=== PATIENT | female | born 1970 | race Caucasian/White ===

== ENCOUNTER 2016-09-08 10:12 | Inpatient (IN) ==
[~2016-09-08 10:12] MED LIST: AMIDATE IV ONE; NORCURON IV ONE; NORCURON ONE; QUELICIN IV ONE; QUELICIN ONE; STERILE WATER INJ. ONE
[2016-09-08] MEDS ORDERED: DIPRIVAN 1% 1,000 MG/100 ML BOTTLE IV SCH (10:36)
[2016-09-08 10:43] LABS: ALLEN TEST YES; BE -8.5 mmoll (-3.0-3.0); BLOOD TYPE ARTERIAL; DRAW SITE R RADIAL; METHB 1.5 % (0.0-1.5); O2(CT) 14.2 mL/dL (15.0-23.0); PCO2(98.6) 36 mmHg (35-45); PO2(98.6) 95 mmHg (60-100); SAMPLE BLOOD; SAO2 98.3 % (95.0-100.0); THB 10.6 g/dL (11.5-17.4); pH(98.6) 7.29 (7.35-7.45)
[2016-09-08 10:47] LABS: MODALITY PRB
[2016-09-08] MEDS: DIPRIVAN 1% 1,000 MG/100 ML BOTTLE IV SCH ×2 (11:48→20:58)
[2016-09-08] MEDS ORDERED: CLINDAMYCIN 900 MG/NS 900 MG/50 ML IVPB IV ONE (11:57)
--- NOTE | 2016-09-08 12:39 | Diag Imaging Result Document ---
PROCEDURE NAME: CHEST-PORTABLE - 09/08/2016 PORTABLE CHEST: No comparison exam. FINDINGS: There is an endotracheal tube with its tip approximately 1 cm above the isac. There is cardiomegaly. There is a prosthetic heart valve. There are bilateral infiltrates which are most prominent at the perihilar regions. There is no substantial pleural effusion, or pneumothorax identified. IMPRESSION: 1. Tip of endotracheal tube approximately 1 cm above the isac. 2. Cardiomegaly with apparent mild pulmonary edema/congestive heart failure.
--- NOTE | 2016-09-08 13:17 | Diag Imaging Result Document ---
PROCEDURE NAME: HEAD W/O CONTRAST - 09/08/2016 CT HEAD WITHOUT CONTRAST: TECHNIQUE: Dose-reduction protocol was used. COMPARISON: Compared with August 26, 2009. FINDINGS: There are postsurgical changes of left craniotomy similar to previous exam. There is encephalomalacia at the left temporal region which appears stable and is compatible with postsurgical change. There is an old lacunar infarct at the left inferior basal ganglia region. There is no indication of recent infarct, although acute infarcts may not be immediately visible. There is no evidence of intracranial hemorrhage, mass effect, or midline shift. The visualized portions of the paranasal sinuses appear clear. IMPRESSION: 1. Stable exam compared to August 26, 2009. Postsurgical changes of left craniotomy. Old lacunar infarct in left inferior basal ganglia region. 2. No visible acute process. No hemorrhage or mass effect. [facility]
[2016-09-08 14:04] LABS: BASO% 0.2 % (0.0-0.8); HEMATOCRIT 31.3 % (37.0-47.0); HEMOGLOBIN 10.4 g/dL (12.0-16.0); IMM GRAN# 0.14 X1000 (0.0-0.04); IMM GRAN% 0.6 % (0.0-0.5); LYMPH# 2.02 X1000 (1.2-3.4); LYMPH% 8.1 % (20.5-51.1); MANUAL DIFF NEEDED? NO; MCH 33.2 PG (27-31); MCHC 33.2 g/dL (33-37); MONO% 4.8 % (1.7-9.3); MPV 10.8 FL (7.4-10.4); NEUT% 86.3 % (42.2-75.2); PLT 59 X1000 (130-400); RBC 3.13 XMIL (4.2-5.4)
[2016-09-08 14:26] LABS: ALBUMIN 3.5 g/dL (3.5-5.0); CALCIUM 8.3 mg/dL (8.8-10.2); TOTAL BILIRUBIN 0.51 mg/dL (0.20-1.00); TOTAL PROTEIN 7.5 g/dL (6.3-8.3)
[2016-09-08] MEDS ORDERED: KAYEXALATE PR ONE ×2 (14:30→17:47)
[2016-09-08] MEDS ORDERED: NS 1,000 ML IV ONE ×2 (14:33→16:00)
--- NOTE | 2016-09-08 14:37 | PROVIDER DOCUMENTATION ---
This chart was entered by Keren Henderson Scribe, acting as scribe for Wilfrido Lockhart MD. HPI-Respiratory General - General Chief Complaint: Shortness of Breath Stated Complaint: RESPIRATORY DISTRESS Time Seen by Provider: 09/08/16 10:12 Source: family (difficult historians--limited), EMS Unable to obtain history due to:: urgency (intubated) Allergies/Adverse Reactions: Patient Allergies Allergy/AdvReac Type Severity Reaction Status Date / Time No Known Allergies Allergy Verified 09/08/16 14:08 Home Medications: Home Medication List Medication Instructions Recorded Confirmed Last Taken Type ATORVAstatin [Lipitor] 20 mg PO QHS 09/08/16 09/08/16 Unknown History Amitriptyline [Elavil] 50 mg PO HS 09/08/16 09/08/16 Unknown History Baclofen 20 mg PO TID 09/08/16 09/08/16 Unknown History Bisoprolol Fumarate [Zebeta] 10 mg PO HS 09/08/16 09/08/16 Unknown History Diazepam 5 mg PO BID 09/08/16 09/08/16 Unknown History Furosemide [Lasix] 80 mg PO DAILY 09/08/16 09/08/16 Unknown History Gabapentin 800 mg PO BID 09/08/16 09/08/16 Unknown History Hydrocodone/APAP 10 mg/325 mg 1 each PO TID 09/08/16 09/08/16 Unknown History [[place]-10] Levothyroxine [Synthroid] 75 microgm PO DAILY 09/08/16 09/08/16 Unknown History Losartan [Cozaar] 100 mg PO DAILY 09/08/16 09/08/16 Unknown History Niacin 500 mg PO HS 09/08/16 09/08/16 Unknown History Hart[place]-3 Fatty Acids [Hart[place]-3] 2 gm PO BID 09/08/16 09/08/16 Unknown History Pantoprazole [Protonix] 40 mg PO DAILY@0700 09/08/16 09/08/16 Unknown History Umeclidinium/Vilanterol [Anoro 1 puff INH NOW 09/08/16 09/08/16 Unknown History Ellipta 62.5-25 Mcg INH] Vitamin B Complex 1 tab PO DAILY 09/08/16 09/08/16 Unknown History Warfarin [Coumadin] 4 mg PO DAILY 09/08/16 09/08/16 Unknown History - History of Present Illness-Resp Nature of Presenting Problem: 45 yof presents to ed by amb with sob. Family states pt began having difficulty breathing last night and when they checked on her this morning she was foaming at the mouth and worse. Quality of Pain: reports: aching Severity in ED: reports: severe Onset/Duration: reports: last night Timing: reports: getting worse Exposure: reports: unknown cause Cough Quality/Degree: reports: no cough Episode Frequency: no prior episodes Current Respiratory Medication Therapy: Initiated steroid inhaler Modifying Factors: improves with: nothing Associated Symptoms: reports: shortness of breath Review of Systems - Adult - REVIEW OF SYSTEMS - ADULT Constitutional: reports: fever. denies: chills, fatique Eyes: reports: no symptoms reported Ears, Nose, Mouth & Throat: reports: no symptoms reported Cardiovascular: reports: no symptoms reported Respiratory: reports: shortness of breath. denies: cough, wheezing Gastrointestinal: reports: no symptoms reported Genitourinary: reports: no symptoms reported Musculoskeletal: reports: no symptoms reported Integumentary: reports: no symptoms reported Neurological: reports: no symptoms reported Psychiatric: reports: no symptoms reported Endocrine: reports: no symptoms reported Hematologic/Lymphatic: reports: no symptoms reported Allergic/Immunologic: reports: no symptoms reported All Other Systems: Reviewed and Negative Past History - Adult - PAST MEDICAL HISTORY-ADULT Review of Records: reports: Nursing Assessment Review, Medications Reviewed Cardiovascular: reports: 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) Genitourinary: reports: kidney disease (Stage IV) Neurological: reports: CVA (multiple, some hemorrhagic), Seizures/Epilepsy - PRIOR SURGERIES/PROCEDURES Surgical/Procedure History: reports: other (mechanical heart valve replacement, multiple craniotomies, carotid bypass with vein graft) - IMMUNIZATION STATUS Childhood Immunizations: See Nurse Assessment Flu Vaccine: See Nurse Assessment - SOCIAL HISTORY Smoking: cigarettes Living Situation: family Physical Exam-General - PHYSICAL EXAM-ADULT Initial Vital Signs Reviewed: Yes - CONSTITUTIONAL General Appearance: severe distress, obese, lethargic, slow to respond - EYES Eyes: PERRL/EOMI, pink conjunctivae - HEAD, EARS, NOSE, MOUTH & THROAT HENMT: normocephalic/atraumatic, moist mucous membranes, other (increased secretions and drooling) - NECK Neck: non-tender, full range of motion, supple - RESPIRATORY Respiratory: decreased breath sounds, accessory muscle use, rhonchi (left base) - CARDIOVASCULAR Cardiovascular: normal peripheral pulses, regular rate, rhythm, no edema, other (mechanical valve) - GASTROINTESTINAL (ABDOMEN) Abdominal Exam: soft, distended (obese). negative: rebound - LYMPHATIC Lymphatic: no adenopathy. negative: enlargement - MUSCULOSKELETAL Back Exam: normal inspection. negative: ecchymosis Extremity: normal range of motion, no pedal edema - SKIN Integumentary: normal color, normal turgor, warm/dry - NEUROLOGIC Neurologic: other (lethargic but answers some questions, increased drooling-not protecting airway). negative: facial droop, focal weakness - PSYCHIATRIC Psych/Mental Status: disheveled, depressed affect Progress - PLAN OF CARE/RESULTS Progress/Plan/Lab Results: Vital Signs - 8 hr 09/08/16 10:12 09/08/16 10:21 09/08/16 10:30 Temperature 101.3 F H Pulse Rate 105 H 102 H 100 H Respiratory Rate 33 H 31 H 19 Blood Pressure 136/93 124/93 O2 Sat by Pulse Oximetry 95 97 09/08/16 10:45 09/08/16 10:57 09/08/16 11:01 Temperature Pulse Rate 100 H 115 H 117 H Respiratory Rate Blood Pressure 145/99 139/91 O2 Sat by Pulse Oximetry 96 96 96 09/08/16 11:05 09/08/16 11:10 09/08/16 11:14 Temperature Pulse Rate 100 H 101 H 101 H Respiratory Rate 24 Blood Pressure 144/97 159/111 O2 Sat by Pulse Oximetry 92 L 97 96 09/08/16 11:15 09/08/16 11:20 09/08/16 11:26 Temperature Pulse Rate 101 H 101 H Respiratory Rate 23 24 Blood Pressure 147/109 155/118 O2 Sat by Pulse Oximetry 96 96 96 09/08/16 11:37 09/08/16 11:50 09/08/16 11:54 Temperature Pulse Rate 98 H 97 H 98 H Respiratory Rate 28 H 25 H Blood Pressure 161/116 119/99 134/87 O2 Sat by Pulse Oximetry 99 97 89 L 09/08/16 11:56 09/08/16 12:00 09/08/16 12:06 Temperature Pulse Rate 117 H 97 H 96 H Respiratory Rate Blood Pressure 122/89 121/74 136/90 O2 Sat by Pulse Oximetry 97 96 09/08/16 12:10 09/08/16 12:15 09/08/16 12:20 Temperature Pulse Rate 96 H 96 H 96 H Respiratory Rate Blood Pressure 133/90 118/92 131/93 O2 Sat by Pulse Oximetry 97 98 97 09/08/16 12:25 09/08/16 12:30 09/08/16 12:35 Temperature Pulse Rate 96 H 96 H 96 H Respiratory Rate Blood Pressure 132/94 133/92 131/96 O2 Sat by Pulse Oximetry 98 98 98 09/08/16 12:40 09/08/16 12:45 09/08/16 12:51 Temperature Pulse Rate 96 H 96 H 97 H Respiratory Rate Blood Pressure 137/96 140/97 148/97 O2 Sat by Pulse Oximetry 99 99 99 09/08/16 12:55 09/08/16 13:00 09/08/16 13:05 Temperature Pulse Rate 97 H 97 H 97 H Respiratory Rate Blood Pressure 143/98 143/100 145/97 O2 Sat by Pulse Oximetry 97 99 99 09/08/16 13:10 09/08/16 13:15 09/08/16 13:20 Temperature Pulse Rate 97 H 97 H 98 H Respiratory Rate Blood Pressure 143/101 145/98 141/101 O2 Sat by Pulse Oximetry 99 99 100 09/08/16 13:25 09/08/16 13:36 09/08/16 13:46 Temperature Pulse Rate 97 H 98 H 98 H Respiratory Rate Blood Pressure 143/103 147/101 125/95 O2 Sat by Pulse Oximetry 100 100 100 09/08/16 14:03 09/08/16 14:04 09/08/16 14:05 Temperature Pulse Rate 98 H 98 H 98 H Respiratory Rate Blood Pressure 125/95 131/95 130/88 O2 Sat by Pulse Oximetry 100 100 100 09/08/16 14:10 09/08/16 14:15 09/08/16 14:43 Temperature Pulse Rate 99 H 99 H 100 H Respiratory Rate Blood Pressure 129/96 124/103 134/93 O2 Sat by Pulse Oximetry 100 100 100 Laboratory Results - last 24 hr 09/08/16 09/08/16 09/08/16 10:36 10:42 11:00 WBC Cancelled RBC Cancelled Hgb Cancelled Hct Cancelled MCV Cancelled MCH Cancelled MCHC Cancelled RDW Std Deviation Cancelled Plt Count Cancelled MPV Cancelled Immature Gran % (Auto) Cancelled Neut % (Auto) Cancelled Lymph % (Auto) Cancelled [place] % (Auto) Cancelled Eos % (Auto) Cancelled Baso % (Auto) Cancelled Immature Gran # (Auto) Cancelled Neut # (Auto) Cancelled Lymph # (Auto) Cancelled [place] # (Auto) Cancelled Eos # (Auto) Cancelled Baso # (Auto) Cancelled Corrected WBC (Man) Cancelled Specimen Type ARTERIAL Sample Site R RADIAL pH 7.29 L pCO2 36 pO2 95 HCO3 18.3 L Base Excess -8.5 L Oxyhemoglobin 94.5 L ABG O2 Sat (Calculated) 14.2 L ABG O2 Saturation 98.3 ABG Carboxyhemoglobin 2.50 ABG Methemoglobin 1.5 Matt Test YES A-a O2 Difference 288.0 Total Hemoglobin 10.6 L Lactate 2.00 Liter Flow 10.0 Blood Gas Modality PRB FiO2 % 60.0 Sodium Potassium Chloride Carbon Dioxide Anion Gap BUN Creatinine Estimated GFR/1.73 m2 BUN/Creatinine Ratio Glucose Calculated Osmolality Calcium Total Bilirubin AST ALT Alkaline Phosphatase Total Protein Albumin Globulin Albumin/Globulin Ratio Plasma Lactate Cancelled 09/08/16 09/08/16 09/08/16 11:00 13:45 13:45 WBC 24.81 H RBC 3.13 L Hgb 10.4 L Hct 31.3 L MCV 100.0 H MCH 33.2 H MCHC 33.2 RDW Std Deviation 17.0 H Plt Count 59 L MPV 10.8 H Immature Gran % (Auto) 0.6 H Neut % (Auto) 86.3 H Lymph % (Auto) 8.1 L [place] % (Auto) 4.8 Eos % (Auto) 0.0 Baso % (Auto) 0.2 Immature Gran # (Auto) 0.14 H Neut # (Auto) 21.41 H Lymph # (Auto) 2.02 [place] # (Auto) 1.20 H Eos # (Auto) 0.00 Baso # (Auto) 0.04 Corrected WBC (Man) Specimen Type Sample Site pH pCO2 pO2 HCO3 Base Excess Oxyhemoglobin ABG O2 Sat (Calculated) ABG O2 Saturation ABG Carboxyhemoglobin ABG Methemoglobin Matt Test A-a O2 Difference Total Hemoglobin Lactate Liter Flow Blood Gas Modality FiO2 % Sodium Cancelled 135 L Potassium Cancelled 7.1 H* Chloride Cancelled 101 Carbon Dioxide Cancelled 18 L Anion Gap Cancelled 16 BUN Cancelled 57 H Creatinine Cancelled 4.8 H Estimated GFR/1.73 m2 Cancelled 10 BUN/Creatinine Ratio Cancelled 12 Glucose Cancelled 182 H Calculated Osmolality Cancelled 291 Calcium Cancelled 8.3 L Total Bilirubin Cancelled 0.51 AST Cancelled 31 H ALT Cancelled 31 Alkaline Phosphatase Cancelled 102 Total Protein Cancelled 7.5 Albumin Cancelled 3.5 Globulin Cancelled 4.0 Albumin/Globulin Ratio Cancelled 0.9 Plasma Lactate 09/08/16 13:45 WBC RBC Hgb Hct MCV MCH MCHC RDW Std Deviation Plt Count MPV Immature Gran % (Auto) Neut % (Auto) Lymph % (Auto) [place] % (Auto) Eos % (Auto) Baso % (Auto) Immature Gran # (Auto) Neut # (Auto) Lymph # (Auto) [place] # (Auto) Eos # (Auto) Baso # (Auto) Corrected WBC (Man) Specimen Type Sample Site pH pCO2 pO2 HCO3 Base Excess Oxyhemoglobin ABG O2 Sat (Calculated) ABG O2 Saturation ABG Carboxyhemoglobin ABG Methemoglobin Matt Test A-a O2 Difference Total Hemoglobin Lactate Liter Flow Blood Gas Modality FiO2 % Sodium Potassium Chloride Carbon Dioxide Anion Gap BUN Creatinine Estimated GFR/1.73 m2 BUN/Creatinine Ratio Glucose Calculated Osmolality Calcium Total Bilirubin AST ALT Alkaline Phosphatase Total Protein Albumin Globulin Albumin/Globulin Ratio Plasma Lactate 2.6 H Orders Category Date Time Status Dexter Cath Insertion ORDERED Care 09/08/16 14:35 Active NG/OG/Feeding Tube Insertion ORDERED Care 09/08/16 11:55 Active Nursing- MD Consult Request ROUTINE Care 09/08/16 14:33 Active Nursing- MD Consult Request ROUTINE Care 09/08/16 14:37 Active Nursing- MD Consult Request ROUTINE Care 09/08/16 14:38 Active MD [Physician/Provider Consults] Routine Cons 09/08/16 14:36 Ordered MD [Physician/Provider Consults] Routine Cons 09/08/16 14:37 Ordered Physician/Provider Consults Routine Cons 09/08/16 14:32 Ordered CHEST-PORTABLE [RAD] Stat Exams 09/08/16 10:27 Completed HEAD W/O CONTRAST [CT] Stat Exams 09/08/16 10:27 Completed ABG [RESP] Routine Lab 09/08/16 10:36 Completed BLOOD CULTURE [BLDCUL] Stat Lab 09/08/16 11:00 Results CBC WITH ELECTRONIC DIFF [HEME] Stat Lab 09/08/16 13:45 Completed COMPREHENSIVE METABOLIC PANEL [CHEM] Stat Lab 09/08/16 13:45 Completed LACTATE, PLASMA [CHEM] Stat Lab 09/08/16 13:45 Completed PRO B-NATRIURETIC PEPTIDE Stat Lab 09/08/16 13:45 Received PROTIME WITH INR [COAG] Stat Lab 09/08/16 14:41 Uncollected PTT [COAG] Stat Lab 09/08/16 14:41 Uncollected UR CREAT RANDOM [URCHEM] Stat Lab 09/08/16 14:37 Ordered UR SODIUM [URCHEM] Stat Lab 09/08/16 14:37 Ordered UR UREA NITROGEN RANDOM [URCHEM] Stat Lab 09/08/16 14:45 Uncollected urinalysis [URINALYSIS PL W/POSS RFLX CULT] [URINALYSIS Lab 09/08/16 14:37 Ordered ] Stat 0.9% Sodium Chloride Inj [Ns] 1,000 ml Med 09/08/16 14:33 Ordered IV 75 mls/hr 0.9% Sodium Chloride Inj [Ns] 1,000 ml Med 09/08/16 14:33 Ordered IV 999 mls/hr Ceftaroline Fosamil [Teflaro] 600 mg Med 09/08/16 14:45 Ordered 0.9% Sodium Chloride Inj [Ns] 250 ml IV Q12H Clindamycin 900 mg/Ns Med 09/08/16 11:57 Discontinued 900 mg in 50 ml IV NOW Etomidate [Amidate] Med 09/08/16 10:10 Discontinued 20 mg IV NOW ONE Piperacil/Tazobact 3.375 gm/Ns [Zosyn 3.375 gm/Ns] 50 Med 09/08/16 14:45 Ordered ml IV Q6H Propofol [Diprivan 1%] Med 09/08/16 12:00 Active 1,000 mg in 100 ml IV As Directed Sodium Polystyrene [Kayexalate] Med 09/08/16 14:30 Once 30 gm VT NOW ONE Succinylcholine [Quelicin] Med 09/08/16 10:06 Discontinued 200 mg .ROUTE .STK-MED ONE Succinylcholine [Quelicin] Med 09/08/16 10:10 Discontinued 200 mg IV NOW ONE Vecuronium [Norcuron] Med 09/08/16 10:06 Discontinued 10 mg .ROUTE .STK-MED ONE Vecuronium [Norcuron] Med 09/08/16 10:10 Discontinued 10 mg IV NOW ONE Water, Sterile Inj [Sterile Water Inj] Med 09/08/16 10:06 Discontinued 10 ml .ROUTE .STK-MED ONE Although pt was answering questions and following all commands she was very lethargic and did not appear to be maintaining her airway well. The decision to intubate was made shortly after arrival. Prolonged stay in the ER due to difficulty with blood draws. Result Diagrams: 09/08/16 13:45 09/08/16 13:45 - EKG 1 Rate: 100 Rhythm: NSR [place]: normal QRS: normal (prolonged QT) VT Interval: normal ST Wave: non-specific ST changes (flipped lateral T's) - XRAY 1 XRAY Study: Chest Impression: Abnormal XRAY Interpretation: CMG with bilateral infiltrates - CONSULTS/PCP/HOSPITALIST Notification #1 *Consult/PCP/Hospitalist*: Hospitalist Time Discussed: 14:15 Consult Disposition: Will see in ED, Admit Procedures - INTUBATION Time of Intubation: 10:15 Airway Evaluation: Obese, Copious Secretions Intubation Method: orotracheal Equipment: ETT Tube Size (cm): 7.5 Pretreated with 100% Oxygen?: Yes ETT Primary Tube Confirmation: Capnometry CO2 Change, Direct Visualization Intubation Complications: oral-unsuccessful attempt (x2--cords visualized but tube would slide down), vomited (suctioned between intubation attempts) Departure - Departure Time of Disposition Decision: 12:15 DIAGNOSIS: Acute respiratory failure, unspecified whether with hypoxia or hypercapnia Qualifiers: Respiratory failure complication: unspecified whether with hypoxia or hypercapnia Qualified Code(s): J96.00 - Acute respiratory failure, unspecified whether with hypoxia or hypercapnia Aspiration pneumonia of both lungs Qualifiers: Aspiration pneumonia type: unspecified Lung location: unspecified part of lung Qualified Code(s): J69.0 - Pneumonitis due to inhalation of food and vomit Acute renal failure Qualifiers: Acute renal failure type: unspecified Qualified Code(s): N17.9 - Acute kidney failure, unspecified Disposition: ADMITTED INPATIENT 09 Certified Medical Emergency: Emergent Condition: Critical Referrals and Follow-Ups: None,PCP [Primary Care Provider] - - Critical Care Note Total Time (mins): 60 Critical Care Statement: This patient required my direct personal management to treat or rule out processes, the absence of which, could potentiallly result in sudden, clinically significant life or limb threatening deterioration. This chart was documented by the indicated scribe, (Keren Henedrson Scribe) and accurately reflects the services I performed and decisions made by me, Wilfrido Lockhart MD, as attested by the provider's signature.
[2016-09-08 14:39] LABS: POTASSIUM 7.1 mmol/L (3.5-5.1)
[2016-09-08] MEDS ORDERED: HUMULIN R IV ONE ×3 (14:48→20:32)
[2016-09-08] MEDS ORDERED: D50W SYRINGE IV ONE ×3 (14:49→20:31)
[2016-09-08] MEDS ORDERED: SODIUM BICARBONATE 8.4% IV PUSH ONE ×2 (14:50→17:47)
[2016-09-08] MEDS ORDERED: CALCIUM GLUCONATE 1 GM in NS 50 ML IV ONE ×2 (15:00→17:47)
[2016-09-08] MEDS ORDERED: AMIDATE ONE (15:10)
[2016-09-08 15:21] LABS: INR 1.75; PROTIME 19.1 Seconds (9.2-11.7)
[2016-09-08 15:29] LABS: UR CREAT RANDOM 123.2 mg/dL (11-20)
[2016-09-08 15:32] LABS: PTT 55.7 Seconds (22.0-36.0)
[2016-09-08] MEDS ORDERED: HEPARIN ONE (15:55)
[2016-09-08] MEDS ORDERED: ZOFRAN IV PRN (16:44)
[2016-09-08] MEDS ORDERED: NS NEB INH SCH (16:44)
[2016-09-08] MEDS ORDERED: ZOSYN 3.375 GM/NS 3.375 GM/50 ML IVPB IV SCH (17:00)
[2016-09-08] MEDS: NS 1,000 ML IV SCH (17:38)
[2016-09-08] MEDS: PROTONIX IV SCH (17:38)
[2016-09-08 17:47] LABS: ALLEN TEST YES; BE -6.7 mmoll (-3.0-3.0); BLOOD TYPE ARTERIAL; DRAW SITE R RADIAL; METHB 1.3 % (0.0-1.5); MODALITY VENTILATOR; O2(CT) 12.9 mL/dL (15.0-23.0); PCO2(98.6) 34 mmHg (35-45); PO2(98.6) 106 mmHg (60-100); SAMPLE BLOOD; SRATE 16 BPM; THB 9.4 g/dL (11.5-17.4); TVOL 500 mL; pH(98.6) 7.34 (7.35-7.45)
--- NOTE | 2016-09-08 18:13 | Diag Imaging Result Document ---
PROCEDURE NAME: THORAX/ABDOMEN/PELVIS W/O CONT - 09/08/2016 CT OF THE CHEST WITHOUT CONTRAST: FINDINGS: There is an NG tube and an endotracheal tube. Endotracheal tube extends into the orifice of the right mainstem bronchus. The NG tube passes into the stomach. There are pleural fluid collections, mostly on the right. There are extensive dense and the patchy coarse alveolar opacities in the upper lobes bilaterally. To a lesser extent, there are patchy opacities in the lower lobes and a few small nodular and irregular patchy opacities are also present in the right middle lobe. This is much worse than on the previous study of 07/16/2010. Considerable beam hardening artifact is present due to the patient's arms being in the field of view. The regional skeleton appears to be stable. IMPRESSION: 1. Endotracheal tube in the right mainstem bronchus orifice. 2. Extensive patchy pneumonias, particularly in the upper lobes. 3. Pleural effusions, more so on the right than the left. CT UROGRAM WITHOUT CONTRAST: FINDINGS: There is a 15 mm gallstone in the neck of the gallbladder. The gallbladder does not appear to be inflamed. This was not appreciable on 07/16/2010. There are multiple surgical clips present in the right upper quadrant. There are no definite stones or hydronephrotic changes in the kidneys. There is an apparent cyst in the lower pole of the left kidney. The appendix is unremarkable. There is no evidence of bowel obstruction. There is a Dexter catheter in the urinary bladder which is completely decompressed. There is a 2.6 cm left ovarian cyst. There is no evidence of free air or free fluid. IMPRESSION: 1. Cholelithiasis. 2. Left ovarian cysts.
--- NOTE | 2016-09-08 18:17 | HISTORY AND PHYSICAL ---
PRIMARY CARE PROVIDER: No one currently. She did have a superior court justice and lumber kiln operator in [place], with a recent move to [place] 3 weeks ago. CHIEF COMPLAINT: Respiratory distress. HISTORY OF PRESENT ILLNESS: Ms. 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 Recent MVR mechanical valve at [place] 5 years ago, and has also had a brain surgery at the age of 18 that required omentum flap, but family was unsure what this was called. Apparently her who was not at the bedside states that she has been having a couple days of shortness of breath, was worsened last night. Apparently she woke him up this morning, making sounds and foaming at the mouth. She presented via EMS with shortness of breath and when given her acute decline was intubated in the ER. She was found to be febrile, a white count of 24,000, platelet count of 59,000. Her head CT only showed an old left inferior basal ganglia infarct. Her chest x-ray showed CHF with pulmonary edema. She had an elevated lactate. Will admit her to the ICU for further workup. MEDICAL HISTORY: 1. CVA x2, and TIAs. 2. 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 3. Congestive heart failure on Lasix. 4. Seizure disorder. 5. Hypothyroidism. 6. Depression. 7. Hyperlipidemia. 8. Hypertension. 9. COPD, apparently takes oxygen, is supposed to be on 4 L of nasal cannula 24 hours a day but has only been using it at night. 10. GERD. 11. Neuropathy, but no history of diabetes. SURGICAL HISTORY: 1. MVR mechanical valve at [place] 5 years ago. 2. Omentum flap brain surgery, some sort of arterial bypass at the age of 18, but the family is unable to describe what type of surgery it was. SOCIAL HISTORY: Smokes 1 pack per day. Denies alcohol or illicit drug use. Per the family, she just recently moved here from [place] 3 weeks ago and does not have any established physicians. FAMILY HISTORY: Positive for diabetes, hypertension, and coronary artery disease, and she had a grandfather who had colon cancer. REVIEW OF SYSTEMS: Unable to obtain. ALLERGIES: Time this is listed as no known drug allergies, but the mother said that she actually has a latex allergy but is unsure of the symptom or the reaction. HOME MEDICATIONS: Elavil 50 mg p.o. nightly. Lipitor 20 mg p.o. nightly. Baclofen 20 mg p.o. 3 times a day. Zebeta bisoprolol 10 mg p.o. nightly. Diazepam 5 mg p.o. twice daily. Lasix 80 mg p.o. daily. Neurontin 800 mg p.o. twice daily. [place] 10 1 tab p.o. 3 times a day. Synthroid 75 mcg p.o. daily. Cozaar 100 mg p.o. daily. Niacin 500 mg p.o. nightly. [place]-3 2 mg p.o. twice daily. Protonix 40 mg p.o. daily. Anoro Ellipta puffed/inhaled. Vitamin B complex 1 tab p.o. daily. Coumadin 4 mg p.o. nightly. LABORATORY DATA: White blood cells 24,000, hemoglobin 10, hematocrit 31, platelet count 59,000, INR 1.75, PTT 55.7. PH 7.29, pCO2 36, bicarb 18, base excess -8, saturation 94, lactate was 2, this was on partial rebreather prior to intubation, repeat ABGs have been ordered. Sodium 135, potassium 7.1, BUN 57, creatinine 4.8, glucose 182, calcium 8.3, total bilirubin 0.51, AST 31, ALT 31, proBNP greater than 35,000. Serum lactate 2.6. Urinalysis; apparently looks like it was canceled so I have reordered it. She did have urine random creatinine of 123.2, the sodium was 46, the urea nitrogen 517. IMAGING: Head CT: History of left craniotomy, old lacunar infarct in the left inferior basal ganglia region but no acute findings. Chest x-ray: ET tube is a centimeter above the isac, cardiomegaly, mild pulmonary edema suggestive of congestive heart failure. PHYSICAL EXAMINATION: VITAL SIGNS: Temperature 101.3 on admit, heart rate 99, blood pressure 124/103, O2 saturation 100% on mechanical ventilation. GENERAL: Ms. Reyes is 45-year-old, female, currently sedated on mechanical ventilation. HEENT: Atraumatic, normocephalic. Pupils equal, round, reactive to light at 2 mm. Mucous membranes are moist. NECK: No JVD or carotid bruits noted. CARDIOVASCULAR: S1, S2. Tachycardic rate and rhythm. No rubs, gallops, murmurs. PULMONARY: Clear to auscultation. Bilateral breath sounds. Course rhonchi seen in bilateral bases. GI: Soft, positive bowel sounds. EXTREMITIES: Trace edema in the lower extremities. +2 dorsalis radial pulses. SKIN: Warm, dry, intact. ASSESSMENT AND PLAN: 1. Acute hypoxemic respiratory failure with metabolic acidosis. Currently mechanically ventilated. Dr. Nguyen with Pulmonary has been consulted. Continue with Xopenex nebs. Will repeat ABGs now that patient is intubated. Chest x-ray repeat in the morning. Will have CT of the chest, abdomen and pelvis. 2. Acute kidney injury likely secondary to chronic kidney disease but we have no baseline. Apparently she saw a superior court justice when she is in [place]. We will do urine studies, place a Dexter, and strict ins and outs. She will have IV fluids at 75 an hour. 3. History of congestive heart failure but we have no documentation of ejection fraction. She is on Lasix at home but given her lactic acidosis, her elevated white count, her kidney failure, we will go ahead and do IV fluid hydration for now. 4. Anti phospholipid antibody syndrome. She has been on Coumadin since the age of 18. She seems to be subtherapeutic. We will do daily INRs. Currently the Coumadin is on hold. Given her kidney dysfunction and her subtherapeutic INR, curious as to if she is noncompliant with taking her medications. 5. History of cerebrovascular accident and transient ischemic attacks with left craniotomy. Per the mother and father, she has no residuals, she used to have a speech problem but went to therapy for that, no residuals now. The head CT today just showed an old left inferior basal ganglia infarct but nothing new or acute. 6. Hypothyroidism. Continue Synthroid but we will do TSH, T4 in the morning. 7. Chronic obstructive pulmonary disease versus asthma. Apparently she wears oxygen at home. She is supposed to wear it 24 hours a day but only wears 4 L at night. She was followed by a lumber kiln operator in [place]. Pulmonary has been consulted now. 8. No history of diabetes per the family but apparently she has neuropathy. We will check a hemoglobin A1c. 9. Gastroesophageal reflux disease. Continue proton pump inhibitor IV. 10. Depression. 11. Hyperlipidemia. 12. Hypertension. Stable. 13. Seizure disorder. No obvious seizures at this point, but family unsure. 14. Anemia. We will do anemia workup. 15. Acute kidney injury with hyperkalemia. She has had ordered Kayexalate but her potassium level was 7.1 and she is pre-acidotic, so ordered an ampule of bicarbonate, a gram of calcium gluconate, 8 units of IV insulin with a half ampule of D50, and we will be rechecking her potassium level shortly. 16. Tobacco abuse per the family. Will discuss cessation prior to discharge. Dictated by JAVIER Owens for Emilio Heller MD cc: JAVIER Owens MD
--- NOTE | 2016-09-08 18:39 | OPERATIVE NOTE ---
PROCEDURE DATE : 09/08/2016 PREOPERATIVE DIAGNOSES: 1. Phlebosclerosis. 2. Septic-like picture. POSTOPERATIVE DIAGNOSES: 1. Phlebosclerosis. 2. Septic-like picture. PROCEDURE PERFORMED: Ultrasound guided right common femoral triple lumen catheter placement. SURGEON: Dr. Will Ferraro PRODUCE ASSISTANT: None. ANESTHESIA: Local administered by the surgeon. FINDINGS: On ultrasound, the right common femoral vein was of substantial size to accommodate a triple lumen. BRIEF HISTORY: The patient is a 45-year-old female with multiple medical problems, who presented to the ER with a septic-like picture. She had altered mental status and respiratory failure. She was intubated in the ER. They had a difficult time getting IV access. They asked me to place a triple lumen catheter. Her INR was slightly elevated. It was felt that the patient would benefit from a triple lumen catheter. I elected to place it in her groin. We discussed with the family the risks, benefits and alternatives. DESCRIPTION OF PROCEDURE: After informed consent was obtained, the patient stayed in her ER bed, remained intubated. We prepped and draped the right groin in a sterile fashion. We were able to palpate a right femoral artery, but we used ultrasound to identify the vein. Under ultrasound guidance, I was able to cannulate the right common femoral vein, passed a wire easily into the vein, serially dilated it up in the typical Seldinger technique. I transferred the catheter over the wire and secured it in place. All ports were able to aspirate and flush blood easily. We placed a sterile dressing. The patient tolerated the procedure well and remained in the ED after the procedure. cc: Will Ferraro MD
[2016-09-08] MEDS ORDERED: XOPENEX NEB INH SCH (19:30)
[2016-09-08] MEDS ORDERED: TEFLARO 600 MG in NS 250 ML IV SCH (20:00)
[2016-09-08] MEDS ORDERED: ALBUTEROL 0.5% INH CONC FOR HYPERKALEMIA INH ONE (20:32)
[2016-09-08] MEDS: TEFLARO 300 MG in NS 250 ML IV SCH (20:53)
--- NOTE | 2016-09-08 21:24 | CONSULTATION ---
DATE OF CONSULTATION: 09/08/2016 REQUESTING PHYSICIAN: Emilio Heller MD REASON FOR CONSULTATION: Respiratory failure. HISTORY OF PRESENT ILLNESS: Ms. Reyes is a 45-year-old white female, history of antiphospholipid syndrome with hypercoagulopathy, history of ongoing tobacco use, history of COPD, history of chronic renal insufficiency, history of prior strokes and mitral valve replacement, prior history of intubation who has had the majority of her recent medical care in [place]. She is currently residing in [place]. The patient's reports over the last 2-3 days she has become hypersomnolent and spending time in bed, which is not her routine. The patient's went back to check on her and she appeared to be flushed. He went to get dressed and when he returned she was "foaming at the mouth"and was audible gurgling. The patient's called 911. She was brought to the emergency room. The patient's oxygen saturation was in the 80s by his report when the EMS arrived. The patient was intubated and initiated on mechanical ventilation in the emergency room. She had evidence of renal failure and hyperkalemia. Patient previously has had difficulty with her potassium and she was told to stop taking potassium tablets and to avoid bananas. She continues to eat bananas by her 's report. The patient was scheduled to get a sleep study greater than 2 months ago, but she did not go have that study performed. PAST MEDICAL HISTORY/PROBLEM LIST: 1. Antiphospholipid syndrome with histories of strokes at a young age. 2. Status post left carotid endarterectomy with an apparent vein graft taken from the right leg. 3. History of seizure disorder. 4. COPD with ongoing tobacco use. She is not wearing her oxygen continuously as prescribed. 5. Morbid obesity. 6. Possible sleep apnea with noncompliance on recent recommendation to get a sleep study. 7. Chronic renal insufficiency. Her reports she has less than 50% kidney function. 8. Hypertension. 9. Hypothyroidism. 10. Dyslipidemia. 11. History of neuropathy. 12. Status post brain surgery. 13. Status post mechanical valve replacement. SOCIAL HISTORY: No alcohol or drug use. Ongoing daily tobacco use. FAMILY HISTORY: Positive for heart disease. Colon cancer. Diabetes. Hypertension. REVIEW OF SYSTEMS: Cannot be obtained. PHYSICAL EXAMINATION: General: Reveals a morbidly obese, white female, who appears comfortable on mechanical ventilation. Vital signs: Blood pressure 113/75, heart rate 100, respiration rate 22, oxygen saturation 99%. HEENT: Pupils are equal and reactive. Oropharynx evaluation is limited. Neck: Reveals along the scar on the left side of her trachea from her previous vascular surgery. Chest: Reveals diffuse bilateral crackles. Cardiac: Regular rate. Normal S1, normal S2. Mitral valve click is soft. Abdomen: Obese. Extremities: Reveal trace to 1+ edema. LABORATORIES: White blood count 24.8 thousand, hemoglobin 10.4, platelet count is reduced at 59,000. INR is 1.75. Chemistry: Sodium 135, potassium 7.1 with a repeat 5.9, chloride 101, bicarbonate 18, BUN 59, creatinine 4.8, proBNP is greater than 35,000. Arterial blood gas on non- rebreather shows pH 7.29, pCO2 of 36, PO2 of 95, arterial blood gas on mechanical ventilation, pH 7.34, pCO2 of 34, PO2 of 106. IMAGING: CT scan of the abdomen and pelvis, and chest reveals endotracheal tube in the right mainstem bronchus opening, patchy bilateral pneumonia, pleural effusions, right greater than left. The abdomen reveals gallstones in the neck of the bladder without pericholecystic fluid. There is a cyst in the left kidney. There is a 2.6 cm left ovarian cyst. IMPRESSION: A 45-year-old with acute hypoxemic respiratory failure on the background of chronic hypoxemic respiratory failure. Acute hypercapnic respiratory failure most likely on the background of chronic hypercapnic respiratory failure. Bilateral pneumonia. Probable acute on chronic renal failure, hyperkalemia, altered mental status, ongoing tobacco use, noncompliance with recommendations for oxygen therapy, noncompliance with recommendation for sleep study, altered mental status. RECOMMENDATIONS: 1. Continue full ventilatory support. 2. Check sputum, urine and blood for cultures. 3. Nephrology to evaluate. 4. Echocardiogram to evaluate the mitral valve. 5. Routine bronchodilators. 6. Routine gastric acid suppression. 7. Initiation of an anticoagulant when her international normalized ratio is less than 1.5. 8. Additional recommendations pending hospital course. cc: Mack Nguyen MD
[2016-09-08] MEDS: DUONEB (A & A) INH SCH (22:33)
[2016-09-08 23:01] LABS: CALCIUM 7.6 mg/dL (8.8-10.2)
[2016-09-09] MEDS: DIPRIVAN 1% 1,000 MG/100 ML BOTTLE IV SCH ×8 (01:56→20:33)
[2016-09-09 02:16] LABS: URINE SOURCE CATH
[2016-09-09 02:19] LABS: BILIRUBIN URINE NEGATIVE (NEGATIVE); BLOOD URINE MODERATE (NEGATIVE); COLOR YELLOW; GLUCOSE URINE 300 mg/dL (NEGATIVE); LEUKOCYTES URINE TRACE (NEGATIVE); NITRITE URINE NEGATIVE (NEGATIVE); PROTEIN URINE 300 mg/dL (NEGATIVE); SP GRAVITY URINE 1.017; TURBIDITY URINE HAZY (CLEAR); URINE MICRO REVIEW NEEDED? YES; UROBILINOGEN URINE NORMAL (NORMAL)
[2016-09-09 02:23] LABS: UR EPITHELIAL CELLS <10 /HPF (<10); URINE BACTERIA 1+ /HPF; URINE CULTURE NEEDED? YES; URINE RBC <10 /HPF (<10)
[2016-09-09 02:34] LABS: HEMOGLOBIN A1C 6.4 % (4.8-6.0)
[2016-09-09] MEDS: ZOSYN 2.25 GM/NS 2.25 GM/50 ML IVPB IV SCH ×3 (02:37→15:22)
[2016-09-09 04:28] LABS: ALLEN TEST YES; BE -6.6 mmoll (-3.0-3.0); BLOOD TYPE ARTERIAL; DRAW SITE R RADIAL; METHB 1.6 % (0.0-1.5); O2(CT) 12.6 mL/dL (15.0-23.0); PCO2(98.6) 38 mmHg (35-45); PO2(98.6) 100 mmHg (60-100); SAMPLE BLOOD; SAO2 98.5 % (95.0-100.0); SRATE 16 BPM; THB 9.3 g/dL (11.5-17.4); TVOL 500 mL; pH(98.6) 7.31 (7.35-7.45)
[2016-09-09 04:29] LABS: MODALITY VENTILATOR
[2016-09-09] MEDS: PROTONIX IV SCH ×2 (04:29→16:22)
[2016-09-09] MEDS: NS 1,000 ML IV SCH ×2 (04:30→19:00)
[2016-09-09] MEDS: SODIUM CHLORIDE 0.9% INJ SCH ×2 (04:30→16:22)
[2016-09-09 04:44] LABS: MANUAL DIFF NEEDED? NO
[2016-09-09 04:51] LABS: BASO% 0.1 % (0.0-0.8); EOS# 0.03 X1000 (0.0-0.7); EOS% 0.2 % (0.0-10.0); HEMATOCRIT 23.3 % (37.0-47.0); HEMOGLOBIN 7.6 g/dL (12.0-16.0); IMM GRAN# 0.06 X1000 (0.0-0.04); IMM GRAN% 0.4 % (0.0-0.5); LYMPH# 1.75 X1000 (1.2-3.4); LYMPH% 11.3 % (20.5-51.1); MCH 33.3 PG (27-31); MCHC 32.6 g/dL (33-37); MCV 102.2 FL (81-99); MONO% 5.8 % (1.7-9.3); NEUT% 82.2 % (42.2-75.2); PLT 56 X1000 (130-400); RBC 2.28 XMIL (4.2-5.4)
[2016-09-09 05:01] LABS: INR 1.91; PROTIME 20.9 Seconds (9.2-11.7); PTT 41.2 Seconds (22.0-36.0)
[2016-09-09 05:32] LABS: FREE T4 0.75 ng/dL (0.93-1.70)
[2016-09-09 05:41] LABS: ALBUMIN 2.7 g/dL (3.5-5.0); MAGNESIUM 1.3 mg/dL (1.5-2.7); POTASSIUM 4.6 mmol/L (3.5-5.1); TOTAL BILIRUBIN 0.53 mg/dL (0.20-1.00); TOTAL PROTEIN 5.8 g/dL (6.3-8.3)
[2016-09-09] MEDS: SYNTHROID IV SCH (06:45)
[2016-09-09] MEDS: SODIUM CHLORIDE 0.9% INJ PRN (06:45)
[2016-09-09] MEDS: DUONEB (A & A) INH SCH ×6 (07:37→22:39)
--- NOTE | 2016-09-09 07:41 | EKG Report ---
Test Performed on : 09/09/2016 06:43:15 AM Test Reason : chest pain Blood Pressure : / mmHG Vent. Rate : 102 BPM Atrial Rate : 102 BPM P-R Int : 120 ms QRS Dur : 086 ms QT Int : 428 ms P-R-T Axes : 027 -08 236 degrees QTc Int : [address] \T\ Marked T wave abnormality, consider anterolateral ischemia Prolonged QT Abnormal ECG When compared with ECG of 08-SEP-2016 10:37, (Unconfirmed) Inverted T waves have replaced nonspecific T wave abnormality in Inferior leads T wave inversion more evident in Lateral leads QT has lengthened Confirmed by Aidan COUCH, Tre Weathers ([id number]) on 09/09/2016 9:37:57 AM
--- NOTE | 2016-09-09 08:10 | Diag Imaging Result Document ---
PROCEDURE NAME: CHEST-PORTABLE - 09/09/2016 ERECT AP PORTABLE CHEST, 09/09/2016 AT 0525 HOURS: FINDINGS: There is an endotracheal tube with its tip just above the isac. There is an NG tube which passes below the diaphragm. There has been some improvement in the alveolar opacities in the upper lung zones since 09/08/2016. There has been worsening with respect to the right lower lobe however. IMPRESSION: Improved pulmonary edema in the upper lung zones. The possibility of pneumonia in the right lower lobe cannot be excluded.
[2016-09-09] MEDS: TEFLARO 300 MG in NS 250 ML IV SCH ×2 (08:14→20:33)
[2016-09-09 09:41] LABS: CK INDEX 2.6 (0.0-2.5); CK-MB 5.24 ng/mL (0.0-5.0)
[2016-09-09 10:01] LABS: URINE SOURCE CATH
[2016-09-09 10:13] LABS: BILIRUBIN URINE NEGATIVE (NEGATIVE); BLOOD URINE MODERATE (NEGATIVE); COLOR YELLOW; GLUCOSE URINE 150 mg/dL (NEGATIVE); LEUKOCYTES URINE NEGATIVE (NEGATIVE); NITRITE URINE NEGATIVE (NEGATIVE); PROTEIN URINE 300 mg/dL (NEGATIVE); SP GRAVITY URINE 1.015; TURBIDITY URINE HAZY (CLEAR); UROBILINOGEN URINE NORMAL (NORMAL)
[2016-09-09 10:14] LABS: URINE MICRO REVIEW NEEDED? YES
[2016-09-09 10:16] LABS: UR EPITHELIAL CELLS <10 /HPF (<10); URINE BACTERIA NEGATIVE /HPF; URINE RBC <10 /HPF (<10)
[2016-09-09 10:49] LABS: HEMATOCRIT 21.7 % (37.0-47.0)
--- NOTE | 2016-09-09 10:51 | EKG Report ---
Test Performed on : 09/08/2016 10:37:24 AM Test Reason : ED. Not ordered in [place] Blood Pressure : / mmHG Vent. Rate : 100 BPM Atrial Rate : 100 BPM P-R Int : 134 ms QRS Dur : 094 ms QT Int : 390 ms P-R-T Axes : 049 013 -80 degrees QTc Int : 503 ms Normal sinus rhythm. ST \T\ T wave abnormality, consider anterolateral ischemia Prolonged QT Abnormal ECG When compared with ECG of 08-SEP-2016 10:33, (Unconfirmed) Sinus rhythm. has replaced Junctional rhythm. Questionable change in QRS duration Unconfirmed Result
[2016-09-09 10:52] LABS: URINE CASTS GRANULAR PRESENT
[2016-09-09 12:07] LABS: UR CREAT RANDOM 87.3 mg/dL (11-20); UR PROT RANDOM 380.6 mg/dL
--- NOTE | 2016-09-09 12:35 | CONSULTATION ---
DATE OF CONSULTATION: 09/09/2016 REASON FOR CONSULTATION: Renal failure. HISTORY OF PRESENT ILLNESS: Ms. Reyes is a 45-year-old white female with a complicated history. She has recently moved to the area and so we have no old data. She has a history of antiphospholipid syndrome and a history of strokes. She also has a history of COPD, obstructive sleep apnea, obesity, chronic kidney disease, hypothyroidism. She presented to the emergency room with 2-3 days of being hypersomnolent and difficult to arouse. Notes state that she became flushed and then "foaming at the mouth." She was therefore transferred to the emergency room where she was hypoxemic on arrival and treated with intubation. She was evaluated by Dr. Nguyen as well as Dr. Heller and was diagnosed with respiratory failure, hypercapnic with bilateral pneumonia. She had evidence of kidney disease on admission but again, we are not aware of her baseline. She has been treated aggressively with antibiotics and pulmonary toilet and ventilator support. In this context, she has not experienced hypotension and has continued to make urine. She has not had IV contrast administered because of her kidney disease. PAST MEDICAL HISTORY: As above. HOME MEDICATIONS: Include furosemide, niacin, hydrocodone, vitamin B complex, levothyroxine, bisoprolol, omega-3, gabapentin, baclofen, warfarin, diazepam, pantoprazole, Anoro Ellipta, losartan, amitriptyline, atorvastatin. ALLERGIES: None. SOCIAL HISTORY: She is . Ongoing tobacco use. No alcohol. FAMILY HISTORY: Positive for heart disease, colon cancer, diabetes, hypertension. PHYSICAL EXAMINATION: Vital Signs: Blood pressure 125/77, heart rate 102, respirations 22, afebrile, T-max 99.6 degrees. General: She is an obese, white female, sedated on the ventilator, no acute distress. Skin: Warm and dry. HEENT: Conjunctivae are pink and moist. Pupils are approximately 4 mm and symmetrical and reactive. Oropharynx is moist. Neck: Neck veins are not visible. There is a surgical scar on the left neck. Trachea is midline. Heart: Regular without murmurs or gallops or rubs. Lungs: Have equal breath sounds. No crackles or wheezes. Abdomen: Obese and soft. Bowel sounds are present. Extremities: Have no edema. There is a scar on the right lower leg. No clubbing or cyanosis. LABORATORY DATA: Sodium 146, potassium 4.6, chloride 108, bicarbonate 18, BUN 63, creatinine 5.3. Hemoglobin 7.6, platelet count 56,000, white blood cell count 14.5. Urinalysis with 300 protein, 300 glucose, moderate blood, less than 10 red blood cells. IMPRESSION: Renal failure. Chronicity is not clear. Her labs have not worsened significantly since admission. Urine output has remained good. We will try to obtain old lab data to build a history. Will complete her evaluation with complements, CHARLI, CK, LDH, urine protein, etc. Will repeat renal ultrasound for kidney measurements. cc: Adam Fritz MD
--- NOTE | 2016-09-09 13:57 | Diag Imaging Result Document ---
PROCEDURE NAME: US RENAL 2 (RETROPER) COMPLETE - 09/09/2016 COMPARISON: None available. FINDINGS: There are couple small simple appearing renal cysts on the left measuring up to 2.4 cm in the greatest dimension. The kidneys are grossly normal in echotexture, otherwise, with no discrete solid renal mass or hydronephrosis identified. The right kidney measures 10.5 cm and the left kidney measures 11.5 cm in the greatest longitudinal axes. The right renal cortex measures up to 1 cm and the left renal cortex measures up to 1.2 cm in thickness. There is a Dexter catheter in the urinary bladder. The bladder is nondistended. Incidentally, shadowing stones are noted in the gallbladder lumen with no definite wall thickening or pericholecystic fluid. IMPRESSION: 1. A couple small left renal cyst but essentially unremarkable renal ultrasound , otherwise. 2. Incidental cholelithiasis. [facility]
[2016-09-09] MEDS ORDERED: VENOFER IV ONE (14:07)
--- NOTE | 2016-09-09 14:21 | PROGRESS NOTE ---
DATE: 09/09/2016 SUBJECTIVE: Patient is sedated and intubated. OBJECTIVE: Vitals: Temperature 98.6 degrees, heart rate 99, respiratory rate 20, blood pressure 122/78. O2 saturation 100% on mechanical ventilator. General Examination: This is a chronically ill-looking and frail 45-year-old female lying in bed, in no acute distress. HEENT: Head is normocephalic, atraumatic. Anicteric sclerae. Pale conjunctivae. Mucous membranes moist. Neck: Supple. No jugular venous distention noted. No carotid bruits. No lymphadenopathy. No thyromegaly. Cardiovascular Examination: S1, S2 heard. No murmurs, gallops, or rubs. Regular rate and rhythm. Respiratory Examination: Coarse breath sounds present in both bases. The patient is intubated. The patient is not using any accessory muscles or having work of breathing. Abdomen: Soft, nontender to palpation. Bowel sounds present. No organomegaly. Extremities: No clubbing or cyanosis. Mild trace edema in both lower extremities. Peripheral pulses present but distant. Neurological examination: It is not possible to evaluate because of the clinical situation of the patient. LABORATORY DATA: White cell count 15.46, hemoglobin 7.6, hematocrit 23.3, platelets 56,000. ESR 127. ABG shows pH 7.31, pCO2 38, pO2 100. Sodium 143, potassium 4.6, chloride 108, bicarbonate 18, BUN 63, creatinine 5.3. GFR 9, calcium 8.6. Magnesium 1.3, phosphorus 5.4. ASSESSMENT AND PLAN: 1. Acute hypoxemic respiratory failure on ventilator. The patient FiO2 today is 50% and although the ABG looks the same today, pulmonary, who is following this patient, is not planning to do any weaning trial today. We will continue with the same management. 2. Bilateral pneumonia. Patient is on broad-spectrum antibiotics with sertraline and vancomycin. We are going to continue with the same management. The patient is also receiving nebulization with DuoNeb. 3. Acute on chronic kidney disease. We do not have any creatinine baseline because this patient came from [place] recently. We have consulted nephrology. Will go from there. 4. History of congestive heart failure. At this point, we do not have any documentation of ejection fraction. Considering that this patient is in the intensive care unit, we prefer to evaluated and order an echo at this time. We will follow recommendations. Will follow that result later. 5. Antiphospholipid antibody syndrome. Patient has been Coumadin by now. We have hold that medication considering that the hemoglobin is dropping. 6. Anemia, multifactorial. Hemoglobin continues to drop. At this point, we are going to order 2 units of blood and consult GI just in case gastrointestinal bleeding may explain this finding. At admission the hemoglobin was 10.4 and today is 7.0. 7. History of cerebrovascular accident. Aware of that. 8. Hypothyroidism. Will continue with Synthroid. 9. Chronic obstructive pulmonary disease. We will continue with nebulizations. 10. Depression, aware. 11. Hyperlipidemia. We will continue with home medications. 12. Hypertension. Blood pressure is under control. 13. Seizure disorder. Family is not sure about these finding. 14. Acute kidney injury. 15. Hyperkalemia. At this point, the potassium has been controlled and we mentioned consult Dr. Fritz for management of this condition. cc: Emilio Heller MD
[2016-09-09 16:37] LABS: HEMATOCRIT 22.1 % (37.0-47.0); INR 1.75; PTT 48.2 Seconds (22.0-36.0)
[2016-09-09] MEDS ORDERED: HEPARIN 25,000 UNITS/D5W 25,000 UNIT/250 ML IV.SOLN IV SCH (17:00)
[2016-09-09] MEDS ORDERED: MAGNESIUM SULFATE 2 GM/S.W.I. 2 GM/50 ML IVPB IV ONE (17:35)
[2016-09-10] MEDS: ZOSYN 2.25 GM/NS 2.25 GM/50 ML IVPB IV SCH ×4 (00:08→23:15)
[2016-09-10] MEDS: DIPRIVAN 1% 1,000 MG/100 ML BOTTLE IV SCH ×7 (01:08→20:54)
[2016-09-10] MEDS: DUONEB (A & A) INH SCH ×6 (02:56→23:00)
[2016-09-10] MEDS: PROTONIX IV SCH ×2 (04:09→16:00)
[2016-09-10 04:24] LABS: ALLEN TEST YES; BE -8.4 mmoll (-3.0-3.0); BLOOD TYPE ARTERIAL; DRAW SITE R RADIAL; METHB 1.5 % (0.0-1.5); O2(CT) 15.3 mL/dL (15.0-23.0); PCO2(98.6) 42 mmHg (35-45); PO2(98.6) 118 mmHg (60-100); SAMPLE BLOOD; SAO2 99.5 % (95.0-100.0); SRATE 16 BPM; THB 11.3 g/dL (11.5-17.4); TVOL 500 mL; pH(98.6) 7.25 (7.35-7.45)
[2016-09-10 04:25] LABS: MODALITY VENTILATOR
[2016-09-10 05:05] LABS: INR 1.73; PROTIME 18.8 Seconds (9.2-11.7)
[2016-09-10] MEDS: SYNTHROID IV SCH (06:30)
--- NOTE | 2016-09-10 07:34 | Diag Imaging Result Document ---
PROCEDURE NAME: CHEST-PORTABLE - 09/10/2016 SINGLE FRONTAL RADIOGRAPH OF THE CHEST: COMPARISON: 09/09/2016. FINDINGS: ET tube is in stable position. NG tube projects below the diaphragm and out of the field of view. Inspiration is suboptimal. Bilateral infiltrates most compatible with pulmonary edema are essentially stable. Pulmonary venous congestion is approximately stable. No new consolidations identified. Cardiac silhouette is stable. IMPRESSION: Stable chest.
[2016-09-10] MEDS: HEPARIN 25,000 UNITS/D5W 25,000 UNIT/250 ML IV.SOLN IV SCH ×2 (08:15→23:13)
[2016-09-10 08:20] LABS: MANUAL DIFF NEEDED? NO
[2016-09-10 08:35] LABS: BASO% 0.2 % (0.0-0.8); EOS% 3.5 % (0.0-10.0); HEMATOCRIT 23.6 % (37.0-47.0); HEMOGLOBIN 7.7 g/dL (12.0-16.0); IMM GRAN# 0.07 X1000 (0.0-0.04); IMM GRAN% 0.6 % (0.0-0.5); LYMPH% 12.1 % (20.5-51.1); MCH 32.8 PG (27-31); MCHC 32.6 g/dL (33-37); MCV 100.4 FL (81-99); MONO# 0.63 X1000 (0.11-0.59); MONO% 5.5 % (1.7-9.3); MPV 11.3 FL (7.4-10.4); NEUT% 78.1 % (42.2-75.2); PLT 57 X1000 (130-400); RBC 2.35 XMIL (4.2-5.4)
[2016-09-10 08:39] LABS: ALBUMIN 2.2 g/dL (3.5-5.0); CALCIUM 7.5 mg/dL (8.8-10.2); POTASSIUM 4.9 mmol/L (3.5-5.1)
[2016-09-10] MEDS ORDERED: VANCOMYCIN 1 GM/NS 1 GM/250 ML IVPB IV ONE (09:25)
[2016-09-10] MEDS: TEFLARO 300 MG in NS 250 ML IV SCH ×2 (10:06→20:54)
--- NOTE | 2016-09-10 10:39 | CONSULTATION ---
DATE OF CONSULTATION: 09/09/2016 ADMITTING PHYSICIAN: Dr. Emilio Heller. REQUESTING PHYSICIAN: Dr. Emilio Heller. We appreciate this consult. CHIEF COMPLAINT: Antiphospholipid antibody syndrome. HISTORY OF PRESENT ILLNESS: Ms. Reyes is an, unfortunate, 45-year-old, female with a history of antiphospholipid syndrome. She has been taking Coumadin since the age of 18. She does have a history of TIAs and significant stroke with no residual deficit. The patient had a recent MVR at [place] as well as brain surgery at the age of 18 that required an omentum flap. The patient's reported that the patient had been having a few days of shortness of breath that worsened the night before admission. He reported that she woke up making sounds and foaming at the mouth. She presented to [facility] Emergency Department via EMS with shortness of breath and in respiratory failure. She was emergently intubated in the Emergency Room. Additionally, she was found to be febrile with a white blood cell count of 24,000 and a platelet count of 59,000. CT of the head was obtained which revealed an old left inferior basal ganglia infarct. Chest x-ray showed congestive heart failure with pulmonary edema. Additionally, the patient had an elevated lactate. She was admitted to ICU, intubated on the ventilator for further workup. We are consulted for the patient's history of antiphospholipid antibody syndrome and the need for anticoagulation in the presence of a platelet count of 59,000. PAST MEDICAL HISTORY: 1. Known strokes x2. 2. Multiple transient ischemic attacks. 3. Antiphospholipid antibody syndrome, on Coumadin since the age of 18. 4. Congestive heart failure. 5. Seizure disorder. 6. Hypothyroidism. 7. Depression. 8. Hyperlipidemia. 9. Hypertension. 10. Chronic obstructive pulmonary disease, on home 02. 11. Gastroesophageal reflux disease. 12. Neuropathy. PAST SURGICAL HISTORY: 1. MVR 5 years ago. 2. Omentum flap brain surgery at the age of 18. SOCIAL HISTORY: The patient smokes 1 pack of cigarettes daily. She does not use alcohol or illicit drugs. The patient just moved to [place] 3 weeks ago from [place] and has not established primary care physician or hr leader at this time. FAMILY HISTORY: Significant for diabetes, hypertension, and coronary artery disease. She has a grandfather with a history of colon cancer. No other hematologic or oncologic problem. MEDICATIONS ON ADMISSION: 1. Elavil. 2. Lipitor. 3. Baclofen. 4. Zebeta bisoprolol. 5. Diazepam. 6. Lasix. 7. Neurontin. 8. [place]. 9. Synthroid. 10. Cozaar. 11. Niacin. 12. Villanueva. 13. Protonix. 14. Anoro Ellipta inhalation. 15. Vitamin B complex. 16. Coumadin 4 mg daily. ALLERGIES: Latex. REVIEW OF SYSTEMS: A 14-point review of systems was attempted and is unable to be obtained as the patient is intubated and presently minimally responsive. PHYSICAL EXAMINATION: General: Ms. Reyes is a 45-year-old, female, lying supine in bed, intubated on the ventilator, and minimally responsive. Vital Signs: Temperature 99.2 degrees, blood pressure 106/65, heart rate 111, respirations 24, O2 saturation is 95% on the ventilator. HEENT: Normocephalic, atraumatic. Mucous membranes are pale and moist. Sclerae is anicteric. Extraocular movements intact. Neck: Supple. Lungs: With coarse breath sounds throughout. Chest expansion is equal bilaterally. CV: S1, S2 is heard without murmur, rub, or gallop. Abdomen: Soft, nondistended, nontender. Bowel sounds are decreased throughout. Extremities: Without clubbing or cyanosis. She does have 1+ bilateral lower extremity edema. Dermatologic: No rashes, bruises, or lesions. Neurologic: The patient does withdraw to pain. She is currently intubated on the ventilator and nonverbal. LABORATORY DATA: Hemoglobin 7.6, hematocrit 23.3, white blood cell count 15.46, platelets 56,000. ANC 12.70. PT of 20.9, INR of 1.91. PTT is 41.2, sodium 146, potassium 4.6, chloride 108. CO2 is 18. BUN 63, creatinine 5.3, glucose is 250, calcium 8.0, phosphorus 5.4, magnesium 1.3, iron saturation 7, TIBC is 192, LFTs are within normal limits. B12 of 753. Folate 13.6, TSH is 0.65. UA is positive for UTI. ASSESSMENT AND PLAN: 1. Antiphospholipid antibody syndrome on chronic Coumadin therapy since the age of 18. The patient does currently have a platelet count of 56,000. After discussion with Dr. Anguiano, the patient will be placed on a heparin drip with no bolus. Additionally, we will order a cardiolipin antibody and antiphospholipid antibody. 2. Acute kidney insufficiency on chronic kidney disease. We agree with gentle hydration at this time. 3. History of stroke and transient ischemic attacks. The patient did undergo CT of the head, which was negative for any acute abnormality. We will obtain MRI of the brain when the patient is off the ventilator to rule out further stroke. 4. Congestive heart failure, currently stable. 5. Chronic obstructive pulmonary disease. The patient is currently intubated on the ventilator secondary to acute respiratory failure. 6. Diabetes mellitus, type 2. Currently, on insulin and stable. 7. Seizure disorder. The patient is on no antiepileptic drug at this time. She has had no recent seizures. We will follow along. 8. Iron-deficiency anemia. The patient will be given Venofer 200 mg today and 200 mg tomorrow as the patient is intubated on the ventilator and unable to take p.o. medication. 9. We will follow along with you and make further recommendations pending outcomes. The above reflects the history, physical, assessment and plan of Dr. Boris Anguiano. Dictated by JAVIER Howard for Boris Anguiano MD cc: JAVIER Howard MD
--- NOTE | 2016-09-10 10:52 | PROGRESS NOTE ---
DATE: 09/10/2016 SUBJECTIVE: This patient is still on mechanical ventilation and sedated. No acute events overnight. Even though she has been getting fluids, the BUN and creatinine are about the same. Actually, the creatinine increased from 5.3 to 5.6. Nephrology department is on board. We do not have any baseline or records of this patient at this moment. OBJECTIVE: Vital Signs: Temperature 96.8 degrees, pulse 96, respiratory rate 16, blood pressure 113/74, oxygen saturation 99 on mechanical vent. HEENT: Head normocephalic. No trauma. PERRLA. Neck: Supple. No JVD. No masses. Central trachea. Chest: Coarse breath sounds, mostly at the bases. No wheezing. Decreased air entry at the bases as well. The patient is intubated. Abdomen: Soft, nondistended. Positive bowel sounds. No organomegaly. Cardiovascular: RRR. No murmurs. Extremities: No clubbing. No cyanosis. No edema. Neurological: This patient is still on sedation and intubated. LABORATORY: WBC 11.5, hemoglobin 7.7, hematocrit 23.6, platelet 57,000. Sodium 144, potassium 4.9, chloride 108, bicarbonate 16, BUN 61, creatinine 5.6, glucose 128, calcium 7.5. ASSESSMENT AND PLAN: 1. Acute hypoxemic respiratory failure, on mechanical ventilation. Pulmonary department is following this patient. We will continue following their recommendations. 2. Bilateral pneumonia. This patient is on broad-spectrum antibiotics. Will continue with the same management. 3. Chronic kidney disease. We do not have a baseline on this patient. This patient apparently is coming from [place]. Nephrology is on board. The urine output is not adequate. 4. History of congestive heart failure. Also with this we do not have any documentation of the ejection fraction. We ordered already an echocardiogram, pending the results. 5. Antiphospholipid syndrome. This patient has been on Coumadin. We held the Coumadin and now hematology/oncology is following this patient. She is on a heparin drip. At this moment. 6. Anemia, status post 1 packed red blood cell. The hemoglobin increased from 7 to 7.7. Will continue to monitor. 7. History of cerebrovascular accident. Will continue with the same management. 8. Hypothyroidism. Continue with Synthroid. 9. Chronic obstructive pulmonary disease. Will continue with nebulization. 10. Depression. Aware. 11. Hyperlipidemia. Continue with home medication. 12. Hypertension. Blood pressure is under control. 13. Seizure disorder. Family is not sure about this finding as per our records and no family members are at the bedside. CRITICAL CARE TIME: 40 minutes. cc: Wild Palmer MD
[2016-09-10] MEDS: SODIUM BICARBONATE 8.4% 100 MEQ in D5W 1,000 ML IV SCH (11:03)
[2016-09-10] MEDS ORDERED: VENOFER IV ONE (14:08)
--- NOTE | 2016-09-10 14:40 | ECHO REPORT ---
ORDER DATE: 09/09/2016 INDICATION: CHF. Pulmonary edema. History of mechanical mitral valve. FINDINGS: This is a difficult study. The patient is 5 foot 3, weighs 241 pounds. These are difficult images with some off axis images 1. The right atrium is mildly enlarged at 4.2 cm. 2. Mild tricuspid regurgitation. Suggestion of pulmonary hypertension with an RV systolic pressure of 63. 3. Right ventricle was somewhat difficult to visualize. There is no clear evidence of abnormalities. There does appear to be normal RV systolic function. 4. Trace pulmonic insufficiency. 5. Mild left atrial enlargement at 4.5 cm. However visualization of the left atrium is difficult due to interference from mechanical valve. 6. There is a well-seated mechanical prosthetic in the mitral position. There does appear to be a significant amount of annular calcification associated with this. I do not see any clear evidence of perivalvular leak. The gradients across the valve are a peak of 31 with a mean of 17. I have no previous studies to compare this to. 7. Left ventricle appears to be normal in size. There is mild bordering on moderate left ventricular hypertrophy with a posterior and interventricular septal wall thickness 1.3 and 1.5 cm respectively. I believe there is likely normal LV systolic function with an estimated EF around 55%. I do not see any obvious focal segmental wall motion abnormalities but again this is a difficult study with off axis images. 8. Aortic valve appears to open well. No clear evidence of any significant stenosis or insufficiency. 9. Aorta appears normal visualized segments. 10. No pericardial effusion identified. cc: MD Stephanie Pacheco CRNP
--- NOTE | 2016-09-10 14:57 | PROGRESS NOTE ---
DATE: 09/10/2016 TIME SEEN: 0740 SUBJECTIVE: Ms. Reyes is resting quietly. She is sedated. She is ventilator dependent. OBJECTIVE: Her most recent vital signs: Temperature last taken 96.8 degrees, blood pressure 119/70, heart rate 103, respirations 16. She is on 40% FiO2. Last recorded saturation was 100%. Intake was 3773. Output was 2393 and 320 of that was per NG tube. LABORATORY DATA: This a.m., sodium 144, potassium 4.9, chloride 108, CO2 of 16 , BUN 61, creatinine 5.6, glucose 128. Anion gap is 20. Calcium 7.5, phosphorus 5.7, albumin 2.2. SPEP shows no monoclonal bands identified. CHARLI was negative. ANCA is still pending. White count 11.53, hemoglobin 7.7, hematocrit 23.6, with a platelet count of 57,000. PHYSICAL EXAMINATION: General: This is a 45-year-old white female. She appears chronically ill. She is in no acute distress. She is resting quietly, ventilator dependent. Skin: Warm and dry. HEENT: Normocephalic, atraumatic. Conjunctivae pale. She has DIONNE. Mucous membranes are dry. Neck: Supple. Trachea midline. Unable to determine JVD. Cardiovascular: Regular rate and rhythm. She is without murmur or gallop. She is slightly tachycardic on the monitor. No ectopy noted. Lungs: Diminished breath sounds. Clear to auscultation anteriorly, without crackles or wheezes. Ventilator dependence with equal excursion. Abdomen: Obese, soft, nontender. Positive bowel sounds. Extremities: No edema. Score noted to the right lower extremity. No clubbing or cyanosis. Several stages of ecchymosis that are healing to the upper and lower extremities. ASSESSMENT AND PLAN: 1. Renal failure on questionable chronic kidney disease. We still have pending records and labs to be obtained from previous facilities where patient has been treated. Her creatinine has continued to climb since her admission. BUN remains stable. She has had adequate urine out per Dexter catheter. No indications for intervention at this time. I had a discussion with her late in the day. They have been told that she has stage IV CKD and in fact have been threatened with dialysis in the past. I discussed dialysis and its role in the management of her acute illness. We also discussed placement of a vascath by surgery to facilitate dialysis treatment. He has some familiarity with dialysis because of a family member that required it in the past. He is willing for her to have a vascath and dialysis when indicated medically. We will observe and make this decision daily. rg 2. Electrolytes: These remain stable. 3. Acid-base balance. This remains low. Patient has had a sodium bicarbonate drip started this a.m. and continues at 75 mL an hour. We will evaluate in the a.m. 4. Prophylactic antibiotics. These are currently renally dosed. I would to thank you for allowing us to follow with this patient. Seen, data reviewed, discussed with Ezio Greenberg on 09/10/16. I agree with the above assessment and plan of care. rg Dictated by JAVIER Guido for Adam Fritz MD cc: JAVIER Guido MD [facility]
[2016-09-10] MEDS: SODIUM CHLORIDE 0.9% INJ SCH (16:00)
[2016-09-10] MEDS ORDERED: NS 250 ML ONE (16:15)
[2016-09-11] MEDS: DIPRIVAN 1% 1,000 MG/100 ML BOTTLE IV SCH ×8 (00:16→22:47)
[2016-09-11] MEDS: SODIUM BICARBONATE 8.4% 100 MEQ in D5W 1,000 ML IV SCH ×2 (03:10→12:00)
[2016-09-11] MEDS: DUONEB (A & A) INH SCH ×6 (03:35→22:44)
[2016-09-11] MEDS: PROTONIX IV SCH ×2 (04:49→16:26)
[2016-09-11 04:56] LABS: ALLEN TEST YES; BLOOD TYPE ARTERIAL; DRAW SITE R RADIAL; METHB 1.5 % (0.0-1.5); O2(CT) 10.2 mL/dL (15.0-23.0); PCO2(98.6) 36 mmHg (35-45); PO2(98.6) 78 mmHg (60-100); SAMPLE BLOOD; SAO2 97.7 % (95.0-100.0); SRATE 16 BPM; THB 7.6 g/dL (11.5-17.4); TVOL 500 mL
[2016-09-11 04:57] LABS: MODALITY VENTILATOR
[2016-09-11] MEDS: SYNTHROID IV SCH ×2 (05:46→06:05)
[2016-09-11 05:51] LABS: MANUAL DIFF NEEDED? NO
[2016-09-11 06:28] LABS: INR 1.49; PROTIME 16.1 Seconds (9.2-11.7)
[2016-09-11 06:32] LABS: ALBUMIN 2.1 g/dL (3.5-5.0); CALCIUM 7.8 mg/dL (8.8-10.2); POTASSIUM 4.4 mmol/L (3.5-5.1)
[2016-09-11 07:00] LABS: BASO% 0.1 % (0.0-0.8); EOS% 6.7 % (0.0-10.0); HEMATOCRIT 23.2 % (37.0-47.0); HEMOGLOBIN 7.6 g/dL (12.0-16.0); IMM GRAN# 0.04 X1000 (0.0-0.04); IMM GRAN% 0.5 % (0.0-0.5); LYMPH# 0.98 X1000 (1.2-3.4); LYMPH% 13.1 % (20.5-51.1); MCH 32.3 PG (27-31); MCHC 32.8 g/dL (33-37); MCV 98.7 FL (81-99); MONO# 0.35 X1000 (0.11-0.59); MONO% 4.7 % (1.7-9.3); MPV 10.1 FL (7.4-10.4); NEUT% 74.9 % (42.2-75.2); PLT 64 X1000 (130-400); RBC 2.35 XMIL (4.2-5.4)
--- NOTE | 2016-09-11 07:38 | Diag Imaging Result Document ---
PROCEDURE NAME: CHEST-PORTABLE - 09/11/2016 SINGLE FRONTAL RADIOGRAPH OF THE CHEST: COMPARISON: 09/10/2016. FINDINGS: ET tube is in stable position. NG tube projects below the diaphragm and out of the field of view. Diffuse infiltrates bilaterally are again noted. They may be marginally improved. No new consolidations are identified. Cardiac silhouette is stable. IMPRESSION: Suggestion of marginal improvement of bilateral infiltrates that probably represent pulmonary edema.
[2016-09-11] MEDS: TEFLARO 300 MG in NS 250 ML IV SCH ×2 (08:10→19:16)
[2016-09-11] MEDS ORDERED: MORPHINE ONE (08:16)
--- NOTE | 2016-09-11 08:31 | PROGRESS NOTE ---
DATE: 09/11/2016 SUBJECTIVE: She remains sedated on the ventilator. OBJECTIVE: Vital Signs: Blood pressure 107/61, heart rate 79, respirations 16, afebrile. General: She is sedated, but in no distress. Skin: Warm and dry. HEENT: Conjunctivae are mildly edematous. Pupils are equal and reactive. Oropharynx is dry. Neck: Neck veins are not visible. Heart: Regular. Lungs: Have equal breath sounds. No crackles. Abdomen: Obese and soft. Bowel sounds are present. Nontender. Extremities: Have trace edema. No clubbing or cyanosis. LABORATORY DATA: Sodium 144, potassium 4.4, chloride 108, bicarbonate 17. BUN 59, creatinine 5.5. Hemoglobin 7.6. IMPRESSION AND PLAN: Acute kidney injury overlying chronic kidney disease. Her creatinine has been stable over the last 48 hours and her urine output is acceptable. She has no absolute indications for dialysis. If Dr. Nguyen needs help with her volume management in order to manage her ventilator, then we will be glad to use dialysis. I discussed this with the family yesterday. Otherwise, no change in her treatment today. She is on IV bicarbonate drip and her serum bicarbonate is appropriate and her pH is appropriate. cc: Adam Fritz MD
[2016-09-11] MEDS: ZOSYN 2.25 GM/NS 2.25 GM/50 ML IVPB IV SCH ×2 (09:41→16:26)
[2016-09-11] MEDS: HEPARIN 25,000 UNITS/D5W 25,000 UNIT/250 ML IV.SOLN IV SCH (12:28)
--- NOTE | 2016-09-11 14:21 | PROGRESS NOTE ---
DATE: 09/11/2016 SUBJECTIVE: This patient is still on mechanical ventilation and sedated. No acute events overnight. The BUN and creatinine is about the same compared with yesterday but the urine output looks like it is getting better. So far 1.7 L. Nephrology department and rest him pulmonary department are following this patient. OBJECTIVE: Vital Signs: Temperature 96.8 degrees, pulse 88, respiratory rate 16, blood pressure 115/69, oxygen saturation 98 on mechanical ventilation. HEENT: Head normocephalic. No trauma. PERRLA. Neck: Supple. No JVD. No masses. Central trachea. Chest: Coarse breath sounds mostly at the bases. No wheezing. Decreased air entry bilaterally but mostly at the bases as well. Patient is intubated. Abdomen: Soft, nondistended. Positive bowel sounds. No hepatosplenomegaly. Cardiovascular: RRR. No murmurs. Extremities: No clubbing. No cyanosis. No edema. Neurological: The patient is still on sedation and intubated. LABORATORY: WBC 7.4, hemoglobin 7.6, hematocrit 23.2, platelets 64,000. Sodium 144, potassium 4.4, chloride 108, bicarbonate 17, BUN 59, creatinine 5.5, glucose 135, calcium 7.8. ASSESSMENT AND PLAN: 1. Acute hypoxemic respiratory failure, on mechanical ventilation. Pulmonary department is following this patient. Will continue following their recommendations. 2. Bilateral pneumonia. This patient is on broad-spectrum antibiotics. We will continue with the same management for now. 3. Chronic kidney disease. We do not have a baseline on this patient. This patient apparently is coming from [place]. Nephrology is on board. The urine output is getting better. Today it is 1.7 so far. 4. History of congestive heart failure. We do not have any documentation of the ejection fraction. We did an echocardiogram, pending the results. 5. Metabolic acidosis, likely related to chronic kidney disease, infection. This patient is receiving IV fluids with bicarbonate. 6. Antiphospholipid syndrome. This patient has been on Coumadin but now she is on heparin drip. We will continue to monitor. Hematology/oncology department is following this patient. 7. Anemia status post 1 unit packed red blood cell. The hemoglobin is around the same compared with yesterday. We will continue to monitor. 8. History of cerebrovascular accident. Continue with the same management. 9. Hypothyroidism. Continue with Synthroid. 10. Chronic obstructive pulmonary disease. Continue with nebulization. 11. Depression. Aware. 12. Hyperlipidemia. Continue with home medication. 13. Hypertension. The blood pressure is under control. 14. Seizure disorder. I have not seen any family members. I am not quite sure if this patient has a seizure disorder. We will continue to monitor in the ICU. CRITICAL CARE TIME: 40 minutes. cc: Wild Palmer MD
[2016-09-11] MEDS: LASIX IV SCH ×3 (14:45→16:25)
[2016-09-11] MEDS ORDERED: VANCOMYCIN 500 MG/NS 500 MG/100 ML IVPB IV ONE (18:00)
[2016-09-12] MEDS: SODIUM BICARBONATE 8.4% 100 MEQ in D5W 1,000 ML IV SCH ×4 (00:52→17:09)
[2016-09-12] MEDS: ZOSYN 2.25 GM/NS 2.25 GM/50 ML IVPB IV SCH ×3 (00:54→15:48)
[2016-09-12] MEDS: HEPARIN 25,000 UNITS/D5W 25,000 UNIT/250 ML IV.SOLN IV SCH ×3 (01:06→17:08)
[2016-09-12] MEDS: DIPRIVAN 1% 1,000 MG/100 ML BOTTLE IV SCH ×8 (02:36→21:11)
[2016-09-12] MEDS: DUONEB (A & A) INH SCH ×6 (03:03→22:20)
[2016-09-12] MEDS: LASIX IV SCH ×3 (03:08→21:43)
[2016-09-12 04:11] LABS: ALLEN TEST YES; BE -3.8 mmoll (-3.0-3.0); BLOOD TYPE ARTERIAL; DRAW SITE R RADIAL; METHB 1.6 % (0.0-1.5); O2(CT) 13.2 mL/dL (15.0-23.0); PCO2(98.6) 46 mmHg (35-45); PO2(98.6) 108 mmHg (60-100); SAMPLE BLOOD; SAO2 98.6 % (95.0-100.0); SRATE 16 BPM; THB 9.7 g/dL (11.5-17.4); TVOL 500 mL
[2016-09-12 04:12] LABS: MODALITY VENTILATOR
[2016-09-12] MEDS: PROTONIX IV SCH ×2 (05:00→17:15)
[2016-09-12] MEDS: SODIUM CHLORIDE 0.9% INJ SCH ×2 (05:00→17:16)
[2016-09-12 05:09] LABS: MANUAL DIFF NEEDED? NO
[2016-09-12 05:15] LABS: BASO% 0.3 % (0.0-0.8); EOS# 0.49 X1000 (0.0-0.7); EOS% 7.4 % (0.0-10.0); HEMATOCRIT 23.7 % (37.0-47.0); HEMOGLOBIN 7.8 g/dL (12.0-16.0); IMM GRAN# 0.02 X1000 (0.0-0.04); IMM GRAN% 0.3 % (0.0-0.5); LYMPH# 0.72 X1000 (1.2-3.4); LYMPH% 10.8 % (20.5-51.1); MCH 32.4 PG (27-31); MCHC 32.9 g/dL (33-37); MCV 98.3 FL (81-99); MONO# 0.42 X1000 (0.11-0.59); MONO% 6.3 % (1.7-9.3); MPV 10.7 FL (7.4-10.4); NEUT% 74.9 % (42.2-75.2); PLT 56 X1000 (130-400); RBC 2.41 XMIL (4.2-5.4)
[2016-09-12 05:23] LABS: INR 1.35; PROTIME 14.4 Seconds (9.2-11.7)
[2016-09-12 05:24] LABS: PTT 67.5 Seconds (22.0-36.0)
[2016-09-12 05:43] LABS: ALBUMIN 2.3 g/dL (3.5-5.0); CALCIUM 7.6 mg/dL (8.8-10.2); MAGNESIUM 1.6 mg/dL (1.5-2.7); POTASSIUM 4.6 mmol/L (3.5-5.1); RANDOM VANCOMYCIN 17.7 ug/mL (5.0-80); TOTAL BILIRUBIN 1.27 mg/dL (0.20-1.00); TOTAL PROTEIN 6.3 g/dL (6.3-8.3)
[2016-09-12] MEDS: SODIUM CHLORIDE 0.9% INJ PRN (06:07)
[2016-09-12] MEDS: SYNTHROID IV SCH (06:08)
--- NOTE | 2016-09-12 07:25 | Diag Imaging Result Document ---
PROCEDURE NAME: CHEST-PORTABLE - 09/12/2016 PORTABLE CHEST X-RAY: COMPARISON: 09/11/2016. FINDINGS: Stable significant cardiomegaly. Stable endotracheal tube and nasogastric tube in good position. Stable mixed bilateral diffuse infiltrates compatible with edema. Stable bibasilar atelectasis or effusions. IMPRESSION: No change from prior.
[2016-09-12] MEDS: TEFLARO 300 MG in NS 250 ML IV SCH ×2 (08:27→19:54)
--- NOTE | 2016-09-12 10:00 | PROGRESS NOTE ---
DATE: 09/12/2016 TIME SEEN: 0815. SUBJECTIVE: Ms. Reyes is resting quietly in bed. She is ventilator dependent. She is currently on a sedation vacation. She does blink her eyes to verbal command. Otherwise she is in no distress. OBJECTIVE: Vital Signs: Temperature 98.1 degrees, blood pressure 131/75, heart rate 82, respirations 16. She is on 40% FiO2. Her last recorded saturation is 98%. She has had 3325 in, 3785 out per NG and per Dexter. Labs: Sodium 145, potassium 4.6, chloride 103 , CO2 21, BUN 61, creatinine 5.5, glucose 117. Her anion gap 21, calcium 7.6, phosphorus 9.2, albumin 2.3. White count 6.66, hemoglobin 7.8, hematocrit 23.7, with a platelet count of 56,000. PHYSICAL EXAMINATION: General: This is a 45-year-old white female. She is in no acute distress. Skin: Warm and dry. HEENT: Normocephalic, atraumatic. Conjunctiva is pale. She has DIONNE. Mucous membranes are dry. Neck: Supple. Trachea midline. No JVD. Cardiovascular: Regular rate and rhythm. Without murmur or gallop appreciated. Lungs: Equal breath sounds. No crackles auscultated. Some expiratory wheeze to the left upper lobe. Abdomen: Obese, soft, nontender. Positive bowel sounds. Genitourinary: Dexter catheter remains in place. Extremities: Have trace pretibial edema. No clubbing or cyanosis. Neurological: As above. ASSESSMENT AND PLAN: 1. Acute kidney injury overlying chronic kidney disease. Baseline creatinine appears to be about 2.5. Her creatinine has been stable and she has no acute indications for HD so I will continue to monitor without treatment. rg 2. Electrolytes. These are stable. 3. Acid-base balance. This remains stable with her sodium bicarbonate drip. 4. Anemia. This remains low but stable with no need for intervention. 5. Respiratory failure. This is currently being followed by Dr. Nguyen with no indications for fluid volume overload and need for dialysis for management. We will remain available if needed. I would like to thank you for allowing us to follow with this patient. Seen, data reviewed, discussed with Ezio Greenberg on 09/12/16. I agree with the above assessment and plan of care. rg Dictated by JAVIER Guido for Adam Fritz MD cc: JAVIER Guido MD [facility]
--- NOTE | 2016-09-12 13:46 | PROGRESS NOTE ---
DATE: 09/12/2016 SUBJECTIVE: This patient is still on mechanical ventilation. When I evaluated this patient, she was not receiving propofol. She was sleepy, but arousable. She was extremely weak, but she was following commands. OBJECTIVE: Vital Signs: Temperature 98.6 degrees, pulse 91, respiratory rate 17, blood pressure 125/71, oxygen saturation 94% on mechanical ventilation, 40% oxygen flow. HEENT: Head normocephalic. No trauma. PERRLA. Neck: Supple. No JVD. No masses. Central trachea. Chest: Coarse breath sounds, mostly at the bases. Cardiovascular: RRR. No murmurs. The patient is intubated. Abdomen: Soft, nondistended. Positive bowel sounds. Cardiovascular: RRR. No murmurs. Extremities: No clubbing. No cyanosis. No edema. Neurological: This patient is on mechanical ventilation. When I evaluated this patient, she was not on propofol and she was following commands, but she is extremely weak. LABORATORIES: WBC 6.6, hemoglobin 7.8, hematocrit 23.7, platelet count 56,000. Sodium 145, potassium 4.6, chloride 103, bicarbonate 21, BUN 61, creatinine 5.5, glucose 117, calcium 7.6, magnesium 1.6. ASSESSMENT AND PLAN: 1. Acute hypoxemic respiratory failure, on mechanical ventilation. Pulmonary Department is following this patient. We will continue following their recommendations. 2. Bilateral pneumonia. This patient is on broad-spectrum antibiotics. We will continue with the same management for now. 3. Chronic kidney disease. We do not have a baseline of this on this patient. This patient apparently is coming from [place]. Nephrology is on board. The urine output has been adequate, but the BUN and creatinine have been about the same compared with yesterday. 4. History of congestive heart failure. We did an echocardiogram and probably this patient has an ejection fraction around 55% with no obvious focal segmental wall motion abnormalities, so probably this patient does not have any history of congestive heart failure. 5. Metabolic acidosis. Continue with the same management. 6. Antiphospholipid syndrome. This patient has been on Coumadin, but now she is on heparin drip. Will monitor. 7. Anemia status post 1 PRBCs. The hemoglobin and hematocrit are about the same compared with yesterday. Continue with the same management. 8. History of cerebrovascular accident. Continue with the same management. 9. Hypothyroidism. Continue with Synthroid. 10. Chronic obstructive pulmonary disease. Continue with nebulization. 11. Depression. Aware. 12. Hyperlipidemia. Continue with home medication. 13. Hypertension. The blood pressure is under control. 14. Seizure disorder. I have not talked to any family members. I am not quite sure if this patient has a history of seizure disorder. We will continue monitoring in the Intensive Care Unit. CRITICAL CARE TIME: 40 minutes. cc: Wild Palmer MD
[2016-09-13] MEDS: DIPRIVAN 1% 1,000 MG/100 ML BOTTLE IV SCH ×4 (00:16→08:44)
[2016-09-13] MEDS: ZOSYN 2.25 GM/NS 2.25 GM/50 ML IVPB IV SCH ×3 (00:18→16:00)
[2016-09-13] MEDS: DUONEB (A & A) INH SCH ×6 (02:39→23:26)
[2016-09-13 03:57] LABS: ALLEN TEST YES; BE -2.8 mmoll (-3.0-3.0); BLOOD TYPE ARTERIAL; DRAW SITE R RADIAL; METHB 1.5 % (0.0-1.5); O2(CT) 21.5 mL/dL (15.0-23.0); PO2(98.6) 93 mmHg (60-100); SAMPLE BLOOD; SRATE 12 BPM; THB 16.2 g/dL (11.5-17.4); TVOL 500 mL; pH(98.6) 7.28 (7.35-7.45)
[2016-09-13 04:01] LABS: MODALITY VENTILATOR; PCO2(98.6) 53 mmHg (35-45)
[2016-09-13 05:04] LABS: MANUAL DIFF NEEDED? NO
[2016-09-13 05:11] LABS: BASO% 0.1 % (0.0-0.8); EOS# 0.42 X1000 (0.0-0.7); EOS% 5.5 % (0.0-10.0); HEMOGLOBIN 8.1 g/dL (12.0-16.0); IMM GRAN# 0.05 X1000 (0.0-0.04); IMM GRAN% 0.7 % (0.0-0.5); LYMPH# 0.82 X1000 (1.2-3.4); LYMPH% 10.7 % (20.5-51.1); MCHC 32.4 g/dL (33-37); MCV 98.8 FL (81-99); MONO# 0.57 X1000 (0.11-0.59); MONO% 7.5 % (1.7-9.3); MPV 10.4 FL (7.4-10.4); NEUT% 75.5 % (42.2-75.2); PLT 57 X1000 (130-400); RBC 2.53 XMIL (4.2-5.4)
[2016-09-13] MEDS: PROTONIX IV SCH ×2 (05:11→16:37)
[2016-09-13] MEDS: LASIX IV SCH ×3 (05:11→21:22)
[2016-09-13] MEDS: SODIUM CHLORIDE 0.9% INJ SCH (05:11)
[2016-09-13 05:12] LABS: INR 1.24; PROTIME 13.2 Seconds (9.2-11.7)
[2016-09-13] MEDS ORDERED: HEPARIN IV ONE (05:27)
[2016-09-13 05:30] LABS: ALBUMIN 2.3 g/dL (3.5-5.0); POTASSIUM 4.6 mmol/L (3.5-5.1); RANDOM VANCOMYCIN 13.8 ug/mL (5.0-80)
[2016-09-13] MEDS: HEPARIN 25,000 UNITS/D5W 25,000 UNIT/250 ML IV.SOLN IV SCH ×3 (05:46→21:22)
[2016-09-13] MEDS: SODIUM CHLORIDE 0.9% INJ PRN (06:12)
[2016-09-13] MEDS: SYNTHROID IV SCH (06:13)
[2016-09-13] MEDS: TEFLARO 300 MG in NS 250 ML IV SCH ×2 (08:05→20:00)
--- NOTE | 2016-09-13 08:36 | Diag Imaging Result Document ---
PROCEDURE NAME: CHEST-PORTABLE - 09/13/2016 SINGLE FRONTAL RADIOGRAPH OF THE CHEST: COMPARISON: 09/12/2016. FINDINGS: ET tube is in stable position. NG tube projects below the diaphragm and out of the field of view. Mixed interstitial and airspace infiltrates appear to have improved somewhat. This suggest some improvement of pulmonary edema. Pulmonary venous congestion appears to have improved as well. No new consolidations are identified. Cardiac silhouette is stable. IMPRESSION: Suggestion of mild improvement of pulmonary edema.
--- NOTE | 2016-09-13 11:33 | PROGRESS NOTE ---
DATE: 09/13/2016 SUBJECTIVE: This patient is still on mechanical ventilation. She is sedated. No acute events overnight. OBJECTIVE: Vital Signs: Temperature 98.5 degrees, pulse 90, respiratory rate 13, blood pressure 127/82, O2 saturation 95% on mechanical ventilation. HEENT: Head normocephalic. No trauma. PERRLA. Neck: Supple. No JVD. Neck: Supple. I cannot see JVD because of the neck size. No masses. Central trachea. Chest: Coarse breath sounds mostly at the bases. Abdomen: Soft, nondistended. Positive bowel sounds. Cardiovascular: RRR. No murmurs. Extremities: No clubbing, cyanosis, or edema. Neurological: The patient is on mechanical ventilation and sedated. LABORATORY: WBC 7.6, hemoglobin 8.1, hematocrit 25, platelet 57,000. Sodium 142, potassium 4.6, chloride 98, bicarbonate 20, BUN 65, creatinine 5.6, glucose 144, calcium 7. Urine output 4475. ASSESSMENT AND PLAN: 1. Acute hypoxemic respiratory failure on mechanical ventilation. Pulmonary Department is following this patient. We will continue following their recommendations. 2. Bilateral pneumonia. This patient is on broad-spectrum antibiotics. We will continue with the same management for now. 3. Chronic kidney disease. We do not have a baseline on this patient. Apparently, she is coming from [place]. [employer] is on board. The urine output has been adequate but the BUN and creatinine has been about the same. 4. History of congestive heart failure. Actually with the echocardiogram that showed an ejection fraction of 55, with no obvious focal segmental wall motion abnormalities. Probably this patient does not have any history of congestive heart failure. 5. Metabolic acidosis. Continue with the same management. 6. Admit phospholipid syndrome. This patient has been on Coumadin but now she is on heparin drip. Will monitor. 7. Anemia. Status post 1 packed red blood cells. The hemoglobin and hematocrit has been stable. We will continue to monitor. 8. History of cerebrovascular accident. Continue with the same management. 9. Hypothyroidism. Continue with Synthroid. 10. Chronic obstructive pulmonary disease. Continue with nebulizations. 11. Depression. Aware. 12. Hyperlipidemia. Continue with home medication. 13. Hypertension. The blood pressure is under control. 14. Seizure disorder. I have not talked to any family members. I am not quite sure if this patient has a history of seizure disorder. We will continue to monitor this patient in the intensive care unit. 15. Mild hypocalcemia, corrected with albumin. I will ask for an ionized calcium. cc: Wild Palmer MD
[2016-09-13] MEDS ORDERED: EPOGEN SUBQ ONE (14:30)
[2016-09-13 14:40] LABS: ALLEN TEST YES; BE 0.9 mmoll (-3.0-3.0); BLOOD TYPE ARTERIAL; DRAW SITE R RADIAL; METHB 1.5 % (0.0-1.5); O2(CT) 11.4 mL/dL (15.0-23.0); PCO2(98.6) 47 mmHg (35-45); PO2(98.6) 78 mmHg (60-100); SAMPLE BLOOD; SAO2 97.3 % (95.0-100.0); THB 8.5 g/dL (11.5-17.4); pH(98.6) 7.36 (7.35-7.45)
[2016-09-13 14:41] LABS: MODALITY VENTILATOR
--- NOTE | 2016-09-13 15:06 | PROGRESS NOTE ---
DATE: 09/13/2016 SUBJECTIVE: She remains on the ventilator. OBJECTIVE: Vital Signs: Blood pressure 112/65, heart rate 88, respirations 14, afebrile. Intake 3.6 L; output 4.5 L. General: On physical exam, no acute distress. Skin: Warm and dry. HEENT: Conjunctivae are pink. Pupils are equal. Oropharynx is dry. Neck: Neck veins are not distended. Heart: Regular without gallops. Lungs: Have equal breath sounds. No crackles or wheezes. Abdomen: Obese and soft. Bowel sounds are present. Extremities: Have no edema, clubbing, or cyanosis. LABORATORY DATA: Sodium 142, potassium 4.6, chloride 98, bicarbonate 20, BUN 65, creatinine 5.6, hemoglobin 8.1. IMPRESSION: 1. Acute kidney injury overlying chronic kidney disease. There is no improvement, but she has good urine output and no absolute indications for dialysis. Continue current level of support. 2. Electrolytes are acceptable. 3. Acid-base in target. cc: Adam Fritz MD
[2016-09-13] MEDS: SODIUM BICARBONATE 8.4% 100 MEQ in D5W 1,000 ML IV SCH (21:18)
[2016-09-14] MEDS: ZOSYN 2.25 GM/NS 2.25 GM/50 ML IVPB IV SCH ×3 (00:45→16:01)
[2016-09-14] MEDS: DUONEB (A & A) INH SCH ×6 (03:25→23:03)
[2016-09-14 04:34] LABS: ALLEN TEST YES; BE 1.1 mmoll (-3.0-3.0); BLOOD TYPE ARTERIAL; DRAW SITE R RADIAL; PCO2(98.6) 37 mmHg (35-45); PO2(98.6) 92 mmHg (60-100); SAMPLE BLOOD; pH(98.6) 7.44 (7.35-7.45)
[2016-09-14 04:35] LABS: MODALITY COOL AEROSOL
[2016-09-14] MEDS: LASIX IV SCH ×3 (05:41→20:34)
[2016-09-14] MEDS: PROTONIX IV SCH ×2 (05:41→16:02)
[2016-09-14 06:09] LABS: MANUAL DIFF NEEDED? NO
[2016-09-14 06:16] LABS: BASO% 0.3 % (0.0-0.8); EOS# 0.36 X1000 (0.0-0.7); EOS% 3.1 % (0.0-10.0); HEMATOCRIT 26.6 % (37.0-47.0); HEMOGLOBIN 8.7 g/dL (12.0-16.0); IMM GRAN% 0.9 % (0.0-0.5); LYMPH# 0.84 X1000 (1.2-3.4); LYMPH% 7.2 % (20.5-51.1); MCH 32.1 PG (27-31); MCHC 32.7 g/dL (33-37); MCV 98.2 FL (81-99); MONO# 0.58 X1000 (0.11-0.59); MPV 10.2 FL (7.4-10.4); NEUT% 83.5 % (42.2-75.2); PLT 51 X1000 (130-400); RBC 2.71 XMIL (4.2-5.4)
[2016-09-14 06:36] LABS: ALBUMIN 2.9 g/dL (3.5-5.0); CALCIUM 7.5 mg/dL (8.8-10.2); RANDOM VANCOMYCIN 11.2 ug/mL (5.0-80)
[2016-09-14] MEDS: SYNTHROID IV SCH ×2 (07:18→07:44)
[2016-09-14] MEDS: TEFLARO 300 MG in NS 250 ML IV SCH ×2 (07:45→20:33)
[2016-09-14] MEDS: SODIUM CHLORIDE 0.9% INJ PRN (07:45)
--- NOTE | 2016-09-14 09:15 | Diag Imaging Result Document ---
PROCEDURE NAME: CHEST-PORTABLE - 09/14/2016 PORTABLE CHEST X-RAY: COMPARISON: 09/13/2016. FINDINGS: The patient has been extubated. Lung volumes are slightly lower. Stable significant cardiomegaly. There is severe worsening in the diffuse bilateral infiltrates and pulmonary vascular congestion. IMPRESSION: Patient extubated. Worsening infiltrates/pulmonary edema.
[2016-09-14] MEDS: CALMOSEPTINE OINTMENT TOP PRN (10:31)
--- NOTE | 2016-09-14 12:07 | PROGRESS NOTE ---
DATE: 09/14/2016 SUBJECTIVE: She is off the ventilator this morning. She will open her eyes to verbal stimuli but she did not interact verbally. OBJECTIVE: Vital Signs: Blood pressure 142/91, heart rate 103, respirations 22, afebrile. Intake 2.8 L. Output 4.2 L. General: No acute distress. Skin: Warm and dry. HEENT: Conjunctivae are pink. Neck: Neck veins are not distended. Trachea is midline. Heart: Regular. Systolic murmur and metallic heart tones. Lungs: Equal breath sounds. No crackles or wheezes. Abdomen: Obese and soft. Bowel sounds are present. Nontender. Nondistended. Extremities: Have no significant edema. No clubbing or cyanosis. LABORATORY DATA: Sodium 144, potassium 4.0, chloride 96, bicarbonate 24, BUN 70, creatinine 5.8, hemoglobin 8.7. IMPRESSION: Kidney disease. Her creatinine is essentially unchanged over the last 5 hospital days. She has good urine output. She has no absolute indications for dialysis. However, her labs certainly suggest that she has established chronic kidney disease and may well require chronic hemodialysis. I had a long discussion with her mother and father today. They do understand that she had baseline CKD stage 4 and understand that this disease is chronic and progressive and she may well have reached end-stage. Her social situation is complicated. She is and lives with her but she also has problems with substance abuse, especially with prescription drugs. She has been dealing with chronic illness for several years. If she does not improve over the next 48 hours then we will quantify her kidney function with a 24 hour urine, anticipating initiation of chronic dialysis. cc: Adam Fritz MD
[2016-09-14] MEDS: SODIUM BICARBONATE 8.4% 100 MEQ in D5W 1,000 ML IV SCH (12:11)
[2016-09-14] MEDS: HEPARIN 25,000 UNITS/D5W 25,000 UNIT/250 ML IV.SOLN IV SCH ×2 (12:14→14:58)
[2016-09-14] MEDS ORDERED: HEPARIN 25,000 UNITS/D5W 25,000 UNIT/250 ML IV.SOLN IV SCH (12:37)
--- NOTE | 2016-09-14 12:55 | PROGRESS NOTE ---
DATE: 09/14/2016 SUBJECTIVE: This patient was extubated. She is not having any respiratory distress at this moment. She has severe weakness. No acute events overnight. OBJECTIVE: Vital signs: Temperature 98, pulse 101, respiratory rate 18, blood pressure 142/91, oxygen saturation 98% on 5 L nasal cannula. HEENT: Head is normocephalic. No trauma. PERRLA. Neck: Supple. No JVD. No masses. Central trachea. Chest: Coarse breath sounds, mostly at the bases. Abdomen: Soft, nontender and nondistended. Positive bowel sounds. Obese. Cardiovascular: Regular rate and rhythm. No murmurs. Extremities: No cyanosis, clubbing or edema. Neurologic: The patient is alert. This patient is sleepy but arousable. She is following commands. She is able to say her name, and she is not oriented to time, but she knows that she is in a hospital, she does not know which one. DIAGNOSTIC DATA: WBC is 11.6, hemoglobin 8.7, hematocrit 26.6, platelets 51. Sodium is 144, potassium 4, chloride 96, bicarbonate 24, BUN is 70, creatinine 5.8, glucose 148, calcium 7.5, phosphorus 8.7, albumin 2.9. ASSESSMENT AND PLAN: 1. Acute hypoxemic respiratory failure. This patient has been extubated. She is not having any respiratory distress at this moment. We will continue following the recommendations of Pulmonary Department. 2. Bilateral pneumonia. This patient is on broad spectrum antibiotics. Continue with the same treatment. 3. Chronic kidney disease, likely stage 4. This patient is making enough urine, and Nephrology Department is onboard. We will continue with the same treatment and management. 4. Metabolic acidosis. Today the bicarbonate is 24, so this condition is much better. 5. Antiphospholipid syndrome. This patient has been on Warfarin, but right now she is on heparin drip. We will monitor. 6. Anemia, status post 1 PRBC. Hemoglobin and hematocrit have been stable. 7. History of cerebrovascular accident. Continue with the same management. 8. Hypothyroidism. Continue with Synthroid. 9. Chronic obstructive pulmonary disease. Continue with nebulization. 10.Depression. Aware. 11.Hyperlipidemia. Continue with the same medication. 12.Seizure disorder. I have not talked to any family members about this condition. I am not sure if she has any kind of seizure disorder. We will continue to monitor this patient in the Intensive Care Unit. 13.Physical deconditioning. We will ask Physical Therapy to evaluate this patient and do at least range of motion. Critical care time is 35 minutes. cc: Wild Palmer MD
[2016-09-14] MEDS: BLISTEX MEDICATED BERRY LIP BALM TOP PRN (16:02)
[2016-09-14] MEDS: SODIUM CHLORIDE 0.9% INJ SCH (16:02)
[2016-09-14] MEDS: EPOGEN SUBQ SCH (18:37)
[2016-09-15] MEDS: ZOSYN 2.25 GM/NS 2.25 GM/50 ML IVPB IV SCH ×3 (00:29→15:59)
[2016-09-15] MEDS: HEPARIN 25,000 UNITS/D5W 25,000 UNIT/250 ML IV.SOLN IV SCH ×4 (02:06→17:59)
[2016-09-15] MEDS: DUONEB (A & A) INH SCH ×6 (03:19→23:09)
[2016-09-15] MEDS: LASIX IV SCH ×3 (05:05→21:18)
[2016-09-15] MEDS: PROTONIX IV SCH ×2 (05:05→16:01)
[2016-09-15 05:13] LABS: ALLEN TEST YES; BE 4.8 mmoll (-3.0-3.0); BLOOD TYPE ARTERIAL; DRAW SITE R RADIAL; METHB 1.6 % (0.0-1.5); O2(CT) 10.4 mL/dL (15.0-23.0); PCO2(98.6) 46 mmHg (35-45); PO2(98.6) 64 mmHg (60-100); SAMPLE BLOOD; SAO2 95.2 % (95.0-100.0); pH(98.6) 7.42 (7.35-7.45)
[2016-09-15 05:14] LABS: MODALITY CANNULA
[2016-09-15] MEDS: SYNTHROID IV SCH (06:18)
[2016-09-15 06:57] LABS: MANUAL DIFF NEEDED? NO
[2016-09-15 07:28] LABS: ALBUMIN 2.9 g/dL (3.5-5.0); CALCIUM 7.6 mg/dL (8.8-10.2); POTASSIUM 3.5 mmol/L (3.5-5.1); TOTAL BILIRUBIN 0.61 mg/dL (0.20-1.00); TOTAL PROTEIN 6.9 g/dL (6.3-8.3)
[2016-09-15 07:33] LABS: BASO% 0.4 % (0.0-0.8); EOS% 4.2 % (0.0-10.0); HEMATOCRIT 27.3 % (37.0-47.0); HEMOGLOBIN 8.6 g/dL (12.0-16.0); IMM GRAN# 0.27 X1000 (0.0-0.04); IMM GRAN% 2.9 % (0.0-0.5); LYMPH# 1.03 X1000 (1.2-3.4); LYMPH% 10.9 % (20.5-51.1); MCH 31.5 PG (27-31); MCHC 31.5 g/dL (33-37); MONO# 0.63 X1000 (0.11-0.59); MONO% 6.7 % (1.7-9.3); MPV 11.6 FL (7.4-10.4); NEUT% 74.9 % (42.2-75.2); PLT 61 X1000 (130-400); RBC 2.73 XMIL (4.2-5.4)
[2016-09-15 07:40] LABS: RANDOM VANCOMYCIN 8.5 ug/mL (5.0-80)
[2016-09-15] MEDS: TEFLARO 300 MG in NS 250 ML IV SCH ×2 (07:55→19:56)
[2016-09-15] MEDS: D5W 1,000 ML IV SCH (09:45)
[2016-09-15] MEDS: CLINIMIX E 4.25%-5% SOLUTION 1,000 ML IV SCH (09:45)
[2016-09-15] MEDS ORDERED: VANCOMYCIN 1 GM/NS 1 GM/250 ML IVPB IV ONE (10:42)
--- NOTE | 2016-09-15 11:04 | Diag Imaging Result Document ---
PROCEDURE NAME: CHEST-PORTABLE - 09/15/2016 PORTABLE CHEST: COMPARISON: 09/14/2016. FINDINGS: There is significant improvement in the diffuse bilateral infiltrates/edema. Stable cardiomegaly. No new infiltrates. IMPRESSION: Significant improvement from prior.
--- NOTE | 2016-09-15 15:42 | PROGRESS NOTE ---
DATE: 09/15/2016 SUBJECTIVE: No events overnight. She is not having any respiratory distress at this moment. She has severe weakness. This patient is alert but she has some dysarthria/slurred speech. I am not quite sure about her baseline. No family members at the bedside. This patient is weak and she is not completely alert, so for now I will start this patient on Clinimix. The sodium is high. I will stop her current IV fluids and I will start this patient on D5W. OBJECTIVE: Vital Signs: Temperature 100.2 degrees, pulse 106, respiratory rate 24, blood pressure 127/81, oxygen saturation 96 on 4 L of nasal cannula. HEENT: Head normocephalic. No trauma. PERRLA. Neck: Supple. I do not see JVD because she has a big neck size. No masses. Central trachea. Chest: Coarse breath sounds mostly at the bases. Abdomen: Soft, nontender, nondistended. Positive bowel sounds. Obese. Cardiovascular: RRR. No murmurs. Tachycardic. Extremities: No cyanosis. No edema. No clubbing. Neurological: The patient is somnolent. She is following commands. She is able to say her name. She is not oriented to time or place. She knows she is in the hospital. She does not know which one. She has severe lower and upper extremity weakness. LABORATORY: WBC 9.4, hemoglobin 8.6, hematocrit 27.3, platelets 61,000. Sodium 147, potassium 3.5, chloride 97, bicarbonate 27, BUN 72, creatinine 6.1, glucose 134, calcium 7.6, phosphorus 8.5, albumin 2.9. ASSESSMENT AND PLAN: 1. Acute hypoxemic respiratory failure. This patient has been extubated. She is not having any respiratory distress at this moment. We will continue following the recommendations of the pulmonary department. 2. Bilateral pneumonia. This patient is on broad-spectrum antibiotics. Continue with the same management. 3. Hypernatremia. I will put this patient on D5W. I will monitor the blood sodium. 4. Chronic kidney disease, likely stage 4. This patient is making urine. Nephrology department is on board. We will continue following the recommendations of the nephrology department. 5. Metabolic acidosis, resolved. I will stop the bicarbonate drip. 6. Antiphospholipid syndrome. This patient has been on warfarin before but right now she is on heparin drip. We will monitor. Probably once this patient is tolerating p.o. and more alert we can and start this patient on anticoagulation per mouth. Hematology department is following this patient. 7. Anemia status post 1 packed red blood cells. Hemoglobin and hematocrit have been stable. We will continue to monitor. 8. History of cerebrovascular accident. Continue with the same management. I am not quite sure if this patient has some kind of residual weakness. No family members at the bedside. 9. Hypothyroidism. Continue with Synthroid. 10. Chronic obstructive pulmonary disease. Continue with nebulizations. 11. Depression, aware. 12. Hyperlipidemia. Continue with the same medication. 13. Seizure disorder. Continue with the same management. I am not quite sure about the history of seizure disorder. No family members at the bedside. 14. Physical deconditioning. Physical therapy is on board. Continue with the same management. CRITICAL CARE TIME: 35 minutes. cc: Wild Palmer MD
[2016-09-15] MEDS: SODIUM CHLORIDE 0.9% INJ SCH (16:01)
[2016-09-16] MEDS: ZOSYN 2.25 GM/NS 2.25 GM/50 ML IVPB IV SCH ×3 (00:47→16:46)
[2016-09-16] MEDS: HEPARIN 25,000 UNITS/D5W 25,000 UNIT/250 ML IV.SOLN IV SCH ×2 (01:40→21:50)
[2016-09-16] MEDS: DUONEB (A & A) INH SCH ×6 (03:27→23:22)
[2016-09-16] MEDS: PROTONIX IV SCH ×2 (04:26→16:46)
[2016-09-16] MEDS: LASIX IV SCH ×4 (04:26→20:11)
[2016-09-16] MEDS: D5W 1,000 ML IV SCH ×3 (04:27→10:05)
[2016-09-16] MEDS: CLINIMIX E 4.25%-5% SOLUTION 1,000 ML IV SCH ×3 (04:27→21:49)
[2016-09-16 04:44] LABS: ALLEN TEST YES; BE 4.9 mmoll (-3.0-3.0); BLOOD TYPE ARTERIAL; DRAW SITE R RADIAL; METHB 1.7 % (0.0-1.5); O2(CT) 11.6 mL/dL (15.0-23.0); PCO2(98.6) 41 mmHg (35-45); PO2(98.6) 67 mmHg (60-100); SAMPLE BLOOD; SAO2 96.5 % (95.0-100.0); THB 8.9 g/dL (11.5-17.4); pH(98.6) 7.46 (7.35-7.45)
[2016-09-16 04:45] LABS: MODALITY CANNULA
[2016-09-16] MEDS: SYNTHROID IV SCH (06:34)
[2016-09-16 06:42] LABS: MANUAL DIFF NEEDED? NO
[2016-09-16 07:10] LABS: BASO% 0.7 % (0.0-0.8); EOS# 0.32 X1000 (0.0-0.7); HEMATOCRIT 28.4 % (37.0-47.0); IMM GRAN# 0.27 X1000 (0.0-0.04); IMM GRAN% 2.6 % (0.0-0.5); LYMPH# 1.13 X1000 (1.2-3.4); LYMPH% 10.7 % (20.5-51.1); MCH 31.6 PG (27-31); MCHC 31.7 g/dL (33-37); MCV 99.6 FL (81-99); MONO# 0.84 X1000 (0.11-0.59); MPV 11.1 FL (7.4-10.4); PLT 54 X1000 (130-400); RBC 2.85 XMIL (4.2-5.4)
[2016-09-16] MEDS: CALMOSEPTINE OINTMENT TOP PRN (07:15)
[2016-09-16 07:36] LABS: ALBUMIN 3.1 g/dL (3.5-5.0); CALCIUM 7.8 mg/dL (8.8-10.2); POTASSIUM 3.7 mmol/L (3.5-5.1)
--- NOTE | 2016-09-16 07:38 | Diag Imaging Result Document ---
PROCEDURE NAME: CHEST-PORTABLE - 09/16/2016 AP PORTABLE CHEST AT 0500 HOURS: FINDINGS: There is cardiomegaly. There is increased pulmonary vascularity and there is interstitial and alveolar pulmonary edema. This is worse than on the previous study of 09/15/2016. IMPRESSION: Worsening pulmonary edema.
[2016-09-16] MEDS: TYLENOL PR PRN ×2 (09:06→13:14)
[2016-09-16] MEDS: TEFLARO 300 MG in NS 250 ML IV SCH ×2 (09:21→20:10)
--- NOTE | 2016-09-16 10:33 | PROGRESS NOTE ---
DATE: 09/16/2016 SUBJECTIVE: Patient awake, remains confused. Makes eye contact but unable to determine her verbalization. OBJECTIVE: Vital Signs: Temperature 99 degrees, pulse 112 irregular, respiratory 25, blood pressure 157/89. Intake 3.5 L, output 2.7 L. General: Middle-aged female, resting in bed. Awake, confused. HEENT: Normocephalic, atraumatic. Oral mucosa is moist. Face has erythema noted to the cheek. Neck: Thick, supple. No JVD. Cardiovascular: Irregular with a systolic murmur. Metallic heart sounds noted. Pulmonary: She has equal excursion. She has perhaps slight expiratory wheeze. Abdomen: Obese, soft, positive bowel sounds. : Not inspected. She has a Dexter. She has adequate urine output, clear yellow. Extremities: Perhaps trace pretibial edema. No clubbing or cyanosis. Integumentary: Skin is warm and dry otherwise. LAB DATA: WBC of 10.3, hemoglobin 9.0, sodium 143, potassium 3.7, CO2 25, BUN 78, creatinine 6.7, calcium 7.8, phosphorus 7.3, and albumin 3.1. ASSESSMENT AND PLAN: 1. Acute on chronic kidney disease. Her renal function has not improved. We will begin a 24 hour urine this morning to establish her overall creatinine clearance and then make decisions based on that. We have discussed with the family that she may well require chronic hemodialysis. 2. Fluid volume. She is still about 2 L positive over the course of the hospitalization. She has had Clinimix started at 50 an hour. She also has D5 going at 50 an hour. She has Lasix at 80 q.8 hours. She still almost a L positive overnight. We will decrease her D5 down to KVO because she also has some pulmonary edema noted on chest x-ray. 3. Electrolytes, acid-base balance. These are acceptable. 4. Anemia is stable. Continue to monitor. Seen, data reviewed, discussed with Brisa Jc on 09/16/16. I agree with the above assessment and plan of care. rg Dictated by JAVIER Thomas for Adam Fritz MD cc: Adam Fritz MD [facility]
--- NOTE | 2016-09-16 13:17 | PROGRESS NOTE ---
DATE: 09/16/2016 SUBJECTIVE: No events overnight. This patient was extubated a couple days ago. She is still having severe weakness. She is confused today. This patient was started on Clinimix and D5W. The dose of D5W has been decreased by Nephrology Department, will continue to monitor. OBJECTIVE: Vital Signs: Temperature 101.1, pulse 114, respiratory rate 20, blood pressure 133/108, oxygen saturation 96 on 4 L of nasal cannula. HEENT: Head normocephalic. No trauma. PERRLA. Neck: Supple. No JVD. No masses. Central trachea. Chest: Coarse breath sounds, mostly at the bases. Abdomen: Soft, nontender, nondistended. Positive bowel sounds. Obese. Cardiovascular: RRR. No murmurs. Tachycardic. Extremities: No cyanosis. No edema. No clubbing. Neurological: The patient is somnolent. She is following commands on and off. She is disoriented. LABORATORY: WBC 10.5, hemoglobin 9, hematocrit 28.4, platelets 54. Sodium 143, potassium 3.7, chloride 96, bicarbonate 26, BUN 78, creatinine 6.2, glucose 208, calcium 7.8, albumin 3.1. ASSESSMENT AND PLAN: 1. Acute hypoxemic respiratory failure possible on a background of chronic hypoxemic respiratory failure. She is not complaining of respiratory distress at this moment. We will continue following the recommendations of the Pulmonary Department. Today, the x-ray showed pulmonary edema. The rate of IV fluids has been reduced. We will continue with furosemide. 2. Bilateral pneumonia. This patient is on broad-spectrum antibiotics. Continue with the same management. 3. Hypernatremia continue with D5W, low dose. 4. Chronic kidney disease. Likely stage 4. This patient is getting lab work. This has been ordered by the Nephrology Department. Probably this patient will need dialysis in the near future. 5. Antiphospholipid syndrome. This patient has been on warfarin previously. At this moment, she is on heparin drip. I do believe if this patient is tolerating p.o. and more alert, we can restart treatment per mouth. 6. Anemia. Status post 1 packed red blood cells. We have been following the hemoglobin and hematocrit. We will continue to monitor. We will transfuse as needed. 7. History of cerebrovascular accident. Continue with the same management. I am not quite sure if this patient has some kind of residual weakness. No family members at the bedside. 8. Hypothyroidism, continue with Synthroid. 9. Chronic obstructive pulmonary disease, continue with nebulizations. 10. Depression, aware. 11. Hyperlipidemia, continue with the same management. 12. Seizure disorder. Continue with the same management. I am not sure about the history of seizure disorder. No family members at the bedside. 13. Physical deconditioning. Physical therapy is on board. Continue with the same management. CRITICAL CARE TIME: 30 minutes. cc: Wild Palmer MD
[2016-09-16] MEDS: SODIUM CHLORIDE 0.9% INJ SCH (16:46)
[2016-09-17] MEDS: ZOSYN 2.25 GM/NS 2.25 GM/50 ML IVPB IV SCH ×3 (00:17→16:10)
[2016-09-17] MEDS: DUONEB (A & A) INH SCH ×6 (03:30→22:55)
[2016-09-17 04:47] LABS: ALLEN TEST YES; BLOOD TYPE ARTERIAL; DRAW SITE R RADIAL; METHB 1.6 % (0.0-1.5); O2(CT) 11.9 mL/dL (15.0-23.0); PCO2(98.6) 40 mmHg (35-45); PO2(98.6) 67 mmHg (60-100); SAMPLE BLOOD; SAO2 95.2 % (95.0-100.0); THB 9.2 g/dL (11.5-17.4); pH(98.6) 7.43 (7.35-7.45)
[2016-09-17 04:48] LABS: MODALITY CANNULA
[2016-09-17] MEDS: PROTONIX IV SCH ×2 (05:07→16:08)
[2016-09-17] MEDS: LASIX IV SCH ×3 (05:07→20:12)
[2016-09-17 06:40] LABS: MANUAL DIFF NEEDED? NO
[2016-09-17] MEDS: SYNTHROID IV SCH (06:44)
[2016-09-17] MEDS: D5W 1,000 ML IV SCH (07:00)
[2016-09-17 07:07] LABS: BASO% 0.4 % (0.0-0.8); EOS# 0.18 X1000 (0.0-0.7); EOS% 1.6 % (0.0-10.0); HEMATOCRIT 27.5 % (37.0-47.0); HEMOGLOBIN 8.9 g/dL (12.0-16.0); IMM GRAN% 1.8 % (0.0-0.5); LYMPH# 1.37 X1000 (1.2-3.4); LYMPH% 12.1 % (20.5-51.1); MCH 31.9 PG (27-31); MCHC 32.4 g/dL (33-37); MCV 98.6 FL (81-99); MONO# 0.92 X1000 (0.11-0.59); MONO% 8.1 % (1.7-9.3); MPV 12.2 FL (7.4-10.4); PLT 50 X1000 (130-400); RBC 2.79 XMIL (4.2-5.4)
[2016-09-17 07:34] LABS: ALBUMIN 3.2 g/dL (3.5-5.0); CALCIUM 8.2 mg/dL (8.8-10.2); POTASSIUM 3.5 mmol/L (3.5-5.1)
--- NOTE | 2016-09-17 07:42 | Diag Imaging Result Document ---
PROCEDURE NAME: CHEST-PORTABLE - 09/17/2016 PORTABLE CHEST X-RAY: COMPARISON: 09/16/2016. FINDINGS: Stable cardiomegaly and pulmonary vascular congestion. There is improvement in atelectasis or infiltrate at the right lung base, with better visualization of the right hemidiaphragm. No new infiltrates. No large effusions. IMPRESSION: Improvement from prior.
[2016-09-17] MEDS: TYLENOL PR PRN ×3 (07:58→16:09)
[2016-09-17] MEDS: CALMOSEPTINE OINTMENT TOP PRN ×2 (07:59→16:16)
--- NOTE | 2016-09-17 09:28 | PROGRESS NOTE ---
DATE: 09/17/2016 SUBJECTIVE: She is talking continuously but unintelligibly. OBJECTIVE: Vital Signs: Blood pressure 138/80, heart rate 118, respirations 22, temperature 99.4 degrees. Intake 2.8 L. Output 2.7 L. Physical Examination: General: No acute distress. Skin: Warm and dry. HEENT: She has an erythematous rash on the face. Conjunctivae are pink. Neck: Neck veins are not appreciated. Heart: Regular with metallic heart tones. Lungs: Have equal breath sounds. No crackles. Abdomen: Obese and soft. Bowel sounds are present. Extremities: Have no edema, clubbing, or cyanosis. Laboratory Data: Sodium 141, potassium. 3.5, chloride 96, bicarbonate 23, BUN 85, creatinine 6.2. IMPRESSION: Chronic kidney disease. Her kidney function is worse compared to her historical baseline. A 24 hour urine is in process. I am sure that her clearance will be low enough to categorize her as stage V chronic kidney disease. Her candidacy for chronic dialysis is marginal, however. We will discuss this with the family once the data is available. cc: Adam Fritz MD
[2016-09-17] MEDS: TEFLARO 300 MG in NS 250 ML IV SCH (09:45)
--- NOTE | 2016-09-17 09:58 | Diag Imaging Result Document ---
PROCEDURE NAME: CHEST-PORTABLE - 09/17/2016 PORTABLE CHEST X-RAY AT 0939 HOURS: COMPARISON: 0500 hours. FINDINGS: Portable technique was used and detail is very poor. There is probably a nasogastric tube in good position in the stomach. IMPRESSION: Nasogastric tube in the stomach.
[2016-09-17] MEDS: HEPARIN 25,000 UNITS/D5W 25,000 UNIT/250 ML IV.SOLN IV SCH (11:55)
[2016-09-17] MEDS: 1/2 NS 1,000 ML IV SCH (12:45)
--- NOTE | 2016-09-17 12:45 | PROGRESS NOTE ---
DATE: 09/17/2016 SUBJECTIVE: This patient was extubated 3 days ago. She is still having severe weakness. She is completely confused. She is not following commands. This patient was started on Clinimix and D5W. Nephrology department has been following this patient because she will probably need dialysis. OBJECTIVE: Vital Signs: Temperature 101 degrees, pulse 122, respiratory rate 23, blood pressure 140/84, oxygen saturation 98% on 2 L of nasal cannula. HEENT: Head normocephalic. No trauma. PERRLA. Neck: Supple. No JVD. No masses. Central trachea. Chest: Coarse breath sounds mostly at the bases. Abdomen: Soft, nontender, nondistended. Positive bowel sounds. Obese. Cardiovascular: RRR, tachycardic. Extremities: No cyanosis. No edema. No clubbing. Neurological: The patient is alert but she is disoriented and talking nonsense. LABORATORY: WBC 11.3, hemoglobin 8.9, hematocrit 27.5, platelet 50,000. Sodium 141, potassium 3.5, chloride 96, bicarbonate 23, BUN 85, creatinine 6.2, glucose 232, calcium 8.2, phosphorus 6.9, albumin 3.2. ASSESSMENT AND PLAN: 1. Acute hypoxemic respiratory failure possibly on a background of chronic hypoxemic respiratory failure. This patient is confused at this moment. We will continue following the recommendation of pulmonary department. She is not following commands. The IV fluids have been reduced yesterday. We will continue with furosemide. 2. Bilateral pneumonia. This patient is on broad-spectrum antibiotics. For now we will continue with the same management. We will consult infectious disease department. We have a positive result for MRSA in the sputum. 3. Hypernatremia, resolved. We will stop the D5W and I will put this patient on a low dose of half NS. 4. Chronic kidney disease. This is likely stage 4 but probably she will be stage 5. BUN and creatinine are getting worse. She will probably need dialysis. Nephrology department is following this patient. 5. Antiphospholipid syndrome. This patient has been on warfarin previously. At this moment she is on a heparin drip. I do believe if this patient starts tolerating p.o. we can probably restart this patient on treatment per mouth. 6. Anemia, stable. Continue to monitor. 7. History of cerebrovascular accident, stable. Continue to monitor. 8. Hypothyroidism. Continue with Synthroid. 9. Chronic obstructive pulmonary disease. Continue with nebulizations. 10. Depression. Aware. 11. Hyperlipidemia. Continue with the same management. 12. Seizure disorder. Continue with the same management. I am not sure about the history of seizure disorder. No family members are at the bedside. 13. Physical deconditioning. Physical therapy is on board but this patient is confused. They will probably not do any kind of physical activity outside of the bed. 14. Nutritional status. This patient is on Clinimix and I ordered to place an NG tube and evaluation by the sheet sorter. CRITICAL CARE TIME: 35 minutes. cc: Widl Palmer MD
[2016-09-17 13:32] LABS: UR CREATININE 40.1 mg/dL (11-20)
[2016-09-17 13:46] LABS: UR PROTEIN 345.7 mg/dL
[2016-09-17 14:01] LABS: UR CREATININE TOTAL 1323.3 mg/24 (600-1600)
--- NOTE | 2016-09-17 14:21 | Diag Imaging Result Document ---
PROCEDURE NAME: HEAD W/O CONTRAST - 09/17/2016 CT OF THE HEAD WITHOUT CONTRAST: FINDINGS: The visualized paranasal sinuses are clear. There is an NG tube passing through the right nasal passage. There is encephalomalacia in the anterior left temporal lobe. There has been previous craniotomy on the left. There is also encephalomalacia in the opercular portion of the anterior parietal lobe. Compared to 09/08/2016, there has been no significant change. There are lacunae present in the basal ganglia bilaterally most notably in the area of the caudate nucleus on the left. There is no evidence of bleed or abnormal extra-axial fluid collection. IMPRESSION: Extensive chronic microvascular change and encephalomalacia with postsurgical changes on the left. No significant change since 09/08/2016. [facility]
[2016-09-17] MEDS: SODIUM CHLORIDE 0.9% INJ SCH (16:08)
[2016-09-17] MEDS ORDERED: VANCOMYCIN IV PER PHARMACY MISC SCH (17:15)
[2016-09-17] MEDS: DIFLUCAN 200 MG/NS 200 MG/100 ML IVPB IV SCH (18:03)
[2016-09-17] MEDS: CLINIMIX E 4.25%-5% SOLUTION 1,000 ML IV SCH (18:04)
--- NOTE | 2016-09-17 18:08 | CONSULTATION ---
DATE OF CONSULTATION: 09/17/2016 CONCLUSION: The patient has a methicillin-resistant Staph aureus pneumonia. She also has oral candidiasis which may extend down the esophagus. The patient has a catheter in her groin and I think it is possible that the patient could have an infection from the groin area. RECOMMENDATIONS: I have discontinued ceftaroline and Zosyn and have put the patient on vancomycin intravenously, which the pharmacy is to dose also. I have ordered to paint the mouth 4 times a day with nystatin, and finally I ordered fluconazole in case the patient has esophageal involvement with Rebeka similar to that going on in the mouth. I am going to order some repeat blood cultures. Also because the patient is so ill and relatively young, I am ordering immunoglobulin levels to see if she has an immunoglobulin deficiency. DISCUSSION: The patient is somewhat delirious and I am unable to obtain a history from her. The patient is unable provide a history. Her was in there and provided some history on the patient. She came in with respiratory distress. Her sputum is growing methicillin-resistant Staph aureus. She has a right lung infiltrate. Her white count remains elevated, and she has a high fever spikes. It was noticed today that she does have a white coating to her tongue. She has had a CT scan of the head which showed extensive chronic microvascular changes, encephalomalacia and postoperative changes. Chest x-ray shows a right lung infiltrate. The patient's CBC shows a white count of 11,310, hemoglobin 8.9, and platelet count 50,000. Arterial blood gases showed a pH of 7.43, a PO2 of 67, pCO2 of 42, creatinine of 6.2. The GFR is 7. 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 REVIEW OF SYSTEMS: The review of systems was answered by the .Eyes and ears: She did not appear to have any loss of hearing or vision. Respiratory: She has a chronic cough. GI: She had not been having nausea, vomiting or diarrhea. : She had not complained of dysuria or flank pain. Neurologic: She had not had any seizure. She has had hemorrhagic strokes and craniotomies. Endocrine: She was not diabetic, but does have thyroid disease. Bones, joints, muscles: She did not complain of joint pain or myalgias. PREVIOUS HOSPITALIZATIONS AND OPERATIONS: She has had pneumonia. Mitral valve replacement. Craniotomies for hemorrhagic strokes. Carotid artery surgery. MEDICAL DISEASES: Positive for hypertension, mitral valve disease requiring mitral valve replacement. Strokes. COPD. Hypothyroidism. INFECTIOUS DISEASE HISTORY: Positive for pneumonia and UTI. FAMILY HISTORY: Positive for diabetes mellitus, hypertension, and stroke. [place]IAL HISTORY[place] She smokes cigarettes, drinks alcoholic beverages. She has dogs as pets. She is disabled and on disability. ALLERGIES: The patient is allergic to latex. Patient has no known drug allergies. HOME MEDICATIONS INCLUDE THE FOLLOWING: Lasix, niacin, Cozaar, hydrocodone, Synthroid, Zebeta, Elavil, gabapentin, baclofen, Coumadin, diazepam, Protonix, Lipitor. PHYSICAL EXAMINATION: Vital Signs: Temperature is 101.4 degrees, pulse 122, respirations 24, blood pressure 128/89. General: This is an ill-appearing middle-aged female. She is in no acute distress. She is lying in bed. She moves her hands. She talks, but I cannot understand what she is saying. She did not follow requests to move her extremities. Head eyes, ears, nose, and throat: No drainage noted from the nose or ears. There is no drainage coming from the head. Neck: No meningismus. Thorax: There was an increased AP diameter of the chest. Lungs: Scattered rhonchi bilaterally. Cardiovascular: Regular heart rate. Diminished peripheral pulses. Abdomen: Soft and nontender. Neurologic as mentioned above, the patient talks, but I cannot understand what she is saying. She does not follow request to move her extremities. There was no tremor. Integument: No rash noted. Thank you for the consult. cc: Rashid Arnold MD
[2016-09-17] MEDS: MYCOSTATIN SUSP PO SCH (20:12)
[2016-09-17] MEDS ORDERED: VANCOMYCIN 1 GM/NS 1 GM/250 ML IVPB IV SCH (21:00)
[2016-09-18] MEDS: DUONEB (A & A) INH SCH ×6 (03:30→22:40)
[2016-09-18] MEDS: HEPARIN 25,000 UNITS/D5W 25,000 UNIT/250 ML IV.SOLN IV SCH ×2 (04:24→19:58)
[2016-09-18] MEDS: LASIX IV SCH ×3 (04:31→20:00)
[2016-09-18] MEDS: PROTONIX IV SCH ×2 (04:31→17:23)
--- NOTE | 2016-09-18 06:21 | Diag Imaging Result Document ---
PROCEDURE NAME: CHEST-PORTABLE - 09/18/2016 PORTABLE CHEST: COMPARISON: Compared to 09/17/2016. FINDINGS: The nasogastric tube overlies the esophagus. Due to the technique, I am unsure where the distal portion is located. The heart is not enlarged. Mild vascular distention similar to the prior exam. No pleural effusions identified. No consolidation. IMPRESSION: Pulmonary edema.
[2016-09-18] MEDS: SYNTHROID IV SCH (07:08)
[2016-09-18] MEDS: SODIUM CHLORIDE 0.9% INJ SCH (07:09)
[2016-09-18 07:53] LABS: BASO% 0.4 % (0.0-0.8); EOS# 0.15 X1000 (0.0-0.7); EOS% 1.1 % (0.0-10.0); HEMATOCRIT 27.8 % (37.0-47.0); HEMOGLOBIN 9.2 g/dL (12.0-16.0); IMM GRAN# 0.22 X1000 (0.0-0.04); IMM GRAN% 1.6 % (0.0-0.5); LYMPH# 1.11 X1000 (1.2-3.4); MANUAL DIFF NEEDED? YES; MCH 32.7 PG (27-31); MCHC 33.1 g/dL (33-37); MCV 98.9 FL (81-99); MONO# 0.87 X1000 (0.11-0.59); MONO% 6.3 % (1.7-9.3); NEUT% 82.6 % (42.2-75.2); PLT 41 X1000 (130-400); RBC 2.81 XMIL (4.2-5.4)
[2016-09-18] MEDS: MYCOSTATIN SUSP PO SCH ×4 (08:00→22:49)
[2016-09-18 08:11] LABS: BANDS 2 % (0-1); EOS 2 % (1-10); LYMPHS 8 % (21-51)
[2016-09-18 08:29] LABS: ALBUMIN 3.2 g/dL (3.5-5.0); CALCIUM 8.8 mg/dL (8.8-10.2); POTASSIUM 3.4 mmol/L (3.5-5.1)
--- NOTE | 2016-09-18 10:55 | PROGRESS NOTE ---
DATE: 09/18/2016 SUBJECTIVE: Patient continues to speak unintelligibly. She does not follow commands. PHYSICAL EXAMINATION: Vital Signs: Temperature 98.9 degrees, pulse 95, respiratory rate 22, blood pressure 152/100. Intake 3.5 L. Output 3.3 L. General: This is a middle-aged female, resting in the bed. Her eyes are open. Unable to understand anything that she says. She does not follow commands. HEENT: Normocephalic, atraumatic. She continues with an erythematous rash to the face. Conjunctivae pink. DIONNE. Neck: Supple. No JVD. Cardiovascular : She has a regular rate and rhythm. Pulmonary: She has equal excursion. She is clear bilaterally. She has no increased work of breathing. She is on room air. Abdomen: Obese, soft. Positive bowel sounds. Genitourinary: She has a Dexter catheter. Extremities: No clubbing, cyanosis, or edema. Integumentary: Skin is warm and dry otherwise. LABORATORY DATA: WBC of 13.8, hemoglobin 9.2. Sodium 137, potassium 3.4, CO2 of 22, BUN 96, creatinine 5.8, phosphorus 7.0, calcium 8.8, albumin 3.2, total protein on 24-hour urine 11 g, creatinine clearance on 24-hour urine 15. ASSESSMENT AND PLAN: Chronic kidney disease, stage 5. No absolute indications for HD. She has nephrotic range proteinuria. She is an extremely poor candidate for dialysis, as she is unable to verbalize understanding of this and currently does not follow commands. We will discuss with the family her current chronic kidney disease and options. Seen, data reviewed, discussed with Brisa Jc on 09/18/16. I agree with the above assessment and plan of care. rg Dictated by JAVIER Thomas for Adam Fritz MD cc: Adam Fritz MD [facility]
[2016-09-18] MEDS: CLINIMIX E 4.25%-5% SOLUTION 1,000 ML IV SCH (12:33)
[2016-09-18] MEDS: 1/2 NS 1,000 ML IV SCH (13:18)
--- NOTE | 2016-09-18 14:26 | PROGRESS NOTE ---
DATE: 09/18/2016 SUBJECTIVE: This patient was extubated 4 days ago. She is still having severe weakness. She is still confused but today she was able to say her name, she is not following commands. This patient was started on Clinimix and D5 W. Her D5 W was stopped and then we started this patient on half NS low dose, and NG tube was ordered and now she is getting tube feedings. OBJECTIVE: Vital Signs: Temperature 98.3 degrees, pulse 116, respiratory rate 26 and blood pressure 132/83, O2 saturation 96 on room air. HEENT: Head normocephalic. No trauma. PERRLA. Neck: Supple. No JVD. No masses. Central trachea. Obese. Chest: Bilateral coarse breath sounds. Mild rales at the bases. Abdomen: Soft, nontender, nondistended. Positive bowel sounds. Extremities: Trace edema. No clubbing. No cyanosis. Cardiovascular: RRR. Tachycardic. Neurological: The patient is alert, but she is disoriented, she is oriented on and off to person. LABORATORY: WBC 13.8, hemoglobin 9.2, hematocrit 27.8, platelets 41,000, sodium 137, potassium 3.4, chloride 93, bicarbonate 22, BUN 96, creatinine 5.8, glucose 399. Calcium 8.8, phosphorus 7.0, albumin 3.2. ASSESSMENT AND PLAN: 1. Acute hypoxemic respiratory failure probably on a background of chronic hypoxemic respiratory failure. This patient is confused at this moment. We will continue following the recommendation of pulmonary department. She is not following commands. The IV fluids have been reduced a couple days ago. We will continue with furosemide. 2. Bilateral pneumonia. This patient is on broad spectrum antibiotics, we have a positive result that showed MRSA in the sputum, Infectious Disease department has stopped her antibiotics and they started this patient on vancomycin IV, but she has some lesions in the mouth that probably are related with candidiasis, so he ordered also daily nystatin and also fluconazole in case of esophageal involvement. 3. Oral candidiasis as above. 4. Hypernatremia, resolved. 5. CKD, stage 4 to 5, probably this is a stage 5. BUN and creatinine are elevated. She has a nephrotic range proteinuria. The nephrology department is on board. 6. Antiphospholipid syndrome. For now, we are going to continue with heparin drip. She used to be on warfarin. 7. Anemia, stable. Continue to monitor. 8. History of CVA, stable. Continue to monitor. 9. Hypothyroidism, continue with Synthroid. 10. COPD. Continue with nebulization. 11. Depression, aware. 12. Hyperlipidemia, continue with the same management. 13. Seizure disorder. Continue with the same management. 14. Physical deconditioning. Physical therapy is on board. This patient is confused. Probably they will do just range of motion on the bed. 15. Nutritional status. This patient is on Clinimix and also she is on tube feedings. CRITICAL CARE TIME: 40 minutes. cc: Wild Palmer MD
[2016-09-18] MEDS: HUMULIN R SUBQ SCH ×3 (16:38→22:00)
[2016-09-18] MEDS: DIFLUCAN 200 MG/NS 200 MG/100 ML IVPB IV SCH (17:23)
--- NOTE | 2016-09-18 19:39 | PROGRESS NOTE ---
DATE: 09/18/2016 PRESENT ILLNESS: The patient has a methicillin-resistant Staph aureus pneumonia. She also has oral candidiasis which may extend down her esophagus. The patient has a groin catheter which may be a source of infection as well. MEDICATIONS: The patient currently is receiving vancomycin and fluconazole. PHYSICAL EXAMINATION: Vital Signs: Temperature is 98.9 degrees, pulse 111, respirations 28, blood pressure 129/80. General: This is an ill-appearing, middle-aged female. She is in no acute distress. She seems to be in a delirium. Head, eyes, ears, nose, and throat: No drainage noted from the nose or ears. She seemed to have some erythematous splotchy areas on her cheeks. Neck: No meningismus. Lungs: Clear to auscultation. Cardiovascular: Regular heart rate. Abdomen: Soft and not tender. Neurologic: The patient seems to be stuporous and confused. LAB AND X-RAY: CBC-WBC 13.85, hgb 9.2, platelets 41K. Creatinine-5.8. GFR-8. Chest [id number] with pulmonary edema. ASSESSMENT AND PLAN: 1. For right now, the patient has a pneumonia and candidiasis and my plan would be to continue vancomycin and Zosyn. 2. Comorbidities: Chronic obstructive pulmonary disease, prior strokes. cc: Rashid Arnold MD [facility]
[2016-09-18] MEDS ORDERED: HUMULIN R SUBQ SCH (21:15)
[2016-09-18] MEDS ORDERED: HEPARIN 25,000 UNIT in NS 250 ML IV SCH (22:00)
[2016-09-19] MEDS: PROTONIX IV SCH ×2 (04:05→17:42)
[2016-09-19] MEDS: LASIX IV SCH ×3 (04:05→20:01)
[2016-09-19] MEDS: SODIUM CHLORIDE 0.9% INJ SCH ×2 (04:05→17:42)
[2016-09-19] MEDS: DUONEB (A & A) INH SCH ×6 (04:35→22:49)
[2016-09-19] MEDS: SODIUM CHLORIDE 0.9% INJ PRN (06:09)
[2016-09-19] MEDS: HUMULIN R SUBQ SCH ×5 (06:09→20:01)
[2016-09-19] MEDS: SYNTHROID IV SCH (06:09)
[2016-09-19 06:21] LABS: MANUAL DIFF NEEDED? NO
[2016-09-19 06:39] LABS: BASO% 0.4 % (0.0-0.8); EOS# 0.31 X1000 (0.0-0.7); EOS% 2.2 % (0.0-10.0); HEMATOCRIT 26.5 % (37.0-47.0); HEMOGLOBIN 8.8 g/dL (12.0-16.0); IMM GRAN# 0.21 X1000 (0.0-0.04); IMM GRAN% 1.5 % (0.0-0.5); LYMPH# 1.29 X1000 (1.2-3.4); MCH 32.6 PG (27-31); MCHC 33.2 g/dL (33-37); MCV 98.1 FL (81-99); MONO# 0.78 X1000 (0.11-0.59); MONO% 5.4 % (1.7-9.3); MPV 11.3 FL (7.4-10.4); NEUT% 81.5 % (42.2-75.2); PLT 41 X1000 (130-400)
[2016-09-19 06:49] LABS: CALCIUM 8.5 mg/dL (8.8-10.2); POTASSIUM 3.3 mmol/L (3.5-5.1)
[2016-09-19] MEDS ORDERED: HEPARIN IV PRN (06:50)
[2016-09-19] MEDS ORDERED: HEPARIN IV ONE (06:55)
--- NOTE | 2016-09-19 07:21 | Diag Imaging Result Document ---
PROCEDURE NAME: CHEST-PORTABLE - 09/19/2016 PORTABLE CHEST X-RAY: COMPARISON: 09/18/2016. FINDINGS: Stable cardiomegaly and valve replacement. Stable nasogastric tube in good position with the tip in the stomach. Stable mild pulmonary vascular congestion. No infiltrates in the lungs. No convincing pulmonary edema. IMPRESSION: Cardiomegaly and pulmonary vascular congestion.
[2016-09-19] MEDS ORDERED: POTASSIUM CHLORIDE 40 MEQ/SWI 40 MEQ/100 ML IVPB IV ONE (08:21)
[2016-09-19] MEDS: CLINIMIX E 4.25%-5% SOLUTION 1,000 ML IV SCH (09:07)
[2016-09-19] MEDS ORDERED: INSULIN PEN NEEDLES ONE (09:46)
[2016-09-19] MEDS: MYCOSTATIN SUSP PO SCH ×4 (09:46→20:01)
[2016-09-19] MEDS: LANTUS SUBQ SCH (09:49)
[2016-09-19] MEDS: HEPARIN 25,000 UNIT in NS 250 ML IV SCH (09:54)
--- NOTE | 2016-09-19 09:59 | PROGRESS NOTE ---
DATE: 09/19/2016 SUBJECTIVE: This patient was extubated 4 days ago. She is still having severe weakness. She is still confused but she is able to say her name. She is not following commands and this patient is talking nonsense on and off. We started this patient on Clinimix and also tube feedings, and she is tolerating that. Since we started the tube feedings, this patient has been having high blood sugar. I will start this patient with long-acting insulin and I will continue with the sliding scale insulin and pattern of blood sugar as well. OBJECTIVE: Vital Signs: Temperature 98.9 degrees, pulse 112, respiratory rate 23, blood pressure 145/80, O2 saturation 98 on room air. HEENT: Head normocephalic. No trauma. PERRLA. Neck: Supple. No JVD. No masses. Central trachea. Obese. Chest: Bilateral coarse breath sounds. Mild rales at the bases. Abdomen: Soft, nontender, nondistended. Positive bowel sounds. Extremities: Trace edema. No clubbing. No cyanosis. Cardiovascular: RRR, tachycardic. Neurological Examination: The patient is alert but she is disoriented. She is only oriented on and off to person. Laboratory: WBC 14.3, hemoglobin 8.8, hematocrit 26.5, platelets 41,000. Sodium 138, potassium 3.3, chloride 94, bicarbonate 23, BUN 109, creatinine 5.8, glucose 378, calcium 8.5, phosphorus 7.2, albumin 3. ASSESSMENT AND PLAN: 1. Acute hypoxemic respiratory failure probably on a background of chronic hypoxemic respiratory failure. This patient has been extubated 5 days ago. This patient is still confused. She is oriented on and off to person and she has been talking nonsense on and off as well. We will follow the recommendation of pulmonary department. She is not following commands. 2. Bilateral pneumonia. Infectious disease department is following this patient. We have a positive sputum result that showed methicillin-resistant Staphylococcus aureus. Also, this patient has lesions in her mouth, probably related with candidiasis. She is getting daily nystatin and also fluconazole in case of esophageal involvement. 3. Oral candidiasis, as above. 4. Hyperkalemia, resolved. 5. Chronic kidney disease stage IV to V. Probably, this is a stage V. BUN and creatinine are elevated. She has nephrotic range proteinuria. Nephrology department is following this patient. Probably, this patient will need to be dialyzed. 6. Anemia, stable. Continue to monitor. 7. History of cerebrovascular accident, stable. Continue to monitor. 8. Hypothyroidism. Continue with Synthroid. 9. Chronic obstructive pulmonary disease. Continue with nebulization. 10. Depression. Aware. 11. Hyperlipidemia. Continue with the same management. 12. Seizure disorder. Continue with the same management. 13. Physical deconditioning. Physical therapy is on board. This patient is confused. Probably, they will do just range of motion in the bed. 14. Nutritional status. This patient is on Clinimix and also tube feedings. 15. Type 2 diabetes. I have placed this patient on Lantus 20 units daily. We will monitor. CRITICAL CARE TIME: 40 minutes. cc: Wild Palmer MD
[2016-09-19 13:39] LABS: MAGNESIUM 2.1 mg/dL (1.5-2.7); PREALBUMIN 26.5 mg/dL (20-40)
--- NOTE | 2016-09-19 15:12 | PROGRESS NOTE ---
DATE: 09/19/2016 SUBJECTIVE: Patient currently resting in bed. She will answer questions for me today. When I ask her where she is at, she replies, "Do you mean right now?" OBJECTIVE: Vital Signs: Temperature 98.9 degrees, pulse 112, respiratory rate 23, blood pressure 145/80. Intake 2.8 L. Output 2.9 L. General: Middle-aged female resting in bed. I am able to understand minimally what she is talking about. She does go off with garbled, incoherent speech. She does follow commands today. HEENT: Normocephalic, atraumatic. Erythematous rash to the face. DIONNE. Oral mucosa is moist. Neck: Supple. No JVD. Cardiovascular: She has a regular rate and rhythm. Pulmonary: She has equal excursion. She is clear bilaterally. She is on 2L nasal cannula, without increased work of breathing. Abdomen: Obese, soft, with positive bowel sounds. Genitourinary: There is a Dexter catheter. There is clear yellow urine noted. Extremities: She has trace pretibial edema. No clubbing or cyanosis. Some dependent edema to the backs of the hips. Integumentary: Skin is warm and dry otherwise. LABORATORY DATA: WBC of 14.3, hemoglobin 8.8, sodium 138, potassium 3.3, CO2 of 94, BUN 109, creatinine 5.8, calcium 8.5, phosphorus 7.2, and albumin 3.0. ASSESSMENT AND PLAN: 1. Chronic kidney disease, stage 5. Her creatinine has stabilized, but her BUN continues to rise slowly. She is fairly euvolemic, fluid mott. We will discuss with the family the patient's baseline mentation and make further decisions regarding moving forward with dialysis needs in the future. Again, unless she is able to understand and follow commands with dialysis, she would be a poor candidate for this. We will discuss with the family the options with further orders to follow. 2. Electrolytes, acid-base balance. These are in target. 3. Anemia. This has been stable. 4. Blood pressure acceptable. Seen, data reviewed, discussed with Brisa Jc on 09/19/16. I agree with the above assessment and plan of care. rg Dictated by JAVIER Thomas for Adam Fritz MD cc: Adam Fritz MD [facility]
[2016-09-19] MEDS: DIFLUCAN 200 MG/NS 200 MG/100 ML IVPB IV SCH (17:42)
[2016-09-19] MEDS: 1/2 NS 1,000 ML IV SCH (17:55)
--- NOTE | 2016-09-19 20:17 | PROGRESS NOTE ---
DATE: 09/19/2016 PRESENT ILLNESS: The patient has a methicillin-resistant Staph aureus pneumonia and oral candidiasis which may extend down to her esophagus. MEDICATIONS: The patient is receiving IV vancomycin and fluconazole. PHYSICAL EXAMINATION: Vital Signs: Temperature is 99.1 degrees, pulse 116, respirations 24, blood pressure 122/76. General: This is an ill-appearing middle-aged female. She is in no acute distress. Lungs: Clear to auscultation. Cardiovascular: Regular heart rate. Abdomen: Soft and nontender. Neurologic: Patient is awake. She did follow request to move her extremities. She was not oriented as to place or time. Her face still has that erythematous-like discoloration to it. LABORATORY AND X-RAY: The CBC for today shows a white count of 14,280, hemoglobin 8.8, and platelet count 41,000. Creatinine is 5.8. GFR is 8. Chest x-ray shows cardiomegaly with pulmonary vascular congestion. ASSESSMENT AND PLAN: 1. The patient has pneumonia and candidiasis. My plan is to continue both vancomycin and fluconazole. 2. Comorbidity: Chronic obstructive pulmonary disease and prior strokes. cc: Rashid Arnold MD
[2016-09-20] MEDS: DUONEB (A & A) INH SCH ×6 (02:46→22:49)
[2016-09-20] MEDS: HEPARIN 25,000 UNIT in NS 250 ML IV SCH ×2 (03:26→13:41)
[2016-09-20] MEDS: LASIX IV SCH ×3 (04:07→20:03)
[2016-09-20] MEDS: PROTONIX IV SCH ×2 (04:07→17:30)
[2016-09-20] MEDS: SODIUM CHLORIDE 0.9% INJ SCH ×2 (04:07→17:30)
[2016-09-20] MEDS: SYNTHROID IV SCH (06:17)
[2016-09-20] MEDS: HUMULIN R SUBQ SCH ×4 (06:18→20:03)
[2016-09-20] MEDS: SODIUM CHLORIDE 0.9% INJ PRN (06:18)
[2016-09-20 07:23] LABS: MANUAL DIFF NEEDED? NO
[2016-09-20 07:35] LABS: BASO% 0.4 % (0.0-0.8); EOS# 0.37 X1000 (0.0-0.7); EOS% 2.9 % (0.0-10.0); HEMATOCRIT 28.2 % (37.0-47.0); HEMOGLOBIN 9.3 g/dL (12.0-16.0); IMM GRAN# 0.25 X1000 (0.0-0.04); IMM GRAN% 1.9 % (0.0-0.5); LYMPH# 1.36 X1000 (1.2-3.4); LYMPH% 10.6 % (20.5-51.1); MONO# 0.68 X1000 (0.11-0.59); MONO% 5.3 % (1.7-9.3); MPV 11.3 FL (7.4-10.4); NEUT% 78.9 % (42.2-75.2); PLT 43 X1000 (130-400); RBC 2.82 XMIL (4.2-5.4)
--- NOTE | 2016-09-20 07:53 | Diag Imaging Result Document ---
PROCEDURE NAME: CHEST-PORTABLE - 09/20/2016 ERECT AP PORTABLE CHEST AT 0530 HOURS: FINDINGS: There is an NG tube which passes below the diaphragm. There is cardiomegaly. Compared to 09/19/2016, there has been no significant change in the appearance of the chest. IMPRESSION: Cardiomegaly.
[2016-09-20 08:06] LABS: ALBUMIN 3.2 g/dL (3.5-5.0); CALCIUM 8.5 mg/dL (8.8-10.2); POTASSIUM 3.7 mmol/L (3.5-5.1)
[2016-09-20] MEDS: EPOGEN SUBQ SCH (09:57)
[2016-09-20] MEDS: LANTUS SUBQ SCH (09:57)
[2016-09-20] MEDS: MYCOSTATIN SUSP PO SCH ×3 (09:58→16:06)
[2016-09-20] MEDS ORDERED: VANCOMYCIN 1 GM/NS 1 GM/250 ML IVPB IV SCH (11:00)
--- NOTE | 2016-09-20 14:01 | PROGRESS NOTE ---
DATE: 09/20/2016 SUBJECTIVE: She is about the same today. She is verbal but again difficult to understand all of her speech.Vital Signs: Blood pressure 149/88, heart rate 106. Respirations 24, afebrile. Intake 2.5 L 2.8 L. PHYSICAL EXAMINATION: No acute distress. Skin is warm and dry. Rash is unchanged. Conjunctivae are pink. Heart: Metallic heart tones. Lungs have equal breath sounds. No crackles or wheezes. Abdomen is soft and nontender. Bowel sounds are present. Extremities have no edema, clubbing, or cyanosis. LABORATORY DATA: Sodium 142, potassium 3.7, chloride 99, bicarbonate 23, BUN 122, creatinine 5.7. IMPRESSION: 1. Chronic kidney disease with overlying acute kidney injury. Her creatinine has been roughly stable though her BUN has risen. She is in negative fluid balance over the last 2 days but very modestly. She has adequate intake so we will continue to observe without restarting IV fluids. 2. Electrolytes/acid base in target. 3. Anemia, stable. cc: Adam Fritz MD
--- NOTE | 2016-09-20 15:33 | PROGRESS NOTE ---
DATE: 09/20/2016 SUBJECTIVE: The patient is awake. She is somewhat confused, but does follow commands without any difficulty. PHYSICAL EXAMINATION: Vital Signs: Temperature 98, pulse 106, respiratory rate 24, blood pressure 149/88, saturation 100% on room air. General: The patient is awake, but easily confused. HEENT: Normocephalic, atraumatic. PERRLA. She has an NG tube in place. Neck: Supple. Cardiovascular: Regular rate. Chest: Relatively clear. Abdomen: Soft. Extremities: Moves all extremities. Neurologic: No changes. ASSESSMENT: 1. Hypoxic respiratory failure, improving. 2. Bilateral pneumonia with methicillin-resistant Staphylococcus aureus. 3. Hyperkalemia. 4. Chronic renal disease status stage 5. Nephrology is following. 5. Anemia. 6. Hypothyroidism. 7. Chronic obstructive pulmonary disease. 8. Metabolic encephalopathy secondary to her pneumonia. PLAN: We will continue the patient's current course. We will continue antibiotics. She is slowly but steadily improving. We will continue to follow. Further orders as needed. cc: Nikolay Muhammad MD
--- NOTE | 2016-09-20 16:33 | PROGRESS NOTE ---
DATE: 09/20/2016 PRESENT ILLNESS: The patient was being treated for methicillin-resistant Staphylococcus aureus and oral candidiasis. MEDICATIONS: The patient currently is receiving IV vancomycin and fluconazole and nystatin, which is being painted in the mouth including the tongue. PHYSICAL EXAMINATION: Vital Signs: Temperature is 98.8 degrees, pulse 106, respirations 24, blood pressure 149/88. General: This is an ill-appearing, middle-aged female who is in no acute distress. Ears, Nose, and Throat: The white patches are gone from the patient's tongue. She is not complaining of any substernal pain. Lungs: Clear to auscultation. Cardiovascular: Regular heart rate. Abdomen: Soft and nontender. LABORATORY AND X-RAY: The x-ray today shows some pulmonary vascular congestion, but no infiltrates. CBC shows a white count of 12,860, hemoglobin 9.3, and platelet count 43,000. Creatinine is 5.7 the GFR is 8. Vancomycin level was 14.5. ASSESSMENT AND PLAN: The patient's methicillin-resistant Staphylococcus aureus has subsided. The patient's oral candidiasis is cleared, and it does not appear that she has Rebeka esophagitis. My plan is to stop the vancomycin and fluconazole and Mycostatin painting of the tongue. COMORBIDITIES: The patients comorbidities include chronic obstructive pulmonary disease and prior strokes. I am available to see the patient on a p.r.n. basis. I am signing off for now. cc: Rashid Arnold MD
[2016-09-20] MEDS: 1/2 NS 1,000 ML IV SCH (17:30)
[2016-09-21] MEDS: DUONEB (A & A) INH SCH ×6 (02:30→23:15)
[2016-09-21] MEDS: LASIX IV SCH (04:27)
[2016-09-21] MEDS: SODIUM CHLORIDE 0.9% INJ SCH ×2 (04:27→16:50)
[2016-09-21] MEDS: PROTONIX IV SCH ×2 (04:27→16:50)
[2016-09-21] MEDS: HEPARIN 25,000 UNIT in NS 250 ML IV SCH ×3 (05:40→19:06)
[2016-09-21] MEDS: SYNTHROID IV SCH (06:34)
[2016-09-21] MEDS: BLISTEX MEDICATED BERRY LIP BALM TOP PRN (06:39)
[2016-09-21] MEDS: HUMULIN R SUBQ SCH ×4 (06:39→22:41)
[2016-09-21 06:44] LABS: ALBUMIN 3.3 g/dL (3.5-5.0); CALCIUM 8.9 mg/dL (8.8-10.2); POTASSIUM 4.4 mmol/L (3.5-5.1)
--- NOTE | 2016-09-21 07:54 | Diag Imaging Result Document ---
PROCEDURE NAME: CHEST-PORTABLE - 09/21/2016 PORTABLE CHEST: COMPARISON: 09/20/2016. FINDINGS: A heart valve has been replaced. The heart is mildly enlarged. Nasogastric tube overlies the esophagus and stomach. The lungs are clear. No pleural effusions. IMPRESSION: Mild cardiomegaly.
[2016-09-21] MEDS: LANTUS SUBQ SCH (09:06)
--- NOTE | 2016-09-21 11:07 | PROGRESS NOTE ---
DATE: 09/21/2016 SUBJECTIVE: She has daily improved as far as her mental state. She was able to have a conversation with me today regarding her family. I made the observation that they have not been present in several days, and she stated that there were personal issues going on and problems at the home that required their attention. She is asking for something to drink. No shortness of breath, chest discomfort, etc. OBJECTIVE: Vital Signs: Blood pressure 124/81, heart rate 106, respirations 15, afebrile. Intake 2.7 L; output 2.8 L. General: On physical exam, no acute distress. Skin: Warm and dry. Rash is about the same. HEENT: Oropharynx is dry. Neck: Neck veins are not visible. Heart: Regular with metallic heart tones. Soft murmur. Lungs: Have equal breath sounds. No crackles or wheezes. Abdomen: Soft and nontender. Bowel sounds are present. Extremities: Have no edema, clubbing, or cyanosis. LABORATORY DATA: Sodium 143, potassium 4.4, chloride 101, bicarbonate 20. BUN 131 and creatinine 6.1. Hemoglobin 9.3. IMPRESSION: 1. Acute kidney injury overlying chronic kidney disease. She has had no appreciable improvement in her kidney function since admission. Baseline creatinine approximately 2.5. BUN continues to rise. She has been in negative fluid balance for several days. I will begin normal saline at 100 mL an hour and observe her response. Creatinine clearance 15 mL/minute by 24-hour urine. 2. Electrolytes/acid base, stable. 3. Anemia, stable. 4. Altered mental status, progressively improving. cc: Adam Fritz MD
[2016-09-21] MEDS: NS 1,000 ML IV SCH ×2 (11:21→22:32)
--- NOTE | 2016-09-21 11:25 | PROGRESS NOTE ---
DATE: 09/21/2016 SUBJECTIVE: The patient is without any complaints this morning. Notes that she needs to get to the grocery store this afternoon. She is somewhat confused. OBJECTIVE: Vital Signs: Temp 97, pulse 106, respiratory rate 20, BP 124/81, satting 93% on room air. General: Patient is awake, alert. She is currently in no respiratory distress. She has an NG tube in place. She is easily confused, somewhat still disoriented. HEENT: Normocephalic, atraumatic. Neck: Supple. CV: Regular rate. Chest: Relatively clear. Positive rhonchi. Abdomen: Soft. Extremities: Moves all extremities. Neurologic: No focal changes. LABS: No current labs today. CMP essentially normal. Phosphorus high at 7.3, albumin low at 3.3. ASSESSMENT: 1. Mild protein calorie malnutrition. Continue nasogastric tube feedings. She has a swallowing evaluation scheduled. When this is performed, if she is able to swallow, we will advance her diet orally. 2. Bilateral pneumonia. Dr. Arnold discontinued the vancomycin yesterday. She is not currently on antibiotics. Her chest x-ray this morning showed mild cardiomegaly. 3. Acute hypoxic respiratory failure. She has been extubated for 7 days, is doing well. She is currently on nasal cannula. 4. Chronic renal disease. Dr. Fritz is currently following. 5. Anemia of chronic disease. 6. Hypothyroidism. 7. Leukocytosis. 8. Chronic obstructive pulmonary disease, stable. Continue breathing treatments. 9. Diabetes. She is currently on Lantus and a sliding scale. PLAN: Patient received vancomycin yesterday afternoon. This was discontinued by infectious disease. She currently is not on other antibiotics. She has been receiving vancomycin every 72 hours. We will continue to follow this as she is improving. She has also continued to be on Lasix 80 mg IV 3 times a day. Currently lungs sound better than they did yesterday. She is much more clear. We will attempt to decrease this to 40 IV three times a day and follow as it does appear as though she has become a little volume depleted. We will await the swallowing study to advance her diet. Further orders as needed. cc: Nikolay Muhammad MD
[2016-09-21] MEDS ORDERED: LASIX IV SCH (12:00)
[2016-09-22] MEDS: DUONEB (A & A) INH SCH ×6 (03:05→22:44)
[2016-09-22] MEDS: HEPARIN 25,000 UNIT in NS 250 ML IV SCH ×2 (04:13→15:55)
[2016-09-22] MEDS: SODIUM CHLORIDE 0.9% INJ PRN (06:47)
[2016-09-22] MEDS: PROTONIX IV SCH ×2 (06:47→16:01)
[2016-09-22] MEDS: SODIUM CHLORIDE 0.9% INJ SCH ×2 (06:47→16:01)
[2016-09-22] MEDS: SYNTHROID IV SCH (06:48)
[2016-09-22] MEDS: HUMULIN R SUBQ SCH ×4 (06:55→20:44)
[2016-09-22 07:23] LABS: HEMATOCRIT 24.2 % (37.0-47.0); HEMOGLOBIN 7.8 g/dL (12.0-16.0); MCH 33.1 PG (27-31); MCHC 32.2 g/dL (33-37); MCV 102.5 FL (81-99); MPV 11.8 FL (7.4-10.4); RBC 2.36 XMIL (4.2-5.4)
[2016-09-22] MEDS: NS 1,000 ML IV SCH ×2 (07:24→15:56)
[2016-09-22 07:50] LABS: ALBUMIN 3.1 g/dL (3.5-5.0); CALCIUM 8.3 mg/dL (8.8-10.2); MAGNESIUM 2.3 mg/dL (1.5-2.7); POTASSIUM 4.6 mmol/L (3.5-5.1); TOTAL BILIRUBIN 0.42 mg/dL (0.20-1.00); TOTAL PROTEIN 7.6 g/dL (6.3-8.3)
[2016-09-22] MEDS ORDERED: HEPARIN 25,000 UNIT in NS 250 ML IV SCH ×4 (08:20)
[2016-09-22] MEDS: LANTUS SUBQ SCH (08:44)
[2016-09-22] MEDS ORDERED: LANTUS SUBQ SCH (09:00)
--- NOTE | 2016-09-22 09:20 | Diag Imaging Result Document ---
PROCEDURE NAME: CHEST-PORTABLE - 09/22/2016 PORTABLE CHEST: Compared with 09/21/2016. FINDINGS: The nasogastric tube has been removed. There is stable mild cardiomegaly. There is prosthetic heart valve again seen. The lungs appear clear. There is no pleural effusion or pneumothorax identified. IMPRESSION: Stable mild cardiomegaly. No other evidence of acute disease.
--- NOTE | 2016-09-22 13:52 | PROGRESS NOTE ---
DATE: 09/22/2016 SUBJECTIVE: Patient is lying in bed. She is a little more oriented today. She denies any current complaints. OBJECTIVE: Vital signs: Temperature 97, pulse 102, respiratory 20, BP 137/77, sat 97% on room air. General: Patient is much more awake, alert, and oriented today than yesterday. She knows she is in the hospital. Is confused on day of the week. She is asking to have a regular diet at this point. HEENT: Normocephalic, atraumatic. DIONNE. Neck: Supple. CV: Regular rate. Positive mechanical heart valve. Chest: Clear. Positive rhonchi. No wheezing. Nonlabored. Good air movement bilaterally. Abdomen: Soft. Extremities: Moves all extremities. LABS: WBCs 9, hemoglobin and hematocrit 7 and 24, platelets 38,000. BUN 130, creatinine 6.2, glucose 168, albumin 3.1. ASSESSMENT: 1. Mild protein calorie malnutrition. 2. Acute hepatitis, stable. 3. Chronic renal failure stage 4. Creatinine remains elevated. 4. Anemia likely secondary to chronic renal failure. Although her hemoglobin and hematocrit have dropped over the past couple of days. She has had no signs or symptoms or source of bleeding. 5. Leukocytosis, resolved. 6. Hyperkalemia, resolved. 7. Hyperglycemia, stable. 8. Chronic obstructive pulmonary disease, stable. 9. Thrombocytopenia. PLAN: We will advance patient's diet. We will not transfuse currently, although will check her hemoglobin and hematocrit again in the a.m. and certainly if it falls further she will need to have a transfusion at that point. We will recheck labs in the a.m. to include an A1c as it does not appear that she is on diabetic medications currently. We will increase her Lantus to 22 units. Patient's platelets have remained 38-44 over the last several days. She currently is on heparin secondary to her mechanical heart valve. Will continue this and continue to follow. cc: Nikolay Muhammad MD
[2016-09-23] MEDS: HEPARIN 25,000 UNIT in NS 250 ML IV SCH ×2 (00:34→08:17)
[2016-09-23] MEDS: DUONEB (A & A) INH SCH ×6 (03:35→23:04)
[2016-09-23] MEDS: SODIUM CHLORIDE 0.9% INJ SCH ×2 (04:25→17:23)
[2016-09-23] MEDS: PROTONIX IV SCH ×2 (04:25→17:23)
[2016-09-23] MEDS: NS 1,000 ML IV SCH ×4 (04:36→23:47)
[2016-09-23] MEDS: HUMULIN R SUBQ SCH ×4 (06:00→23:40)
[2016-09-23] MEDS: SYNTHROID IV SCH (06:05)
--- NOTE | 2016-09-23 06:28 | Diag Imaging Result Document ---
PROCEDURE NAME: CHEST-PORTABLE - 09/23/2016 PORTABLE CHEST: COMPARISON: Compared to 09/22/2016. FINDINGS: The heart valve has been replaced. There are bilateral infiltrates likely representing pulmonary edema. No pleural effusion is identified. No consolidation. IMPRESSION: Cardiomegaly with pulmonary edema. The findings are more pronounced than on the prior exam.
[2016-09-23 06:38] LABS: HEMATOCRIT 22.7 % (37.0-47.0); HEMOGLOBIN 7.2 g/dL (12.0-16.0); MCHC 31.7 g/dL (33-37); MCV 100.9 FL (81-99); MPV 10.7 FL (7.4-10.4); RBC 2.25 XMIL (4.2-5.4)
[2016-09-23 06:48] LABS: POTASSIUM 4.7 mmol/L (3.5-5.1); TOTAL BILIRUBIN 0.43 mg/dL (0.20-1.00); TOTAL PROTEIN 6.6 g/dL (6.3-8.3)
[2016-09-23] MEDS: LANTUS SUBQ SCH (08:16)
--- NOTE | 2016-09-23 12:27 | PROGRESS NOTE ---
DATE: 09/23/2016 TIME SEEN: 0750 SUBJECTIVE: Ms. Reyes is resting quietly in bed. She is speaking about being uncomfortable and wanting to be out of the hospital. Wants to get out of bed. Wants assistance to get up and walk. States that she would like things to eat, though she is more awake this week than she was last. OBJECTIVE: Her most recent vital signs: Her temperature 97.3 degrees, blood pressure 158/84, heart rate 131, respirations are 21. She is currently on room air. Last recorded saturation 94%. She has had 3132 In. She has had 2620 Out per Dexter catheter. LABORATORY DATA: This a.m., sodium 140, potassium 4.7, chloride 103, CO2 is 17. BUN 107, creatinine is 5.5. Her glucose is 126. Her anion gap is 20. Calcium 8. Phosphorus 7.7. Her albumin is 3. Her TSH is 2.87. White count 11.18, hemoglobin 7.2, hematocrit 22.7 with a platelet count of 27,000. PHYSICAL EXAMINATION: This is a 45-year-old white female. She is lying in bed. She is slightly agitated. Her skin is warm and dry. HEENT: Normocephalic, atraumatic. Her conjunctivae are pale. She has DIONNE. Mucous membranes are moist. Neck is supple. Trachea midline. No JVD. Cardiovascular: Regular rate and rhythm. She has a mechanical click. She has a soft murmur, no gallop. Lungs are clear to auscultation anterior. She is on room air. Equal excursion. Abdomen is large, obese, soft, nontender. Positive bowel sounds. Extremities: No edema. No clubbing or cyanosis. Genitourinary: The patient has a Dexter catheter with adequate urine out. Integumentary: No rashes or lesions evident. Neurologic: The patient is agitated. She is not staying on one subject matter with multiple complaints. Able to assist with exam. ASSESSMENT AND PLAN: 1. Acute kidney injury overlying chronic kidney disease. She continues to just have slow improvement over the last 2-3 days with a baseline noted at 2.5. Her BUN continues elevated. She continues with normal saline at 100 mL an hour. Her creatinine clearance was noted at 15 mL in the last 24 hour. Adequate urine out at this time. 2. Electrolytes with acid-base balance. These do remain stable. 3. Anemia. This remains low but stable. 4. Altered mental status. Again, the patient is slightly agitated this a.m. She would like to leave the hospital. We have discussed that she is not well. We will continue to monitor her creatinine and BUN over the next several days with the primary care team to make the decision on discharge. I would to thank you for allowing us to follow with this patient. Seen, data reviewed, discussed with Ezio Greenberg on 09/23/16. I agree with the above assessment and plan of care. rg Dictated by JAVIER Guido for Adam Fritz MD cc: JAVIER Guido MD [facility]
--- NOTE | 2016-09-23 15:39 | PROGRESS NOTE ---
DATE: 09/23/2016 SUBJECTIVE: Patient lying in bed. She is not complaining of anything. Denies any fever or chills. Patient keeps asking when she is going to be discharged from the hospital. OBJECTIVE: Vital Signs: Temperature 98.7 degrees, heart rate 108, respiratory rate 22, blood pressure 146/75, O2 saturation 100% on room air. General Examination: This is a 45-year-old obese female lying in bed in no acute distress. HEENT: Head is normocephalic, atraumatic. Anicteric sclerae and pale conjunctivae. Mucous membranes moist. Neck: Supple. No JVD noted. No carotid bruits. No lymphadenopathy. No thyromegaly. Cardiovascular: S1, S2 heard. No murmurs, gallops, or rubs. Regular rate and rhythm. Respiratory Exam: Bilateral coarse breath sounds in both bases but patient is not using any accessory muscles or having work of breathing. Abdomen: Soft, nontender to palpation. Nondistended. Bowel sounds present. No organomegaly. Extremities: Mild edema but there is no clubbing or cyanosis. Neurological: Patient is alert and oriented x3. Moves 4 extremities. LABORATORY DATA: White cell count 11.18, hemoglobin 7.2 hematocrit 22.7, platelets 27,000. reveals creatinine 5.5, BUN 107 and rest of the exam unremarkable with bicarbonate 17. ASSESSMENT/PLAN: 1. Acute hypoxemic respiratory failure. That condition is completely resolved. Patient has been intubated when she was admitted but now she is fine. 2. Methicillin-resistant Staphylococcus aureus pneumonia. That condition has been completely treated while this patient was here because Dr. Miles was following this patient but now he has stopped all antibiotics because he considered that this infection is completely treated. 3. Chronic kidney disease stage 4 or 5. The patient's BUN has improved a little bit better. Nephrology is following this patient. There is a good urine output. We will follow recommendations from them. 4. Anemia most likely secondary to anemia of chronic disease. Hemoglobin has dropped to 7.2 today so I think it is a good idea to transfuse 2 units of blood and see how this patient does. 5. Thrombocytopenia. The platelet count has dropped to 27,000 so we are going to transfuse 1 unit of platelets and will see what hematology has to say. 6. Hypothyroidism. Will continue with Synthroid. 7. Chronic obstructive pulmonary disease. Will continue with the breathing treatments. 8. Depression. We are aware. Will continue home medications. 9. Seizure disorder. Will continue with the same management. 10. Physical deconditioning. I think this patient was able to get physical therapy, considering his length of stay most likely she will need to go to rehab but will wait for the results of the evaluation for a rehab facility. 11. Diabetes type 2. Patient is on Lantus and glucose, has been controlled very good so will continue with the same management. cc: Emilio Heller MD
[2016-09-23] MEDS: ARIXTRA SUBQ SCH (17:23)
[2016-09-24] MEDS: DUONEB (A & A) INH SCH ×6 (03:18→23:08)
[2016-09-24] MEDS: PROTONIX IV SCH ×2 (04:21→18:19)
[2016-09-24] MEDS: HUMULIN R SUBQ SCH ×2 (06:07→17:35)
[2016-09-24 08:29] LABS: POTASSIUM 4.6 mmol/L (3.5-5.1)
[2016-09-24 08:30] LABS: ALBUMIN 2.8 g/dL (3.5-5.0); CALCIUM 7.5 mg/dL (8.8-10.2)
[2016-09-24 08:36] LABS: HEMOGLOBIN A1C 5.6 % (4.8-6.0)
[2016-09-24] MEDS: NS 1,000 ML IV SCH ×2 (08:39→18:39)
[2016-09-24] MEDS: LANTUS SUBQ SCH (08:40)
[2016-09-24] MEDS: SYNTHROID IV SCH (08:40)
[2016-09-24] MEDS: SODIUM BICARBONATE PO SCH ×2 (12:30→20:51)
[2016-09-24 15:07] LABS: MANUAL DIFF NEEDED? NO
[2016-09-24 15:37] LABS: BASO% 0.7 % (0.0-0.8); EOS# 0.38 X1000 (0.0-0.7); EOS% 5.1 % (0.0-10.0); HEMATOCRIT 20.4 % (37.0-47.0); HEMOGLOBIN 6.6 g/dL (12.0-16.0); IMM GRAN# 0.19 X1000 (0.0-0.04); IMM GRAN% 2.5 % (0.0-0.5); LYMPH# 1.24 X1000 (1.2-3.4); LYMPH% 16.6 % (20.5-51.1); MCH 31.7 PG (27-31); MCHC 32.4 g/dL (33-37); MCV 98.1 FL (81-99); MONO# 0.53 X1000 (0.11-0.59); MONO% 7.1 % (1.7-9.3); MPV 10.5 FL (7.4-10.4); PLT 39 X1000 (130-400); RBC 2.08 XMIL (4.2-5.4)
--- NOTE | 2016-09-24 16:18 | PROGRESS NOTE ---
DATE: 09/24/2016 SUBJECTIVE: Ms. Reyes is currently resting quietly in bed. She states that she is ready to go home. She is tired of being here. Otherwise she does deny chest pain or increased work of breathing. OBJECTIVE: Her most recent vital signs are temperature 98.3 degrees, blood pressure 146/76, heart rate 104, respirations 14. She is on room air. Last recorded saturation 95%. She has had 4159 in. She has had 1700 out per Dexter catheter. LABS: Sodium 135, potassium 4.6, chloride 102, CO2 16, BUN 96, creatinine is 5.2, glucose 124. Anion gap is 17, calcium 7.5, phosphorus 7.1, albumin 2.8. Last hemoglobin 7.2 on the . PHYSICAL EXAMINATION: General: This is a 45-year-old white female. She is currently resting in bed. She appears chronically ill with no acute distress. Skin: Warm and dry. HEENT: Normocephalic, atraumatic. Conjunctiva is pale. She has DIONNE. Mucous membranes are moist. Neck: Supple. Trachea midline. No JVD. Cardiovascular: Regular rate and rhythm. She has mechanical valve click, soft murmur noted. No gallop. Lungs: Clear to auscultation anteriorly. Equal excursion on room air. Abdomen: Large obese soft, nontender. Positive bowel sounds. Extremities: Have no edema. No clubbing or cyanosis. Genitourinary: Patient has Dexter catheter in place. Adequate urine out. She does not want the catheter removed. Integumentary: No rashes or lesions evident. Neurological: She is alert and oriented x3. She is more calm today. Able to assist with exam. ASSESSMENT AND PLAN: 1. Acute kidney injury on chronic kidney disease. Patient continues to have slow improvement over the last several days on her BUN and creatinine. Creatinine is now down to 5.2. We have indicated if this continues to improve over the next several days that we can follow her on an outpatient basis as long as she is able to get labs. She states that this is positive. 2. Electrolytes and acid-base balance. Patient has continued to have a deterioration in her acid- base. Her CO2 is now down to 16. We will start her on sodium bicarbonate p.o. b.i.d. We will continue to monitor her labs and evaluate. 3. Anemia. This is very low. We will check her hemoglobin in the a.m. She may possibly need intervention. Her hemoglobin yesterday was 7.2 from 7.8. 4. Fluid volume overload. Again, we will have to watch closely starting the sodium bicarbonate for any fluid volume increase or swelling. I would to thank you for allowing us to follow with this patient. Seen, data reviewed, discussed with Ezio Greenberg on 09/24/16. I agree with the above assessment and plan of care. rg Dictated by JAVIER Guido for Adam Fritz MD cc: JAVIER Guido MD [facility]
[2016-09-24 16:28] LABS: POTASSIUM 4.5 mmol/L (3.5-5.1)
[2016-09-24 16:30] LABS: CALCIUM 7.5 mg/dL (8.8-10.2)
[2016-09-24] MEDS: ARIXTRA SUBQ SCH (18:19)
[2016-09-24] MEDS: SODIUM CHLORIDE 0.9% INJ SCH (18:19)
--- NOTE | 2016-09-24 18:56 | PROGRESS NOTE ---
DATE: 09/24/2016 SUBJECTIVE: This patient is lying on the bed comfortably. She is not complaining of any specific problem at this moment. She denies fever, nausea, vomiting. No diarrhea. She denies constipation. OBJECTIVE: Vital Signs: Temperature 98.3 degrees, pulse 85, respiratory rate 20, blood pressure 138/65, O2 saturation 95 on room air. HEENT: Head normocephalic. No trauma. PERRLA. Neck: Supple. No JVD. No masses. Central trachea. Chest: Bilateral coarse breath sounds mostly at the bases. This patient is not using accessory muscles or having work of breathing. Cardiovascular: RRR. No murmurs. Abdomen: Soft, nontender to palpation. Nondistended. Bowel sounds present. Obese. Extremities: Trace edema. No clubbing. No cyanosis. Neurological: The patient is alert and oriented x3. She moves all 4 extremities. LABORATORY: WBC 7.4, hemoglobin 6.6, hematocrit 20.4 platelets 39,000. Sodium 139, potassium 4.5, chloride 104, bicarbonate 12, BUN 93, creatinine 4.9, glucose 103, calcium 7.5, albumin 2.8. ASSESSMENT AND PLAN: 1. Acute hypoxemic respiratory failure resolved. 2. Methicillin-resistant Staphylococcus aureus pneumonia. This condition has been treated here, Dr. Miles was following this patient but now he has stopped all antibiotics probably because the infection is completely treated. 3. Chronic kidney disease stage 4 to 5. BUN is improving as well as creatinine slowly. Nephrology is following this patient. No dialysis for now. Will continue following the recommendation from them. 4. Anemia likely secondary to anemia of chronic disease. Hemoglobin dropped to 6.6 and I asked for 2 units of PRBCs today. 5. Thrombocytopenia. The platelet count is 39,000, she received a transfusion of platelets already, will continue to monitor. 6. Hypothyroidism. Continue with Synthroid. 7. Antiphospholipid syndrome. This patient is on Arixtra. 8. Chronic obstructive pulmonary disease. Continue with breathing treatment. 9. Depression. Aware. Continue with home medication. 10. Seizure disorder. Continue with the same management. 11. Physical deconditioning. Continue physical therapy. Probably this patient needs to go to a rehab facility. 12. Type 2 diabetes. This patient is on Lantus and sliding scale. Continue to monitor. cc: Wild Palmer MD
[2016-09-25] MEDS: PROTONIX IV SCH (03:53)
[2016-09-25] MEDS: DUONEB (A & A) INH SCH ×4 (04:04→15:23)
[2016-09-25] MEDS: NS 1,000 ML IV SCH ×2 (04:09→14:21)
[2016-09-25] MEDS: HUMULIN R SUBQ SCH ×4 (04:09→12:15)
[2016-09-25 07:45] VITALS: BP 162/101
--- NOTE | 2016-09-25 07:50 | Diag Imaging Result Document ---
PROCEDURE NAME: CHEST-PORTABLE - 09/25/2016 SINGLE FRONTAL RADIOGRAPH OF THE CHEST: COMPARISON: 09/23/2016. FINDINGS: There appears to have been modest improvement in the bilateral infiltrate suggesting improved pulmonary edema and pulmonary venous congestion. No new consolidations are identified. There is stable cardiomegaly. IMPRESSION: Interval improvement of edema.
[2016-09-25] MEDS: SYNTHROID IV SCH (08:44)
[2016-09-25] MEDS: LANTUS SUBQ SCH (08:44)
[2016-09-25] MEDS: SODIUM CHLORIDE 0.9% INJ PRN (08:44)
[2016-09-25] MEDS: SODIUM BICARBONATE PO SCH (08:44)
[2016-09-25 09:41] LABS: BASO% 0.5 % (0.0-0.8); EOS# 0.38 X1000 (0.0-0.7); EOS% 4.6 % (0.0-10.0); HEMATOCRIT 27.4 % (37.0-47.0); HEMOGLOBIN 9.3 g/dL (12.0-16.0); IMM GRAN% 2.4 % (0.0-0.5); LYMPH# 0.88 X1000 (1.2-3.4); LYMPH% 10.7 % (20.5-51.1); MCH 31.6 PG (27-31); MCHC 33.9 g/dL (33-37); MCV 93.2 FL (81-99); MONO# 0.54 X1000 (0.11-0.59); MONO% 6.6 % (1.7-9.3); MPV 10.3 FL (7.4-10.4); NEUT% 75.2 % (42.2-75.2); PLT 38 X1000 (130-400); RBC 2.94 XMIL (4.2-5.4)
[2016-09-25 09:51] LABS: MANUAL DIFF NEEDED? YES
[2016-09-25 09:53] LABS: BANDS 4 % (0-1); LYMPHS 10 % (21-51)
[2016-09-25 09:59] LABS: ALBUMIN 3.2 g/dL (3.5-5.0); CALCIUM 8.1 mg/dL (8.8-10.2); POTASSIUM 4.2 mmol/L (3.5-5.1)
[2016-09-25] MEDS ORDERED: COUMADIN PO ONE (14:20)
--- NOTE | 2016-09-25 14:27 | PROGRESS NOTE ---
DATE: 09/25/2016 SUBJECTIVE: Ms. Reyes is resting quietly in bed. She has complaints that she would like to get up and leave and go home. She is tired of lying in the bed. She denies any chest pain or increased work of breathing. OBJECTIVE: Her most recent vital signs are temperature 99.2 degrees, blood pressure 159/90, heart rate 96, respirations 22. She is on room air. Last recorded saturation 96%. She has had 3080 in, she has had 2800 out per Dexter catheter. LABS: This a.m., sodium 134, potassium 4.2, chloride 100, CO2 14, BUN 85, creatinine 4.9, glucose 108. Anion gap is 20, calcium 8.1, phosphorus 6.5, albumin 3.2. White count 8.19, hemoglobin 9.3, hematocrit 27.4 with a platelet count of 38,000. PHYSICAL EXAMINATION: General: This is a 45-year-old white female. She is sitting on the side of the bed. She is in no acute distress. Skin: Warm and dry. HEENT: Normocephalic, atraumatic. Conjunctivae pale. She has DIONNE. Mucous membranes are moist. Neck: Supple. Trachea midline. No JVD. Cardiovascular: Regular rate and rhythm. She does have a mechanical click. Soft murmur noted. No gallop. Lungs: Clear to auscultation anteriorly. Equal excursion on room air. Abdomen: Large obese soft, nontender. Positive bowel sounds. Genitourinary: Dexter catheter is in place. Adequate urine out. Integumentary: No rashes or lesions evident. Neurological: Alert and oriented x3. ASSESSMENT AND PLAN: 1. Acute kidney injury on chronic kidney disease. Patient's creatinine has continued to slowly improve over the last 3-4 days. Adequate urine out. No indications for intervention. OK for discharge from my perspective. We will follow her as an outpatient. rg 2. Electrolytes and acid-base balance. These are stable. The patient does continue on her sodium bicarbonate that was started yesterday. We will continue to monitor and follow. 3. Anemia. This remains stable after transfusion. 4. Fluid volume overload. This continues stable. I would to thank you for allowing us to follow with this patient. Seen, data reviewed, discussed with Ezio Greenberg on 09/25/16. I agree with the above assessment and plan of care. rg Dictated by JAVIER Guido for Adam Fritz MD cc: JAVIER Guido MD [facility]
[2016-09-25] MEDS: ARIXTRA SUBQ SCH (15:03)
--- NOTE | 2016-09-26 14:41 | DISCHARGE SUMMARY ---
ADMISSION DATE: 09/08/2016 DISCHARGE DATE: 09/25/2016 CONSULTATIONS: 1. Dr. Adam Fritz with Nephrology. 2. Dr. Mack Nguyen with Pulmonology. 3. Dr. Will Ferraro with General Surgery. PERTINENT PROCEDURES: 1. Right femoral triple lumen placed by Dr. Will Ferraro. 2. Head CT showed a stable examination compared to 08/26/2009. Postsurgical changes of left craniotomy, lacunar infarct of the left inferior basal ganglia region. No visible acute process. No hemorrhage or mass effect. 3. Chest, abdomen, and pelvis CT showed cholelithiasis, left ovarian cyst, extensive patchy pneumonia, particularly in the left upper lobe. Pleural effusions, more on the right than the left. 4. Echocardiogram showed an EF of 55%. 5. Renal ultrasound showed a couple of small left renal cysts, but essentially unremarkable. 6. Followup head CT showed extensive chronic microvascular change, encephalomalacia, and postsurgical changes on the left. No change since admission. DISCHARGE DIAGNOSES: 1. Acute hypoxemic respiratory failure, resolved. 2. Methicillin-resistant Staphylococcus aureus pneumonia: Patient finished full course of antibiotics. 3. Chronic kidney disease, stage 4 to 5, followed by Nephrology. Improved. 4. Anemia secondary to chronic disease, stable. 5. Thrombocytopenia, stable. 6. Hypothyroidism. Continue Synthroid. 7. Antiphospholipid syndrome, patient on Arixtra. 8. Chronic obstructive pulmonary disease. The patient will continue with home medications. 9. Depression (aware). Continue home medications. 10. Seizure disorder. Continue with home medications. 11. Physical deconditioning. Patient will continue to work with physical therapy. She is now being discharged home with home health and physical therapy as well as referral to a primary care physician on 10/03/2016. 12. Diabetes mellitus, type 2. Continue with Lantus. HOSPITAL COURSE: Briefly, Ms. Reyes is a 45-year-old female with a past medical history of antiphospholipid syndrome. She has been taking Coumadin since age 18. History of TIA and CVA with no residual. Recent mechanical valve at [facility] 5 years ago. She also had brain surgery at the age of 18 that required an omental flap. The patient had been having a few days of shortness of breath that worsened prior to her coming to the emergency department. In the middle of the night, she woke up her in the morning, making sounds and foaming at the mouth. She presented via EMS with shortness of breath. On arrival, she had an acute decline in her status and was intubated in the emergency room. She was found to be febrile with a white count of 24. Platelet count was 59,000. Head CT only showed an old left inferior basal ganglial infarct. Chest x-ray showed congestive heart failure with pulmonary edema. She had an elevated lactate. She was admitted to the Intensive Care Unit for an acute hypoxemic respiratory failure with metabolic acidosis. She was being mechanically ventilated. Dr. Nguyen with Pulmonology was consulted. She was continued on bronchodilators, serial ABGs and chest x-rays. Nephrology was consulted secondary to acute kidney injury on chronic kidney disease. She was carefully hydrated with fluid. Her Coumadin was placed on hold for the time being. Monitored daily INRs. Of note, the patient had recently moved to the area from [place]. Dr. Anguiano was also consulted, given the patient's antiphospholipid antibody syndrome, and the patient unable to take Coumadin therapy as she was being mechanically ventilated, they decided to place the patient on a heparin drip without any bolus. Patient spent several days in the Intensive Care Unit, mechanically ventilated and sedated. She was able to be extubated on 09/14/2016. Patient did become anemic and had 4 PRBCs total throughout her stay as well as 1 pack of apheresis platelets. The patient still remained in the Intensive Care Unit several days after being activated due to having severe weakness. She was having some confusion. She could same her name, but was not following commands. She has been on Clinimix and she was changed to NG tube feedings. The patient was able to move out of the Intensive Care Unit into a regular room. Her pneumonia was completely treated throughout the course of her hospital stay. The patient's chronic kidney disease was slow to improve, though she never did require any hemodialysis. Patient has worked with physical therapy. We have suggested rehabilitation. We did get [employer] on board; however, the patient does not want to go to rehabilitation. She wants to go home with home health and physical therapy. She does have a referral for a PCP on 10/03/2016, with Dr. Ramírez on 09/30/2016 at 9 a.m., and then they can give her a referral to a pain clinic doctor from there. Dr. Mittal will be her attending while she is on home health with physical therapy. VITAL SIGNS AT TIME OF HER DISCHARGE: Temperature is 97.5 degrees, heart rate 59, respirations 18, blood pressure 160/101, O2 96%. DISCHARGE DIET: Regular. DISCHARGE MEDICATIONS: As per Dr. Mittal. Please see EMR. 1. Tylenol. 2. Elavil. 3. Lipitor. 4. Zebeta. 5. Diazepam. 6. Epogen. 7. Arixtra. 8. Lasix. 9. Gabapentin. 10. [place] 10. 11. Lantus. 12. Synthroid. 13. Niacin. 14. [place]-3. 15. Sodium bicarbonate. 16. Anoro. 17. Vitamin B complex. 18. Warfarin. FOLLOWUP: Patient is being discharged home with home health and physical therapy. She has been referred to Dr. Ramírez on 09/30/2016 at 9 a.m. From there, she will get a referral to a pain doctor, since the patient is from [place]. Patient can return to the emergency department for any worsening of symptoms. DISCHARGE TIME: Greater than 45 minutes. Dictated by JAVIER Romero for Wild Palmer MD cc: Wild Palmer MD
[2016-11-22 11:30] LABS: URINE MICRO REVIEW NEEDED? NO; URINE SOURCE CATH
[2016-11-22 11:31] LABS: COLOR YELLOW; GLUCOSE URINE 500 mg/dL (NEGATIVE); TURBIDITY URINE HAZY (CLEAR); UR EPITHELIAL CELLS >10 /HPF (<10); URINE BACTERIA 4+ /HPF; URINE RBC <10 /HPF (<10)
[2016-11-22 11:32] LABS: BILIRUBIN URINE NEGATIVE (NEGATIVE); BLOOD URINE MODERATE (NEGATIVE); LEUKOCYTES URINE NEGATIVE (NEGATIVE); NITRITE URINE NEGATIVE (NEGATIVE); PH URINE 6.5; PROTEIN URINE >600 mg/dL (NEGATIVE); SP GRAVITY URINE 1.029; UROBILINOGEN URINE NORMAL (NORMAL)
[2016-11-22 11:33] LABS: URINE CULTURE NEEDED? NO
== END 2016-09-25 15:53 | disposition home health service (06) ==
LOC: ED 10:12 → SUATTDRO 16:36 → ICU 16:36 → 3N 09-21 01:54
PROVIDERS: ATTEND Internal Medicine

== ENCOUNTER 2016-09-30 11:23 | Inpatient (IN) ==
[2016-09-30 12:28] LABS: ALLEN TEST YES; BLOOD TYPE ARTERIAL; DRAW SITE R RADIAL; METHB 1.5 % (0.0-1.5); O2(CT) 11.3 mL/dL (15.0-23.0); PCO2(98.6) 26 mmHg (35-45); PO2(98.6) 83 mmHg (60-100); SAMPLE BLOOD; SAO2 98.9 % (95.0-100.0); THB 8.3 g/dL (11.5-17.4); pH(98.6) 7.21 (7.35-7.45)
[2016-09-30 12:29] LABS: MODALITY ROOM AIR
--- NOTE | 2016-09-30 13:51 | Diag Imaging Result Document ---
PROCEDURE NAME: CHEST-1 VIEW - 09/30/2016 AP UPRIGHT CHEST PORTABLE: TIME: 12:45 hours. FINDINGS: There is cardiomegaly. There is an apparent mitral valve prosthesis. Compared to 09/25/2016 there has been no significant change. IMPRESSION: Cardiomegaly.
[2016-09-30 14:43] LABS: MANUAL DIFF NEEDED? NO
[2016-09-30 14:47] LABS: BASO% 0.4 % (0.0-0.8); EOS% 3.2 % (0.0-10.0); HEMATOCRIT 22.3 % (37.0-47.0); HEMOGLOBIN 7.4 g/dL (12.0-16.0); LYMPH# 1.55 X1000 (1.2-3.4); LYMPH% 16.5 % (20.5-51.1); MCH 30.8 PG (27-31); MCHC 33.2 g/dL (33-37); MCV 92.9 FL (81-99); MONO# 0.63 X1000 (0.11-0.59); MONO% 6.7 % (1.7-9.3); MPV 9.5 FL (7.4-10.4); NEUT% 73.2 % (42.2-75.2); PLT 75 X1000 (130-400)
[2016-09-30 15:01] LABS: INR 1.89; PROTIME 20.7 Seconds (9.2-11.7)
[2016-09-30 15:32] LABS: ALBUMIN 2.8 g/dL (3.5-5.0); CALCIUM 7.6 mg/dL (8.8-10.2); TOTAL BILIRUBIN 0.36 mg/dL (0.20-1.00)
[2016-09-30] MEDS ORDERED: CALCIUM CHLORIDE 1 GM in NS 100 ML IV ONE (15:39)
[2016-09-30] MEDS ORDERED: SODIUM BICARBONATE 8.4% IV ONE (15:39)
[2016-09-30] MEDS ORDERED: ALBUTEROL NEB INH ONE (15:39)
[2016-09-30] MEDS ORDERED: D50W SYRINGE IV ONE ×2 (15:40→20:00)
[2016-09-30] MEDS ORDERED: HUMULIN R IV ONE ×2 (15:41→20:00)
[2016-09-30] MEDS ORDERED: CALCIUM GLUCONATE IV PUSH ONE (15:46)
[2016-09-30] MEDS ORDERED: NS 1,000 ML IV ONE (15:48)
[2016-09-30] MEDS ORDERED: NS 1,000 ML IV SCH (15:50)
[2016-09-30] MEDS ORDERED: ALBUTEROL NEB INH SCH (16:00)
[2016-09-30] MEDS ORDERED: ALBUTEROL 0.5% INH CONC FOR HYPERKALEMIA INH SCH (16:00)
[2016-09-30] MEDS ORDERED: ZOFRAN IV PRN (18:06)
--- NOTE | 2016-09-30 18:36 | Diag Imaging Result Document ---
PROCEDURE NAME: FLUROSCOPY ONLY IN DEPT. - 09/30/2016 COMPARISON: None. FINDINGS: The patient's emergency room physician was placing a right subclavian central venous line, but the wire is kinked and the catheter is stuck on the wire. With some difficulty, the catheter was removed. The dilator was advanced over the wire, and the wire was removed with the dilator in place. A new wire was placed which was in good position at the cavoatrial junction. The new line was placed over the wire. This was sutured into place and a bandage applied. Total fluoroscopy time was 1 minute. One image was obtained. IMPRESSION: Successful and uncomplicated fluoroscopic-guided central line placement. MTDD
[2016-09-30 18:41] LABS: ALLEN TEST YES; BE -13.4 mmoll (-3.0-3.0); BLOOD TYPE ARTERIAL; DRAW SITE L BRACHIAL; METHB 1.6 % (0.0-1.5); O2(CT) 9.1 mL/dL (15.0-23.0); PCO2(98.6) 31 mmHg (35-45); PO2(98.6) 113 mmHg (60-100); SAMPLE BLOOD; SAO2 98.9 % (95.0-100.0); THB 6.6 g/dL (11.5-17.4); pH(98.6) 7.23 (7.35-7.45)
[2016-09-30 18:42] LABS: MODALITY CANNULA
[2016-09-30] MEDS: NS 1,000 ML IV SCH (18:51)
[2016-09-30] MEDS: DUONEB (A & A) INH SCH ×2 (19:16→22:54)
[2016-09-30] MEDS: HUMULIN R SUBQ SCH (20:57)
[2016-09-30 21:37] LABS: URINE SOURCE CLEAN CATCH
[2016-09-30 21:40] LABS: BILIRUBIN URINE NEGATIVE (NEGATIVE); BLOOD URINE MODERATE (NEGATIVE); COLOR ORANGE; GLUCOSE URINE NEGATIVE (NEGATIVE); LEUKOCYTES URINE LARGE (NEGATIVE); NITRITE URINE NEGATIVE (NEGATIVE); PH URINE 5.5; PROTEIN URINE 200 mg/dL (NEGATIVE); SP GRAVITY URINE 1.009; TURBIDITY URINE TURBID (CLEAR); UROBILINOGEN URINE NORMAL (NORMAL)
[2016-09-30 21:55] LABS: UR EPITHELIAL CELLS >10 /HPF (<10); URINE BACTERIA 4+ /HPF; URINE CULTURE NEEDED? YES; URINE MICRO REVIEW NEEDED? YES; URINE RBC 20-40 /HPF (<10); URINE WBC TNTC /HPF (<10)
[2016-09-30 21:56] LABS: URINE CASTS GRANULAR PRESENT
--- NOTE | 2016-10-01 01:10 | HISTORY AND PHYSICAL ---
PRIMARY CARE PROVIDER: No one currently. 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 CHIEF COMPLAINT: Shortness of breath. HISTORY OF PRESENT ILLNESS: Ms Bridgette Reyes is a 45-year-old, female, with a medical history of antiphospholipid antibody syndrome, on Coumadin since age 18, CVAs x2, congestive heart failure, seizure disorder, hypothyroidism, COPD on home O2 therapy, and CKD, stage 4 to 5. Ms Reyes was admitted back in 09/08/2016 with respiratory failure, and found to have MRSA pneumonia at that time. She was discharged, on 09/25/2016. Currently, there is no family at the bedside, so information was obtained via the ER records. Her chief complaint for them was shortness of breath with respiratory distress and disorientation. Her at the time of the ER presentation, stated that she woke up this way this morning, and that is all the information that was obtained. According to the laboratory data, she does have a low hemoglobin and hematocrit of 7 and 22. She had mixed acidosis with a pH of 7.21, a pCO2 of 26, bicarb of 12 with a base excess -16 on room air. She had GRACE on CKD stage 4 to 5, which will require urgent hemodialysis, and Dr. Fritz is aware. Her creatinine is 7.8. BUN was 89 with a baseline creatinine during her last visit of as low as 4.8, to as high as 6.2. Chest x-ray only revealed cardiomegaly, and no signs of pneumonia at this time on chest x-ray. We will consult Dr. Fritz and Dr. Nguyen. We will admit to the ICU for close monitoring. PAST MEDICAL HISTORY: 1. CVA x2, with TIAs, antiphospholipid antibody syndrome, was on Coumadin since the age of 18, was discharged on Arixtra, congestive heart failure with the last echocardiogram on 09/09/2016, which actually showed a normal EF of 55%. 2. She did have a suggested pulmonary hypertension with a systolic pressure of 63, seizure disorder, hypothyroidism, depression, hyperlipidemia with triglyceridemia, hypertension, COPD, supposed to be on 4 L nasal cannula 24 hours a day, but only uses at night and CKD stage 4 to 5, GERD, neuropathy, diabetes mellitus type 2. SURGICAL HISTORY: 1. MVR mechanical valve at [facility] 5 years ago. 2. Omentum flap brain surgery with some sort of arterial bypass at the age of 18, but the family is unable to describe what type of surgery it was. SOCIAL HISTORY: Most recent H and P revealed that she smoked 1 pack per day. Patient was unable to state her social history. Apparently, there was no alcohol or illicit drug use. She had a recent move from [place] several weeks ago, and no established physicians here. FAMILY HISTORY: Positive for diabetes, hypertension, coronary artery disease and a grandfather with colon cancer. REVIEW OF SYSTEMS: Unable to obtain. ALLERGIES: Latex and codeine. HOME MEDICATIONS: Tylenol 650 per rectum every 4 to 6 hours, Elavil 50 mg p.o. nightly, Lipitor 20 mg p.o. nightly, Zebeta 10 mg p.o. nightly, diazepam 5 mg p.o. twice a day, 40,000 units subcutaneous every 7 days, Arixtra 10 mg subcutaneous daily, Lasix 40 mg p.o. daily, Neurontin 800 mg p.o. twice daily, [place] 10 mg 1 tab p.o. 3 times a day as needed, Lantus 22 units subcutaneous daily, Synthroid 75 mcg p.o. daily, niacin 500 mg p.o. nightly, [place] 3, 2 g p.o. twice a day, Protonix 40 mg p.o. daily, sodium bicarbonate 650 mg p.o. twice daily, Anoro Ellipta 1 puff inhaled, vitamin B complex 1 tab p.o. daily and Coumadin 5 mg p.o. daily. LABORATORY DATA: White blood cells 9,000, hemoglobin 7.4, hematocrit 22.3, platelet count 75,000. INR 1.89. ABG, pH 7.21, pCO2 of 26, PO2 of 83, bicarb 12, base excess -16, lactate 0.5, this is on room air. Sodium 123, potassium 7.0, BUN 89, creatinine 7.8, glucose 95, calcium 7.6, bilirubin 0.36. AST 19, ALT 37. Albumin 2.8. Serum lactate 0.9, with salicylates less than 3. Alcohol 0. IMAGING: Chest x-ray, cardiomegaly. PHYSICAL EXAMINATION: VITAL SIGNS: Temperature 99.0, heart rate 52, respiratory rate 13, blood pressure 104/61, saturation 92% on nasal cannula. Height 5 feet 4 inches tall, 220 pounds, BMI 37.8. GENERAL: Ms Reyes is a 45-year-old, female. She is very drowsy, and is having difficulty answering questions. HEENT: Atraumatic, normocephalic. Pupils equal, round, reactive to light. Mucous membranes are very dry. NECK: No JVD or carotid bruits noted. CARDIOVASCULAR: S1, S2. Bradycardic rate and rhythm. No rubs, gallops, murmurs. PULMONARY: Clear to auscultation. Bilateral breath sounds. No accessory muscle use or work of breathing noted. GI: Soft, nontender, nondistended. Positive bowel sounds x4. EXTREMITIES: Trace edema lower extremities. Has +2 dorsalis and radial pulses. NEUROLOGIC: Oriented to name only, and follows some commands. SKIN: Warm, dry, intact. ASSESSMENT AND PLAN: 1. GRACE with CKD, stage 4 to 5, with mixed acidosis. Has received bicarb in the ER. She has received medications to decrease the potassium level. Dr. Fritz is aware. Will receive central line for pending dialysis. 2. Shortness of breath with mixed acidosis. Will consult pulmonary, as she has had a recent history of intubation, and recent history of MRSA pneumonia. Her white blood cell count is normal at this time. 3. Iron deficiency anemia, chronic anemia secondary to kidney disease. We will start iron supplementation when able. 4. Thrombocytopenia. We will reorder for in the morning. Could be secondary to receiving Arixtra. 5. Antiphospholipid antibody syndrome, but has been on Coumadin since age of 18. Currently NPO. We will need to start Coumadin as soon as possible and ill order daily INR's. 6. Seizure disorder. 7. Hypothyroidism. We will continue Synthroid. 8. Depression. 9. Hyperlipidemia, triglyceridemia. We will continue medications when able. 10. Hypertension. Currently systolic is running in 90s to 100s. We will hold antihypertensives. 11. COPD. Continue with oxygen supplementation. No exacerbation noted. 12. GERD. 13. Diabetes mellitus type 2. Pattern blood glucoses and sliding scale insulin. 14. Hyperkalemia. She has received insulin D50 and calcium. She has also received bicarb in the ER. Should also improve once she can receive dialysis. Dictated by JAVIER Owens for Emilio Heller MD cc: JAVIER Owens MD
[2016-10-01] MEDS: DUONEB (A & A) INH SCH ×6 (03:02→23:35)
[2016-10-01] MEDS: NS 1,000 ML IV SCH ×2 (04:16→15:33)
[2016-10-01 05:14] LABS: BLOOD TYPE ARTERIAL; SAMPLE BLOOD
[2016-10-01 05:15] LABS: PCO2(98.6) 34 mmHg (35-45); pH(98.6) 7.23 (7.35-7.45)
[2016-10-01 05:16] LABS: ALLEN TEST YES; DRAW SITE R RADIAL; MODALITY CANNULA; PO2(98.6) 116 mmHg (60-100)
--- NOTE | 2016-10-01 05:23 | EKG Report ---
Test Performed on : 09/30/2016 12:07:15 PM Test Reason : No Order in [employer] Blood Pressure : / mmHG Vent. Rate : 048 BPM Atrial Rate : 048 BPM P-R Int : 144 ms QRS Dur : 096 ms QT Int : 492 ms P-R-T Axes : 034 -03 177 degrees QTc Int : 439 ms Sinus bradycardia. T wave abnormality, consider inferior ischemia T wave abnormality, consider anterolateral ischemia Abnormal ECG When compared with ECG of 09-SEP-2016 06:43, Vent. rate has decreased BY 54 BPM QT has shortened Unconfirmed Result
[2016-10-01 05:57] LABS: INR 1.95; PROTIME 21.4 Seconds (9.2-11.7)
[2016-10-01 05:59] LABS: HEMATOCRIT 18.5 % (37.0-47.0); HEMOGLOBIN 6.1 g/dL (12.0-16.0); MCH 31.1 PG (27-31); MCV 94.4 FL (81-99); MPV 10.3 FL (7.4-10.4); RBC 1.96 XMIL (4.2-5.4)
[2016-10-01 06:14] LABS: ALBUMIN 2.3 g/dL (3.5-5.0); CALCIUM 7.3 mg/dL (8.8-10.2); MAGNESIUM 1.4 mg/dL (1.5-2.7); PTT 62.9 Seconds (22.0-36.0); TOTAL BILIRUBIN 0.31 mg/dL (0.20-1.00); TOTAL PROTEIN 6.1 g/dL (6.3-8.3)
[2016-10-01 06:19] LABS: FREE T4 0.99 ng/dL (0.93-1.70)
[2016-10-01 06:21] LABS: POTASSIUM 6.1 mmol/L (3.5-5.1)
[2016-10-01] MEDS: HUMULIN R SUBQ SCH ×4 (06:21→22:03)
--- NOTE | 2016-10-01 06:36 | EKG Report ---
Test Performed on : 10/01/2016 06:04:14 AM Test Reason : chest pain Blood Pressure : / mmHG Vent. Rate : 073 BPM Atrial Rate : 073 BPM P-R Int : 132 ms QRS Dur : 096 ms QT Int : 418 ms P-R-T Axes : 062 007 163 degrees QTc Int : 460 ms Normal sinus rhythm. T wave abnormality, consider anterolateral ischemia Prolonged QT Abnormal ECG When compared with ECG of 30-SEP-2016 12:07, (Unconfirmed) Vent. rate has increased BY 25 BPM Confirmed by Aidan COUCH, Tre Weathers ([id number]) on 10/01/2016 7:26:32 PM
[2016-10-01] MEDS ORDERED: CALCIUM CHLORIDE 1 GM in NS 100 ML IV ONE (06:39)
[2016-10-01] MEDS ORDERED: SODIUM BICARBONATE 8.4% IV PUSH ONE (06:41)
[2016-10-01] MEDS ORDERED: HUMULIN R IV ONE (06:42)
[2016-10-01] MEDS ORDERED: D50W SYRINGE IV ONE (06:42)
[2016-10-01 06:51] LABS: URINE MICRO REVIEW NEEDED? NO; URINE SOURCE CATH
[2016-10-01 06:54] LABS: BILIRUBIN URINE NEGATIVE (NEGATIVE); BLOOD URINE MODERATE (NEGATIVE); COLOR YELLOW; GLUCOSE URINE NEGATIVE (NEGATIVE); LEUKOCYTES URINE MODERATE (NEGATIVE); NITRITE URINE NEGATIVE (NEGATIVE); PH URINE 5.5; PROTEIN URINE 70 mg/dL (NEGATIVE); SP GRAVITY URINE 1.008; TURBIDITY URINE HAZY (CLEAR); UROBILINOGEN URINE NORMAL (NORMAL)
[2016-10-01 06:55] LABS: UR EPITHELIAL CELLS <10 /HPF (<10); URINE BACTERIA NEGATIVE /HPF; URINE CULTURE NEEDED? YES; URINE RBC <10 /HPF (<10); URINE WBC TNTC /HPF (<10)
--- NOTE | 2016-10-01 07:49 | Diag Imaging Result Document ---
PROCEDURE NAME: CHEST-PORTABLE - 10/01/2016 SINGLE FRONTAL RADIOGRAPH OF THE CHEST: COMPARISON: 09/30/2016. FINDINGS: Right central line is stable. The patient is rotated toward the left. There has been development of a focal infiltrate worrisome for pneumonia at the right lung base. There is also likely some degree of mild interstitial edema and pulmonary venous congestion. There is stable cardiomegaly. IMPRESSION: Development of an infiltrate at the right lung base as described.
[2016-10-01] MEDS ORDERED: VELTASSA PO ONE (08:50)
[2016-10-01] MEDS ORDERED: ROCEPHIN 1 GM/NS 1 GM/50 ML IVPB IV SCH (09:00)
[2016-10-01] MEDS: MAXIPIME 1 GM/NS 1 GM/50 ML IVPB IV SCH (09:27)
[2016-10-01] MEDS: ZYVOX 600 MG/D5W 600 MG/300 ML IVPB IV SCH ×2 (09:31→20:02)
[2016-10-01] MEDS ORDERED: NS 500 ML ONE (12:40)
[2016-10-01] MEDS ORDERED: HEPARIN ONE (13:14)
[2016-10-01] MEDS ORDERED: NS 2,000 ML ONE (13:14)
--- NOTE | 2016-10-01 14:17 | CONSULTATION ---
DATE OF CONSULTATION: 10/01/2016 REASON FOR CONSULTATION: Hyperkalemia and renal failure. HISTORY OF PRESENT ILLNESS: Ms. Reyes is a 45-year-old white female. She is known to us from her recent admission to this hospital. I saw her for the first time on the 09 of September at which time she had severe renal failure and altered mental status. Her creatinine peaked at 6.2 and then slowly was improving and her creatinine was 4.9 on the date of discharge (09/25/2016). We had measured her creatinine clearance and it was 15 mL/minute. Given her slow functional and neurologic improvement we opted to withhold dialysis and observe closely as an outpatient. She returned to the hospital yesterday at around 5:30 p.m. Chief complaint in the emergency room was shortness of breath. The family was not present at the time of the H and P and are not present currently. She will awaken and attempt to answer me but then her speech becomes garbled and slow and she dozes off. She denies shortness of breath, nausea, vomiting, diarrhea, chest pain, chills, fevers, cough, sputum etc. Her initial evaluation found hyperkalemia and worsened kidney failure with creatinine of 7.8. Moderate metabolic acidosis as well. She was treated with IV fluids and medical treatment for her hyperkalemia. Her potassium is 6.1 this morning. This was performed in conjunction with me through the emergency room yesterday. PAST MEDICAL HISTORY: 1. Antiphospholipid syndrome. She has had at least 2 strokes in the past and takes chronic Coumadin. 2. Mechanical mitral valve replacement. 3. History of left carotid surgery. 4. Hypertension. 5. Pulmonary hypertension. 6. Obesity. 7. Seizure disorder. 8. COPD on home O2. 9. Hypothyroidism. 10. Congestive heart failure. HOME MEDICATIONS: Include niacin, multivitamin, insulin, fondaparinux, sodium bicarbonate, atorvastatin, diazepam, gabapentin, levothyroxine, amitriptyline, bisoprolol, furosemide, hydrocodone, warfarin, pantoprazole. ALLERGIES: Codeine. SOCIAL HISTORY: She is and her family lives locally. She has a daughter that lives with her. FAMILY HISTORY: Noncontributory. REVIEW OF SYSTEMS: As above. Otherwise negative but again her sensorium was impaired. PHYSICAL EXAMINATION: Vital Signs: Blood pressure 94/54, heart rate 74, respirations 16, temperature 99.4 degrees. Generally: She is a middle-aged, chronically ill, obese woman, in no acute distress. Mental status as above. Skin: Warm and dry. Her cheeks are mildly erythematous but improved from her last encounter. HEENT: Pupils are equal. Conjunctivae are pink. Oropharynx is clear. Tongue is moist. Neck: Supple. Trachea is midline. Neck veins are not visible. Left neck surgical scar. Heart: PMI is difficult to palpate. Regular rate and rhythm with metallic heart tones. No murmurs appreciated today. Lungs: Have equal breath sounds. Shallow. No crackles or wheezes. Abdomen: Obese and soft. Bowel sounds are present. No organomegaly or masses. Extremities: Have 1 to 2+ edema primarily around the hips. No clubbing or cyanosis. Neurologic Exam: Nonfocal except as above. LABORATORY DATA: Sodium 130, potassium 6.1, chloride 99, bicarbonate 12. BUN 89, creatinine 7.6. Albumin 2.3. Hemoglobin 6.1. IMPRESSION: 1. Kidney failure. She has stage 5 chronic kidney disease and has interval worsening since she was discharged. Etiology of worsened kidney function is not obvious but likely related to hemodynamic factors with marginally low blood pressure. Certainly, she meets criteria for dialysis. I have attempted to contact the family today without any success. If I am able to reach them, then I will see consent for dialysis access and initiation of treatment. 2. Hyperkalemia. She also has significant anemia with a falling hemoglobin suggestive of GI bleeding. We will screen for this possibility. Her potassium was treated medically overnight and we will manage this more definitively with dialysis. 3. Anemia. Transfuse. 4. Metabolic acidosis. Managed with dialysis. cc: MD NA Guerin
--- NOTE | 2016-10-01 15:58 | OPERATIVE NOTE ---
PROCEDURE DATE: 10/01/2016 PREOPERATIVE DIAGNOSIS: Acute renal failure on chronic kidney disease, needing access for hemodialysis. POSTOPERATIVE DIAGNOSIS: Acute renal failure on chronic kidney disease, needing access for hemodialysis. PROCEDURE: Ultrasound-guided right common femoral vein Vas-Cath placement. SURGEON: Will Ferraro MD PERSONNEL DIRECTOR: None. ANESTHESIA: Local administered by the surgeon. INTRAOPERATIVE FINDINGS: On ultrasound, she had a previous central line in the right groin, but the common femoral vein was widely patent. BRIEF HISTORY: The patient is a 45-year-old female, who was admitted with shortness of breath. She has had chronic kidney disease and had acute kidney injury on top of chronic kidney disease. Therefore, it was felt the patient would need dialysis. I was asked by Dr. Fritz to place the catheter. Her INR was just slightly below 2. Discussed with the the risks, benefits, and alternatives for the procedure. All questions answered. DESCRIPTION OF PROCEDURE: After informed consent was obtained, patient remained in her ICU bed. Ultrasound was used to identify the right common femoral vein. We prepped and draped the right side in the standard fashion. After the formal time-out, we used local anesthetic to anesthetize the skin. With ultrasound guidance we able to cannulate the right common femoral vein, pass the wire easily. Using the Seldinger technique, we dilated up the tract and we were able to place a Vas-Cath into the right common femoral vein. All ports aspirated and flushed easily. We secured it in place, placed a sterile dressing. The patient tolerated the procedure well, remained in her ICU bed in stable condition. cc: Will Ferraro MD
--- NOTE | 2016-10-01 16:20 | PROGRESS NOTE ---
DATE: 10/01/2016 SUBJECTIVE: The patient is lethargic and does not complain of anything. As per nursing staff overnight, no acute issues. OBJECTIVE: Vital signs: Temperature 98.7, heart rate 78, respiratory rate 15, blood pressure 122/72, O2 saturation 100% on 3 L nasal cannula. General: This is a chronically ill-looking, frail 45-year-old female lying in bed in no acute distress. HEENT: Head is normocephalic and atraumatic. Anicteric sclerae. Pale conjunctivae. Mucous membranes very dry. Pupils equal, round and reactive to light and accommodation. Neck: Supple. No JVD noted. No carotid bruits. No lymphadenopathy. No thyromegaly. Cardiovascular: S1, S2 heard. No murmurs, gallops, or rubs. Regular rate and rhythm. Respiratory: Clear bilaterally to auscultation with a few coarse breath sounds in both bases, but the patient is not using accessory muscles requiring work with breathing. Abdomen: Soft, nontender to palpation. Nondistended. Bowel sounds present. No organomegaly. Extremities: Mild edema in both lower extremities. Peripheral pulses present in both legs. Neurological: Patient is oriented to name only and still lethargic. Able to follow basic commands. LABORATORY DATA: White cell count 7.07, hemoglobin 6.1, hematocrit 18.5, platelets 64. ABG shows pH of 7.33, PCO2 34, PO2 116. Sodium 130, potassium 6.1, chloride 99, bicarbonate 12, BUN 89, creatinine 7.6. TSH is normal. Urinalysis shows too numerous to count leukocytes. ASSESSMENT AND PLAN: 1. Acute kidney injury acute on chronic kidney disease, stage 5. The patient has developed severe metabolic acidosis definitely coming from kidneys. Dr. Fritz has been consulted and he is planning to do hemodialysis while the patient is here in the hospital. 2. Healthcare associated pneumonia. Patient's x-ray on admission showed an infiltrated in the right lung base. Considering that this patient has been recently discharged from the hospital, at this time we are going to use broad-spectrum antibiotics, in this case Zyvox considering that this patient cannot use vancomycin because of renal function. Also, we will use cefepime. We will check the x-ray tomorrow. 3. Thrombocytopenia. Aware. 4. Antiphospholipid syndrome. The patient was supposed to start Coumadin but she is not on that medication. 5. Seizure disorder. Aware. 6. Hypothyroidism. Will continue with Synthroid but are going to check TSH. 7. Depression. Aware. 8. Hyperlipidemia. Will continue home medications. 9. Chronic obstructive pulmonary disease. Will continue with oxygen supplementation. 10.Diabetes mellitus. Will check hemoglobin A1c and sliding scale insulin. 11.Hyperkalemia. Potassium is still high, although not completely resolved. Will provide diltiazem and see how she does. cc: Emilio Heller MD
[2016-10-01] MEDS ORDERED: NORCO-7.5 PO ONE (19:49)
--- NOTE | 2016-10-01 20:08 | CONSULTATION ---
DATE OF CONSULTATION: 10/01/2016 REQUESTING PHYSICIAN: Dr. Adorno. REASON FOR CONSULTATION: Mixed acidosis. HISTORY OF PRESENT ILLNESS: Ms. Reyes is a 45-year-old white female with history of antiphospholipid syndrome with multiple strokes, history of mechanical valve replacement, history of sleep apnea with noncompliance, history of chronic kidney disease, who was seen by this practitioner earlier this month when she required intubation and mechanical ventilation. The patient was successfully liberated from mechanical ventilation and was discharged home. The patient developed shortness of breath and presented to the emergency room with disorientation. Arterial blood gas revealed a pH of 7.21, pCO2 of 2, and a PO2 of 83. Pulmonary and renal consultations were requested. PAST MEDICAL HISTORY/PROBLEM LIST: 1. Morbid obesity with a BMI greater than 40. 2. Antiphospholipid syndrome with history of strokes. 3. Status post left carotid endarterectomy with a vein graft from the right leg. 4. COPD with ongoing tobacco use. 5. History of seizure disorder. 6. History of sleep apnea with noncompliance. 7. Chronic renal insufficiency. 8. Hypertension. 9. Hypothyroidism. 10. Dyslipidemia. 11. History of neuropathy. 12. Status post mechanical valve replacement. SOCIAL HISTORY: Ongoing tobacco use. No alcohol use. FAMILY HISTORY: Positive for colon cancer, diabetes, hypertension, and heart disease. REVIEW OF SYSTEMS: Limited given the patient's current medical status. PHYSICAL EXAMINATION: General: Reveals an obese white female, resting comfortably, in no distress. Vital Signs: BP 143/91, heart rate 105, respiration rate 98. HEENT: Pupils are equal and reactive. Oropharynx is clear. Neck: Reveals prior carotid endarterectomy. Chest: Reveals infiltrate at the right base. Shallow breath sounds bilaterally. Cardiac Exam: Regular rate. Normal S1. Normal S2. Abdomen: Obese and soft. Extremities: Reveal 1+ edema. LABORATORIES: Chest x-ray reveals infiltrate at the right base. Arterial blood gas reveals pH 7.21, pCO2 of 26, PO2 of 83. Chemistries: Sodium 123, potassium 7.0, chloride 93, bicarbonate 12, BUN 89, creatinine 7.8. IMPRESSION: This is a 45-year-old with multiple medical problems as outlined above, who presents with: 1. Metabolic acidosis. 2. Partial respiratory compensation. 3. Acute on chronic renal failure. 4. Pneumonia at the right lung base. 5. Tobacco abuse. 6. Noncompliance with CPAP. RECOMMENDATIONS: 1. Agree with current antibiotic regimen, covering gram-negative and gram-positive organisms. Previous sputum cultures revealed MRSA. 2. Agree with supplemental bicarbonate. 3. Anticipate hemodialysis. 4. Recommend smoking cessation. 5. Recommend outpatient sleep study. 6. Long-term, patient would benefit from weight loss. cc: Mack Nguyen MD
[2016-10-01] MEDS: VALIUM PO PRN (22:05)
[2016-10-02] MEDS: NS 1,000 ML IV SCH (01:00)
[2016-10-02] MEDS: DUONEB (A & A) INH SCH ×6 (03:45→23:12)
[2016-10-02 06:49] LABS: INR 2.13; PROTIME 23.5 Seconds (9.2-11.7)
[2016-10-02 06:50] LABS: HEMATOCRIT 22.8 % (37.0-47.0); HEMOGLOBIN 7.5 g/dL (12.0-16.0); MCH 30.7 PG (27-31); MCHC 32.9 g/dL (33-37); MCV 93.4 FL (81-99); MPV 9.9 FL (7.4-10.4); RBC 2.44 XMIL (4.2-5.4)
[2016-10-02] MEDS: HUMULIN R SUBQ SCH ×4 (07:12→20:17)
[2016-10-02] MEDS ORDERED: NS 2,000 ML MISC PRN (07:57)
[2016-10-02] MEDS ORDERED: TIGHT: 0.2 ML/HR MISC PRN (07:57)
[2016-10-02] MEDS ORDERED: HEPARIN IV PRN (07:57)
[2016-10-02 08:02] LABS: ALBUMIN 2.5 g/dL (3.5-5.0); CALCIUM 7.1 mg/dL (8.8-10.2); POTASSIUM 5.4 mmol/L (3.5-5.1)
[2016-10-02] MEDS: NORCO-10 PO PRN ×2 (08:34→20:16)
[2016-10-02] MEDS: MAXIPIME 1 GM/NS 1 GM/50 ML IVPB IV SCH (08:34)
[2016-10-02] MEDS: ZYVOX 600 MG/D5W 600 MG/300 ML IVPB IV SCH ×2 (08:34→20:46)
[2016-10-02 09:59] LABS: HEMOGLOBIN A1C 5.8 % (4.8-6.0)
--- NOTE | 2016-10-02 10:00 | PROGRESS NOTE ---
DATE: 10/02/2016 SUBJECTIVE: Patient is definitely more alert today. Complaining she is feeling thirsty. No fever, chills, chest pain, or shortness of breath. OBJECTIVE: Vital Signs: Temperature 97.6 degrees, heart rate 79, respiratory rate 18, blood pressure 108/62, O2 saturation 100% on 3 L nasal cannula. General Examination: This is a chronically ill-looking and frail, 45-year-old, female, looking older than her age, lying in bed, in no acute distress. HEENT: Head is normocephalic and atraumatic. Anicteric sclerae and pale conjunctivae. Mucous membranes very dry. Pupils equal, round, and reactive to light and accommodation. Neck: Supple. No JVD noted. No carotid bruits. No lymphadenopathy. No thyromegaly. Cardiovascular Examination: S1 and S2 heard. No murmurs, gallops, or rubs. Regular rate and rhythm. Respiratory Examination: Coarse breath sounds still present in both bases. Patient is not using any accessory muscles or having work of breathing. Abdomen: Soft, nontender to palpation. Nondistended. Bowel sounds present. No organomegaly. Extremities: Mild edema in both lower extremities. Peripheral pulses present in both legs. Neurological Examination: The patient definitely is more awake and alert today. Able to talk and follow commands as well. Move 4 extremities. Laboratory Data: White cell count 4.2, hemoglobin 7.5, hematocrit 22.8, platelets 64,000. BMP shows potassium 5.4, BUN 61, creatinine 5.6. ASSESSMENT AND PLAN: 1. Acute on chronic kidney disease. The patient has been admitted to the hospital for uremic encephalopathy. Patient had a Vas-Cath placed yesterday by Dr. Ferraro and she got her 1st session of dialysis. Definitely, that helped her a lot. Patient is definitely less lethargic. More awake, alert. At this point, we will continue following recommendations from Dr. Fritz. 2. Healthcare-associated pneumonia. Patient is on Zyvox and cefepime because she was discharged recently from this hospital. We will continue with the same management. 3. Thrombocytopenia. Aware. 4. Antiphospholipid syndrome. The patient was on Coumadin which was a medication that she was using for a long time but she is not on the medication now. At this point, once she receives dialysis, we will continue just with heparin that she received while she is in dialysis. 5. Seizure disorder. Aware. 6. Hypothyroidism. We will continue with Synthroid. 7. Depression. Aware. 8. Hyperlipidemia. We will continue with home medications. 9. Chronic obstructive pulmonary disease. At this point, we are going to continue with oxygen supplementation and breathing treatments. 10. Diabetes mellitus. We will continue with sliding scale insulin. The hemoglobin A1c is still pending. 11. Hyperkalemia. That condition is definitely much better. At admission, was 7 and today is 5.4. We are not going to treat that because that is going to be corrected in the office. cc: Emilio Heller MD
--- NOTE | 2016-10-02 10:14 | PROGRESS NOTE ---
DATE: 10/02/2016 SUBJECTIVE: She is much more alert today. She is feeding herself. Alert, oriented. OBJECTIVE: Vital Signs: Blood pressure 108/62, heart rate 70, respirations 18, afebrile. Intake 5.1 L. Output 2.7 L. General: A middle-aged obese woman in no acute distress. Skin: Warm and dry. HEENT: Conjunctivae are pink and moist. Pupils are equal. Facial rash is fading. Neck: Veins are not distended. Heart: Regular with metallic heart tones. Lungs: Have equal breath sounds. No crackles or wheezes. Abdomen: Soft, nontender. Bowel sounds are present. Extremities: Have 2+ edema. No clubbing or cyanosis. LABORATORY DATA: Sodium 140, potassium 5.4, chloride 105, bicarbonate 19, BUN 61, creatinine 5.6, phosphorus 7.3. Hemoglobin 7.5. IMPRESSIONS: 1. Renal failure. Likely end-stage kidney disease. She will have her 2nd hemodialysis treatment today. We will repeat again tomorrow. Goal of 3-4 L ultrafiltration today. A 2 potassium bath. 2. Anemia. Hemoglobin is improved following transfusion, but remains somewhat low. We will observe today and transfuse again if required. 3. Will need a tunneled dialysis catheter later this week. cc: Adam Fritz MD
[2016-10-02] MEDS ORDERED: NS 2,000 ML ONE ×2 (12:52→14:21)
[2016-10-02] MEDS ORDERED: HEPARIN ONE ×2 (12:52→14:21)
[2016-10-03] MEDS: DUONEB (A & A) INH SCH ×4 (03:55→16:02)
[2016-10-03 04:36] LABS: ALLEN TEST YES; BE 0.7 mmoll (-3.0-3.0); BLOOD TYPE ARTERIAL; DRAW SITE R RADIAL; METHB 1.8 % (0.0-1.5); O2(CT) 9.5 mL/dL (15.0-23.0); PCO2(98.6) 40 mmHg (35-45); PO2(98.6) 86 mmHg (60-100); SAMPLE BLOOD; SAO2 98.5 % (95.0-100.0); pH(98.6) 7.41 (7.35-7.45)
[2016-10-03 04:37] LABS: MODALITY CANNULA
[2016-10-03 06:03] LABS: HEMATOCRIT 21.5 % (37.0-47.0); HEMOGLOBIN 7.1 g/dL (12.0-16.0); MCH 30.5 PG (27-31); MCV 92.3 FL (81-99); MPV 10.3 FL (7.4-10.4); RBC 2.33 XMIL (4.2-5.4)
[2016-10-03] MEDS: HUMULIN R SUBQ SCH ×3 (06:05→17:15)
[2016-10-03 06:10] LABS: INR 2.51; PROTIME 27.9 Seconds (9.2-11.7)
[2016-10-03 06:25] LABS: ALBUMIN 2.1 g/dL (3.5-5.0); CALCIUM 7.4 mg/dL (8.8-10.2); POTASSIUM 5.1 mmol/L (3.5-5.1)
--- NOTE | 2016-10-03 07:41 | Diag Imaging Result Document ---
PROCEDURE NAME: CHEST-PORTABLE - 10/03/2016 AP PORTABLE CHEST AT 0500 HOURS: FINDINGS: The left costophrenic angle has been clipped off the film. Compared to 10/01/2016 there has been some improvement in alveolar opacity in the right lower lobe. IMPRESSION: Improved pneumonia right lower lobe.
[2016-10-03] MEDS: MAXIPIME 1 GM/NS 1 GM/50 ML IVPB IV SCH (08:13)
[2016-10-03] MEDS: NORCO-10 PO PRN (08:14)
[2016-10-03] MEDS: ZYVOX 600 MG/D5W 600 MG/300 ML IVPB IV SCH ×2 (08:14→22:11)
[2016-10-03] MEDS ORDERED: NS 2,000 ML ONE (09:14)
[2016-10-03] MEDS ORDERED: HEPARIN ONE (09:14)
[2016-10-03] MEDS ORDERED: HEPARIN IV PRN (10:06)
[2016-10-03] MEDS ORDERED: NS 2,000 ML MISC PRN (10:06)
[2016-10-03] MEDS ORDERED: TIGHT: 0.2 ML/HR MISC PRN (10:06)
[2016-10-03 10:21] LABS: HEPATITIS PROFILE ACUTE SEE COMMENTS
--- NOTE | 2016-10-03 16:42 | PROGRESS NOTE ---
DATE: 10/03/2016 SUBJECTIVE: The patient continues to improve. More alert today. Patient feeling thirsty. No chest pain. No fever. No shortness of breath. OBJECTIVE: Vital Signs: Temperature 97.5, heart rate 74, respiratory rate 18, blood pressure 120/67, O2 saturation 100% on room air. General Examination: This is a chronically ill-looking and frail, 45-year-old female, looking older than her age, lying in bed, in no acute distress. HEENT: Head is normocephalic, atraumatic. Anicteric sclerae, pale conjunctivae. Mucous membranes moist. Neck: Supple. No JVD noted. No carotid bruits. No lymphadenopathy. No thyromegaly. Cardiovascular: S1 and S2 heard. No murmurs, gallops, or rubs. Regular rate and rhythm. Respiratory: Coarse breath sounds still present in both bases. Patient is not using any accessory muscles or having work of breathing. Abdomen: Soft, nontender to palpation. Bowel sounds present. No organomegaly. Extremities: Mild edema in both lower extremities. Peripheral pulses present in both legs. Neurological: Patient is alert and oriented x3. Moves 4 extremities. LABORATORY DATA: BMP remarkable for creatinine 4.1, and BUN 41. CBC shows hemoglobin 7.1. ASSESSMENT AND PLAN: 1. Acute on chronic kidney disease. Patient is receiving hemodialysis today, the third day in a row. Definitely mental status is getting better and patient is feeling better. 2. Healthcare associated pneumonia. Patient is on Zyvox and cefepime. We will continue with the same management along with breathing treatments. 3. Thrombocytopenia, aware. 4. Antiphospholipid syndrome. Patient was on Coumadin, but because she is on dialysis, patient using heparin. 5. Seizure disorder, aware. 6. Depression, aware. 7. Hyperlipidemia. We will continue with home medications. 8. Chronic obstructive pulmonary disease. We will continue with oxygen supplementation on breathing treatment. 9. Diabetes mellitus type 2. We will continue with sliding scale insulin. 10. Hyperkalemia, resolved. cc: Emilio Heller MD
--- NOTE | 2016-10-03 17:01 | PROGRESS NOTE ---
DATE: 10/03/2016 SUBJECTIVE: Patient much more awake and alert. She is on dialysis today. She underwent her treatment without difficulty. OBJECTIVE: Vital Signs: Temperature 97.5 degrees, pulse 76, respiratory rate 18, blood pressure 126/67. Intake 600 mL. Output not measured. PHYSICAL EXAMINATION: General: Middle-aged female resting in bed. Awake and alert. HEENT: Normocephalic, atraumatic. She has an erythematous rash noted to the face. DIONNE, oral mucosa moist. Neck: Supple. There is no JVD. Cardiovascular: Regular rate and rhythm. Pulmonary: Equal excursion. She is clear bilaterally. No increased work of breathing. Abdomen: Round, soft, nontender. Positive bowel sounds. : Not inspected. She has minimal void. Extremities: One to 2+ pretibial edema. No clubbing or cyanosis. Integumentary: Skin is warm and dry otherwise. LAB DATA: WBC of 4.7, hemoglobin 7.1, sodium 135, potassium 5.1, CO2 21, BUN 41 , creatinine 4.1, albumin 2.1, calcium 7.4, and phosphorus 5.4. ASSESSMENT AND PLAN: 1. Renal failure, likely end-stage renal disease. Today has been her 3rd dialysis treatment. We will plan to rest tomorrow. We were able to get 4 L off of her during treatment. 2. Anemia. Patient had 2 units packed red blood cells transfused today. 3. Tunneled dialysis catheter will be needed for continued dialysis treatment. 4. Electrolytes, acid-base balance. These are acceptable. 5. Fluid volume. Euvolemic. Seen, data reviewed, discussed with Brisa Jc on 10/04/15. I agree with the above assessment and plan of care. rg Dictated by JAVIER Thomas for Adam Fritz MD cc: Adam Fritz MD [facility]
[2016-10-03] MEDS: FISH OIL CONCENTRATE PO SCH (22:10)
[2016-10-03] MEDS: LIPITOR PO SCH (22:10)
[2016-10-03] MEDS: ZEBETA PO SCH (22:11)
[2016-10-03] MEDS: ELAVIL PO SCH (22:11)
[2016-10-03] MEDS: NIACIN PO SCH (22:14)
[2016-10-04] MEDS: NORCO-10 PO PRN ×3 (00:18→22:56)
[2016-10-04] MEDS: HUMULIN R SUBQ SCH ×5 (01:17→23:03)
[2016-10-04] MEDS: SYNTHROID PO SCH (06:16)
[2016-10-04 06:38] LABS: HEMATOCRIT 28.4 % (37.0-47.0); HEMOGLOBIN 9.3 g/dL (12.0-16.0); INR 2.55; MCHC 32.7 g/dL (33-37); MCV 91.6 FL (81-99); MPV 10.1 FL (7.4-10.4); PROTIME 28.4 Seconds (9.2-11.7); RBC 3.1 XMIL (4.2-5.4)
[2016-10-04] MEDS ORDERED: NS 250 ML ONE (06:45)
[2016-10-04] MEDS ORDERED: MARCAINE 0.25% PF/EPI 1:200,000 ONE (06:45)
[2016-10-04] MEDS ORDERED: XYLOCAINE 1% ONE (06:45)
[2016-10-04] MEDS ORDERED: HEPARIN ONE (06:45)
[2016-10-04 06:50] LABS: ALBUMIN 2.6 g/dL (3.5-5.0); CALCIUM 8.4 mg/dL (8.8-10.2); POTASSIUM 4.2 mmol/L (3.5-5.1)
--- NOTE | 2016-10-04 08:48 | Diag Imaging Result Document ---
PROCEDURE NAME: CHEST-PORTABLE - 10/04/2016 PORTABLE CHEST AT 0810 HOURS: FINDINGS: There is some hazy opacity over the lung bases. This is probably largely technical and compared to 10/03/2016 and 10/01/2016 there has been no appreciable change. There is a double lumen catheter on the left with its tip in the superior vena cava just above the right atrium, and the right subclavian central venous catheter also with its tip in the superior vena cava or just within the right atrium. IMPRESSION: Cardiomegaly. No evidence of acute pulmonary disease.
[2016-10-04] MEDS ORDERED: EPOGEN SUBQ SCH (09:00)
[2016-10-04] MEDS ORDERED: DIPRIVAN 1% ONE (09:27)
[2016-10-04] MEDS: FISH OIL CONCENTRATE PO SCH ×2 (09:29→22:39)
[2016-10-04] MEDS: LASIX PO SCH (09:29)
[2016-10-04] MEDS: MAXIPIME 1 GM/NS 1 GM/50 ML IVPB IV SCH (09:29)
[2016-10-04] MEDS: ZYVOX 600 MG/D5W 600 MG/300 ML IVPB IV SCH ×2 (09:29→22:38)
[2016-10-04] MEDS ORDERED: NS 1,000 ML ONE (09:35)
[2016-10-04] MEDS ORDERED: ZOFRAN ONE (09:35)
[2016-10-04] MEDS: PERIDEX MT SCH ×2 (10:53→23:03)
[2016-10-04] MEDS: VALIUM PO PRN (10:57)
[2016-10-04] MEDS: DUONEB (A & A) INH SCH ×5 (11:40→23:03)
[2016-10-04] MEDS: ANORO ELLIPTA 62.5-25 MCG INH INH SCH (11:40)
--- NOTE | 2016-10-04 13:09 | PROGRESS NOTE ---
DATE: 10/04/2016 SUBJECTIVE: She just had a tunneled dialysis catheter placement and has returned to her room. No new complaints. OBJECTIVE: Vital Signs: Blood pressure 152/95, heart rate 75, respirations 15, afebrile. General: She is in no acute distress. Skin: Warm and dry. HEENT: Conjunctivae are pink. Heart: Regular with metallic heart tones and a soft murmur. Lungs: Equal breath sounds. No crackles. Abdomen: Soft, obese, and nontender. Bowel sounds are present. Extremities: Minimal edema. No clubbing or cyanosis. LABORATORY DATA: Sodium 137, potassium 4.2, chloride 99, bicarbonate 25, BUN 29, creatinine 3.4. Hemoglobin 9.3. IMPRESSION: 1. Chronic kidney disease. Likely end-stage. She will have her next dialysis treatment tomorrow. We can remove her femoral Vas-Cath. 2. Electrolytes/acid-base in target. 3. Anemia. Hemoglobin is improved, but she has had 4 units of packed red blood cells. She is receiving erythropoietin. cc: Adam Fritz MD
--- NOTE | 2016-10-04 13:42 | OPERATIVE NOTE ---
PROCEDURE DATE: 10/04/2016 PREOPERATIVE DIAGNOSIS: Acute on chronic renal failure, needing long-term hemodialysis access. POSTOPERATIVE DIAGNOSIS: Acute on chronic renal failure, needing long-term hemodialysis access. PROCEDURE: Ultrasound and fluoroscopic-guided placement of left internal jugular vein PermCath. SURGEON: Will Ferraro MD DIRECTOR LEARNING: None. ANESTHESIA: General endotracheal. INTRAOPERATIVE FINDINGS: On ultrasound of the left IJ was sufficient size to accommodate a PermCath. Fluoroscopy showed the catheter in good position, no kinks, bending. The fluoroscopy also showed the previously placed right subclavian central line was in place. There was no obvious pneumothorax. BRIEF HISTORY: The patient is a 45-year-old female, with multiple medical problems who is had acute on chronic renal failure. She needed more permanent access. She had a Vas-Cath placed in her groin, felt that she would need long-term dialysis. The risks, benefits, alternatives for PermCath were discussed. All questions answered. DESCRIPTION OF PROCEDURE: After informed consent was obtained, patient was brought to the operating theatre, transferred to operating table, placed in supine position. General endotracheal anesthesia was then performed without complication. A formal time-out was then performed confirming patient, date, procedure. All were in agreement. At that time, attention turned to the left side. We elected to the left side by ultrasound, given her coagulopathy and the fact that she had a central line placed in her right subclavian vein. We used ultrasound to identify the left internal jugular vein. It was of sufficient size to accommodate a PermCath. We used local anesthetic to anesthetize the skin and we were able to cannulate the left internal jugular vein, passed the wire, seen going into the superior vena cava by fluoroscopy. We created and tunneled our PermCath from the left chest wall to the left neck, exchanged it over wire in the typical Seldinger technique and secured it in place after confirming that it was in good position. All ports aspirated and flushed blood easily. We placed a sterile dressing. The patient also had a central line on the right chest wall that we resecured in place because the stitches had been loosened. We did this with 2-0 nylon. The patient tolerated procedure well, has a chest x-ray pending. cc: Will Ferraro MD
--- NOTE | 2016-10-04 13:51 | CONSULTATION ---
DATE OF CONSULTATION: 10/04/2016 REQUESTING PHYSICIAN: Dr. Fritz. REASON FOR CONSULTATION: Placement of a tunneled hemodialysis catheter. HISTORY OF PRESENT ILLNESS: This is a 45-year-old female, known to me from a recent admission to the hospital, who has antiphospholipid syndrome, previous stroke, mechanical valve, and multiple other medical comorbidities, who presented with hyperkalemia and renal failure. She had shortness of breath again on this admission too. I had placed a temporary Vas-Cath in her groin which she has received dialysis from. It is felt that she would need more durable long-term access. I was asked to evaluate for placement of a tunneled dialysis catheter. It should be noted that the patient's INR is above 2 but she does have a mechanical heart valve. I did discuss with the patient that this does increase her risk of bleeding. She voiced understanding and wished to proceed with procedure. PAST MEDICAL HISTORY: 1. Antiphospholipid syndrome. 2. Previous strokes. 3. Chronic Coumadin use. 4. Mechanical mitral valve. 5. Hypertension. 6. Pulmonary hypertension. 7. Obesity. 8. History of seizure disorder. 9. COPD. 10. Hypothyroidism. 11. History of congestive heart failure. PAST SURGICAL HISTORY: Includes previous mitral valve replacement, previous carotid surgery, previous vascular access placements. HOME MEDICATIONS: Reviewed. Of note, patient is on Coumadin. ALLERGIES: Codeine. SOCIAL HISTORY: Lives at home and is . FAMILY HISTORY: Reviewed with the patient but noncontributory. REVIEW OF SYSTEMS: A full 10 point review of systems obtained. Negative except as specified in the HPI. PHYSICAL EXAMINATION: Vital Signs: Patient is currently afebrile. Her vital signs have been stable. General: No acute distress. Alert, interactive, female, looks stated age. HEENT: Normocephalic, atraumatic. Pupils equal, round, reactive to light. Mucous membranes moist. Oropharynx benign. Neck: Supple. Trachea midline. Cardiovascular: Regular rate and rhythm. Lungs: Grossly clear. Abdomen: Soft, nontender, nondistended. Extremities: Moves all extremities. Neurologic: Grossly intact. Skin: No signs of jaundice. Vascular: All extremities perfused. It should be noted the patient does have a right subclavian triple-lumen catheter and a right groin Vas-Cath. LABORATORY: Reviewed from yesterday. Her labs from this morning are pending but her INR yesterday was 2.51. ASSESSMENT AND PLAN: This is a 45-year-old female with chronic kidney disease, now with acute on chronic kidney disease with multiple medical comorbidities. 1. Multiple medical comorbidities. At this time, patient is being managed by the hospitalist service. She is on Coumadin for mechanical valve. We cannot really correct this given the risk of damaging her mechanical valve. We will place her tunnel catheter with her INR being elevated and with known risk of increased risk of bleeding. 2. Acute on chronic kidney failure. At this time, we will plan on placement of dialysis catheter. She has a right subclavian central line. Will likely need a left internal jugular vein tunneled dialysis catheter because she needs her central line. I discussed with the patient the risks, benefits, and alternatives for the procedure. She voiced understanding and wished to proceed with the procedure. I appreciate the consult. cc: Will Ferraro MD
--- NOTE | 2016-10-04 13:58 | PROGRESS NOTE ---
DATE: 10/04/2016 SUBJECTIVE: Patient reports feeling fine. No fever or chills. OBJECTIVE: Vital Signs: Temperature 97.7 degrees, heart rate 89, respiratory rate 18, blood pressure 136/84, O2 saturation 98% on room air. General Examination: This is a chronically ill- looking and frail, 45-year-old female, looking older than her age, lying in bed, in no acute distress. HEENT: Head is normocephalic. Atraumatic. Anicteric sclerae. Mucosa pink and moist. Neck: Supple. No JVD. No carotid bruits. No lymphadenopathy. No thyromegaly. Cardiovascular: S1, S2 heard. No murmurs, gallops, or rubs. Regular rate and rhythm. Respiratory Exam: Some coarse breath sounds still present but definitely better in comparing with yesterday. Patient is not using any accessory muscles or having work of breathing. Abdomen: Soft, nontender to palpation. Bowel sounds present. No organomegaly. Extremities: Mild edema in both lower extremities. No clubbing or cyanosis. Peripheral pulses present in both legs. Neurological: Patient alert and oriented x3. Able to move 4 extremities. Cranial nerves 2-12 grossly normal. LABORATORY DATA: White cell count 4.02, hemoglobin 9.3, hematocrit 28.4, platelets 55,000. BMP shows creatinine 3.4, and BUN 129. ASSESSMENT/PLAN: 1. Acute on chronic kidney disease. Currently on hemodialysis. According to Dr. Fritz patient will need permanent hemodialysis. Today is day #4 of dialysis in a row so apparently the patient will need tunneled catheter for permanent dialysis access. We will follow recommendations from him. 2. Healthcare associated pneumonia. Patient is on Zyvox and cefepime. The today is day 3. We will continue with the same management. 3. Thrombocytopenia. Aware. 4. Antiphospholipid syndrome. Patient not on any blood thinners now. 5. Seizure disorder. Aware. 6. Depression. Aware. 7. Hyperlipidemia. We will continue with home medications. 8. COPD. We will continue with oxygen supplementation. 9. Diabetes mellitus diabetes mellitus type 2. We will continue with insulin sliding scale. cc: Emilio Heller MD
[2016-10-04] MEDS: NIACIN PO SCH (22:38)
[2016-10-04] MEDS: LIPITOR PO SCH (22:38)
[2016-10-04] MEDS: ELAVIL PO SCH (22:39)
[2016-10-04] MEDS: ZEBETA PO SCH (22:39)
[2016-10-05] MEDS: DUONEB (A & A) INH SCH ×6 (03:30→22:56)
[2016-10-05] MEDS: SYNTHROID PO SCH (06:12)
[2016-10-05 06:27] LABS: HEMATOCRIT 27.2 % (37.0-47.0); MCH 29.7 PG (27-31); MCHC 33.1 g/dL (33-37); MCV 89.8 FL (81-99); MPV 8.4 FL (7.4-10.4); RBC 3.03 XMIL (4.2-5.4)
[2016-10-05 06:33] LABS: INR 2.08
[2016-10-05 06:34] LABS: PROTIME 22.9 Seconds (9.2-11.7)
[2016-10-05 06:51] LABS: ALBUMIN 2.4 g/dL (3.5-5.0); CALCIUM 7.9 mg/dL (8.8-10.2)
[2016-10-05] MEDS ORDERED: DUONEB (A & A) ONE (07:07)
[2016-10-05] MEDS: ANORO ELLIPTA 62.5-25 MCG INH INH SCH (07:15)
[2016-10-05] MEDS ORDERED: NS 2,000 ML MISC PRN (08:17)
[2016-10-05] MEDS ORDERED: HEPARIN IV PRN (08:17)
[2016-10-05] MEDS ORDERED: TIGHT: 0.2 ML/HR MISC PRN (08:17)
[2016-10-05] MEDS: HUMULIN R SUBQ SCH ×4 (09:57→22:50)
[2016-10-05] MEDS: ZYVOX 600 MG/D5W 600 MG/300 ML IVPB IV SCH ×2 (09:57→22:47)
[2016-10-05] MEDS: LASIX PO SCH (09:58)
[2016-10-05] MEDS: FISH OIL CONCENTRATE PO SCH ×2 (09:58→22:48)
[2016-10-05] MEDS: MAXIPIME 1 GM/NS 1 GM/50 ML IVPB IV SCH (09:58)
[2016-10-05] MEDS: PERIDEX MT SCH ×3 (09:58→22:50)
[2016-10-05] MEDS: NORCO-10 PO PRN ×2 (10:19→22:49)
[2016-10-05] MEDS ORDERED: NS 2,000 ML ONE (11:53)
--- NOTE | 2016-10-05 14:43 | PROGRESS NOTE ---
DATE: 10/05/2016 SUBJECTIVE: Patient reports feeling fine. No fever or chills. No nausea, vomiting, or difficulty in breathing. OBJECTIVE: Vital Signs: Temperature 98.5 degrees, heart rate 73, respiratory rate 20, blood pressure 127/70, O2 saturation 98% on room air. General Examination: This is a chronically ill- looking and frail, 45-year-old female, lying in bed in no acute distress. HEENT: Head is normocephalic, atraumatic. Anicteric sclerae and pale conjunctivae. Mucous membranes moist. Neck: Supple. No JVD noted. No carotid bruits. No lymphadenopathy. No thyromegaly. Cardiovascular exam: S1, S2 heard. No murmurs, gallops, or rubs. Regular rate and rhythm. Respiratory exam: Some coarse breath sounds still present in both bases, but definitely improving in comparing with yesterday. Patient is not using any accessory muscles or having work of breathing. Abdomen: Soft, nontender to palpation. Bowel sounds present. No organomegaly. Extremities: Mild edema in both lower extremities. No clubbing or cyanosis. Peripheral pulses present in both legs. Neurological exam: Patient alert and oriented x3. Able to move 4 extremities. Cranial nerves 2-12 grossly normal. LABORATORY DATA: White cell count 4.70, hemoglobin 9.0, hematocrit 29.7, platelets 65. BMP shows creatinine 2.9 and BUN 31. ASSESSMENT/PLAN: 1. Acute on chronic kidney disease on hemodialysis. Tunneled catheter placed, adjusted by Dr. Ferraro. The patient got hemodialysis today, which is day #5. I think this patient will be ready to go next Friday. We will follow recommendations from nephrology. 2. Healthcare-associated pneumonia. Patient is on cefepime and Zyvox. Today is day #4 of treatment, and we will continue with the same management. 3. Thrombocytopenia, aware. 4. Antiphospholipid syndrome. Patient is not on any blood thinners at this time. 5. Seizure disorder, aware. 6. Depression, aware. 7. Hyperlipidemia. We will continue with home medications. 8. Chronic obstructive pulmonary disease. Patient is not requiring any oxygen supplementation and receiving his home medications; in this case, it is Anoro Ellipta. Will continue with same management. 9. Diabetes mellitus type 2. We will continue with sliding scale insulin. cc: Emilio Heller MD
--- NOTE | 2016-10-05 16:07 | PROGRESS NOTE ---
DATE: 10/05/2016 SUBJECTIVE: She is receiving dialysis. States she feels well and has been able to ambulate. OBJECTIVE: Vital Signs: Blood pressure 127/70, heart rate 73, respirations 20, afebrile. General: She is an obese white female, no acute distress. Skin: Warm and dry. Her rash on the face is stable. Neck: Neck veins are not distended. Trachea is midline. Heart: Regular with metallic heart tones and a murmur. Lungs: Have equal breath sounds. No crackles. Abdomen: Soft, nontender. Bowel sounds present. Extremities: Have no edema, clubbing, or cyanosis. LABORATORY DATA: Sodium 137, potassium 4.0, chloride 101, bicarbonate 22, BUN 31, creatinine 3.9, hemoglobin 9.0. IMPRESSION: 1. Renal failure. Likely end-stage kidney disease. Continue dialysis using her new tunneled catheter. Removed femoral catheter today. 2. Electrolytes/acid base in target. 3. Anemia, stable. 4. Okay for discharge at any time from my perspective. cc: Adam Fritz MD
[2016-10-05] MEDS: NIACIN PO SCH (22:48)
[2016-10-05] MEDS: ZEBETA PO SCH (22:48)
[2016-10-05] MEDS: ELAVIL PO SCH (22:48)
[2016-10-05] MEDS: LIPITOR PO SCH (22:48)
[2016-10-06] MEDS: DUONEB (A & A) INH SCH ×6 (04:11→23:33)
[2016-10-06] MEDS: NORCO-10 PO PRN ×2 (05:47→22:48)
[2016-10-06] MEDS: SYNTHROID PO SCH ×2 (05:47→06:23)
[2016-10-06] MEDS: HUMULIN R SUBQ SCH ×3 (06:00→16:53)
[2016-10-06 06:24] LABS: INR 1.77; PROTIME 19.3 Seconds (9.2-11.7)
[2016-10-06] MEDS: ANORO ELLIPTA 62.5-25 MCG INH INH SCH (07:56)
[2016-10-06] MEDS: MAXIPIME 1 GM/NS 1 GM/50 ML IVPB IV SCH (09:19)
[2016-10-06] MEDS: FISH OIL CONCENTRATE PO SCH ×2 (09:19→22:49)
[2016-10-06] MEDS: LASIX PO SCH (09:19)
[2016-10-06] MEDS: PERIDEX MT SCH (09:22)
[2016-10-06] MEDS: ZYVOX 600 MG/D5W 600 MG/300 ML IVPB IV SCH ×2 (10:23→22:50)
--- NOTE | 2016-10-06 15:10 | PROGRESS NOTE ---
DATE: 10/06/2016 SUBJECTIVE: Patient reports doing fine. No fever, chills, nausea, or vomiting. OBJECTIVE: Vital Signs: Temperature 97.6 degrees, heart rate 83, respiratory rate 14, blood pressure 138/72. O2 saturation 96% on room air. General examination: This is a chronically ill-looking, morbidly obese, 45-year-old female lying in bed, in no acute distress. HEENT: Head is normocephalic, atraumatic. Neck: Supple. No JVD. No carotid bruits. Cardiovascular: S1, S2 heard. No murmurs, gallops, or rubs. Regular rate and rhythm. Respiratory: Clear bilaterally to auscultation. No work of breathing or using accessory muscles. Abdomen: Soft, nontender to palpation. Bowel sounds present. No organomegaly. Extremities: Mild edema in both lower extremities. No clubbing or cyanosis noted. Peripheral pulses present in both legs. Neurological: Patient is alert and oriented x3. Able to move 4 extremities. Cranial nerves 2-12 grossly normal. LABORATORY DATA: Reviewed. ASSESSMENT AND PLAN: 1. Acute on chronic kidney disease on hemodialysis. Patient had a tunneled catheter placed already. Patient got hemodialysis yesterday that was 5 days in a row. We will see tomorrow on Friday what is the plan from Dr. Fritz. We will follow his recommendations. 2. Healthcare associated pneumonia. Patient on Zyvox and Cefepime. Tomorrow will be day #5 of treatment. Considering that the white cell count is back to normal and she is not needing any oxygen supplementation, probably will need to provide p.o. medications for 5 more days. In this case, it will be Zyvox. 3. Thrombocytopenia. Aware. 4. Antiphospholipid syndrome. Patient is not on any blood thinners at this time. We will probably resume at discharge. 5. Seizure disorder. Aware. 6. Depression. Aware. 7. Hyperlipidemia. We will continue home medications. 8. Chronic obstructive pulmonary disease. Patient is on room air and requiring home medications, in this case, Anoro Ellipta. We will continue with the same management. 9. Diabetes mellitus type 2. We will continue with sliding scale. 10. Physical deconditioning. Patient definitely needs to go to a rehab facility because she is just able to go to the bathroom requiring a lot of support according to her and she reports that she is not back to her baseline. Patient acknowledged understanding. We may probably try to send her home tomorrow. cc: Emilio Heller MD
[2016-10-06] MEDS: NIACIN PO SCH (22:49)
[2016-10-06] MEDS: LIPITOR PO SCH (22:49)
[2016-10-06] MEDS: ZEBETA PO SCH (22:49)
[2016-10-06] MEDS: ELAVIL PO SCH (22:50)
[2016-10-07] MEDS: DUONEB (A & A) INH SCH ×4 (02:39→15:50)
[2016-10-07] MEDS: PERIDEX MT SCH ×2 (04:53→09:49)
[2016-10-07] MEDS: HUMULIN R SUBQ SCH ×3 (04:53→11:47)
[2016-10-07] MEDS: SYNTHROID PO SCH (06:25)
[2016-10-07] MEDS: NORCO-10 PO PRN (06:25)
[2016-10-07] MEDS ORDERED: HEPARIN IV PRN (07:03)
[2016-10-07] MEDS ORDERED: NS 2,000 ML MISC PRN (07:03)
[2016-10-07] MEDS ORDERED: TIGHT: 0.2 ML/HR MISC PRN (07:03)
[2016-10-07 07:11] LABS: ALBUMIN 2.6 g/dL (3.5-5.0); CALCIUM 8.9 mg/dL (8.8-10.2); POTASSIUM 3.8 mmol/L (3.5-5.1)
[2016-10-07 07:14] LABS: INR 1.49; PROTIME 16.1 Seconds (9.2-11.7)
--- NOTE | 2016-10-07 09:45 | PROGRESS NOTE ---
DATE: 10/07/2016 SUBJECTIVE: Ms. Reyes is resting quietly in bed. She is alert. She denies chest pain or increased work of breathing. States that she would like to talk with the social services aide about discharge. OBJECTIVE: Vital Signs: Her most recent vital signs, her last temperature was 98.6 degrees, blood pressure 128/67, heart rate 64, respirations 16. She is on room air. Last recorded saturation 98%. She has had 1590 in. She has had 500 out plus per void. Laboratory Data: Her most recent labs indicate a sodium of 138, potassium 3.8, chloride is 101, CO2 26, BUN 19, creatinine 3.6, glucose 80, anion gap 11, calcium 8.9, phosphorus 4, albumin 2.6. White count 4.7, hemoglobin 9, hematocrit 27.2, with a platelet count of 65,000. Physical Examination: General: This is a 45-year-old, white female. She is currently resting in bed. She is in no acute distress. Skin: Warm and dry. HEENT: Normocephalic , atraumatic. She continues to have a slight erythematous rash to her face. Conjunctivae are pink. She has DIONNE. Mucous membranes moist. Neck: Supple. Trachea midline. No JVD. Cardiovascular: Regular rate and rhythm. No murmur or gallop. Lungs: Clear to auscultation anteriorly. Equal excursion. Abdomen: Round, soft, nontender. Positive bowel sounds. Genitourinary: Not inspected. Minimal void. Extremities: She continues with 1+ pretibial edema. No clubbing or cyanosis. Integumentary: Skin is warm and dry. Otherwise, outside of facial erythema, no rashes or lesions evident. The patient has tunneled catheter dialysis to the right chest wall. It is dry and intact. Neurological: Alert and oriented x3. ASSESSMENT AND PLAN: 1. Renal failure. Patient is due for dialysis today. We will place her on a 2 K bath. She is to dialyze for 3-1/2 hours. We will attempt to pull to her last inpatient dry weight. 2. Electrolytes. These remain stable. 3. Acid-base balance. This is stable. 4. Anemia. This remains low but stable. 5. Fluid volume overload. Patient remains euvolemic with dialysis assist. I would like to thank you for allowing us to follow with this patient. Seen, data reviewed, discussed with Ezio Greenberg on 10/07/16. I agree with the above assessment and plan of care. rg Dictated by JAVIER Guido for Adam Fritz MD cc: JAVIER Guido MD [facility]
[2016-10-07] MEDS: LASIX PO SCH (09:49)
[2016-10-07] MEDS: FISH OIL CONCENTRATE PO SCH (09:49)
[2016-10-07] MEDS: MAXIPIME 1 GM/NS 1 GM/50 ML IVPB IV SCH (09:50)
[2016-10-07] MEDS: ZYVOX 600 MG/D5W 600 MG/300 ML IVPB IV SCH (10:21)
[2016-10-07 11:36] VITALS: BP 135/74
[2016-10-07] MEDS ORDERED: HEPARIN ONE (12:06)
[2016-10-07] MEDS ORDERED: NS 2,000 ML ONE (12:06)
--- NOTE | 2016-10-07 23:47 | DISCHARGE SUMMARY ---
ADMISSION DATE: 09/30/2016 DISCHARGE DATE: 10/07/2016 CONSULTATIONS: 1. Dr. Adam Fritz with Nephrology. 2. Dr. Mack Nguyen with Pulmonology. 3. Dr. Will Ferraro with General Surgery. PERTINENT PROCEDURES: IJ PermCath inserted by Dr. Will Ferraro. DISCHARGE DIAGNOSES: 1. Cvhvx-ty-odhthlf kidney disease, on hemodialysis. The patient had a tunnelled catheter placed by Dr. Ferraro. She will be discharged home with home health today after hemodialysis for electrolytes and acid base imbalance. 2. Healthcare-associated pneumonia. The patient will continue p.o. Zyvox. She will also be going home with home health. 3. Thrombocytopenia, stable. 4. Antiphospholipid syndrome. Continue home medications. 5. Seizure disorder. Aware. 6. Depression. Aware. 7. Chronic obstructive pulmonary disease, without exacerbation. 8. Diabetes mellitus type 2. Continue with home medicines. 9. Physical deconditioning. The patient was worked with physical therapy. Care Rep was involved for rehab. The patient was planning to go to rehab. However, she states that she is now back at her baseline, refusing to go to rehab, and will go home with home health and physical therapy. HOSPITAL COURSE: Briefly, Ms. Reyes is a 45-year-old female, who carries a past medical history of antiphospholipid antibody syndrome, on Coumadin since the age of 18, CVA x2, congestive heart failure, seizure disorder, hypothyroidism, COPD on home O2, chronic kidney disease stage 4-5, now requiring hemodialysis. She was last admitted on 2016 with respiratory failure, and found to have an MRSA pneumonia at that time. She was discharged on 09/25/2016. Laboratory data in the ED showed a hemoglobin and hematocrit of 7 and 22, mixed acidosis on her ABG, as well as an acute kidney injury on chronic kidney disease. She required urgent hemodialysis. Her creatinine was 7.8, BUN was 89. Her baseline creatinine during her last admission was 4.8, and high of 6.2. Chest x-ray revealed cardiomegaly and no signs of pneumonia at the time of the x-ray. The patient was admitted with a consult with Dr. Fritz, as well as Dr. Nguyen. She was admitted to the ICU, emergently underwent dialysis. She was started on IV antibiotics. Dr. Ferraro was consulted. The patient underwent a right common femoral Vas-Cath placement temporarily to start emergent hemodialysis. Dr. Nguyen with pulmonology saw the patient. He agreed with antibiotic regimen, covering the Gram negatives and Gram positives, as well as daily smoking cessation, and recommended an outpatient sleep study, as well as long-term benefit from weight loss. The patient received dialysis several days in a row. She did undergo a tunneled IJ PermCath by Dr. Ferraro. The patient did have physical deconditioning. Physical therapy was consulted, as well as social services director, for rehab placement. The patient was agreeable to rehab. However, now she feels that she is back at her baseline and will go home with home health. Her electrolytes and acid base have been stable. Her anemia has been low, but stable, and she remains euvolemic with dialysis assistance. She will undergo her hemodialysis treatment today, and then she will continue to follow up with Dr. Fritz outpatient for her hemodialysis. She is being discharged with home health and physical therapy. VITAL SIGNS: At the time of her discharge, temperature is 98.4 degrees, heart rate 71, respiration 17, blood pressure 135/74, O2 is 98% on room air. DISCHARGE DIET: Renal. DISCHARGE MEDICATIONS: Will be as per Dr. Mittal. FOLLOWUP: Patient is being discharged home with home health and physical therapy. She will need to continue her outpatient dialysis as prescribed. She will also need to obtain a primary care physician. 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 We will set her up for a sleep study as an outpatient. We have discussed weight loss and diet. The patient will need to take her full course of p.o. antibiotics. The patient can return to the ED for any worsening of symptoms. DISCHARGE TIME: 36 minutes. Dictated by JAVIER Romero for Emilio Heller MD cc: MD NA Xavier
--- NOTE | 2016-10-30 07:05 | PROVIDER DOCUMENTATION ---
This chart was entered by Alexandra Rojas Scribe, acting as scribe for Kali Christine MD. HPI-Respiratory General - General Chief Complaint: Shortness of Breath Stated Complaint: resp distress Time Seen by Provider: 09/30/16 11:48 Source: patient Unable to obtain history due to:: urgency (disorientation) Allergies/Adverse Reactions: Patient Allergies Allergy/AdvReac Type Severity Reaction Status Date / Time latex Allergy ITCHING Verified 10/26/16 14:59 codeine AdvReac Unknown Verified 10/26/16 14:59 Home Medications: Home Medication List Medication Instructions Recorded Confirmed Last Taken Type Niacin 500 mg PO HS 09/08/16 10/26/16 2 Days Ago History [place]-3 Fatty Acids [[place]-3] 2 gm PO BID 09/08/16 10/26/16 2 Days Ago History Vitamin B Complex 1 tab PO DAILY 09/08/16 10/26/16 2 Days Ago History ATORVAstatin [Lipitor] 20 mg PO QHS #30 tablet 09/25/16 10/26/16 2 Days Ago Rx Amitriptyline [Elavil] 50 mg PO HS #30 tablet 09/25/16 10/26/16 2 Days Ago Rx Bisoprolol Fumarate [Zebeta] 10 mg PO HS #30 tablet 09/25/16 10/26/16 2 Days Ago Rx Diazepam 5 mg PO BID #60 tablet 09/25/16 10/26/16 09/29/16 20:00 Rx Epoetin Arturo [Epogen] 40,000 unit SUBQ Q7D vial 09/25/16 10/26/16 Unknown Rx Furosemide [Lasix] 40 mg PO DAILY #30 tablet 09/25/16 10/26/16 2 Days Ago Rx Gabapentin 800 mg PO BID #60 tablet 09/25/16 10/26/16 2 Days Ago Rx Hydrocodone/APAP 10 mg/325 mg 1 each PO TID #20 tablet 09/25/16 10/26/16 20:00 Rx [[place]-10] Insulin Glargine [Lantus] 22 unit SUBQ QAM #2 insuln.pen 09/25/16 10/26/16 1 Day Ago Rx Levothyroxine [Synthroid] 75 microgm PO DAILY #30 tablet 09/25/16 10/26/16 2 Days Ago Rx Sodium Bicarbonate 650 mg PO BID #60 tablet 09/25/16 10/26/16 2 Days Ago Rx Umeclidinium/Vilanterol [Anoro 1 puff INH NOW #1 inhaler 09/25/16 10/26/16 2 Days Ago Rx Ellipta 62.5-25 Mcg INH] Warfarin [Coumadin] 5 mg PO DAILY #30 tablet 09/25/16 10/26/16 2 Days Ago Rx Pantoprazole [Protonix] 40 mg PO DAILY@0700 09/30/16 10/26/16 2 Days Ago History Losartan [Cozaar] 100 mg PO DAILY 10/26/16 10/26/16 2 Days Ago History - History of Present Illness-Resp Nature of Presenting Problem: 45 year old F presents to the ED with a cc of shortness of breath and disorientation. states that pt woke up this morning like this. PT was admitted to the hospital 3 weeks ago and diagnosed with MIGUEL pneumonia and pulmonary edema. states that she had a few episodes similar to this 4-5 years ago. Severity in ED: reports: mild Onset/Duration: reports: this morning Timing: reports: still present Associated Symptoms: reports: shortness of breath Similar Symptoms Previously?: Yes (4-5 years ago) Recently seen or treated by another doctor?: Yes Review of Systems - Adult - REVIEW OF SYSTEMS - ADULT ROS:: unobtainable per condition (disorientation) Constitutional: reports: no symptoms reported Eyes: reports: no symptoms reported Ears, Nose, Mouth & Throat: reports: no symptoms reported Cardiovascular: reports: no symptoms reported Respiratory: reports: no symptoms reported Gastrointestinal: reports: no symptoms reported Genitourinary: reports: no symptoms reported Musculoskeletal: reports: no symptoms reported Integumentary: reports: no symptoms reported Neurological: reports: no symptoms reported Psychiatric: reports: no symptoms reported Endocrine: reports: no symptoms reported Hematologic/Lymphatic: reports: no symptoms reported Allergic/Immunologic: reports: no symptoms reported All Other Systems: Reviewed and Negative Past History - Adult - PAST MEDICAL HISTORY-ADULT Review of Records: reports: Nursing Assessment Review, Medications Reviewed Cardiovascular: reports: 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) Genitourinary: reports: kidney disease (Stage IV) Neurological: reports: CVA (multiple, some hemorrhagic), Seizures/Epilepsy - PRIOR SURGERIES/PROCEDURES Surgical/Procedure History: reports: other (mechanical heart valve replacement, multiple craniotomies, carotid bypass with vein graft) - IMMUNIZATION STATUS Childhood Immunizations: See Nurse Assessment Flu Vaccine: See Nurse Assessment - SOCIAL HISTORY Smoking: quit less than 1 year Substance Use: none/never Alcohol Use Frequency: occasionally Physical Exam-General - PHYSICAL EXAM-ADULT Initial Vital Signs Reviewed: Yes - CONSTITUTIONAL General Appearance: other (disoriented) - HEAD, EARS, NOSE, MOUTH & THROAT HENMT: other (dry oral membranes, cranial defect on left secondary to surgery) - RESPIRATORY Respiratory: chest non-tender, lungs clear, normal breath sounds - CARDIOVASCULAR Cardiovascular: normal peripheral pulses, regular rate, rhythm, no edema - GASTROINTESTINAL (ABDOMEN) Abdominal Exam: non tender, soft - SKIN Integumentary: normal color, normal turgor, warm/dry - PSYCHIATRIC Psych/Mental Status: other (disorentated) Progress - PLAN OF CARE/RESULTS Progress/Plan/Lab Results: Orders Category Date Time Status Admit - [facility] Routine AdmDCTranf 09/30/16 18:06 Ordered Activity - Up with Assistance ORDERED Care 09/30/16 18:06 Active Apply Mechanical Device [QM] ORDERED Care 09/30/16 18:06 Active FSBS/Accucheck Result AC + HS Care 09/30/16 18:06 Active Intake and Output-Strict ORDERED Care 09/30/16 18:06 Active Nursing- Assist w/ IS as order ORDERED Care 09/30/16 18:06 Active Nursing- MD Consult Request ROUTINE Care 09/30/16 18:06 Completed Nursing- MD Consult Request ROUTINE Care 09/30/16 18:06 Completed Vital Signs Order Q 4-HR ASSESS Care 09/30/16 18:06 Completed MD [Physician/Provider Consults] Routine Cons 09/30/16 18:06 Ordered MD [Physician/Provider Consults] Routine Cons 09/30/16 18:06 Ordered Social Service Consult Routine Cons 09/30/16 18:06 Active NPO Diet 09/30/16 16:20 Completed CHEST-1 VIEW [RAD] Stat Exams 09/30/16 12:04 Completed CHEST-PORTABLE [RAD] Routine Exams 10/01/16 06:00 Completed FLUROSCOPY ONLY IN DEPT [RAD] Routine Exams 09/30/16 Completed ABG [RESP] Routine Lab 09/30/16 12:15 Completed ABG [RESP] Routine Lab 10/01/16 05:04 Completed ALCOHOL BLOOD Stat Lab 09/30/16 14:35 Completed BLOOD CULTURE [BLDCUL] Stat Lab 09/30/16 12:48 Completed CBC WITH DIFF [HEME] Stat Lab 09/30/16 14:35 Completed CBC WITH NO DIFF [HEME] DAILY Lab 10/01/16 05:15 Completed CBC WITH NO DIFF [HEME] DAILY Lab 10/02/16 05:20 Completed CBC WITH NO DIFF [HEME] DAILY Lab 10/03/16 04:40 Completed CBC WITH NO DIFF [HEME] DAILY Lab 10/04/16 06:00 Completed CBC WITH NO DIFF [HEME] DAILY Lab 10/05/16 05:52 Completed COMPREHENSIVE METABOLIC PANEL [CHEM] Routine Lab 10/01/16 05:15 Completed COMPREHENSIVE METABOLIC PANEL [CHEM] Stat Lab 09/30/16 14:35 Completed FREE T4 Routine Lab 10/01/16 05:15 Completed LACTATE, PLASMA [CHEM] Stat Lab 09/30/16 14:35 Completed MAGNESIUM [CHEM] Routine Lab 10/01/16 05:15 Completed PROTIME WITH INR [COAG] Q24H Lab 10/01/16 05:15 Completed PROTIME WITH INR [COAG] Q24H Lab 10/02/16 05:20 Completed PROTIME WITH INR [COAG] Q24H Lab 10/03/16 04:40 Completed PROTIME WITH INR [COAG] Q24H Lab 10/04/16 06:00 Completed PROTIME WITH INR [COAG] Q24H Lab 10/05/16 05:52 Completed PROTIME WITH INR [COAG] Q24H Lab 10/06/16 05:46 Completed PROTIME WITH INR [COAG] Stat Lab 09/30/16 14:35 Completed PTT [COAG] Routine Lab 10/01/16 05:15 Completed RENAL PROFILE [CHEM] DAILY Lab 10/02/16 05:20 Completed RENAL PROFILE [CHEM] DAILY Lab 10/03/16 04:40 Completed RENAL PROFILE [CHEM] DAILY Lab 10/04/16 06:00 Completed RENAL PROFILE [CHEM] DAILY Lab 10/05/16 05:52 Completed SALICYLATES [TDM] Stat Lab 09/30/16 14:35 Completed TSH Routine Lab 10/01/16 05:15 Completed URINALYSIS W/POSS RFLX CULT [URINALYSIS] Stat Lab 09/30/16 21:30 Completed 0.9% Sodium Chloride Inj [Ns] 1,000 ml Med 09/30/16 15:50 Discontinued IV 100 mls/hr 0.9% Sodium Chloride Inj [Ns] 1,000 ml Med 09/30/16 15:48 Discontinued IV 999 mls/hr Albuterol 0.5% INH Conc [Albuterol 0.5% INH Conc For Med 09/30/16 16:00 Discontinued Hyperkalemia] 25 mg INH Q4H Albuterol 2.5MG/Ipratrop 0.5MG [Duoneb (A & A)] Med 09/30/16 19:30 Discontinued 3 ml INH RTQ4H Albuterol [Albuterol Neb] Med 09/30/16 15:39 Discontinued 2.5 mg INH NOW ONE Albuterol [Albuterol Neb] Med 09/30/16 16:00 Discontinued 25 mg INH Q4H Calcium Chloride 1 gm Med 09/30/16 15:39 Discontinued 0.9% Sodium Chloride Inj [Ns] 100 ml IV NOW Calcium Gluconate Med 09/30/16 15:46 Discontinued 1 gm IV PUSH NOW ONE Dextrose 50% Syringe [D50w Syringe] Med 09/30/16 15:40 Discontinued 50 ml IV NOW ONE Dextrose 50% Syringe [D50w Syringe] Med 09/30/16 20:00 Discontinued 50 ml IV NOW ONE Insulin Human Regular [Humulin R] Med 09/30/16 20:00 Discontinued 10 unit IV NOW ONE Insulin Human Regular [Humulin R] Med 09/30/16 15:41 Discontinued 5 unit IV NOW ONE Ondansetron [Zofran] Med 09/30/16 18:06 Discontinued 4 mg IV Q4H PRN PRN Sodium Bicarbonate 8.4% Med 09/30/16 15:39 Discontinued 100 meq IV NOW ONE Aerosol Treatments Routine Oth 09/30/16 18:06 Completed Incentive Spirometer Routine Ot 09/30/16 18:06 Completed Oxygen Device Routine Ot 09/30/16 18:06 Completed Pulse Oximetry Routine Oth 09/30/16 18:06 Completed Telemetry [OM.EQ] Routine Oth 09/30/16 18:06 Active EKG [EKG] Routine Ther 10/01/16 08:00 Completed Transfer/Admit Order [TRANSFER] Routine Transfer 09/30/16 16:16 Completed Result Diagrams: 10/05/16 05:52 10/07/16 06:20 - CONSULTS/PCP/HOSPITALIST Notification #1 *Consult/PCP/Hospitalist*: Dr. Pulliam(nephrology) Time Discussed: 15:45 Consult Disposition: other (admit to hospitalist and will consult) Procedures - CENTRAL LINE Time-Out Verification Completed?: Yes Central Line Lumen: triple Central Line Procedure Prep: Hand Hygeine Performed, Kit Utilized, Chloraprep, Sterile Body Drape Placed Central Line Position: subclavian (R) Ultrasound Guided?: No Hat, mask, sterile gown, & sterile gloves worn by physician?: Yes Site scrubbed vigorously for 30 seconds? (Groin: 2 min): Yes Anesthetic: 1%, Lidocaine/Xylocaine Volume of Anesthetic (ml's): 8 Complications: See comments (venous access obtained w/o difficulty on 1st attempt, and guidewire advanced w/o difficulty; however on serial efforts, unable to advance catheter over guidewire: left wire in situ and applied sterile dressing to cover. spoke w/ Interventional Radiologist who took patient to fluoro suite and was able to manipulate catheter into place under direct visualization.) Departure - Departure Time of Disposition Decision: 16:47 DIAGNOSIS: Acute renal failure Disposition: ADMITTED INPATIENT 09 Certified Medical Emergency: Emergent Condition: Stable - Critical Care Note This patient required my direct & personal management of CC.: Yes This chart was documented by the indicated scribe, (Alexandra Rojas Scribe) and accurately reflects the services I performed and decisions made by me, Kali Christine MD, as attested by the provider's signature.
== END 2016-10-07 16:30 | disposition home health service (06) ==
LOC: ED 11:23 → ICU 16:56 → 3S 10-02 16:11 → ICU 10-02 16:23 → 4N 10-03 18:23
PROVIDERS: ATTEND Internal Medicine

== ENCOUNTER 2016-10-26 14:33 | Inpatient (IN) ==
[2016-10-26 14:57] LABS: ALLEN TEST YES; BE 2.9 mmoll (-3.0-3.0); BLOOD TYPE ARTERIAL; DRAW SITE R RADIAL; O2(CT) 11.7 mL/dL (15.0-23.0); PCO2(98.6) 39 mmHg (35-45); PO2(98.6) 78 mmHg (60-100); SAMPLE BLOOD; SAO2 97.8 % (95.0-100.0); THB 8.7 g/dL (11.5-17.4); pH(98.6) 7.45 (7.35-7.45)
[2016-10-26 14:58] LABS: MODALITY ROOM AIR
[2016-10-26 15:09] LABS: MANUAL DIFF NEEDED? NO
--- NOTE | 2016-10-26 15:11 | Diag Imaging Result Doc PS360 ---
EXAM: CHEST-PORTABLE HISTORY: AMS TECHNIQUE: Portable at 1455 upright COMMENT: There is cardiomegaly. There appears to be some improvement in pulmonary edema since 10/04/2016. Otherwise has been no significant change. There is a double-lumen catheter in the left internal jugular with its tip in the superior vena cava. There is a mitral valve prosthesis. IMPRESSION: Cardiomegaly. Improved pulmonary edema. Electronically signed by Juan Pablo Hunter 10/26/2016 3:09 PM
--- NOTE | 2016-10-26 15:23 | Diag Imaging Result Doc PS360 ---
EXAM: HEAD W/O CONTRAST HISTORY: AMS TECHNIQUE: CT of the head with without contrast with dose reduction (clarity) COMMENT: there is hyperostosis of most of the calvarium except for the left lateral portion including portions of the frontal bone parietal bone and temporal bone. This is suggestive of previous craniotomy. This was also the case on 09/17/2016. There is considerable encephalomalacia present around the sylvian fissure. No evidence of bleed or abnormal extra-axial fluid collection is present. There is ex vacuo enlargement of the left lateral ventricle and a large lacunae in the area of the head of the caudate nucleus on the left. There is also lacunae in the basal ganglia on the right. IMPRESSION: Chronic ischemic and postsurgical change. Stable since 09/17/2016. Electronically signed by Juan Pablo Hunter 10/26/2016 3:20 PM
[2016-10-26 15:24] LABS: BASO% 0.3 % (0.0-0.8); EOS# 0.17 X1000 (0.0-0.7); EOS% 2.3 % (0.0-10.0); HEMATOCRIT 27.2 % (37.0-47.0); HEMOGLOBIN 9.1 g/dL (12.0-16.0); IMM GRAN# 0.08 X1000 (0.0-0.04); IMM GRAN% 1.1 % (0.0-0.5); LYMPH# 1.44 X1000 (1.2-3.4); LYMPH% 19.3 % (20.5-51.1); MCH 31.5 PG (27-31); MCHC 33.5 g/dL (33-37); MCV 94.1 FL (81-99); MONO# 0.58 X1000 (0.11-0.59); MONO% 7.8 % (1.7-9.3); MPV 9.4 FL (7.4-10.4); NEUT% 69.2 % (42.2-75.2); PLT 102 X1000 (130-400); RBC 2.89 XMIL (4.2-5.4)
[2016-10-26 15:29] LABS: INR 2.01
[2016-10-26 15:45] LABS: ACETAMINOPHEN < 1.2 ug/mL (10-30); AGAP 15; ALBUMIN 3.4 g/dL (3.5-5.0); ALKALINE PHOSPHATASE 137 U/L (32-104); BUN 23 mg/dL (8-22); CHLORIDE 103 mmol/L (98-107); COSMO 287; GOT 26 U/L (10-30); GPT 24 U/L (10-36); MAGNESIUM 1.5 mg/dL (1.5-2.7); POTASSIUM 3.6 mmol/L (3.5-5.1); SODIUM 141 mmol/L (136-145); TCO2 23 mmol/L (25-35); TOTAL BILIRUBIN 0.64 mg/dL (0.20-1.00); TOTAL PROTEIN 7.4 g/dL (6.3-8.3)
[2016-10-26 15:47] LABS: CK PROFILE 271 U/L (24-173)
[2016-10-26 15:55] LABS: PROTIME 22.1 Seconds (9.2-11.7); PTT 63.9 Seconds (22.0-36.0)
[2016-10-26 16:01] LABS: CK INDEX 1.9 (0.0-2.5); CK-MB 5.24 ng/mL (0.0-5.0)
[2016-10-26 16:18] LABS: URINE CULTURE NEEDED? NO; URINE MICRO REVIEW NEEDED? NO; URINE SOURCE CATH
[2016-10-26 16:21] LABS: BILIRUBIN URINE NEGATIVE (NEGATIVE); BLOOD URINE SMALL (NEGATIVE); COLOR YELLOW; GLUCOSE URINE NEGATIVE (NEGATIVE); LEUKOCYTES URINE NEGATIVE (NEGATIVE); NITRITE URINE NEGATIVE (NEGATIVE); PROTEIN URINE 200 mg/dL (NEGATIVE); SP GRAVITY URINE 1.006; TURBIDITY URINE HAZY (CLEAR); UROBILINOGEN URINE NORMAL (NORMAL)
[2016-10-26 16:22] LABS: UR EPITHELIAL CELLS <10 /HPF (<10); URINE BACTERIA NEGATIVE /HPF; URINE RBC <10 /HPF (<10); URINE WBC <10 /HPF (<10)
--- NOTE | 2016-10-26 16:33 | PROVIDER DOCUMENTATION ---
This chart was entered by Zoya Conley, acting as scribe for Tierra Gregory MD. HPI-Neurological Disorder - General Stated Complaint: ams Time Seen by Provider: 10/26/16 14:34 Source: EMS Allergies/Adverse Reactions: Patient Allergies Allergy/AdvReac Type Severity Reaction Status Date / Time latex Allergy ITCHING Verified 10/26/16 14:59 codeine AdvReac Unknown Verified 10/26/16 14:59 Home Medications: Home Medication List Medication Instructions Recorded Confirmed Last Taken Type Niacin 500 mg PO HS 09/08/16 10/26/16 2 Days Ago History Springer-3 Fatty Acids [Springer-3] 2 gm PO BID 09/08/16 10/26/16 2 Days Ago History Vitamin B Complex 1 tab PO DAILY 09/08/16 10/26/16 2 Days Ago History ATORVAstatin [Lipitor] 20 mg PO QHS #30 tablet 09/25/16 10/26/16 2 Days Ago Rx Amitriptyline [Elavil] 50 mg PO HS #30 tablet 09/25/16 10/26/16 2 Days Ago Rx Bisoprolol Fumarate [Zebeta] 10 mg PO HS #30 tablet 09/25/16 10/26/16 2 Days Ago Rx Diazepam 5 mg PO BID #60 tablet 09/25/16 10/26/16 09/29/16 20:00 Rx Epoetin Arturo [Epogen] 40,000 unit SUBQ Q7D vial 09/25/16 10/26/16 Unknown Rx Furosemide [Lasix] 40 mg PO DAILY #30 tablet 09/25/16 10/26/16 2 Days Ago Rx Gabapentin 800 mg PO BID #60 tablet 09/25/16 10/26/16 2 Days Ago Rx Hydrocodone/APAP 10 mg/325 mg 1 each PO TID #20 tablet 09/25/16 10/26/16 20:00 Rx [Hartselle-10] Insulin Glargine [Lantus] 22 unit SUBQ QAM #2 insuln.pen 09/25/16 10/26/16 1 Day Ago Rx Levothyroxine [Synthroid] 75 microgm PO DAILY #30 tablet 09/25/16 10/26/16 2 Days Ago Rx Sodium Bicarbonate 650 mg PO BID #60 tablet 09/25/16 10/26/16 2 Days Ago Rx Umeclidinium/Vilanterol [Anoro 1 puff INH NOW #1 inhaler 09/25/16 10/26/16 2 Days Ago Rx Ellipta 62.5-25 Mcg INH] Warfarin [Coumadin] 5 mg PO DAILY #30 tablet 09/25/16 10/26/16 2 Days Ago Rx Pantoprazole [Protonix] 40 mg PO DAILY@0700 09/30/16 10/26/16 2 Days Ago History Losartan [Cozaar] 100 mg PO DAILY 10/26/16 10/26/16 2 Days Ago History - History of Present Illness-Neuro Nature of Presenting Problem: pt is a 46 year old female present to the ER with cc of AMS. Pt was transported to the ER via EMS. Ems personnel states that a man at her home called 911 and when they arrived he told them that she was to weak to go to dialysis this morning and she is having altered mental status. Pt has a hx of dialysis. Pt stated her first name and responded when nurse pinched her toes but no other response from pt to MD questions. EMS states that she was just released from the hospital 1 week ago for AMS. Onset/Duration: reports: this morning Timing: reports: still present Character of Altered Mental Status: reports: decreased responsiveness Similar Symptoms Previously?: Yes Recently seen or treated by another doctor?: Yes Review of Systems - Adult - REVIEW OF SYSTEMS - ADULT Constitutional: reports: no symptoms reported Eyes: reports: no symptoms reported Ears, Nose, Mouth & Throat: denies: ear discharge, ear pain, hearing loss, tinnitus Cardiovascular: reports: no symptoms reported Respiratory: reports: no symptoms reported Gastrointestinal: reports: no symptoms reported Genitourinary: denies: dysuria, discharge, frequency Musculoskeletal: reports: no symptoms reported Integumentary: reports: no symptoms reported Neurological: reports: other (decreased responsiveness (AMS)). denies: seizure Psychiatric: denies: anti-depressant use, depression, insomnia Endocrine: reports: no symptoms reported Hematologic/Lymphatic: reports: no symptoms reported Allergic/Immunologic: reports: no symptoms reported All Other Systems: Reviewed and Negative Past History - Adult - PAST MEDICAL HISTORY-ADULT Review of Records: reports: Nursing Assessment Review Cardiovascular: reports: 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) Genitourinary: reports: kidney disease (Stage IV) Neurological: reports: CVA (multiple, some hemorrhagic), Seizures/Epilepsy - PRIOR SURGERIES/PROCEDURES Surgical/Procedure History: reports: other (mechanical heart valve replacement, multiple craniotomies, carotid bypass with vein graft) - IMMUNIZATION STATUS Childhood Immunizations: See Nurse Assessment Flu Vaccine: See Nurse Assessment - SOCIAL HISTORY Smoking: cigarettes Provider spent 3-5 mins advising pt. on dangers of tobacco.: Discussed manners to quit use, and f/u contacts for add'l counseling. Substance Use: alcohol Alcohol Use Frequency: occasionally Physical Exam- Neurological - Physical Exam-Neuro Initial Vital Signs Reviewed: Yes General Appearance: slow to respond, other (Decreased responsiveness) HENMT: moist mucous membranes Head Injury: no evidence of injury Neck: full range of motion Respiratory: chest non-tender, lungs clear, normal breath sounds, no pleuratic chest pain, no respiratory distress, no accessory muscle use Abdominal Exam: normal bowel sounds, non tender, soft Lymphatic: no adenopathy Extremity: normal range of motion, non-tender, normal gait, normal inspection, no pedal edema, no calf tenderness, normal capillary refill Neurologic: other (decreased unresponsiveness) Integumentary: normal color, normal turgor, warm/dry Psych/Mental Status: other (unable to assess pt slow to respond) - Glascow Coma Scale Best Eye Response: (4) open spontaneously Best Verbal Response: (5) oriented Best Motor Response: (5) localizes to pain Progress - PLAN OF CARE/RESULTS Progress/Plan/Lab Results: Vital Signs - 8 hr 10/26/16 14:51 10/26/16 16:02 Temperature 98.4 F Pulse Rate 70 66 Respiratory Rate 15 14 Blood Pressure 100/81 131/85 O2 Sat by Pulse Oximetry 94 L 98 Laboratory Results - last 24 hr 10/26/16 10/26/16 10/26/16 14:50 14:50 14:50 WBC 7.45 RBC 2.89 L Hgb 9.1 L Hct 27.2 L MCV 94.1 MCH 31.5 H MCHC 33.5 RDW Std Deviation 21.0 H Plt Count 102 L MPV 9.4 Immature Gran % (Auto) 1.1 H Neut % (Auto) 69.2 Lymph % (Auto) 19.3 L Bergen % (Auto) 7.8 Eos % (Auto) 2.3 Baso % (Auto) 0.3 Immature Gran # (Auto) 0.08 H Neut # (Auto) 5.16 Lymph # (Auto) 1.44 Bergen # (Auto) 0.58 Eos # (Auto) 0.17 Baso # (Auto) 0.02 PT INR PTT (Actin FS) Specimen Type Sample Site pH pCO2 pO2 HCO3 Base Excess Oxyhemoglobin ABG O2 Sat (Calculated) ABG O2 Saturation ABG Carboxyhemoglobin ABG Methemoglobin Matt Test A-a O2 Difference Total Hemoglobin Lactate Blood Gas Modality FiO2 % Sodium 141 Potassium 3.6 Chloride 103 Carbon Dioxide 23 L Anion Gap 15 BUN 23 H Creatinine 4.6 H Estimated GFR/1.73 m2 10 BUN/Creatinine Ratio 5 Glucose 142 H Calculated Osmolality 287 Calcium 8.0 L Magnesium 1.5 Total Bilirubin 0.64 AST 26 ALT 24 Alkaline Phosphatase 137 H Creatine Kinase 271 H Creatine Kinase Index 1.9 CK-MB (CK-2) 5.24 H Troponin T Total Protein 7.4 Albumin 3.4 L Globulin 4.0 Albumin/Globulin Ratio 0.9 Plasma Lactate Salicylates < 3.00 L Acetaminophen < 1.2 L Plasma/Serum Ethyl Alc 10/26/16 10/26/16 10/26/16 14:50 14:50 14:50 WBC RBC Hgb Hct MCV MCH MCHC RDW Std Deviation Plt Count MPV Immature Gran % (Auto) Neut % (Auto) Lymph % (Auto) Bergen % (Auto) Eos % (Auto) Baso % (Auto) Immature Gran # (Auto) Neut # (Auto) Lymph # (Auto) Bergen # (Auto) Eos # (Auto) Baso # (Auto) PT 22.1 H INR 2.01 PTT (Actin FS) 63.9 H Specimen Type Sample Site pH pCO2 pO2 HCO3 Base Excess Oxyhemoglobin ABG O2 Sat (Calculated) ABG O2 Saturation ABG Carboxyhemoglobin ABG Methemoglobin Matt Test A-a O2 Difference Total Hemoglobin Lactate Blood Gas Modality FiO2 % Sodium Potassium Chloride Carbon Dioxide Anion Gap BUN Creatinine Estimated GFR/1.73 m2 BUN/Creatinine Ratio Glucose Calculated Osmolality Calcium Magnesium Total Bilirubin AST ALT Alkaline Phosphatase Creatine Kinase Creatine Kinase Index CK-MB (CK-2) Troponin T 0.028 Total Protein Albumin Globulin Albumin/Globulin Ratio Plasma Lactate 1.9 Salicylates Acetaminophen Plasma/Serum Ethyl Alc 10/26/16 14:55 WBC RBC Hgb Hct MCV MCH MCHC RDW Std Deviation Plt Count MPV Immature Gran % (Auto) Neut % (Auto) Lymph % (Auto) Bergen % (Auto) Eos % (Auto) Baso % (Auto) Immature Gran # (Auto) Neut # (Auto) Lymph # (Auto) Bergen # (Auto) Eos # (Auto) Baso # (Auto) PT INR PTT (Actin FS) Specimen Type ARTERIAL Sample Site R RADIAL pH 7.45 pCO2 39 pO2 78 HCO3 27.2 H Base Excess 2.9 Oxyhemoglobin 94.8 L ABG O2 Sat (Calculated) 11.7 L ABG O2 Saturation 97.8 ABG Carboxyhemoglobin 2.20 ABG Methemoglobin 1.0 Matt Test YES A-a O2 Difference 23.0 Total Hemoglobin 8.7 L Lactate 1.60 Blood Gas Modality ROOM AIR FiO2 % 21.0 Sodium Potassium Chloride Carbon Dioxide Anion Gap BUN Creatinine Estimated GFR/1.73 m2 BUN/Creatinine Ratio Glucose Calculated Osmolality Calcium Magnesium Total Bilirubin AST ALT Alkaline Phosphatase Creatine Kinase Creatine Kinase Index CK-MB (CK-2) Troponin T Total Protein Albumin Globulin Albumin/Globulin Ratio Plasma Lactate Salicylates Acetaminophen Plasma/Serum Ethyl Alc Orders Category Date Time Status Cardiac Monitoring DIRECTED Care 10/26/16 14:41 Active Finger Stick Blood Sugar (ED) DIRECTED Care 10/26/16 14:41 Active Dexter Cath Insertion ORDERED Care 10/26/16 16:06 Active Oxygen Therapy- ED Nursing DIRECTED Care 10/26/16 14:41 Active Saline Loc NOW Care 10/26/16 14:41 Active CHEST-PORTABLE [RAD] Stat Exams 10/26/16 14:41 Completed HEAD W/O CONTRAST [CT] Stat Exams 10/26/16 14:41 Completed ABG [RESP] Routine Lab 10/26/16 14:55 Completed ACETAMINOPHEN [TDM] Stat Lab 10/26/16 14:50 Completed ALCOHOL BLOOD Stat Lab 10/26/16 14:50 Completed CBC WITH ELECTRONIC DIFF [HEME] Stat Lab 10/26/16 14:50 Completed CK PROFILE [SP CHEM] Stat Lab 10/26/16 14:50 Completed COMPREHENSIVE METABOLIC PANEL [CHEM] Stat Lab 10/26/16 14:50 Completed LACTATE, PLASMA [CHEM] Stat Lab 10/26/16 14:50 Completed MAGNESIUM [CHEM] Stat Lab 10/26/16 14:50 Completed PROTIME WITH INR [COAG] Stat Lab 10/26/16 14:50 Completed PTT [COAG] Stat Lab 10/26/16 14:50 Completed SALICYLATES [TDM] Stat Lab 10/26/16 14:50 Completed TROPONIN T Stat Lab 10/26/16 14:50 Completed URINALYSIS W/POSS RFLX CULT-1 [URINALYSIS] Stat Lab 10/26/16 16:07 Ordered URINE DRUG SCREEN Stat Lab 10/26/16 16:07 Ordered Pulse Oximetry Stat Oth 10/26/16 14:41 Completed EKG [EKG] Stat Ther 10/26/16 14:35 Ordered Just arrived to Er and gave more information on why h called 911. he states that he thougth she was having a seizure, she peed in the bed and had some involuntary movements and when he told her he was going to call the hospital she said no hospital but he called anyway. He states she has a hx of Lupus, seizures, stroke, mitral valve problem, and kidney failure. he states her last dialysis treatment was . Result Diagrams: 10/26/16 14:50 10/26/16 14:50 - REASSESSMENT Reassessment #1 Time Reassessed: 16:14 Status: improving ( that pt had brain surgery X 2 in the past due to stroke. Pt urinated on her bed, and pt was having jerking activities on her b/l UE and LE. It sounds like that pt had some SZ activities and she was in a postictal status. Denies h/o SZ. Pt missed dialysis today.) - EKG 1 Time of EKG reading by physician:: 14:38 EKG Read and Signed by:: Tierra Gregory EKG Interpretation (*Must complete 3 of following elements*): Abnormal (normal sinus rhythm, ST &T wave abnormality, consider anterolateral ischemia, prolonged QT, abnormal ECG) Rate: 71 Rhythm: normal sinus rhythm QRS: other (prolonged QT) - XRAY 1 XRAY: Bilateral XRAY Study: Chest (cardiomegaly. IMPROVED PULMONARY EDEMA.) - CT/MRI 1 CT Study: Head Impression: Normal (Chronic ischemic and postsurgical change. Stable since 2016 (lacho)) - CONSULTS/PCP/HOSPITALIST Notification Time Discussed: 16:17 Reason/Comments: Admit to Dr. Yip Consult Disposition: Admit Departure - Departure Time of Disposition Decision: 16:16 DIAGNOSIS: New onset seizure Renal failure Qualifiers: Renal failure chronicity: chronic Chronic kidney disease stage: on chronic dialysis Qualified Code(s): N18.6 - End stage renal disease; Z99.2 - Dependence on renal dialysis Disposition: ADMITTED INPATIENT 09 Certified Medical Emergency: Emergent Condition: Stable Referrals and Follow-Ups: None,PCP [Primary Care Provider] - - Critical Care Note This patient required my direct & personal management of CC.: No This chart was documented by the indicated scribe, (Zoya Conley) and accurately reflects the services I performed and decisions made by me, Tierra Gregory MD, as attested by the provider's signature.
[2016-10-26 16:42] LABS: UR BARBITUATES QUAL NONE DETECTED (NONE DETECT); UR CANNABINOIDS QUAL NONE DETECTED (NONE DETECT); UR COCAINE QUAL NONE DETECTED (NONE DETECT); UR METHADONE QUAL NONE DETECTED (NONE DETECT); UR OPIATES QUAL NONE DETECTED (NONE DETECT); UR OXYCODONE QUAL NONE DETECTED (NONE DETECT); UR PCP QUAL NONE DETECTED (NONE DETECT)
[2016-10-26 16:53] LABS: UR AMPHETAMINES QUAL NONE DETECTED (NONE DETECT); UR BENZODIAZEPIN QUAL PRESUMPTIVE POSITIVE (NONE DETECT)
[2016-10-26] MEDS ORDERED: KEPPRA 500 MG in NS 100 ML IV ONE (17:03)
[2016-10-26] MEDS ORDERED: SODIUM CHLORIDE 0.9% INJ ONE ×2 (17:31→18:48)
--- NOTE | 2016-10-26 18:16 | HISTORY AND PHYSICAL ---
PRIMARY CARE PHYSICIAN: None. STATION HELPER: Dr. Fritz. PRESENTING COMPLAINT: Unresponsiveness. HISTORY OF PRESENTING COMPLAINT: Ms. Reyes is a 46-year-old female, who has been in and out of hospital. Recently was admitted on 09/08/2016, got discharged and readmit on 09/30/2016 and discharged on 10/07/2016 after staying almost a month in hospital. Patient got admitted the last time because of some shortness of breath. She ended up having dialysis for worsening of her CKD. Significantly past medical history is she has antiphospholipid syndrome. She is on Coumadin. Has CVA twice, congestive heart failure. Also has seizures and hypothyroidism and now on hemodialysis. Patient was discharged home. According to the , she seems to have been doing pretty well since she was last discharged about 20 days ago. The home care nurse has been visiting her on daily basis. However since yesterday in the afternoon according to the , the patient was talking on the phone at about 8:30 in the evening and she was not able to be put her words together. She was just kind of beating around the waters and was not clear on what she was saying on the phone with a friend in [place]. Anyway they went to sleep and during the night he felt the patient was having rhythmic movement of the right leg and the left hand and he was suspicious that the patient might have taking some medications. Either way, early this morning it was very hard for him to wake her up and later on in the morning the family for her went to visit her and the patient started doing the same rhythmic movement of the right leg and the left arm but had been completely unresponsive to verbal and was on grimacing to her face to only painful stimulation. They decided to bring her in for further medical care. PAST MEDICAL HISTORY: 1. CVA 2 times. 2. Antiphospholipid syndrome. 3. Congestive heart failure. 4. Status post mitral valve replacement. PAST SURGICAL HISTORY: 1. Mechanical mitral valve at [place] about 5 years ago. 2. Omentum flap brain surgery. 3. Left carotid artery surgery. ALLERGIES: To latex and codeine. Patient is out at the time so she is not able to give detailed history. This is all coming from the . SOCIAL HISTORY: I gather from previous admission that she smokes a pack a day for some time but currently denies alcohol or drug use. FAMILY HISTORY: Positive for coronary artery disease, hypertension and diabetes. REVIEW OF SYSTEMS: Unable to obtain now because patient is completely out of it. PHYSICAL EXAMINATION: VITALS: Blood pressure is 119/72, pulse of 84, respirations 14, temperature is 97.6 GENERAL: Ms. Reyes is a 46-year-old female. She is in bed. She did not seem to be in any remarkable distress. HEENT: Mucosa is pink and moist. Anicteric. Acyanotic. Head is normocephalic. There is some softness in the left frontoparietal area consistent with previous brain surgeries. NECK: Supple. There is an obvious surgical scar on the left carotid area. There is no bruit. CHEST: Good air entry bilateral. I did not appreciate any crepitations or rhonchi. CARDIOVASCULAR: Regular rate and rhythm. There is pronounced S1 with metallic sound consistent with a history of metallic mitral valve. ABDOMEN: Soft. Bowel sounds were present. No hepatosplenomegaly. EXTREMITIES: No pedal edema. CHEST WALL: There is a tunnel catheter on the right anterior chest wall. SOLVENT PLANT OPERATOR: Patient is completely unresponsive but is sustaining adequate breathing and vitals. Pupils are both reactive, normal size and she will withdraw very actively to pain in all extremities and will grimace her face to very painful stimulation. LABORATORY DATA: WBC is 7.43, hemoglobin is 9.1, platelet count of 102,000. Chemistries reviewed. Sodium is 141, potassium is 2.6. Chloride is 103. Bicarb is 23. BUN is 23, creatinine is 4.6. AST is 26, ALT is 24, alkaline phosphatase is 127. Troponins have been negative and serum plasma lactate is 1.9. PT is 12.1, INR is 2.01 and APTT is 63.9. ASSESSMENT: Ms. Reyes is a 46-year-old female, who has an extensive medical history, suspected to have lupus with multisystem damage. Presented to the emergency department with a 2-day history of altered mental status that has progressively gone into unresponsiveness with some rhythmic jerking movement of the left upper extremity and right lower extremity. Toxicology so far is positive for benzodiazepine. 1. Unresponsiveness. I think this is very likely to be a drug-induced encephalopathy giving the history and also the urine toxicology has been positive and some of the jerky movement that she has been having now. Of note though, patient has significant brain disease with multiple surgeries in the brain and this can easily predispose her for seizure disorder. I would therefore go ahead and give her a dose of Keppra, admit her to the ICU and keep a very close eye on her neurological status. I will do a blood culture, urine culture. I do not think this is infectious. Patient is not febrile, she is not tachy. Blood pressures are fine and she does not have any lab abnormalities that would suggest infection. I would therefore not put her on any antibiotics for now. We will hydrate her gently and hopefully get the suspected medicine out of her system. In this case I think the benzodiazepine is probably the culprit over here. 2. History of end-stage renal history/CKD 4. She has been on dialysis. Was actually due for 1 today but did not go because of altered mental status. We will consult Nephrology so they would assess her for dialysis needs. Of note patient is said to be making some minimum urine. 3. Thrombocytopenia. This is chronic and we think is related to her underlying autoimmune disease (lupus). 4. Suspected systemic lupus erythematosus with systemic organ involvement. Noted. 5. Mechanical mitral valve replacement. Patient's INR is actually slightly low. She is now completely out and she is not able to take her Coumadin so we will bridge this with heparin drip, get the APTT therapeutic until patient regains her consciousness and will be eating and we will start her on her Coumadin and get it therapeutic which will be between 2.5-3.5, because of the mechanical valve in the mitral area. So in general, I think Ms. Reyes has altered mental status and there is suspicion that this is benzo induced versus possible seizures. We will give her a dose of Keppra. Admit her to the ICU, do neuro checks every hour to 2 hours. Put her on a gentle hydration. Consult Nephrology. Do blood cultures and urine cultures just to screen her for possible infection. I would hold off on antibiotics for now and will re-evaluate her in the morning. I will also put her on heparin drip to bridge for her anticoagulation since she is completely out of it and will not be able to take anything oral. cc: Kofi Barillas MD [facility]
[2016-10-26] MEDS: NS 1,000 ML IV SCH (18:31)
[2016-10-26] MEDS: HEPARIN 25,000 UNITS/D5W 25,000 UNIT/250 ML IV.SOLN IV SCH (19:59)
[2016-10-27 06:18] LABS: MANUAL DIFF NEEDED? NO
[2016-10-27 06:30] LABS: BASO% 0.4 % (0.0-0.8); EOS# 0.16 X1000 (0.0-0.7); EOS% 2.9 % (0.0-10.0); HEMATOCRIT 25.1 % (37.0-47.0); HEMOGLOBIN 8.3 g/dL (12.0-16.0); IMM GRAN# 0.05 X1000 (0.0-0.04); IMM GRAN% 0.9 % (0.0-0.5); LYMPH# 1.54 X1000 (1.2-3.4); LYMPH% 28.3 % (20.5-51.1); MCH 31.7 PG (27-31); MCHC 33.1 g/dL (33-37); MCV 95.8 FL (81-99); MONO# 0.39 X1000 (0.11-0.59); MONO% 7.2 % (1.7-9.3); MPV 8.8 FL (7.4-10.4); NEUT% 60.3 % (42.2-75.2); PLT 87 X1000 (130-400); RBC 2.62 XMIL (4.2-5.4)
[2016-10-27 06:43] LABS: INR 1.94; PROTIME 21.2 Seconds (9.2-11.7)
[2016-10-27 07:19] LABS: CALCIUM 7.7 mg/dL (8.8-10.2); MAGNESIUM 1.5 mg/dL (1.5-2.7); POTASSIUM 4.3 mmol/L (3.5-5.1); TOTAL BILIRUBIN 0.52 mg/dL (0.20-1.00); TOTAL PROTEIN 6.7 g/dL (6.3-8.3)
[2016-10-27] MEDS: NS 1,000 ML IV SCH (07:31)
[2016-10-27] MEDS: SYNTHROID IV SCH (09:29)
[2016-10-27] MEDS: PROTONIX IV SCH (09:29)
[2016-10-27] MEDS: D5W 1,000 ML IV SCH (09:30)
[2016-10-27] MEDS ORDERED: CALCIUM GLUCONATE 1 GM in NS 50 ML IV ONE (10:25)
[2016-10-27] MEDS: HUMULIN R SUBQ SCH ×3 (10:49→21:00)
[2016-10-27] MEDS: KEPPRA 500 MG in NS 100 ML IV SCH ×2 (11:30→23:30)
[2016-10-27] MEDS ORDERED: INSULIN PEN NEEDLES ONE (11:35)
[2016-10-27] MEDS: LANTUS SUBQ SCH (11:37)
--- NOTE | 2016-10-27 13:14 | PROGRESS NOTE ---
DATE: 10/27/2016 SUBJECTIVE: Today Ms. Reyes continues to be the same, minimally responsive. However, when I spoke to her, she started with a rhythmic jerking movement of all extremities. OBJECTIVE: Vital signs: Blood pressure is 132/73, pulse is 62, respirations 12 , temperature 97.9 degrees. General: Ms. Reyes is a 46-year-old female. She is in bed, not seemingly distressed. HEENT: Mucosa is pink and moist. Anicteric. Acyanotic. Neck: Supple. Chest: Good air entry bilateral. No crepitations. Cardiovascular: Regular rate and rhythm. There is a metallic pronounced S1 consistent with her history of mitral valve metallic replacement. COLLEGE PRESIDENT: Patient is drowsy but is easily arousable. She is not able to articulate very clearly. She has very dysarthric speech, but she would open her eyes to command. Will try and follow some basic commands but then she will have this constant rhythmic movements of all extremities, more so in the left lower extremity. LABORATORY DATA: WBC is 5.44, hemoglobin is 8.3, platelet count of 87,000. Chemistry is reviewed. Sodium is 141, potassium is 3.6, chloride is 100, bicarb is 23, BUN is 25, creatinine is down to 4.2 from 4.6 yesterday, calcium is 7.7 with albumin of 3.0. The PTT is 75.6. Toxicology was positive only for benzodiazepines. ASSESSMENT: 1. Altered mental status with rhythmic jerking movement of all extremities. Not quite sure but I suspect this is some form of drug-induced myoclonic Jerks. However, as we said, the patient also has major risks for seizures so we will treat her for both. 2. History of end-stage renal disease/chronic kidney disease stage 5. She was on dialysis 3 [address] Fritz. Will be waiting for nephrology to evaluate her. Of note, she is making very adequate urine with about 50-70 mL/h and her electrolytes are not horrible. 3. Chronic thrombocytopenia. Likely due to underlying autoimmune disease. 4. History of antiphospholipid syndrome with suspected lupus. 5. Mechanical mitral valve replacement. We will continue bridging with heparin at least for now, until patient's mentation is clear enough to resume her Coumadin. PLAN: So in general, I think today Ms. Reyes showed a little sign of improvement because she is more alert and she is able to make some attempts to speak but the speech is garbled and dysarthric. She did not have that yesterday. She continues also to have this rhythmic jerking movement which I suspect is either drug intoxication or withdrawal. However, seizures cannot be rule out. We have ordered an EEG. We have also ordered a consult from neurology and nephrology to see the patient. I will put the patient on p.r.n. Ativan and also Keppra for possible seizure control. Patient has hypernatremia with hyperchloremia which I think is because of the fluid that we are giving her. We will therefore discontinue the normal saline and put her on D5 at 50 mL/h. Patient also has borderline hypocalcemia. I am not sure if that is also contributing to her jerky movements. We will therefore give her 1 of calcium gluconate for the calcium replacement. I spoke extensively with both the mother and the father and will be updating them on Ms. Reyes's condition. CRITICAL CARE TIME: Critical time spent, 46 minutes. cc: Kofi Barillas MD [facility]
[2016-10-27] MEDS: HEPARIN 25,000 UNITS/D5W 25,000 UNIT/250 ML IV.SOLN IV SCH (14:55)
[2016-10-28] MEDS: D5W 1,000 ML IV SCH (05:46)
--- NOTE | 2016-10-28 06:19 | EKG Report ---
Test Performed on : 10/26/2016 2:38:55 PM Test Reason : CP Blood Pressure : / mmHG Vent. Rate : 071 BPM Atrial Rate : 071 BPM P-R Int : 134 ms QRS Dur : 094 ms QT Int : 432 ms P-R-T Axes : 047 007 137 degrees QTc Int : 469 ms Normal sinus rhythm. ST \T\ T wave abnormality, consider anterolateral ischemia Prolonged QT Abnormal ECG When compared with ECG of 01-OCT-2016 06:04, No significant change was found Unconfirmed Result
[2016-10-28] MEDS: PROTONIX IV SCH (08:07)
[2016-10-28] MEDS: SYNTHROID IV SCH (08:07)
[2016-10-28] MEDS: LANTUS SUBQ SCH (08:08)
[2016-10-28] MEDS: HUMULIN R SUBQ SCH ×4 (08:08→20:18)
[2016-10-28 08:34] LABS: MANUAL DIFF NEEDED? NO
[2016-10-28] MEDS ORDERED: NS 2,000 ML MISC PRN (08:37)
[2016-10-28 08:50] LABS: CALCIUM 7.8 mg/dL (8.8-10.2); POTASSIUM 4.5 mmol/L (3.5-5.1)
[2016-10-28 09:04] LABS: BASO% 0.3 % (0.0-0.8); EOS# 0.14 X1000 (0.0-0.7); EOS% 2.2 % (0.0-10.0); HEMATOCRIT 26.4 % (37.0-47.0); HEMOGLOBIN 8.7 g/dL (12.0-16.0); IMM GRAN# 0.06 X1000 (0.0-0.04); LYMPH# 1.48 X1000 (1.2-3.4); LYMPH% 23.6 % (20.5-51.1); MCV 97.1 FL (81-99); MONO# 0.42 X1000 (0.11-0.59); MONO% 6.7 % (1.7-9.3); MPV 9.1 FL (7.4-10.4); NEUT% 66.2 % (42.2-75.2); PLT 91 X1000 (130-400); RBC 2.72 XMIL (4.2-5.4)
[2016-10-28] MEDS: KEPPRA 500 MG in NS 100 ML IV SCH ×2 (11:00→23:12)
[2016-10-28] MEDS ORDERED: HEPARIN ONE (11:03)
[2016-10-28] MEDS ORDERED: NS 2,000 ML ONE (11:03)
--- NOTE | 2016-10-28 11:27 | CONSULTATION ---
DATE OF CONSULTATION: 10/28/2016 The patient is seen in consultation at the request of Dr. Barillas for evaluation of jerking movements, possible seizure. HISTORY OF PRESENT ILLNESS: History is taken from the patient but mostly from chart review as the patient is altered. The patient is a 46-year-old, right-handed female , who has had multiple visits in and out of the hospital recently, currently admitted two days ago for decreased responsiveness and possible rhythmic movement of the right leg and left hand. Her medical history is significant for antiphospholipid syndrome on Coumadin, chronic kidney disease on dialysis, 2 reported strokes in the past, left hemicrani and mechanical mitral valve. There was a question of whether she has a seizure history, although the patient denies this. Apparently the patient began having difficulty talking on the phone. She was not being clear and was seeming to beat around the waters. This was 3 days ago. Overnight she was having some movements of her right leg and left hand and there was some suspicion that have taken some sort of medications. The morning of admission, she was difficult to arouse, and later on, she was found to have the same rhythmic moving of the right leg and left arm and was unresponsive to verbal stimulation but did grimace to painful stimulation. She has had a head CT since admission that did not show any acute changes. PAST MEDICAL HISTORY: 1. Reported stroke two times. 2. Left craniotomy. 3. Congestive heart failure. 4. Mechanical mitral valve. 5. Chronic kidney disease on dialysis. 6. Surgery on the left carotid artery. 7. Antiphospholipid antibody syndrome on Coumadin. 8. Questions of seizure disorder per the chart records, but the patient denies this today. 9. Hypothyroidism. 10. Depression. 11. Hyperlipidemia. 12. Hypertension. 13. COPD. 14. GERD. 15. Neuropathy. 16. Omentum flap brain surgery with some sort of arterial bypass. This is unclear. SOCIAL HISTORY: Smokes a pack a day. No alcohol or illicit's. Recently moved from [place]. FAMILY HISTORY: Diabetes, hypertension, coronary artery disease, colon cancer in a grandfather. REVIEW OF SYSTEMS: Unable to obtain. ALLERGIES: To latex. MEDICATIONS: I see in the chart. She takes diazepam 5 mg p.o. twice daily at home on past H Ps. CURRENT MEDICATIONS: Reviewed in the chart. She has been started on Keppra 500 mg q.12 hours IV and p.r.n. having. Enrique for agitation. PHYSICAL EXAM: Vital Signs: Reviewed. She has been afebrile. She is supine in bed, awake. When I enter the room she regards, and is able to converse, though her attention and concentration are reduced, and she has slow response time. Sometimes she is unable to finish her thought process. Neck: Supple. Cardiovascular: Regular rate and rhythm. Pulmonary : She is clear anteriorly. Abdomen: Soft, and nontender. MENTAL STATUS EXAM: She is awake, and alert. Again able to converse though slowed. She is able to name a pen and eventually able to name glasses. No difficulty with the latter. She knows she is in the hospital in [place]. She knows the year but thought it was September. Able to say October when asking the month that comes after September. Her pupils are equal, round, reactive to light. No nystagmus. Visual alfredo are full to confrontational testing. Facial sensation is intact. Face is symmetrical with equal activation. Hearing is grossly intact. Tongue is midline. Full shoulder shrug bilaterally. Motor exam normal bulk and tone. She has multifocal resting myoclonus. Her strength is symmetric at least 4/5 in all extremities. Reflexes are symmetric, 1+ throughout, absent at the ankles. Sensory is intact to light touch. Coordination-her finger-to- nose is slow but intact. Gait is not tested. PERTINENT DIAGNOSTICS: Head CT was personally reviewed. No acute findings. She does have a prior left craniotomy with the surrounding encephalomalacia. She does have ex vacuo enlargement of the left lateral ventricle as well as a large lacune around the caudate on the left, as well as one also in the basal ganglia on the right. White count is 6. Hemoglobin 8.7. Hematocrit 26, platelets 91,000. PT 21, INR of 1.9, sodium 145 potassium 4.5. BUN 27, creatinine 4, glucose 114. Calcium 7.8. Mag 1.5. AST and ALT are within normal limits. Alkaline phosphatase 119. CK is 271. CK-MB 5.24, urinalysis noted. Toxicology is positive for benzodiazepines. ASSESSMENT AND PLAN: A 46-year-old right-handed female with multiple medical problems, admitted with altered mental status and jerking movements. On exam the patient has multifocal myoclonus at rest also present with action. She is apparently more alert today than she has been since admission. There was some concern that she may have had rhythmic jerking of her right leg and left arm prior to admission and Keppra has been started. Unclear if the patient has had a seizure. Will order a routine EEG if this has not already been done. If multifocal myoclonus that I am seeing today is not new for her as the patient states, she has had this longstanding and it may be symptomatic from her kidney disease or possibly even from the noted intracranial findings on head CT. Other causes could be related to her known thyroid disease, so would recommend rechecking her thyroid studies. It could also be seen with intoxication or withdrawal. Again the patient says this is not new for her and she has had this for quite some time. Thank you for this consult, we will follow. cc: MD Kofi Robles MD [facility]
--- NOTE | 2016-10-28 11:30 | CONSULTATION ---
DATE OF CONSULTATION: 10/28/2016 REASON FOR ADMISSION: Altered mental status, unresponsiveness, likely drug- induced encephalopathy. REASON FOR CONSULTATION: Chronic kidney disease, stage 4, requiring dialysis. CONSULTING PHYSICIAN: HISTORY OF PRESENT ILLNESS: This is a 46-year-old female, who had multiple hospitalizations over the last couple of months with the last discharge the 1st of this month. She was noted to have chronic kidney disease with acute kidney injury; however, secondary to her renal function and fluid volumes, she required dialysis and has been treated with outpatient dialysis since discharge. Home health care has been following with the patient as an outpatient as well as we have seen the patient in Dialysis Clinic as an outpatient even as recent as last week at which time she was in normal mentation and able to carry on appropriate conversations. The patient in the evening prior to discharge began having some slurred speech and unable to formulate complete sentences. Then, she began having some rhythmic jerking movement. The family was suspicious that she had been taking additional medications other than what she is prescribed. The next morning, this continued. She became completely unresponsive to verbal stimulation and only grimacing to painful stimulation. Because of these changes, she was brought into the emergency room. There she was found to be positive for benzodiazepine. Of note, she does take diazepam noted on her home medications. She also has chronic pain and takes routine Watkins, although it is noted that her drug screen was negative for opioids. Since being in the hospital, she has been given a dose of Keppra. She was kept in the Intensive Care Unit for monitoring. She was hydrated gently. Today, she is more awake and alert. Still has difficulty putting sentences together and sometimes just simply cannot get the words out that it appears she is trying to stay. She has underwent imaging on day of admission, and her chronic ischemic and post surgical changes were unchanged from previous. PAST MEDICAL HISTORY: Antiphospholipid syndrome. She has had 2 strokes in the past and is on Coumadin chronically. She has an a mitral valve replacement. History of left carotid surgery, hypertension, pulmonary hypertension, obesity, seizure disorder. COPD on home O2. Hypothyroidism, congestive heart failure, chronic kidney disease now requiring dialysis. HOME MEDICATIONS: 1. Niacin. 2. Vitamin B. 3. [place]ly-3. 4. Epogen. 5. Lantus. 6. Sodium bicarbonate. 7. Lipitor. 8. Diazepam. 9. Gabapentin. 10. Synthroid. 11. Anoro Ellipta. 12. Elavil. 13. Zebeta. 14. Lasix. 15. Watkins 10/325. 16. Coumadin. 17. Protonix. 18. Cozaar. ALLERGIES: Latex and codeine. FAMILY HISTORY: Coronary artery disease, diabetes, and hypertension. SOCIAL HISTORY: She denies ETOH or illicit drug use though she has chronic scheduled drugs. Continues to smoke. REVIEW OF SYSTEMS: The patient remains confused and issues with conversing. PHYSICAL EXAMINATION: Vital Signs: Temperature 97.6 degrees, pulse 77, respiratory rate 21, blood pressure 148/83. Intake 1.4 L. Output 1.1 L. General: This is a middle -aged female, resting in bed. She is awake. She is alert. Difficulty verbalizing. HEENT: Normocephalic, atraumatic. Oral mucosa is dry. Neck: Supple. Trachea midline. Perhaps trace JVD. Cardiovascular: Regular rate and rhythm. Click noted. No murmur appreciated. Pulmonary: She has equal excursion. She has some decreased breath sounds to the bases but is clear bilaterally. Abdomen: Obese, soft, positive bowel sounds. Genitourinary: Not inspected. She has minimal void with hemodialysis assist. Extremities: Trace pretibial edema. No clubbing or cyanosis. Extremities are warm. She is moving her extremities. Integumentary: Skin is warm and dry. She has a tunneled dialysis catheter noted, chest wall. Insertion site clean, dry, and intact. Neurologic: Aside from some dysplasia, nonfocal otherwise. LABORATORY DATA: WBC of 5.4, hemoglobin 8.3, hematocrit 25.1, and platelet count of 87,000. Sodium 148, potassium 4.3, chloride 110. CO2 of 23. BUN 25, creatinine 4.2, calcium 7.7, albumin 3.0. ASSESSMENT AND PLAN: 1. Chronic kidney disease now requiring dialysis. We will plan to dialyze her today on a 2 K bath/UF as tolerated, 4-hour treatment. 2. Altered mental status. This is thought likely secondary to polypharmacy. Hopefully, dialysis will be able to assist in this case. There was some question about seizure disorder. The patient has been dosed with Keppra followed by primary. 3. Thrombocytopenia, chronic. 4. Lupus noted. 5. Electrolytes, acid-base balance. These are acceptable. 6. Anemia, chronic. Dictated by JAVIER Thomas for Adam Fritz MD Seen, data reviewed, discussed with Brisa Jc on 10/28/16. I agree with the above assessment and plan of care. cc: MD Kofi Guerin MD [facility]
--- NOTE | 2016-10-28 12:32 | PROGRESS NOTE ---
DATE: 10/28/2016 SUBJECTIVE: Today Ms. Reyes she refers to be doing a whole lot better. Mentation has significantly improved. She is able to sustain a rational conversation. She is even able to tell me that she could hear everything that the parents were talking to her about yesterday but she just could not talk. OBJECTIVE: Vital signs: Blood pressure is 140/85, pulse is 72, respirations 13, temperature 98.5 degrees. General: Ms. Reyes is a 46-year-old female. She is in bed. She did not seem to be in any remarkable distress. HEENT: Mucosa is slightly dry. Anicteric. Acyanotic. Neck: Supple. Chest: Good air entry bilateral. No crepitations. Cardiovascular: Regular rate and rhythm. There is a more prominent S1 consistent with a metallic valve. Abdomen: Soft, nontender. Bowel sounds are present. GEOMATICS PROFESSOR: The patient is more alert. She is oriented. She is conversational. Follows commands. There is, however, a very mild baseline tremor especially on the left side. LABORATORY DATA: WBC is 6.28, hemoglobin is 8.7, platelet count is 91,000. Chemistry: Sodium is 144, potassium is 4.5, chloride is 108, bicarb is 21, creatinine is 4.1, which is progressively improving. ASSESSMENT: 1. Altered mental status, likely secondary to toxic metabolic encephalopathy. 2. Rhythmic myoclonic jerks which we think is also related to medication induced. 3. Endstage renal disease. The patient is on dialysis and is being followed by nephrology. 4. Chronic thrombocytopenia, likely due to underlying autoimmune disease. 5. History of antiphospholipid syndrome with suspected lupus. 6. Mechanical mitral valve replacement. 7. Multiple cerebrovascular accidents with brain surgeries. 8. History of seizures. PLAN: So in general I think Ms. Reyes seems to be doing a whole lot better. Mentation is gradually improving. Today she is able to sustain more rational conversation and her kidney function also seems to be improving. Of note, her hypernatremia has also resolved. I would therefore changed her D5 to half-normal saline for baseline hydration. We are going to discontinue the Dexter catheter. PT is in to work with her. The patient has expressed her desire to wanting to eat, so will start her on a regular diet. We are going to observe the patient this morning after all of these changes. If she continues to be stable we will transfer her to [facility]. The patient will continue with the current heparin. We will start her on her p.o. Coumadin and also a few p.o. medications, especially blood pressure medications to get better blood pressure control. In general I think Ms. Reyes is progressively improving. Will follow up very closely. cc: Kofi Barillas MD
[2016-10-28] MEDS: HEPARIN 25,000 UNITS/D5W 25,000 UNIT/250 ML IV.SOLN IV SCH (13:08)
[2016-10-28] MEDS: 1/2 NS 1,000 ML IV SCH (13:11)
[2016-10-28] MEDS ORDERED: HEPARIN 25,000 UNITS/D5W 25,000 UNIT/250 ML IV.SOLN IV SCH (13:22)
[2016-10-28] MEDS: TYLENOL PO PRN (18:03)
[2016-10-28] MEDS: ZEBETA PO SCH (20:16)
[2016-10-28] MEDS: SODIUM BICARBONATE PO SCH (20:16)
[2016-10-29] MEDS: ATIVAN IV PRN ×2 (00:15→21:43)
[2016-10-29] MEDS: 1/2 NS 1,000 ML IV SCH ×3 (02:20→16:39)
[2016-10-29] MEDS: TYLENOL PO PRN ×2 (04:44→16:39)
[2016-10-29] MEDS: HUMULIN R SUBQ SCH ×4 (06:13→20:26)
[2016-10-29] MEDS: ZOSYN 2.25 GM/NS 2.25 GM/50 ML IVPB IV SCH ×4 (06:42→23:54)
[2016-10-29] MEDS: HEPARIN 25,000 UNITS/D5W 25,000 UNIT/250 ML IV.SOLN IV SCH (06:46)
[2016-10-29] MEDS ORDERED: VANCOMYCIN 1 GM/NS 1 GM/250 ML IVPB IV ONE (07:32)
[2016-10-29] MEDS: SYNTHROID IV SCH (08:03)
[2016-10-29] MEDS: PROTONIX IV SCH (08:03)
[2016-10-29] MEDS: SODIUM BICARBONATE PO SCH ×2 (08:03→20:27)
[2016-10-29] MEDS: COZAAR PO SCH (08:03)
[2016-10-29] MEDS: LANTUS SUBQ SCH (08:04)
--- NOTE | 2016-10-29 08:10 | Diag Imaging Result Doc PS360 ---
EXAM: CHEST-PORTABLE HISTORY: dyspnea TECHNIQUE: Portable COMPARISON: 10/26/2016 FINDINGS: The lungs are well expanded. The heart is prominent. No change in the double lumen left-sided catheter. The vessels are not distended. No consolidation. No pleural effusions identified. IMPRESSION: Cardiomegaly, but no congestive failure. Electronically signed by Aba Saez 10/29/2016 8:08 AM
--- NOTE | 2016-10-29 08:49 | PROGRESS NOTE ---
DATE: 10/29/2016 SUBJECTIVE: She has various complaints today. She states that she is having ongoing pain. She also thinks maybe she has had a seizure. She describes her knees and her elbows popping and difficult to control. OBJECTIVE: Vital Signs: Blood pressure 113/59, heart rate 80, respirations 20, temperature 100.3 degrees. Intake 2.9 L. Output 3.2 L. Physical Examination: General: No acute distress. Skin: Warm and dry. HEENT: Conjunctivae are pink. Pupils are equal. Neck: Neck veins are not visible. Trachea is midline. Heart: Regular with metallic heart tones. No murmur. Lungs: Have equal breath sounds. No crackles or wheezes. Abdomen: Soft, nontender. Bowel sounds are present. Extremities: Have minimal edema. No clubbing or cyanosis. Laboratory Data: None today. IMPRESSION: 1. End-stage kidney disease. She had her routine dialysis yesterday. 2. Electrolytes/acid base/anemia. No new data. We will dose with erythropoietin. 3. Fever. She was treated with Zosyn and I will give her 1 dose of intravenous vancomycin pending blood culture reports. cc: MD Kofi Guerin MD
--- NOTE | 2016-10-29 10:10 | PROGRESS NOTE ---
DATE: 10/29/2016 SUBJECTIVE: Today Ms. Reyes refers to be doing a whole lot better. Jerking has completely resolved and patient was some was sitting up, eating her breakfast. OBJECTIVE: Vital signs: Blood pressure is 113/59, pulse of 80, respirations 20, temperature is 100.3 degrees. General: Ms. Reyes is a 46-year-old female. She is in bed. She did not seem to be in any distress. HEENT: Mucosa is pink and moist. Anicteric. Acyanotic. Neck: Supple. Chest: Good air entry bilateral. I did not appreciate any crepitations or rhonchi. Cardiovascular: Regular rate and rhythm. There is pronounced S1. Abdomen: Soft, nontender. Extremities: No pedal edema. INSTRUMENT AND CONTROLS TECHNICIAN: Patient is alert, awake, oriented, very conversational. Follows commands. Was even able to stand up without any difficulty. I did not appreciate any jerks. LABORATORY DATA: Glucose is 165. ASSESSMENT: 1. Altered mental status, likely secondary to toxic metabolic encephalopathy. This has completely resolved. 2. Rhythmic myoclonic jerks. We suspect this is associated with medication. According to the patient she was upset on because she had to sign some document that she is not a kidney transplant candidate and because of that, she said she took 2 pills of baclofen. She also said she has not been taking any Adderall or any Valium. However, Valium is listed as 1 of her home medications and her urine toxicology was also positive for benzodiazepine. 3. End-stage renal disease. Patient is on hemodialysis. The patient continues to make adequate urine. 4. Chronic thrombocytopenia. Likely due to underlying autoimmune disease. 5. History of antiphospholipid syndrome and lupus. 6. Mechanical valve replacement. 7. Multiple cerebrovascular accidents with brain surgery. 8. Fever. Etiology is apparently unclear. So far the blood culture and urine culture from admission has been negative. We have re-cultured the patient from yesterday. We removed the Dexter catheter yesterday and we started the patient on Zosyn. Nephrology has also been given him a dose of vancomycin. We will do a chest x-ray to make sure there is no brewing pneumonia or aspiration when she was altered. cc: Kofi Barillas MD
[2016-10-29] MEDS: KEPPRA 500 MG in NS 100 ML IV SCH (11:40)
--- NOTE | 2016-10-29 14:05 | PROGRESS NOTE ---
DATE: 10/29/2016 Ms. Reyes is awake, alert, attentive, oriented. She did not have any twitching or other abnormal movement during my time at the bedside. As I approached, she appeared to be sleeping peacefully, and there was no abnormal movement during sleep. She is able to extend her arms against resistance and there is no asterixis. Tone is normal and symmetric. She did well on [id number] testing. We reviewed her urine drug screen. She had some questions about amphetamines and benzodiazepines. She reports taking diazepam regularly, but running out of that several days or a week before admission. She reports she has not taken Adderall or other amphetamine, and she believes that someone had asked her about those drugs. Her daughter does take Adderall, and she is certain she did not take 1 of her daughter's pills. I do not have any new suggestion from neurologic standpoint. She appears stable from neurologic standpoint. cc: MD Kofi Elmore III, MD MTDD
[2016-10-29] MEDS: KEPPRA PO SCH (20:27)
[2016-10-29] MEDS: ZEBETA PO SCH (20:27)
[2016-10-29] MEDS ORDERED: COUMADIN PO SCH (21:00)
[2016-10-30 04:42] LABS: MANUAL DIFF NEEDED? NO
[2016-10-30] MEDS: 1/2 NS 1,000 ML IV SCH (04:45)
[2016-10-30 05:01] LABS: BASO% 0.6 % (0.0-0.8); EOS# 0.24 X1000 (0.0-0.7); EOS% 4.6 % (0.0-10.0); HEMATOCRIT 19.9 % (37.0-47.0); HEMOGLOBIN 6.6 g/dL (12.0-16.0); IMM GRAN# 0.03 X1000 (0.0-0.04); IMM GRAN% 0.6 % (0.0-0.5); MCH 31.7 PG (27-31); MCHC 33.2 g/dL (33-37); MCV 95.7 FL (81-99); MONO# 0.32 X1000 (0.11-0.59); MONO% 6.2 % (1.7-9.3); MPV 8.9 FL (7.4-10.4); PLT 70 X1000 (130-400); RBC 2.08 XMIL (4.2-5.4)
[2016-10-30 05:15] LABS: POTASSIUM 3.6 mmol/L (3.5-5.1)
[2016-10-30 05:16] LABS: CALCIUM 6.5 mg/dL (8.8-10.2)
[2016-10-30] MEDS: HEPARIN 25,000 UNITS/D5W 25,000 UNIT/250 ML IV.SOLN IV SCH (05:47)
[2016-10-30] MEDS: ZOSYN 2.25 GM/NS 2.25 GM/50 ML IVPB IV SCH ×3 (05:48→20:58)
[2016-10-30] MEDS: HUMULIN R SUBQ SCH ×4 (06:20→21:03)
[2016-10-30 06:23] LABS: INR 1.77; PROTIME 19.3 Seconds (9.2-11.7)
[2016-10-30] MEDS: PROTONIX PO SCH (06:24)
[2016-10-30] MEDS ORDERED: CALCIUM GLUCONATE 1 GM in NS 50 ML IV ONE (06:38)
[2016-10-30] MEDS ORDERED: NS 2,000 ML MISC PRN (06:52)
[2016-10-30] MEDS ORDERED: HEPARIN IV PRN (06:52)
[2016-10-30] MEDS ORDERED: TIGHT: 0.2 ML/HR MISC PRN (06:52)
[2016-10-30] MEDS ORDERED: NS 2,000 ML ONE (07:33)
[2016-10-30] MEDS ORDERED: HEPARIN ONE (07:33)
[2016-10-30] MEDS: LANTUS SUBQ SCH (08:26)
--- NOTE | 2016-10-30 08:31 | PROGRESS NOTE ---
DATE: 10/30/2016 SUBJECTIVE: She has no new complaints today. She is still in the ICU. No shortness of breath, nausea, or vomiting. OBJECTIVE: Vital Signs: Blood pressure 127/79, heart rate 77, respirations 18, temperature 99.5 degrees. General: She is in no acute distress. Skin: Warm and dry. HEENT: Conjunctivae are pink. Neck: Neck veins are not distended. Heart: Regular. No gallops. Lungs: Have equal breath sounds. No crackles. Abdomen: Obese and soft. Bowel sounds are present. Extremities: Have no edema, clubbing, or cyanosis. Laboratory Data: Sodium 141, potassium 3.6, chloride 103, bicarbonate 23, BUN 20, creatinine 3.5. IMPRESSION: 1. End-stage kidney disease. Her routine dialysis days are Friday, , and Friday but she is off schedule because of her missed treatment on Friday. She will receive her routine treatment today. 2. Electrolytes in target. A 3 K bath today. 3. Acid-base in target. 4. Anemia: Hemoglobin is 6.6 today. We will repeat and transfuse if required. cc: MD Kofi Guerin MD
[2016-10-30 08:45] LABS: HEMATOCRIT 20.4 % (37.0-47.0); HEMOGLOBIN 6.7 g/dL (12.0-16.0); MCH 31.3 PG (27-31); MCHC 32.8 g/dL (33-37); MCV 95.3 FL (81-99); MPV 8.4 FL (7.4-10.4); RBC 2.14 XMIL (4.2-5.4)
[2016-10-30] MEDS ORDERED: EPOGEN SUBQ SCH (09:00)
--- NOTE | 2016-10-30 09:38 | EEG REPORT ---
DATE OF STUDY : 10/28/2016 DATE: 10/30/2016 REFERRING PHYSICIAN: Dr. Barillas. EEG #: [id number] QA TEST ANALYST: Idalia Piña. TECHNIQUE: A digitally recorded EEG is performed with one additional channel for EKG. HISTORY OF PRESENT ILLNESS: This is a 46-year-old female with prior left craniotomy and stroke admitted for altered mental status and having some jerking movements. EEG is ordered to evaluate for seizure. Medications: Notable for Keppra, p.r.n. lorazepam. EEG FINDINGS: A posterior dominant alpha rhythm is not seen. The background consists of mixed frequency alpha, beta and theta. There is some admixed delta. No epileptiform discharges or seizures are noted during this study. Focal slowing is noted over the left frontal region. A breach effect is noted within the left hemisphere. Hyperventilation was not performed. Photic stimulation did not induce a photic driving response. The patient becomes drowsy, but stage II sleep is not seen. The EKG demonstrates normal R-R interval. IMPRESSION AND RECOMMENDATIONS: Abnormal routine EEG due to: 1. Gnos-vp-[id number] generalized background slowing indicative of a mild-to- moderate nonspecific encephalopathy. Generalized slowing is a nonspecific finding that can be seen in processes that diffusely affect the cerebrum, including toxic, metabolic, post hypoxic , pharmacologic or infectious conditions. 2. Focal slowing in the left frontal region. Focal slowing is suggestive of focal cortical and subcortical abnormality, and a focal structure lesion in the area should be considered. This patient's slowing most likely correlates with the imaging findings that are known to the patient already. 3. Left hemispheric breach effect. A breach effect generally indicates an area of skull defect often associated with previous surgery. In this patient, it corresponds to her prior craniotomy. 4. No epileptiform discharges or seizures are noted during the study. This does not rule out an underlying seizure disorder. Clinical correlation is advised. cc: MD Kofi Robles MD MTDD
[2016-10-30] MEDS ORDERED: COUMADIN PO ONE (10:51)
--- NOTE | 2016-10-30 11:33 | PROGRESS NOTE ---
DATE: 10/30/2016 SUBJECTIVE: Today, Ms. Reyes refers to be doing a whole lot better. Denies any fever. No jerking movement and no shortness of breath. OBJECTIVE: Vital Signs: Blood pressure is 127/79, pulse of 77, respirations are 17, temperature is 99.5 degrees. General Examination: Ms. Reyes is a 46-year-old, female. She is in bed, not seemingly in distress. HEENT: Mucosa is pink and moist. Anicteric and acyanotic. Neck: Supple. Chest: Good air entry bilateral. No crepitations. No rhonchi. Cardiovascular: Regular rate and rhythm. There is a pronounced S1 with metallic sound, consistent with a history of metallic mitral valve. Abdomen: Soft, nontender. Extremities: No pedal edema. PROVIDER ENROLLMENT SPECIALIST: Patient is alert, oriented x4. There is no focal neurological deficit and there are not any jerky movements. Laboratory Data: WBC is 4.72, hemoglobin is 6.7, platelet count of 74,000. Chemistry is reviewed. Sodium is 141, potassium is 3.6, chloride is 23, creatinine is 2.5. CURRENT MEDICATIONS: 1. Bisoprolol. 2. Epogen. 3. Insulin glargine 7 units q.a.m. 4. Sliding scale. 5. Keppra 500 p.o. b.i.d. 6. Levothyroxine 50 mcg IV. 7. Cozaar 100 mg daily. 8. Protonix. 9. Zosyn 2.5 g. 10. Normal saline. 11. Bicarbonate. ASSESSMENT: 1. Altered mental status on presentation, likely due to toxic metabolic encephalopathy. This has completely resolved. 2. Rhythmic myoclonic jerks. We think this is associated to medications side effects. The patient refers to have just started taking Zanaflex 2 days prior to coming into the hospital. However, her urine toxicology was positive for benzodiazepines. 3. End-stage renal disease. Patient on hemodialysis. 4. Chronic thrombocytopenia, likely due to autoimmune disease. 5. History of antiphospholipid syndrome and lupus noted. 6. Mechanical mitral valve replacement. Patient was on Coumadin at home. However, INR was subtherapeutic so was getting bridged with heparin as we try to get her INR therapeutic. 7. Gram-negative pascual urinary tract infection. Initial urine culture was negative. However, after Dexter catheter was placed in, now it is getting positive. I think this is related with the Dexter catheter. This has been removed. We are pending the identification and sensitivity of the gram-negative pascual to switch medications to oral. 8. Pancytopenia, more critical. Hemoglobin has dropped significantly. I am not quite sure or if this is dilutional. The patient is getting a unit of packed RBC transfusion. We will discontinue the heparin drip because of the low hemoglobin and hematocrit, and the risk of possible bleed. We will repeat this tomorrow morning and see where we are. We will go up a little bit on the Coumadin to make sure patient is therapeutic from cardiac due to the mechanical valve. We will also do an FOBT to make sure she is not having any gastrointestinal bleed. 9. Hypothyroidism, on thyroid supplement. PLAN: In general, I think Ms. Reyes is getting where we will be able to discharge her. We are going to switch her levothyroxine to oral. We are going to discontinue her heparin because of precipitously drop in her hemoglobin and hematocrit. If we would use only Coumadin for anticoagulation to keep the mechanical valve from being thrombotic. We are pending the ID and sensitivity of the gram-negative pascual in the urine to change the antibiotics to oral. I anticipate we might be able to send the patient home tomorrow or the day after. cc: Kofi Barillas MD [facility]ISCH HOSPITALAbhilash
--- NOTE | 2016-10-30 12:49 | PROGRESS NOTE ---
DATE: 10/30/2016 SUBJECTIVE: The patient reports that she is doing much better. She is on dialysis at this time. She has not had any more shaking. Her hemoglobin and hematocrit have dropped, and she is being treated for this. An EEG was obtained and read. She relays to me today that she had her first stroke in her early 20s and her second stroke a few years after that in 1993. Several months after the second stroke, she went in for a cerebral artery bypass surgery, which is why the left hemicraniotomy was performed. A few months after that she had to go back for a repeat surgery. OBJECTIVE: Vital Signs: Reviewed. General: She is seen on dialysis. She is awake and alert. She is attentive and responds to questions. She is much better than she was 2 days ago when I saw her. She feels she is at baseline. Neurologic: Her naming is intact. She is oriented completely. She is able to clearly communicate all of her thought processes to me today, and this is different from 2 days ago. Pupils are equal, round, reactive to light. Ocular movements are intact. Gaze is conjugate. Face is symmetric with equal activation. Tongue is midline. There is no asymmetry on her exam today. Her coordination is intact. Gait was untested. DIAGNOSTICS: Routine EEG on 10/26/2016 was personally reviewed. It was abnormal showing a mild to moderate generalized encephalopathy, which is nonspecific. There is also focal slowing in the left frontal region, as well as a left hemispheric breach effect. The latter is corresponding to her prior left craniotomy. No epileptiform discharges or seizures were noted. ASSESSMENT AND PLAN: This is a 46-year-old female with multiple medical problems from her anticardiolipin antibody syndrome and lupus who presented with altered mental status and was having some jerking movements of her body. When I first saw her 2 days ago, she had resting multifocal myoclonus. This has resolved. This is most likely from some sort of withdrawal or ingestion, as it has now resolved. She initially told me that she has had this shaking longstanding; however, today her mental status has cleared more and she is able to tell me that she has shaking, but it sounds different than what I had witnessed when she came in. She reported shaking that is prominent when she stands up from a seated position and gets lightheaded. This is obviously different than what I witnessed. While she does have the potential to have seizure based on her imaging and prior brain damage, I do not find any interictal findings on her EEG to suggest an increased propensity for seizure. This obviously does not rule out a seizure disorder, and I cannot say whether or not she had a seizure prior to her coming in. Certainly, the multifocal myoclonus that has resolved points into the direction of some sort of ingestion instead. I agree with the hospitalist that it is reasonable to discontinue the AED that was started during this hospitalization since there is no clear evidence that the patient even had a seizure. cc: MD Kofi Robles MD MTDD
[2016-10-30] MEDS: COZAAR PO SCH (12:55)
[2016-10-30] MEDS: SODIUM BICARBONATE PO SCH ×2 (13:00→20:58)
[2016-10-30] MEDS: KEPPRA PO SCH ×2 (13:00→20:58)
[2016-10-30 15:11] LABS: RETIC% 2.25 % (0.8-2.1); RETIC-HE 33.8 PG (28.2-36.6)
[2016-10-30] MEDS: ZEBETA PO SCH (20:58)
[2016-10-30] MEDS ORDERED: NIACIN PO SCH (21:00)
[2016-10-30] MEDS: ATIVAN IV PRN (21:07)
[2016-10-31] MEDS: ZOSYN 2.25 GM/NS 2.25 GM/50 ML IVPB IV SCH (05:09)
[2016-10-31] MEDS: HUMULIN R SUBQ SCH ×2 (06:08→12:10)
[2016-10-31] MEDS: PROTONIX PO SCH (06:08)
[2016-10-31] MEDS ORDERED: SYNTHROID PO SCH (07:00)
[2016-10-31 07:10] LABS: MANUAL DIFF NEEDED? NO
[2016-10-31 07:20] LABS: BASO% 0.7 % (0.0-0.8); EOS# 0.29 X1000 (0.0-0.7); EOS% 4.9 % (0.0-10.0); HEMATOCRIT 26.9 % (37.0-47.0); HEMOGLOBIN 8.9 g/dL (12.0-16.0); IMM GRAN# 0.02 X1000 (0.0-0.04); IMM GRAN% 0.3 % (0.0-0.5); LYMPH# 1.56 X1000 (1.2-3.4); LYMPH% 26.5 % (20.5-51.1); MCH 31.3 PG (27-31); MCHC 33.1 g/dL (33-37); MCV 94.7 FL (81-99); MONO# 0.38 X1000 (0.11-0.59); MONO% 6.5 % (1.7-9.3); MPV 9.2 FL (7.4-10.4); NEUT% 61.1 % (42.2-75.2); PLT 83 X1000 (130-400); RBC 2.84 XMIL (4.2-5.4)
[2016-10-31 07:44] LABS: CALCIUM 7.7 mg/dL (8.8-10.2); POTASSIUM 3.6 mmol/L (3.5-5.1)
[2016-10-31 08:31] VITALS: BP 120/64
[2016-10-31] MEDS: COZAAR PO SCH (08:45)
[2016-10-31] MEDS: SODIUM BICARBONATE PO SCH (08:45)
[2016-10-31] MEDS: KEPPRA PO SCH (08:45)
[2016-10-31] MEDS: LANTUS SUBQ SCH (08:46)
[2016-10-31 08:51] LABS: INR 3.32; PROTIME 37.6 Seconds (9.2-11.7)
[2016-10-31] MEDS ORDERED: KEFLEX PO SCH (09:00)
[2016-10-31] MEDS ORDERED: VICON-C PO SCH (09:00)
--- NOTE | 2016-10-31 09:16 | PROGRESS NOTE ---
DATE: 10/26/2016 Ms. Reyes is awake, alert, attentive, calm, appropriate. I did not see any rest or action myoclonus or other abnormal movement. She reports plans for discharge soon, and I agree with that. No suggestions today from a neurologic standpoint. cc: MD Kofi Elmore III, MD MTDAbhilash
--- NOTE | 2016-10-31 15:31 | DISCHARGE SUMMARY ---
ADMISSION DATE: 10/26/2016 DISCHARGE DATE: 10/31/2016 CONSULTATIONS: 1. Dr. Adam Fritz with Nephrology. 2. Dr. Alba with Neurology. PERTINENT PROCEDURES: 1. EEG showed [id number] generalized slowing indicative of nonspecific encephalopathy, focal slowing in the left frontal region suggestive of focal cortical and subcortical abnormality, left hemispheric breach effect which corresponds with the patient's prior craniotomy. 2. Head CT showed chronic ischemic and postsurgical changes, stable since 09/17/2016. DISCHARGE DIAGNOSES: 1. Altered mental status on presentation likely due to toxic metabolic encephalopathy, completely resolved. 2. Rhythmic myoclonic jerks believed to be associated with medication side effects. She denied taking any type of benzodiazepine, but urine toxicology was positive for benzodiazepines. 3. End-stage renal disease, followed by Dr. Adam Fritz. Continued on regular scheduled dialysis. 4. Chronic thrombocytopenia, likely autoimmune. 5. History of antiphospholipid syndrome and lupus noted. 6. Mechanical mitral valve replacement. The patient is on home Coumadin. However, international normalized ratio subtherapeutic, so she did get bridged with heparin. 7. Gram-negative pascual urinary tract infection. Her initial urine culture was negative. It was found to be positive after Dexter catheter placement, so that was removed. Patient being discharged on Keflex. 8. Pancytopenia. She did have a significant drop in her hemoglobin. She was transfused with 1 unit of packed red blood cells. The patient's hemoglobin and hematocrit is stable at 18 and 26. They did do a fecal occult blood test to make sure the patient did not have any gastrointestinal bleed. 9. Hypothyroidism. Continue supplementation. HOSPITAL COURSE: Ms. Reyes is a 46-year-old female who has been in and out of the hospital, recently admitted on 09/08/2016, got discharged and readmitted on 09/30/2016 and discharged on 10/07 after staying almost a month in the hospital. She was admitted last time because of shortness of breath. She ended up having dialysis for worsening of her chronic kidney disease. Significant past medical history, she has antiphospholipid syndrome. She is on Coumadin for mechanical mitral valve. She has had 2 CVAs, craniotomy as well as congestive heart failure, as well as seizures and hypothyroidism. According to the , she was doing well since her last discharge. The reported about 8:30 the evening prior to her admission, the patient was not able to put her words together. They did go to bed that night and during the night, he felt her having rhythmic movements of the right leg and the left hand which he was suspicious that the patient might have been taking some medications. In the morning, it was hard for him to arouse her. Later in the morning she was doing the same rhythmic movements with the right leg and the left arm, but completely unresponsive to verbal and would grimace only to painful stimuli. The patient was initially admitted for unresponsiveness believed secondary to metabolic encephalopathy. She was admitted to the ICU for close monitoring and neurologic status checks with a Neurology consult. The patient underwent an EEG as well as Nephrology to continue on her regular scheduled dialysis. Throughout her hospital stay, she does have a drop in her hemoglobin and hematocrit which required the transfusion of 1 pack of red blood cells. Her heparin was discontinued. She will continue on her Coumadin for her mechanical valve. She was ruled out for any GI bleed and continued on her home Coumadin. Her resting multifocal myoclonus has resolved. They felt it was most likely some sort of withdrawal or ingestion. They did not find any interictal findings on her EEG to suggest an increased propensity for seizure. Clinically, the patient's mental status has improved. She is appropriate for discharge today. Temperature 98.9 degrees, heart rate 67, respirations 18, blood pressure 120/64, O2 is 99% on room air. DISCHARGE DIET: Renal. DISCHARGE MEDICATIONS: As per Dr. Barillas. Please see MAR. FOLLOWUP: The patient is being discharged home with family. She will resume to take 2.5 mg of Coumadin tonight and her regular 5 mg from tomorrow she will need to obtain and continue to follow up with a primary care physician from a list that has been provided to her. The patient can return to the ED for any worsening of symptoms. She will also be going home with home health. DISCHARGE TIME: Greater than 30 minutes. Dictated by JAVIER Romero for Kofi Barillas MD cc: Kofi Barillas MD
== END 2016-10-31 15:02 | disposition home health service (06) ==
LOC: ED 14:33 → ICU 17:45 → 3N 10-30 15:57
PROVIDERS: ADMIT Internal Medicine; ATTEND Internal Medicine

== ENCOUNTER 2017-01-03 08:02 | Inpatient (IN) ==
[2017-01-03] MEDS: HEPARIN 25,000 UNITS/D5W 25,000 UNIT/250 ML IV.SOLN IV SCH (12:33)
[2017-01-03] MEDS ORDERED: ANORO ELLIPTA 62.5-25 MCG INH INH ONE (13:15)
[2017-01-03 14:38] LABS: HEMOGLOBIN 9.2 g/dL (12.0-16.0); MCH 38.8 PG (27-31); MCHC 34.1 g/dL (33-37); MCV 113.9 FL (81-99); MPV 9.2 FL (7.4-10.4); RBC 2.37 XMIL (4.2-5.4)
[2017-01-03 14:44] LABS: INR 1.49; PROTIME 16.1 Seconds (9.2-11.7)
[2017-01-03 15:06] LABS: PTT HEPARIN PROTOCOL 75.3 Seconds
[2017-01-03 15:17] LABS: ALBUMIN 3.4 g/dL (3.5-5.0); CALCIUM 8.7 mg/dL (8.8-10.2); POTASSIUM 4.5 mmol/L (3.5-5.1); TOTAL BILIRUBIN 0.45 mg/dL (0.20-1.00); TOTAL PROTEIN 6.7 g/dL (6.3-8.3)
--- NOTE | 2017-01-03 15:58 | Diag Imaging Result Doc PS360 ---
EXAM: CHEST-2 VIEWS INDICATION: low grade temp TECHNIQUE: 2 views COMPARISON: 10/29/2016 FINDINGS: A left Vas-Cath is in stable position. The lungs are grossly clear. There is no discrete pleural fluid collection or pneumothorax. There is a stable prosthetic heart valve. The heart is borderline to mildly prominent but stable. Central vasculature is unremarkable. IMPRESSION: Borderline to mildly prominent heart. No definite acute pathology. Electronically signed by Wang Adkins 01/03/2017 3:56 PM
[2017-01-03] MEDS: NICODERM PATCH TD SCH (16:55)
[2017-01-03] MEDS: ULTRAM PO SCH (16:55)
--- NOTE | 2017-01-03 17:03 | CONSULTATION ---
DATE OF CONSULTATION: 01/03/2017 REASON FOR CONSULTATION: Assistance with medical management. Anticipating access surgery. HISTORY OF PRESENT ILLNESS: Ms. Reyes is a 46-year-old woman with chronic kidney disease. She has been receiving dialysis 3 times weekly. Her kidney disease is on the basis of her history of lupus. She also has antiphospholipid syndrome with history of strokes and she has had mitral valve replacement. In order to facilitate dialysis access she is admitted to come off of her Coumadin and then have surgery following reinstitution of her anticoagulation therapy. Surgery is planned for Friday. Currently she is in her usual state of health. She is having some problems with pain in the left foot which she describes as thunderbolts. Alternately she describes it as severe and sudden pain. This has been going on for some time. No shortness of breath, anorexia, nausea, vomiting, chest discomfort, swelling, change in bowel or bladder habits, etc. PAST MEDICAL HISTORY: As above. Regarding her renal dysfunction, she has experienced some improvement in her renal dysfunction such that her creatinine is now in the range of 3. It has waxed and waned between the mid 3's and 6's. We measured her clearance recently and her average clearance was something like 17 mL/minute. On this basis we may be able to decrease her dialysis prescription. Regardless, access placement is appropriate because she will need renal replacement therapy in an ongoing fashion in the near future if not now. HOME MEDICATIONS: Reviewed. ALLERGIES: Latex and codeine. SOCIAL HISTORY: No alcohol or illicit drug use. Ongoing tobacco use. She is and lives with her parents. FAMILY HISTORY: Noncontributory. PHYSICAL EXAMINATION: Vital Signs: Blood pressure 137/85, heart rate 91, respirations 18, afebrile. General: She is in no acute distress. Skin: Warm and dry. HEENT: Conjunctivae are pink. Pupils are equal. Neck: Neck veins are not distended. Heart: Regular with a murmur and metallic heart tones. Lungs: Equal breath sounds. No crackles or wheezes. Abdomen: Soft, nontender. Bowel sounds are present. Extremities: No edema, clubbing, or cyanosis. IMPRESSION: 1. Chronic kidney disease stage 4 to 5. She will have her routine hemodialysis tomorrow. 2. Plan dialysis access. She is currently on heparin and her Coumadin has been withdrawn. Surgery is planned by Dr. Ferraro. 3. Lupus stable. 4. Anemia stable. cc: MD Will Guerin MD
[2017-01-03] MEDS: EPOGEN SUBQ SCH (18:21)
[2017-01-03 18:54] LABS: URINE CULTURE NEEDED? NO; URINE MICRO REVIEW NEEDED? NO; URINE SOURCE CLEAN CATCH
[2017-01-03 19:05] LABS: BILIRUBIN URINE NEGATIVE (NEGATIVE); BLOOD URINE NEGATIVE (NEGATIVE); COLOR YELLOW; GLUCOSE URINE 300 mg/dL (NEGATIVE); LEUKOCYTES URINE NEGATIVE (NEGATIVE); NITRITE URINE NEGATIVE (NEGATIVE); PH URINE 6.5; PROTEIN URINE 300 mg/dL (NEGATIVE); SP GRAVITY URINE 1.017; TURBIDITY URINE CLEAR (CLEAR); UROBILINOGEN URINE NORMAL (NORMAL)
[2017-01-03 19:06] LABS: UR EPITHELIAL CELLS <10 /HPF (<10); URINE BACTERIA NEGATIVE /HPF; URINE RBC <10 /HPF (<10); URINE WBC <10 /HPF (<10)
[2017-01-03] MEDS ORDERED: ZOFRAN IV PRN (20:49)
[2017-01-03] MEDS ORDERED: TYLENOL PO PRN (20:49)
--- NOTE | 2017-01-03 22:18 | CONSULTATION ---
DATE OF CONSULTATION: 01/03/2017 PRIMARY CARE PHYSICIAN: Kelley Bonds MD. CONSULTING PHYSICIAN: Will Ferraro MD. REASON FOR CONSULTATION: Anticoagulation management. HISTORY OF PRESENT ILLNESS: Mrs. Reyes is a 46-year-old, female admitted to our hospital multiple times. She has a history of antiphospholipid syndrome (SLE), mechanical mitral valve and ESRD on hemodialysis followed by Dr. Fritz. She is currently on Coumadin for her mechanical mitral valve and is scheduled to have a dialysis graft placed by Dr. Ferraro on Friday and she has been admitted for heparin bridge. Dr. Ferraro has asked us to manage that. The patient has no real complaints. She does report that she has had a low-grade fever but no cough or congestion. No dysuria. No chest pain. No abdominal pain. No diarrhea. She reports fevers being in the 99.5-100.1 range. PAST MEDICAL HISTORY: 1. Antiphospholipid syndrome. 2. Mechanical mitral valve. 3. ESRD. 4. Carotid artery stenosis. 5. Hypothyroidism. 6. Depression. 7. Hypertension. 8. Hyperlipidemia. 9. COPD. 10. GERD. 11. Neuropathy. 12. Nicotine dependence. 13. History of CVA. 14. History of congestive heart failure. PAST SURGICAL HISTORY: She had a mechanical mitral valve, omentum flap brain surgery, left carotid artery surgery. SOCIAL HISTORY: Patient smokes half pack a day. She denies alcohol or drug use. She has a boyfriend and lives with him in town. FAMILY HISTORY: Significant for diabetes, hypertension, CAD and colon cancer. REVIEW OF SYSTEMS: A 14 point review of systems was obtained and found to be negative with the exception of the HPI. ALLERGIES: Latex and codeine. HOME MEDICATIONS: Elavil 50 mg p.o. at bedtime, Zebeta 10 mg p.o. at bedtime, diazepam 5 mg p.o. b.i.d., Neurontin 800 mg p.o. b.i.d., Synthroid 75 mcg p.o. daily, losartan 100 mg at bedtime, [place]-3 2000 g p.o. b.i.d., Protonix 40 mg daily, Ultram 50 mg p.o. t.i.d., ___ ____62.5-25 mcg inhaled 1 daily, Coumadin 4 mg p.o. at bedtime. PHYSICAL EXAMINATION: Vital Signs: Blood pressure is 140/95, heart rate 102, respiratory rate is 20, O2 saturation 100% on room air, temperature is 99 degrees. General: Obese female, lying in hospital bed, in no acute distress. Neurologic: The patient is awake , alert, oriented. She follows commands without focal deficits. HEENT: Head is atraumatic and normocephalic. Her pupils are equal, round, and reactive to light. Oral mucosa is moist. Neck: Trachea is midline. There is no JVD. Chest: Clear to auscultation bilaterally. Cardiovascular: Regular rate and rhythm. S1-S2 is noted. Diastolic click is noted. Gastrointestinal: Soft, nondistended, nontender. Bowel sounds are positive. Extremities: No edema, clubbing or cyanosis. Pulses are palpable bilaterally. DIAGNOSTIC DATA: Pending. ASSESSMENT AND PLAN: 1. Preparation for arteriovenous fistula. Patient will be replaced on Heparin drip and we will discontinue her Coumadin. Check PTT as per heparin protocol. 2. End-stage renal disease on hemodialysis: Per Dr. Fritz, currently the patient is euvolemic. We are awaiting labs. 3. Antiphospholipid syndrome. Aware. 4. Systemic lupus erythematosus. Aware. 5. Low-grade temperature. We are going to check a chest x-ray and urinalysis to make sure there is no infection. We are also waiting on CBC and CMP. 6. Nicotine dependence: Patient has been advised to quit smoking. Nicotine patch will be prescribed. 7. Hypothyroidism: Chronic and stable. Will continue her Synthroid. 8. Hypertension: Chronic and stable. Continue her Cozaar and Bisoprolol. 9. Deep vein thrombosis prophylaxis will be provided with heparin drip. Further recommendations to follow. We would like to thank you for this consultation. We will continue to follow along with you. Dictated by JAVIER Taveras for Kristie Burch MD cc: JAVIER Taveras MD Matthew L. Figh, MD The patient was seen and examined by me. I agree with the assessment and plan as dictated. NA
[2017-01-04] MEDS: NEURONTIN PO SCH ×3 (00:05→20:41)
[2017-01-04] MEDS: ELAVIL PO SCH ×2 (00:05→20:40)
[2017-01-04] MEDS: FISH OIL CONCENTRATE PO SCH ×3 (00:05→20:40)
[2017-01-04] MEDS: ZEBETA PO SCH ×2 (00:05→20:42)
[2017-01-04] MEDS: VALIUM PO SCH ×3 (00:05→20:42)
[2017-01-04] MEDS: COZAAR PO SCH ×2 (00:05→20:39)
[2017-01-04] MEDS ORDERED: MELATONIN PO ONE (01:38)
[2017-01-04 06:01] LABS: INR 1.45; PROTIME 15.6 Seconds (9.2-11.7)
[2017-01-04 06:07] LABS: ALBUMIN 3.3 g/dL (3.5-5.0); CALCIUM 8.8 mg/dL (8.8-10.2); POTASSIUM 4.1 mmol/L (3.5-5.1)
[2017-01-04 06:11] LABS: HEMATOCRIT 25.9 % (37.0-47.0); HEMOGLOBIN 8.6 g/dL (12.0-16.0); MCH 36.6 PG (27-31); MCHC 33.2 g/dL (33-37); MCV 110.2 FL (81-99); MPV 10.4 FL (7.4-10.4); RBC 2.35 XMIL (4.2-5.4)
[2017-01-04] MEDS: SYNTHROID PO SCH (07:04)
[2017-01-04] MEDS: PROTONIX PO SCH (07:04)
[2017-01-04] MEDS: NICODERM PATCH TD SCH (08:50)
[2017-01-04] MEDS: ULTRAM PO SCH ×3 (08:50→16:27)
[2017-01-04] MEDS: HEPARIN 25,000 UNITS/D5W 25,000 UNIT/250 ML IV.SOLN IV SCH (08:51)
[2017-01-04] MEDS ORDERED: NS 2,000 ML ONE (10:04)
[2017-01-04] MEDS ORDERED: HEPARIN ONE (10:04)
[2017-01-04] MEDS ORDERED: NS 2,000 ML MISC PRN (10:22)
[2017-01-04] MEDS ORDERED: TIGHT: 0.2 ML/HR MISC PRN (10:22)
[2017-01-04] MEDS ORDERED: HEPARIN IV PRN (10:22)
--- NOTE | 2017-01-04 13:07 | PROGRESS NOTE ---
DATE: 01/04/2017 SUBJECTIVE: She has no new complaints today. OBJECTIVE: Vital Signs: Blood pressure 111/65, heart rate 71, respirations 20, afebrile. Intake 1.9 L. Output 600 mL. PHYSICAL EXAMINATION: General Appearance: Obese, white female, lying at 30 degrees, in no distress. Skin: Warm and dry. Conjunctivae are pink. Pupils are equal. Neck: Neck veins are not distended. Heart: Regular with a murmur and metallic heart tones. Lungs: Have equal breath sounds. No crackles. Abdomen: Soft, nontender. Bowel sounds present. Extremities: Have no edema, clubbing, or cyanosis. IMPRESSION: 1. End-stage renal disease. Continue her routine outpatient dialysis treatment today. See notes from yesterday. 2. Electrolytes/acid base in target. 3. Anemia. Dosed with erythropoietin yesterday. We will check iron stores, B12, and folate. cc: MD Will Guerin MD
--- NOTE | 2017-01-04 14:16 | PROGRESS NOTE ---
DATE: 01/04/2017 SUBJECTIVE: The patient is resting comfortably in bed. She has no complaints today. OBJECTIVE: Vital Signs: Temperature 99 degrees, blood pressure 160/90, heart rate 97, respirations 20. O2 saturations 97% on room air. General: This is a middle- aged female, lying in bed, in no acute distress. Head: Normocephalic, atraumatic. Heart: S1, S2 normal. Audible click present. Lungs: Clear to auscultation bilaterally. No crackles. No rales. Abdomen: Positive bowel sounds. Soft, nontender, nondistended. Extremities: No edema. No cyanosis. No calf tenderness. Neurologic: The patient is alert and oriented x3. LABS: White blood cell count 7, hemoglobin 8.6, hematocrit 25, platelets 60, 000. INR 1.45, sodium 140, potassium 4.1, chloride 102, CO2 24. BUN 35, creatinine 3. Glucose 203. Phosphorus 4.7. PTT 76.5. ASSESSMENT AND PLAN: 1. Mechanical mitral valve. Continue on the heparin drip. The patient's PTT is therapeutic. We will continue on the heparin drip. 2. End-stage renal disease. The patient is due for dialysis today. The patient will have a fistula placed by Dr. Ferraro this coming week. 3. Chronic thrombocytopenia. Stable. 4. Anemia. We will monitor the patient's hemoglobin and hematocrit closely. 5. Lupus. Aware. 6. Elevated liver function tests. Will check a hepatitis profile and monitor this closely. 7. Hypothyroidism. Continue on Synthroid. 8. Hyperglycemia. Will check a hemoglobin A1c. In the meantime, we will monitor Accu-Cheks. 9. Hypertension. Controlled. 10. Tobacco dependence. Continue on the NicoDerm patch. 11. Antiphospholipid syndrome. Aware. cc: MD Will Webber MD MTDD
[2017-01-05 05:54] LABS: INR 1.27; PROTIME 13.5 Seconds (9.2-11.7)
[2017-01-05 06:01] LABS: HEMATOCRIT 25.5 % (37.0-47.0); HEMOGLOBIN 8.5 g/dL (12.0-16.0); MCH 38.3 PG (27-31); MCHC 33.3 g/dL (33-37); MCV 114.9 FL (81-99); MPV 10.4 FL (7.4-10.4); RBC 2.22 XMIL (4.2-5.4)
[2017-01-05] MEDS: PROTONIX PO SCH (06:21)
[2017-01-05] MEDS: SYNTHROID PO SCH (06:21)
[2017-01-05 06:24] LABS: HEMOGLOBIN A1C 5.7 % (4.8-6.0)
[2017-01-05 06:32] LABS: ALBUMIN 3.2 g/dL (3.5-5.0); CALCIUM 8.4 mg/dL (8.8-10.2); DIRECT BILIRUBIN 0.2 mg/dL (0.00-0.20); POTASSIUM 4.2 mmol/L (3.5-5.1); TOTAL BILIRUBIN 0.56 mg/dL (0.20-1.00); TOTAL PROTEIN 6.5 g/dL (6.3-8.3)
[2017-01-05] MEDS: HEPARIN 25,000 UNITS/D5W 25,000 UNIT/250 ML IV.SOLN IV SCH (06:52)
[2017-01-05 06:53] LABS: FERRITIN 2096 ng/mL (13-150)
[2017-01-05] MEDS: NEURONTIN PO SCH ×2 (08:42→22:40)
[2017-01-05] MEDS: FISH OIL CONCENTRATE PO SCH ×2 (08:42→22:39)
[2017-01-05] MEDS: NICODERM PATCH TD SCH (08:43)
[2017-01-05] MEDS: ULTRAM PO SCH ×3 (08:43→18:37)
[2017-01-05] MEDS: VALIUM PO SCH ×2 (08:44→22:41)
--- NOTE | 2017-01-05 09:04 | PROGRESS NOTE ---
DATE: 01/05/2017 SUBJECTIVE: The patient had no trouble overnight. No new complaints. OBJECTIVE: Vital Signs: She is afebrile. Vital signs are stable. General: She is alert and oriented x4. No acute distress. Respiratory: No work of breathing. CV: Regular rate and rhythm. Laboratory: White blood cell count 5.5, hemoglobin 8.5, platelet count 45,000. INR 1.3. Metabolic profile reviewed and unremarkable. ASSESSMENT AND PLAN: A 46-year-old female with chronic kidney disease and impending need for dialysis. She is here for reversal of her anticoagulation. She has a mechanical mitral valve and normally takes Coumadin. She is here on a heparin drip. She is scheduled for AV fistula placement on January 07. cc: MD Will Kasper MD
[2017-01-05] MEDS ORDERED: HUMULIN R SUBQ ONE (12:12)
--- NOTE | 2017-01-05 14:37 | PROGRESS NOTE ---
DATE: 01/05/2017 SUBJECTIVE: The patient is resting comfortably in bed. She has no complaints at this time. No acute events noted overnight. OBJECTIVE: Vital Signs: Temperature 98.2 degrees, blood pressure 140/65, heart rate 71, respirations 20, O2 saturations 100% on room air. General: This is a middle- aged female, lying in bed, in no acute distress. Head: Normocephalic, atraumatic. Heart: S1, S2. Normal. Lungs: Clear to auscultation bilaterally. No crackles. No rales. Abdomen: Positive bowel sounds. Soft, nontender, nondistended. Extremities: No edema. No cyanosis. No calf tenderness. Neurologic: The patient is alert and oriented x3. LABORATORY: White blood cell count 5.4, hemoglobin 8.5, hematocrit 25, platelets 45,000. Sodium 142, potassium 4.2, chloride 102, CO2 25, BUN 27, creatinine 2.7, glucose 181. Calcium 8.4, AST 51, ALT 48, alkaline phosphatase 164. ASSESSMENT AND PLAN: 1. Mechanical mitral valve. Continue on the heparin drip. Continue to monitor the PTT. 2. End-stage renal disease. Management as per the property controller. 3. Chronic thrombocytopenia. The patient's platelet count is a little bit lower today. We will check a heparin-induced antibody assay since the patient is on a heparin drip. 4. Anemia. Stable. 5. Lupus. Aware. 6. Elevated liver function tests. The hepatitis profile is pending. We will check an abdominal ultrasound. The patient reports that she has a history of fatty liver disease. 7. Hypothyroidism. Continue on Synthroid. 8. Hyperglycemia. The patient is not diabetic; however, the patient is on a heparin drip which is mixed in D5W. We ask the pharmacy to switch this to normal saline instead. We will continue to monitor the patient's Accu-Cheks closely. 9. Hypertension. Controlled. 10. Antiphospholipid syndrome. Aware. 11. Tobacco dependence. Continue on the NicoDerm patch. cc: MD Will Webber MD MTDD
[2017-01-05] MEDS ORDERED: NS 500 ML ONE (14:51)
[2017-01-05] MEDS: HEPARIN 25,000 UNIT in NS 250 ML IV SCH (15:35)
[2017-01-05] MEDS: HUMULIN R SUBQ SCH ×2 (15:47→22:55)
[2017-01-05] MEDS: COZAAR PO SCH (22:38)
[2017-01-05] MEDS: ELAVIL PO SCH (22:38)
[2017-01-05] MEDS: ZEBETA PO SCH (22:41)
[2017-01-05] MEDS: MELATONIN PO PRN (22:54)
[2017-01-06] MEDS: HUMULIN R SUBQ SCH ×4 (06:17→22:31)
[2017-01-06] MEDS: PROTONIX PO SCH (06:18)
[2017-01-06] MEDS: SYNTHROID PO SCH (06:18)
--- NOTE | 2017-01-06 06:20 | PROGRESS NOTE ---
DATE: 01/06/2017 SUBJECTIVE: No major issues. OBJECTIVE: Vital Signs: Patient is currently afebrile. Her vital signs are stable. General: No acute distress. Resting comfortably in bed. HEENT: Normocephalic, atraumatic. Pupils equal, round, reactive to light. Mucous membranes moist. Oropharynx benign. Neck: Supple. Trachea midline. Cardiovascular: Regular rate and rhythm. Lungs: Grossly clear. Abdomen: Soft, nontender, nondistended. Extremities: Moves all extremities. Neurologic: Grossly intact. Skin: No signs of jaundice. Vascular: All extremities perfused. LABORATORY: From this morning still pending. Reviewed labs from the weekend, of note yesterday her INR is 1.27. ASSESSMENT AND PLAN: A 46-year-old female with multiple medical comorbidities, now here for Heparin drip to bridge over for access placement. 1. Multiple medical comorbidities, currently being managed by the hospitalist service and Dr. Fritz with Nephrology. I appreciate their help. 2. Heparin drip. At this time, the patient is on a heparin drip to bridge her over from her Coumadin, so we can place an access for hemodialysis tomorrow. Platelet count has been somewhat low of 45, but her INR is in an acceptable range. She currently has a workup for HIT by the hospitalist service. At this time, discussed with the patient the risks, benefits, alternatives for the procedure. She has been consented. Will make her NPO after midnight for tomorrow and plan for surgical intervention tomorrow morning. cc: Will Ferraro MD
[2017-01-06 06:57] LABS: INR 1.2; PROTIME 12.7 Seconds (9.2-11.7)
[2017-01-06 07:02] LABS: CALCIUM 8.5 mg/dL (8.8-10.2); POTASSIUM 4.6 mmol/L (3.5-5.1)
[2017-01-06 07:34] LABS: HEMATOCRIT 24.9 % (37.0-47.0); HEMOGLOBIN 8.2 g/dL (12.0-16.0); MCH 37.6 PG (27-31); MCHC 32.9 g/dL (33-37); MCV 114.2 FL (81-99); MPV 10.4 FL (7.4-10.4); RBC 2.18 XMIL (4.2-5.4)
[2017-01-06 08:01] LABS: ALBUMIN 3.6 g/dL (3.5-5.0); TOTAL PROTEIN 6.5 g/dL (6.3-8.3)
[2017-01-06 08:02] LABS: DIRECT BILIRUBIN 0.2 mg/dL (0.00-0.20); TOTAL BILIRUBIN 0.72 mg/dL (0.20-1.00)
--- NOTE | 2017-01-06 08:12 | Diag Imaging Result Doc PS360 ---
EXAM: US ABDOMEN-COMPLETE HISTORY: elevated lfts TECHNIQUE: COMPARISON: None. FINDINGS: No aneurysmal dilatation to the abdominal aorta. Normal inferior vena cava. There is fatty infiltration of the liver. Normal pancreatic head and body. The pancreatic tail is obscured. Mild increased echotexture to the right kidney. No hydronephrosis. The common bile duct measures 4 mm. There is a 1.8 cm stone within a contracted gallbladder. Spleen is enlarged measuring just over 17 cm in length. No ascites. There are several left renal cysts. The largest measures 2.4 cm. Questionable mild increased renal echotexture. IMPRESSION: 1.Splenomegaly 2.Cholelithiasis 3.Fatty infiltration of the liver 4.Mild increased renal echotexture which may indicate medical renal disease. There are several small left renal cysts. Electronically signed by Aba Saez 01/06/2017 8:09 AM
[2017-01-06] MEDS: ULTRAM PO SCH ×3 (08:14→17:29)
[2017-01-06] MEDS: FISH OIL CONCENTRATE PO SCH ×2 (08:15→22:30)
[2017-01-06] MEDS: NICODERM PATCH TD SCH (08:15)
[2017-01-06] MEDS: VALIUM PO SCH ×2 (08:15→22:30)
[2017-01-06] MEDS: NEURONTIN PO SCH ×2 (08:15→22:30)
--- NOTE | 2017-01-06 09:21 | PROGRESS NOTE ---
DATE: 01/06/2017 SUBJECTIVE: The patient is immediately post abdominal ultrasound. It appears that they were evaluating her fatty liver disease. OBJECTIVE: Vital Signs: Temperature 98.7 degrees, pulse 60, respiratory rate 15, blood pressure 124/70, intake 1.3 L, output 650 mL. General: Middle-aged female sitting up in bed. No acute distress. HEENT: Normocephalic, atraumatic. Oral mucosa moist. Neck: Supple. Trachea midline. No JVD. Cardiovascular: Regular rate and rhythm. She has a systolic murmur, and metallic valve sounds noted. Pulmonary: She has equal excursion. She is clear bilaterally. Abdomen: Soft with positive bowel sounds. : Not inspected. She is voiding. Extremities: No clubbing, cyanosis, or edema. She is ambulatory with assistance. Moving all extremities. Integumentary: Skin is warm and dry. LABORATORY DATA: WBC of 5.0, hemoglobin 8.2, hematocrit 24.9, platelet count of 51,000. Sodium 140, potassium 4.6, CO2 of 24, BUN 30, creatinine 3.3, phosphorus 4.7, calcium 8.5. ASSESSMENT AND PLAN: 1. End-stage renal disease. She is normally a Friday, , Friday schedule. She is to have dialysis access placed tomorrow. Will plan for dialysis, depending on her labs and fluid status. 2. Electrolytes, acid-base balance, and anemia. These have been acceptable. Seen, data reviewed, discussed with Brisa Jc on 01/06/17. I agree with the above assessment and plan of care. rg Dictated by JAVIER Thomas for Adam Fritz MD cc: MD Eleazar Guerin MD [facility]
[2017-01-06 10:24] LABS: HEPATITIS PROFILE ACUTE SEE COMMENTS
[2017-01-06] MEDS: EPOGEN SUBQ SCH (10:25)
[2017-01-06] MEDS: HEPARIN 25,000 UNIT in NS 250 ML IV SCH ×3 (13:55→14:07)
--- NOTE | 2017-01-06 18:18 | PROGRESS NOTE ---
DATE: 01/06/2017 SUBJECTIVE: The patient has no focal complaints. OBJECTIVE: Vital signs: Blood pressure is 139/76, heart rate 64, respiratory 14, temperature 98.5 degrees. Cardiovascular: Regular rate and rhythm. Pulmonary: Bilateral breath sounds. Clear to auscultation. GI: Soft, nontender, nondistended. Bowel sounds are positive. LABORATORY DATA: Hemoglobin and hematocrit 8 and 24, platelets 51,000, creatinine 3.3. PROBLEM LIST: 1. Mechanical mitral valve. She is on a heparin drip. She has thrombocytopenia which we are monitoring, apparently it is chronic. We will follow though may need to adjust that because of the thrombocytopenia. 2. End-stage renal disease. Plan is for AV fistula. That will be done tomorrow. 3. Elevated liver enzymes. Will continue to monitor. Liver ultrasound unremarkable. 4. Antiphospholipid syndrome. She is on anticoagulation. 5. Disposition pending her fistula which I guess will be done tomorrow. Home when they feels stable. She is on heparin so she will need to be placed back on her Coumadin and then titrated back up on that I am assuming before she can go home. We will continue to follow. cc: Eleazar Castro MD
[2017-01-06] MEDS: MELATONIN PO PRN (22:30)
[2017-01-06] MEDS: COZAAR PO SCH (22:30)
[2017-01-06] MEDS: ELAVIL PO SCH (22:30)
[2017-01-06] MEDS: ZEBETA PO SCH (22:35)
[2017-01-07] MEDS ORDERED: KEFZOL 1 GM/D5W 1 GM/50 ML IVPB IV ONE (05:38)
--- NOTE | 2017-01-07 06:10 | PROGRESS NOTE ---
DATE: 01/07/2017 SUBJECTIVE: Patient is doing well. No major issues. OBJECTIVE: Vital Signs: Patient is currently afebrile. Her vital signs are stable. General: No acute distress. HEENT: Normocephalic and atraumatic. Pupils equal, round and reactive to light. Mucous membranes moist. Oropharynx benign. Neck: Supple. Trachea midline. Cardiovascular: Regular rate and rhythm. Lungs: Grossly clear. Abdomen: Soft, nontender, and nondistended. Extremities: Moves all extremities. Neurologic: Grossly intact. Skin: No signs of jaundice. Vascular: All extremities perfused. LABORATORY: From yesterday reviewed. Of note, her INR was 1.20, platelet count 51,000. ASSESSMENT AND PLAN: A 46-year-old female with multiple medical comorbidities. Now here for heparin drip to bridge over for access placement. 1. Multiple medical comorbidities currently being managed by the hospitalist service and Dr. Fritz. I appreciate their help. 2. Access placement. At this time, patient is on a heparin drip. She is at a safe level with her INR to proceed with surgery. Her risk of bleeding is elevated and she is aware of this. We will have to continue with her heparin drip given her mechanical heart valve. cc: MD Eleazar Greenwood MD
[2017-01-07] MEDS ORDERED: HEPARIN ONE ×2 (06:59→09:55)
[2017-01-07] MEDS ORDERED: NS 2,000 ML ONE (07:00)
[2017-01-07] MEDS ORDERED: DIPRIVAN 1% ONE (07:55)
[2017-01-07 07:56] LABS: HEMATOCRIT 25.6 % (37.0-47.0); HEMOGLOBIN 8.4 g/dL (12.0-16.0); MCH 36.5 PG (27-31); MCHC 32.8 g/dL (33-37); MCV 111.3 FL (81-99); MPV 9.5 FL (7.4-10.4); RBC 2.3 XMIL (4.2-5.4)
[2017-01-07] MEDS: HUMULIN R SUBQ SCH ×4 (08:02→21:50)
[2017-01-07 08:16] LABS: ALBUMIN 3.5 g/dL (3.5-5.0); CALCIUM 8.4 mg/dL (8.8-10.2); POTASSIUM 4.8 mmol/L (3.5-5.1)
[2017-01-07] MEDS ORDERED: VERSED ONE (08:43)
--- NOTE | 2017-01-07 08:53 | PROGRESS NOTE ---
DATE: 01/07/2017 SUBJECTIVE: Patient resting on a stretcher. She is being prepared to go to surgery for AV fistula placement. OBJECTIVE: Vital Signs: Temperature 98.3 degrees, pulse 65, respiratory rate 12, blood pressure 142/68. Intake 1.3 L. Output has not been measured. She is voiding. She has hemodialysis assist. Physical Examination: General: This is a middle-aged female, resting in bed. She is awake, alert, in no acute distress. HEENT: Normocephalic, atraumatic. DIONNE. Conjunctivae pink. Neck: Supple. Trachea midline. Cardiovascular: Regular rate and rhythm with a systolic murmur. Metallic valve sounds noted. Pulmonary: She is clear bilaterally with equal excursion. No increased work of breathing. Abdomen: Soft and obese. Positive bowel sounds. : Not inspected. She voids. Extremities: No clubbing, cyanosis, or edema. Remains ambulatory with assistance. Integumentary: Skin is warm and dry. Lab Data: WBC of 5, hemoglobin 8.4, platelet count of 64,000. Sodium 139, potassium 4.8, CO2 21, creatinine 3.5, phosphorus 5.1, calcium 8.4. ASSESSMENT AND PLAN: 1. End-stage renal disease management. The patient is to go for an arteriovenous fistula placement this morning. Her labs and fluid volumes are acceptable. We will hold dialysis today. 2. Electrolytes, acid-base balance, anemia. These are stable and in target. Her anemia is unchanged. Data reviewed, discussed with Brisa Jc on 01/07/17. I agree with the above assessment and plan of care. rg Dictated by JAVIER Thomas for Adam Fritz MD cc: MD Eleazar Guerin MD [facility]
[2017-01-07] MEDS ORDERED: NEO-SYNEPHRINE ONE (09:14)
[2017-01-07] MEDS ORDERED: NS 1,000 ML ONE (09:55)
[2017-01-07] MEDS ORDERED: XYLOCAINE 1%/EPI 1:100,000 ONE (10:02)
[2017-01-07] MEDS ORDERED: KETAMINE ONE (10:09)
[2017-01-07] MEDS ORDERED: EPHEDRINE ONE (10:19)
--- NOTE | 2017-01-07 11:59 | OPERATIVE NOTE ---
PROCEDURE DATE: 01/07/2017 PREOPERATIVE DIAGNOSIS: End-stage renal disease requiring hemodialysis. POSTOPERATIVE DIAGNOSIS: End-stage renal disease requiring hemodialysis. PROCEDURE: Left radiocephalic arteriovenous fistula creation with transposition of cephalic vein. SURGEON: Will Ferraro MD. FINANCIAL COST ANALYST: Tamara Liao MD. Dr. Liao assisted with the entirety of the case. ANESTHESIA: General endotracheal. FINDINGS: There was a small radial artery on preoperative vein mapping. She did have small cephalic vein and artery, but the majority of her veins were pretty small. COMPLICATIONS: None at time of dictation. ESTIMATED BLOOD LOSS: 20 mL. SPECIMENS REMOVED: None. BRIEF HISTORY: The patient is a 46-year-old female with multiple medical comorbidities, who has had end-stage renal disease. She needed long-term durable access. It is felt that given the patient's young age that we should start at the most distal spot possible. She did have preoperative vein mapping done that showed a marginal radiocephalic fistula creation. Again, given her age, we elected to perform this. In case it did not work, we would have at least more proximal locations down the road to use. The risks, benefits, alternatives were discussed with the patient and all questions answered. DESCRIPTION OF PROCEDURE: After informed consent was obtained, patient was brought to operative theatre, transferred to operating table, placed in supine position. General endotracheal anesthesia was then performed without complication. A formal time-out was then performed confirming patient, date, procedure and side. All were in agreement. At that time, attention in the left arm. We did used the ultrasound to re-brandon the vein and the artery. We found a spot in the mid forearm where the cephalic vein and radial artery were the closest. We made an incision between these two after injecting local anesthetic. We carried the dissection down to the subcutaneous tissue. We were able to identify and isolate the cephalic vein. We were able to mobilize it completely. We did find a superficial nerve which we preserved. We also found the brachial artery. It was smaller than anticipated, although when we initially found that it was larger. Then during the time-out process of manipulation, it did shrink down in size, but we felt again given her age that this would likely be the best initial choice. We mobilized the artery, put vessel loops around both artery and vein. We re-transected the vein at the distal aspect to bring it down. We did transpose it slightly to make it freely mobile down without kinking. We placed vessel loops around the artery. The patient was already on a heparin drip, so we did not give any more additional heparin. We clamped off the artery, made arteriotomy and then sewed our anastomosis using 7-0 Prolene which was hemostatic at the completion of the anastomosis. We did place a Doppler on both the distal and proximal artery. After the anastomosis there was faint flow noted in the vein at the completion of the case. We did tunnel the vein over the nerve that was found. We then closed the area in layers using 3-0 Vicryl and 4-0 Monocryl. The patient tolerated the procedure well and was transferred to the recovery room in stable condition. Postoperatively, we will allow this fistula to mature; if it does not, we will plan on a brachiocephalic or brachial basilic fistula. cc: MD Eleazar Greenwood MD
[2017-01-07] MEDS: HEPARIN 25,000 UNIT in NS 250 ML IV SCH (12:37)
[2017-01-07] MEDS: FISH OIL CONCENTRATE PO SCH ×2 (13:00→21:46)
[2017-01-07] MEDS: NICODERM PATCH TD SCH (13:00)
[2017-01-07] MEDS: ULTRAM PO SCH ×3 (13:01→16:14)
[2017-01-07] MEDS: PROTONIX PO SCH (13:01)
[2017-01-07] MEDS: SYNTHROID PO SCH (13:01)
[2017-01-07] MEDS: VALIUM PO SCH ×2 (13:01→21:46)
[2017-01-07] MEDS: NEURONTIN PO SCH ×2 (13:01→21:49)
[2017-01-07] MEDS: MORPHINE IV PRN ×4 (16:20→23:49)
--- NOTE | 2017-01-07 16:52 | PROGRESS NOTE ---
DATE: 01/07/2017 SUBJECTIVE: The patient has no focal complaints. OBJECTIVE: Vital signs: Blood pressure is 162/74, heart rate of 70, respiratory rate 20, temperature 98.2 degrees. Cardiovascular: Regular rate and rhythm. Pulmonary: Bilateral breath sounds. Clear to auscultation. GI: Soft, nontender, nondistended. Bowel sounds are positive. Extremities: No clubbing or cyanosis. LABORATORY DATA: Unremarkable. PROBLEM LIST: 1. Mechanical mitral valve. She is back on her heparin drip after her AV fistula formation. She does have chronic thrombocytopenia. It appears to be stable. We will wait and Coumadin has been reinitiated. We will continue to follow. 2. End-stage renal. She has AV fistula. Dialysis per renal service. Assuming the fistula will need to mature before usage. 3. Antiphospholipid syndrome. Again she is on heparin anticoagulation with a goal of long-term Coumadin and we will follow. DISPOSITION: Per primary service. We will continue to monitor closely. cc: Eleazar Castro MD
[2017-01-07] MEDS ORDERED: COUMADIN PO SCH (21:00)
[2017-01-07] MEDS: ZEBETA PO SCH (21:45)
[2017-01-07] MEDS: COZAAR PO SCH (21:47)
[2017-01-07] MEDS: ELAVIL PO SCH (21:48)
[2017-01-07] MEDS: PERIDEX MT SCH (21:49)
[2017-01-08] MEDS: MORPHINE IV PRN (01:58)
--- NOTE | 2017-01-08 05:22 | PROGRESS NOTE ---
DATE: 01/08/2017 SUBJECTIVE: Patient doing okay. No numbness in her hands. Feels as though her hand is warm and no major issues. She has had some soreness in her wrist where the incisions in. OBJECTIVE: Vital Signs: Patient is currently afebrile. Her vital signs are stable. General Examination: No acute distress. Cardiovascular: Regular rate and rhythm. Lungs: Grossly clear. Abdomen: Soft, nontender, nondistended. Incision healing well with dressing in place. Extremities: Left upper extremity appears to be perfused. Laboratory: Currently pending. ASSESSMENT/PLAN: A 46-year-old, female, status post creation of radiocephalic fistula on the left side. Overall, patient is doing well. I have restarted her Coumadin. Hopefully, once she reaches a therapeutic level, we can discharge the patient. I would like to keep her in the hospital on a heparin drip given her history of strokes and mechanical heart valve to play it safe. We will monitor her closely. I have also started her on hydrocodone. She states that her allergies to reported codeine is just nausea and that she is okay taking the pain pills. I have updated pharmacy on this. We will continue to monitor. cc: MD Eleazar Greenwood MD
--- NOTE | 2017-01-08 05:48 | Extremity Venous Study ---
PROCEDURE NAME: Vein Map/Hemodialysis LT Arm - 01/07/2017 REQUESTING PHYSICIAN: Dr. Ferraro. GYMNASTICS INSTRUCTOR: Randee. INDICATION: Evaluation for access placement. EQUIPMENT: Mobilitrixid E9 ultrasound system with a 9 LD transducer. FINDINGS: Images of the left upper extremity venous systems were obtained and measurements in millimeters noted. They are as follows: Cephalic vein zone 1, 1.8; zone 2, 1.7; zone 3, 2.4; zone 4, 2.2; zone 5, 2.1; zone 6, 2; zone 7, 2.1; zone 8, 2. Right basilic vein not measured in zone 1. For measurements in millimeters, they are as follows: Left cephalic vein zone 1, 1.8; zone 2, 1.7; zone 3, 2.4; zone 4, 2.2; zone 5, 2.1; zone 6, 2; zone 7, 2.1; zone 8, 2. The basilic vein in the left zone 1 not measured; zone 2, 4.5; zone 3, 4.2; zone 4, 2.8; zone 5, 2.3; zone 6, 1.2. The brachial artery is 3.9. The radial is 2.2. The ulnar is 2.4. INTERPRETATION: Marginally adequate left radiocephalic fistula placement option. The basilic vein is also an option and so is the more proximal cephalic vein. cc: MD Eleazar Greenwood MD
[2017-01-08 05:58] LABS: HEMATOCRIT 25.6 % (37.0-47.0); HEMOGLOBIN 8.3 g/dL (12.0-16.0); MCH 37.9 PG (27-31); MCHC 32.4 g/dL (33-37); MCV 116.9 FL (81-99); MPV 9.9 FL (7.4-10.4); RBC 2.19 XMIL (4.2-5.4)
[2017-01-08 06:08] LABS: ALBUMIN 3.5 g/dL (3.5-5.0); CALCIUM 8.4 mg/dL (8.8-10.2); POTASSIUM 5.2 mmol/L (3.5-5.1)
[2017-01-08] MEDS: HEPARIN 25,000 UNIT in NS 250 ML IV SCH (06:33)
[2017-01-08] MEDS: NORCO-5 PO PRN ×2 (06:44→13:33)
[2017-01-08] MEDS: HEPARIN 25,000 UNITS/D5W 25,000 UNIT/250 ML IV.SOLN IV SCH ×2 (06:45→23:53)
[2017-01-08] MEDS ORDERED: HEPARIN IV PRN (07:30)
[2017-01-08] MEDS ORDERED: TIGHT: 0.2 ML/HR MISC PRN (07:30)
[2017-01-08] MEDS ORDERED: NS 2,000 ML MISC PRN (07:30)
[2017-01-08] MEDS ORDERED: NS 2,000 ML ONE (08:19)
[2017-01-08] MEDS ORDERED: HEPARIN ONE (08:19)
[2017-01-08] MEDS: HUMULIN R SUBQ SCH ×3 (10:43→17:18)
[2017-01-08] MEDS: SYNTHROID PO SCH (13:27)
[2017-01-08] MEDS: FISH OIL CONCENTRATE PO SCH ×2 (13:27→23:57)
[2017-01-08] MEDS: NICODERM PATCH TD SCH ×2 (13:27→13:30)
[2017-01-08] MEDS: ULTRAM PO SCH (13:27)
[2017-01-08] MEDS: EPOGEN SUBQ SCH ×2 (13:28→13:29)
[2017-01-08] MEDS: PERIDEX MT SCH ×2 (13:28→23:56)
[2017-01-08] MEDS: NEURONTIN PO SCH ×2 (13:28→23:57)
[2017-01-08] MEDS: VALIUM PO SCH (13:28)
[2017-01-08] MEDS: PROTONIX PO SCH (13:28)
--- NOTE | 2017-01-08 15:16 | PROGRESS NOTE ---
DATE: 01/08/2017 SUBJECTIVE: Patient is sitting up on the side of the bed eating breakfast. She has no complaints other than some mild pain to her surgical site. OBJECTIVE: Vital Signs: Temperature 98.3 degrees, pulse 69, respiratory rate 18, blood pressure 129/59. Intake 1.2 L. Output 20 mL. General Appearance: This is a middle- aged female, sitting up in bed. She is awake, alert, in no acute distress. HEENT: Normocephalic , atraumatic. DIONNE, conjunctivae pink. Oral mucosa moist. Neck: Supple. Trachea midline. Cardiovascular: Regular rate and rhythm. Systolic murmur and metallic heart valve is noted. Pulmonary: Equal excursion. She is clear bilaterally. She is on room air and no increased work of breathing. Abdomen: Soft, obese, positive bowel sounds. No tenderness noted. : Not inspected. She voids. She has hemodialysis assist. Extremities: No clubbing, cyanosis or edema. There is a newly formed AV fistula to the left upper extremity. A positive bruit. No bleeding. Integumentary: Skin is warm and dry otherwise. Tunneled dialysis catheter right upper chest wall intact. LAB DATA: WBC of 5.5, hemoglobin 8.3, hematocrit 25.6, and platelet count of 64 ,000. Sodium 137, potassium 5.2, chloride 102, CO2 21, BUN 33, creatinine 3.5, calcium 8.4, and phosphorus 4.7. Heparin-PF4 CECILIA 0.938 noted interpretation is positive. ASSESSMENT AND PLAN: 1. End-stage renal disease. Patient went for arteriovenous fistula formation yesterday. She underwent surgery without difficulty. Go ahead and dialyze her today per her normal prescription. 2. Electrolytes, acid-base balance, anemia. Continue to treat with dialysis. 3. Heparin-induced thrombocytopenia. The patient was started on Coumadin last night. Consider to start argatroban. Discontinue heparin. She will need to have heparin placed as an allergy on her chart. Seen, data reviewed, discussed with Brisa Jc on 01/08/17. I agree with the above assessment and plan of care. rg Dictated by JAVIER Thomas for Adam Fritz MD cc: MD Eleazar Guerin MD [facility]
[2017-01-08] MEDS ORDERED: COUMADIN PO SCH (16:36)
--- NOTE | 2017-01-08 17:19 | PROGRESS NOTE ---
DATE: 01/08/2017 SUBJECTIVE: Patient has no focal complaints. OBJECTIVE: Vital Signs: Blood pressure 151/81, heart rate is 70, respiratory rate of 20, temperature 99.3. Cardiovascular: Regular rate and rhythm. Pulmonary: Bilateral breath sounds. Clear to auscultation. GI: Soft, nontender, nondistended. Bowel sounds are positive. LABORATORY DATA: Hemoglobin and hematocrit is 8 and 25, platelets of 64. Chemistries are okay. Creatinine is at baseline 3.5. PROBLEM LIST: 1. Mechanical mitral valve. She is on a heparin drip. I am going to bump up her Coumadin today just to help with its anticoagulation profile. We have not had a PT/INR in a while, so I am going to go ahead and draw one now and we will see what the numbers are. Just to increase the chances of getting her therapeutic. 2. AV fistula. Manage per Dr. Ferraro. Obviously, this will need to mature before usage. 3. End-stage renal. She appears to be stable. Continue dialysis per renal service. DISPOSITION: When INR is therapeutic, she can go home on her Coumadin. cc: Eleazar Castro MD
[2017-01-08] MEDS: PERCOCET-10 PO PRN ×2 (17:23→23:55)
[2017-01-08 17:29] LABS: INR 1.09; PROTIME 11.5 Seconds (9.2-11.7)
[2017-01-08] MEDS: COZAAR PO SCH (23:56)
[2017-01-08] MEDS: ZEBETA PO SCH (23:56)
[2017-01-08] MEDS: ELAVIL PO SCH (23:57)
[2017-01-09] MEDS: VALIUM PO SCH ×3 (01:20→22:01)
[2017-01-09] MEDS: HUMULIN R SUBQ SCH ×5 (01:21→22:02)
[2017-01-09 05:54] LABS: INR 1.15; PROTIME 12.2 Seconds (9.2-11.7)
[2017-01-09] MEDS: SYNTHROID PO SCH ×2 (05:56→10:33)
[2017-01-09] MEDS: PERCOCET-10 PO PRN ×4 (05:56→22:04)
[2017-01-09] MEDS: PROTONIX PO SCH ×2 (05:56→09:28)
[2017-01-09 06:02] LABS: HEMATOCRIT 23.8 % (37.0-47.0); HEMOGLOBIN 7.8 g/dL (12.0-16.0); MCH 38.4 PG (27-31); MCHC 32.8 g/dL (33-37); MCV 117.2 FL (81-99); MPV 10.2 FL (7.4-10.4); RBC 2.03 XMIL (4.2-5.4)
[2017-01-09 06:06] LABS: ALBUMIN 3.3 g/dL (3.5-5.0); CALCIUM 8.9 mg/dL (8.8-10.2)
--- NOTE | 2017-01-09 06:28 | PROGRESS NOTE ---
DATE: 01/09/2017 SUBJECTIVE: Patient doing okay. No major issues. She does have some soreness at her incision, but otherwise doing well. OBJECTIVE: Vital Signs: Patient is currently afebrile. Her vital signs are stable. General: No acute distress. Alert, interactive, female, who looks stated age. Cardiovascular: Regular rate and rhythm. Lungs: Grossly clear. Abdomen: Soft, nontender, nondistended. Extremities: Left upper extremity fistula has perfusion noted and I was able to place a Doppler on both the radial artery and her triphasic flow and on the cephalic vein side that appeared to have the development of a fistula like sound suggesting the fistula at this point is patent. LABORATORY: INR this morning is currently 1.15. ASSESSMENT/PLAN: A 46-year-old female, status post perforation of radiocephalic fistula left side. Overall the patient is doing well. Her Coumadin is being restarted. I will need to keep her here on heparin drip until her INR reaches a therapeutic level. She does have a mechanical heart valve and history of strokes and therefore we would like to watch her closely in the hospital. Overall I think she is doing well and could be discharged from a surgical point of view once her INR is in therapeutic level. cc: MD Eleazar Greenwood MD
[2017-01-09] MEDS ORDERED: ARGATROBAN 250 MG in NS 247.5 ML IV SCH ×4 (09:00→22:40)
--- NOTE | 2017-01-09 09:20 | CONSULTATION ---
DATE OF CONSULTATION: 01/09/2017 ADMITTING PHYSICIAN: Dr. Burch. REQUESTING PHYSICIAN: Dr. Burch. We appreciate this consult. CHIEF COMPLAINT: Antiphospholipid syndrome/thrombocytopenia. HISTORY OF PRESENT ILLNESS: Ms. Reyes is a very pleasant, 46-year-old, female, with recent multiple admissions to [facility]. The patient has a history of antiphospholipid syndrome (SLE), mechanical mitral valve replacement, and end- stage renal disease on hemodialysis, followed by Dr. Fritz. Most recently, the patient has been on Coumadin for her mechanical mitral valve. She is scheduled to have dialysis graft placement by Dr. Miranda, and was admitted for bridge of heparin. The patient also, as previously mentioned, carries a diagnosis of antiphospholipid syndrome and lupus, for which we are consulted. PAST MEDICAL HISTORY: 1. Antiphospholipid syndrome. 2. SLE. 3. Mechanical mitral valve. 4. End-stage renal disease. 5. Carotid artery stenosis. 6. Hypothyroidism. 7. Depression. 8. Hypertension. 9. Hyperlipidemia. 10. COPD. 11. Gastroesophageal reflux disease. 12. Neuropathy. 13. Nicotine dependence. 14. Stroke. 15. Congestive heart failure. PAST SURGICAL HISTORY: 1. Mechanical mitral valve replacement. 2. Omentum flap brain surgery. 3. Left carotid artery endarterectomy. SOCIAL HISTORY: The patient smokes 1/2 pack of cigarettes daily. She does not use alcohol or illicit drugs. FAMILY HISTORY: Significant for colon cancer. Negative for any other hematologic or oncologic problems. MEDICATIONS ON ADMISSION: 1. Elavil. 2. Zebeta. 3. Diazepam. 4. Neurontin. 5. Synthroid. 6. Losartan. 7. Crocheron-3. 8. Protonix. 9. Ultram. 10. Coumadin. ALLERGIES: Latex and codeine. REVIEW OF SYSTEMS: A 14-point review of systems was obtained and is negative, except for as mentioned in the HPI. PHYSICAL EXAMINATION: General: Ms. Reyes is a 46-year-old female, lying supine in bed in no immediate distress. Vital Signs: Temperature 98.7 degrees, blood pressure 124/70, heart rate 60, respirations 15, O2 saturation 97% on room air. HEENT: Normocephalic, atraumatic. Mucous membranes are pale and moist. Sclerae anicteric. Extraocular movements intact. Neck: Supple. Lungs: Clear to auscultation bilaterally. Chest expansion is equal bilaterally. CV: S1, S2 is heard without murmur, rub, or gallop. Abdomen: Soft, nondistended, nontender. Bowel sounds positive in all quadrants. No rebound or guarding noted. Extremities: Without clubbing, cyanosis, or edema. Dermatologic: No rashes, bruises, or lesions. Neurologic : The patient is awake, alert, and oriented x3. She has no focal deficit at this time. LABORATORY DATA: Hemoglobin 8.2, hematocrit 24.9, white blood cell count 5.06, platelets 51,000. Sodium 140, potassium 4.6, chloride 101, CO2 is 24, BUN 30, creatinine 3.3, and glucose is 127, calcium is 8.5. Phosphorus 4.7. B12 of 814, folate 15.0, alkaline phosphatase is 154. IMAGING STUDIES: Chest x-ray reveals no acute abnormality. ASSESSMENT AND PLAN: 1. Antiphospholipid syndrome/systemic lupus erythematosus with a history of strokes. The patient will be maintained on a heparin drip at this time as bridge for Coumadin. We will follow along. 2. Thrombocytopenia. Platelet count today is 51,000. The patient denies any overt bleeding. We will continue to monitor CBC. 3. Chronic kidney disease stage 4 to 5. Access placement will be scheduled with Dr. Miranda, with hemodialysis by Dr. Fritz. 4. Mechanical mitral valve. Currently on a heparin drip. We will continue to monitor PT and PTT. 5. Lupus, known, stable. 6. Elevated liver function tests. Liver function tests are within normal limits , except alkaline phosphatase, which is 154. We will continue to monitor. 7. Hypertension. Blood pressure is stable at 124/70. Would continue current medication regimen. 8. Tobacco dependence. The patient has been encouraged to quit smoking. We will follow along with you and make further recommendations pending outcomes. Dictated by JAVIER Howard for Boris Anguiano MD cc: JAVIER Howard MD [facility] Penot, MD [facility]
[2017-01-09] MEDS: NICODERM PATCH TD SCH (09:27)
[2017-01-09] MEDS: NEURONTIN PO SCH ×2 (09:27→22:01)
[2017-01-09] MEDS: FISH OIL CONCENTRATE PO SCH ×2 (09:27→22:01)
[2017-01-09] MEDS: PERIDEX MT SCH ×2 (09:27→22:02)
--- NOTE | 2017-01-09 10:31 | PROGRESS NOTE ---
DATE: 01/09/2017 SUBJECTIVE: She is feeling well. She tolerated dialysis yesterday without difficulty. No shortness of breath. No other new symptoms. OBJECTIVE: Vital Signs: Blood pressure 113/55, heart rate 64, respirations 16, temperature maximum is 99.7. General: She is in no acute distress. Skin: Warm and dry. HEENT: Conjunctivae are pink. Neck: The neck veins are not distended. Heart: Regular with a systolic murmur and metallic heart tones. Lungs: Have equal breath sounds. No crackles. Abdomen: Soft, nontender. Bowel sounds present. Extremities: Have no edema, clubbing, or cyanosis. Her surgical site is clean and dry. LABORATORY DATA: Sodium 139, potassium 5, chloride 101 bicarbonate 24, BUN 20, creatinine 2.8. Hemoglobin 7.8. IMPRESSION AND PLAN: 1. Status post left forearm fistula. She will continue on anticoagulation intravenously until her Coumadin is appropriate. 2. Heparin-induced thrombocytopenia. Change heparin to argatroban and manage her partial thromboplastin time appropriately with this medication until her international normalized ratio is appropriate. Chart is labeled as heparin allergic. 3. Chronic kidney disease. We will observe without dialysis over the next [address] Anguiano is on the case. cc: MD Eleazar Guerin MD
[2017-01-09] MEDS ORDERED: COUMADIN PO SCH (17:31)
--- NOTE | 2017-01-09 18:02 | PROGRESS NOTE ---
DATE: 01/09/2017 SUBJECTIVE: Patient has no focal complaints except for arm swelling and pain. OBJECTIVE: Vital signs: Blood pressure 112/45, heart rate 67, respiratory rate 20, temperature 99.9 degrees, 95% on room air. Cardiovascular: Regular rate and rhythm. Pulmonary: Bilateral breath sounds. Clear to auscultation. GI: Soft, nontender, nondistended. Bowel sounds are positive. LABORATORY DATA: White count 4, hemoglobin and hematocrit 7 and 23, platelets 56,000. PTT greater than 200. Creatinine of 2.8. PROBLEM LIST: 1. Arteriovenous fistula formation. Seems to be doing okay. We will continue to follow. Surgery is primarily managing this. 2. Mechanical mitral valve. She has been on a heparin drip with thrombocytopenia. Thrombocytopenia has been a chronic issue. HIT antibody was analyzed which is now positive. Previously it has been negative. We have switched to argatroban. I can say her platelet count has not dropped since she has been on heparin since the . So clinically, fortunately, she has not had a manifestation but, of course, since her HI antibody is positive I cannot continue that. 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 3. End-stage renal. Continue treatment per renal service. 4. Disposition. Her INR will need to be therapeutic before we can do anything else. I continuing Coumadin at higher dose and we will analyze her PT/INR. cc: Eleazar Castro MD
[2017-01-09] MEDS: MELATONIN PO PRN (22:01)
[2017-01-09] MEDS: ELAVIL PO SCH (22:01)
[2017-01-09] MEDS: ZEBETA PO SCH (22:01)
[2017-01-09] MEDS: COZAAR PO SCH (22:01)
[2017-01-10] MEDS: PERCOCET-10 PO PRN ×6 (03:02→22:25)
[2017-01-10 05:45] LABS: HEMATOCRIT 24.2 % (37.0-47.0); HEMOGLOBIN 7.9 g/dL (12.0-16.0); MCH 38.3 PG (27-31); MCHC 32.6 g/dL (33-37); MCV 117.5 FL (81-99); MPV 10.2 FL (7.4-10.4); RBC 2.06 XMIL (4.2-5.4)
[2017-01-10 05:47] LABS: INR 1.8; PROTIME 19.6 Seconds (9.2-11.7)
[2017-01-10 06:01] LABS: ALBUMIN 3.4 g/dL (3.5-5.0); CALCIUM 9.2 mg/dL (8.8-10.2); POTASSIUM 4.9 mmol/L (3.5-5.1)
[2017-01-10] MEDS: HUMULIN R SUBQ SCH ×5 (06:26→22:03)
[2017-01-10] MEDS: PROTONIX PO SCH (06:26)
[2017-01-10] MEDS: SYNTHROID PO SCH (06:26)
--- NOTE | 2017-01-10 08:56 | PROGRESS NOTE ---
DATE: 01/10/2017 SUBJECTIVE: She is sitting up eating her breakfast. No nausea, vomiting, chest pain, shortness of breath, etc. OBJECTIVE: Vital Signs: Blood pressure 122/82, heart rate 67, respiration 18, afebrile. Generally, she is in no acute distress. Skin is warm and dry. Conjunctivae are pink. Neck Neck veins are not distended. Heart is regular with systolic murmur and metallic heart tones. Lungs have equal breath sounds. No crackles. Abdomen: Soft, nontender. Bowel sounds present. Extremities have no edema, clubbing, or cyanosis. LABORATORY DATA: Sodium 140, potassium 4.9, chloride 103, bicarbonate 24. BUN 23, creatinine 3.5. Hemoglobin 7.9. INR 1.8. IMPRESSION: 1. Status post surgery. Healing well. 2. Anticoagulation. Her INR is starting to increase. Perhaps, she will reach target within the next 24-48 hours. She is now on Argatroban. Her PTT has been supratherapeutic overnight but is beginning to come back into target periods. Continue to observe. 3. Anemia. Below target. Stable. Continue erythropoietin. cc: MD Eleazar Guerin MD
[2017-01-10] MEDS: FISH OIL CONCENTRATE PO SCH ×3 (09:35→22:04)
[2017-01-10] MEDS: NEURONTIN PO SCH ×3 (09:35→22:03)
[2017-01-10] MEDS: VALIUM PO SCH ×3 (09:35→22:03)
[2017-01-10] MEDS: PERIDEX MT SCH ×2 (09:36→22:03)
[2017-01-10] MEDS: NICODERM PATCH TD SCH (09:36)
[2017-01-10] MEDS: EPOGEN SUBQ SCH (10:11)
[2017-01-10] MEDS ORDERED: COUMADIN PO SCH (17:53)
--- NOTE | 2017-01-10 18:11 | PROGRESS NOTE ---
DATE: 01/10/2017 SUBJECTIVE: She seems to be doing pretty well. Complaining of pain and swelling in her hand but I think tolerable at this point. OBJECTIVE: Blood pressure 111/60, heart rate 68, respiratory rate 18, temperature 98.4 degrees, 95% on room air.Cardiovascular: Regular rate and rhythm. Pulmonary: Bilateral breath sounds. Clear to auscultation. GI: Soft, nontender, nondistended. Bowel sounds are positive. LABORATORY DATA: White count 3.9, hemoglobin and hematocrit 7 and 24, platelets of 60,000. Her PTT is 95, still a little bit on the high side. Creatinine 3.5. PROBLEM LIST: 1. AV fistula. She seems to be stable from that standpoint. Dr. Ferraro is managing primarily. 2. Mechanical mitral valve. Currently on argatroban because of HIT issues. That is being followed closely. Hemoglobin and hematocrit has dropped a little bit but is stable over the last 48 hours. Transfusion per Surgical and Renal service recommendations. 3. HIT. Platelet count appears to be stable. Again she is on argatroban. 4. End-stage renal. She is getting intermittent dialysis per Dr. Fritz. I do not think she is getting scheduled 3 times a week but we are following. DISPOSITION: INR is actually getting a little closer, 1.8 today. Goal will be 2.5-3.5, with her mechanical valve and then should she be able to go home. We will continue warfarin at 5 mg currently and follow. cc: Eleazar Castro MD
[2017-01-10] MEDS: COZAAR PO SCH ×2 (19:55→22:03)
[2017-01-10] MEDS: ELAVIL PO SCH ×2 (19:55→22:04)
[2017-01-10] MEDS: ZEBETA PO SCH ×2 (19:55→22:03)
[2017-01-11] MEDS: PERCOCET-10 PO PRN ×5 (02:23→20:13)
[2017-01-11 05:30] LABS: HEMOGLOBIN 8.6 g/dL (12.0-16.0); MCH 37.7 PG (27-31); MCHC 33.1 g/dL (33-37); MPV 9.7 FL (7.4-10.4); RBC 2.28 XMIL (4.2-5.4)
[2017-01-11 05:40] LABS: INR 2.56; PROTIME 28.5 Seconds (9.2-11.7)
[2017-01-11 05:59] LABS: CALCIUM 8.8 mg/dL (8.8-10.2); POTASSIUM 5.2 mmol/L (3.5-5.1)
[2017-01-11] MEDS: PROTONIX PO SCH (06:29)
[2017-01-11] MEDS: HUMULIN R SUBQ SCH ×4 (06:29→22:12)
[2017-01-11] MEDS: SYNTHROID PO SCH (06:29)
--- NOTE | 2017-01-11 10:49 | PROGRESS NOTE ---
DATE: 01/11/2017 SUBJECTIVE: Ms. Reyes reports that she is doing well. Has no acute complaints today. OBJECTIVE/VITAL SIGNS: Temperature 98.4 degrees, heart rate 64, respirations 18 , blood pressure 105/67, O2 saturation 94% on room air. LABORATORY: White blood cells 6.77, hemoglobin 8.6, hematocrit 26.0, platelets 79. PT/INR 28.5 and 2.56 respectively. Sodium 137, potassium 4.2, chloride 98, CO2 20, BUN 28, creatinine 4.3, glucose is 182. PHYSICAL EXAM: CV: S1, S2 heard. No murmurs, gallops, or rubs. Respiratory: Chest clear to auscultation bilaterally. Normal respiratory effort. Gastrointestinal: Abdomen is obese. Positive bowel sounds. Nontender. Nondistended. Extremities: Patient has some trace bilateral extremity edema noted. ASSESSMENT AND PLAN: 1. Antiphospholipid syndrome/systemic lupus erythematosus with lupus antibody/ heparin-induced thrombocytopenia. Patient's INR is actually therapeutic at 2.56. Patient has a mechanical valve. She has been on argatroban for bridging. This can be discontinued. She is currently receiving Coumadin at 5 mg. This can be continued. Plan was for the patient to be discharged once her INR is therapeutic. 2. Thrombocytopenia. This is actually improved today. Heparin-induced thrombocytopenia antibodies came back positive as per above. 3. Chronic kidney disease stage IV/end-stage renal disease. Patient has actually been admitted in order to receive access for dialysis. Creatinine is 4.[address] Fritz. 4. Anemia. Patient's hemoglobin is improved today to 8.6. She has not received any blood transfusions since her admission. Continue to transfuse per Dr. Fritz. 5. Mechanical valve. Currently on Coumadin. Goal INR 2.5-3.5. 6. Hypertension. Currently stable. 7. Disposition: From our standpoint, patient can go home once okay with the primary team and other consultants. Dictated by BRANDAN Russ for Jen Barth MD cc: MD Eleazar Yost MD I have seen and examined the patient and agree with the above A/P> Jen Barth MD [facility]
[2017-01-11] MEDS: FISH OIL CONCENTRATE PO SCH ×2 (10:50→22:10)
[2017-01-11] MEDS: NEURONTIN PO SCH ×2 (10:50→22:11)
[2017-01-11] MEDS: VALIUM PO SCH ×2 (10:51→22:10)
[2017-01-11] MEDS: NICODERM PATCH TD SCH (10:51)
[2017-01-11] MEDS: PERIDEX MT SCH ×3 (10:51→22:19)
[2017-01-11] MEDS ORDERED: COUMADIN PO SCH (17:06)
--- NOTE | 2017-01-11 17:25 | PROGRESS NOTE ---
DATE: 01/11/2017 SUBJECTIVE: The patient has no focal complaints. OBJECTIVE: Vital Signs: Blood pressure 111/69, heart rate 67, respiratory rate 18, temperature degrees 98.2 degrees, 96% on room air. Cardiovascular: Regular rate and rhythm. Pulmonary: Bilateral breath sounds. Clear to auscultation. GI: Soft, nontender, nondistended. Bowel sounds are positive. Cardiovascular: Soft click S1. PROBLEM LIST: 1. Mechanical mitral valve. INR is therapeutic. I am going to drop her down to her baseline level of Coumadin at 4 mg, but since her INR is therapeutic she can come off the argatroban and continue her Coumadin therapy and from my perspective she can go home. 2. Diabetes. Appears controlled. 3. Arteriovenous fistula. Per Surgery, appears to be patent. 4. End-stage renal. She appears to be stable. We will continue to follow. At this point we will likely sign off unless there are other questions needed. cc: Eleazar Castro MD
[2017-01-11] MEDS: ZEBETA PO SCH (22:10)
[2017-01-11] MEDS: ELAVIL PO SCH (22:10)
[2017-01-11] MEDS: COZAAR PO SCH (22:11)
[2017-01-11] MEDS: BENADRYL PO PRN (23:32)
[2017-01-12] MEDS: PERCOCET-10 PO PRN (06:18)
[2017-01-12] MEDS: SYNTHROID PO SCH (06:18)
[2017-01-12] MEDS: BENADRYL PO PRN (06:18)
[2017-01-12] MEDS: PROTONIX PO SCH ×2 (06:19→06:20)
[2017-01-12] MEDS: HUMULIN R SUBQ SCH (06:21)
[2017-01-12 06:29] LABS: ALBUMIN 3.6 g/dL (3.5-5.0); POTASSIUM 5.2 mmol/L (3.5-5.1)
[2017-01-12 06:52] LABS: INR 2.63; PROTIME 29.4 Seconds (9.2-11.7)
[2017-01-12 07:03] LABS: CALCIUM 8.1 mg/dL (8.8-10.2)
[2017-01-12 08:16] VITALS: BP 121/64
[2017-01-12] MEDS: FISH OIL CONCENTRATE PO SCH (08:31)
[2017-01-12] MEDS: NEURONTIN PO SCH (08:31)
[2017-01-12] MEDS: VALIUM PO SCH (08:31)
[2017-01-12] MEDS: NICODERM PATCH TD SCH (08:32)
[2017-01-12] MEDS: PERIDEX MT SCH (08:32)
--- NOTE | 2017-01-16 10:02 | DISCHARGE SUMMARY ---
ADMISSION DATE: 01/03/2017 DISCHARGE DATE: 01/12/2017 ADMITTING DIAGNOSES: 1. End-stage renal disease requiring hemodialysis access. 2. Long-term anticoagulation secondary to mitral valve replacement. DISCHARGE DIAGNOSES: 1. End-stage renal disease requiring hemodialysis access. 2. Long-term anticoagulation secondary to mitral valve replacement. ADMITTING PHYSICIAN: Will Ferraro MD CONSULT: Hospital Service for medical management and Dr. Fritz for nephrology. PROCEDURES: On 01/07/2017, the patient underwent creation of left radiocephalic AV fistula with transposition of the cephalic vein. BRIEF HISTORY AND COURSE OF STAY: The patient is a 46-year-old female with longstanding history of hypercoagulable state. She has had multiple strokes. She has also had a mitral valve replacement. She had developed end-stage renal disease and had a tunneled catheter. She needed to have more definitive access. Given her significant history, we elected to admit the patient, stop her anticoagulation with her Coumadin and bridge it with a heparin drip. We elected to do the heparin drip in the hospital given her strong history and to lower her risk of having a stroke while she was not being monitored. She was admitted on 01/03/2017 started on her upper drift. On 01/07/2017 her INR was in a safe zone for us to proceed with surgery. We took her back. She underwent previously described procedure which she tolerated well. In the initial postoperative period she had no complications. She was restarted back on her Coumadin and it took till 01/12/2017 to have her INR at a therapeutic level for her to be discharged home. At that time, she was up and ambulating tolerating p.o., having no major issues. Her fistula had flow noted through it. She was doing well. It was felt the patient would be safe to be discharged home. DISCHARGE CONDITION: Stable. DISPOSITION: Home. FOLLOW-UP INSTRUCTIONS: The patient is told to follow up with me in 1-2 weeks. cc: MD Eleazar Greenwood MD
== END 2017-01-12 10:05 | disposition home health service (06) ==
LOC: 4N 08:02
PROVIDERS: ADMIT Internal Medicine; ATTEND Surgery

== ENCOUNTER 2018-11-08 21:22 | Inpatient (IN) ==
[2018-11-08] MEDS ORDERED: VANCOMYCIN 1 GM/NS 1 GM/250 ML IVPB IV ONE (21:39)
[2018-11-08] MEDS ORDERED: NS 250 ML IV ONE (21:44)
[2018-11-08 22:24] LABS: BASO# 0.03 X1000 (0.0-0.2); BASO% 0.2 % (0.0-0.8); EOS# 0.17 X1000 (0.0-0.7); EOS% 1.3 % (0.0-10.0); HEMATOCRIT 24.1 % (37.0-47.0); HEMOGLOBIN 7.9 g/dL (12.0-16.0); IMM GRAN# 0.13 X1000 (0.0-0.04); LYMPH# 0.35 X1000 (1.2-3.4); LYMPH% 2.8 % (20.5-51.1); MCH 36.4 PG (27-31); MCHC 32.8 g/dL (33-37); MCV 111.1 FL (81-99); MONO# 0.57 X1000 (0.11-0.59); MONO% 4.5 % (1.7-9.3); MPV 11.6 FL (7.4-10.4); NEUT% 90.2 % (42.2-75.2); PLT 61 X1000 (130-400); RBC 2.17 XMIL (4.2-5.4); RDW 16.9 % (11.5-14.5); WBC 12.65 X1000 (4.8-10.8)
[2018-11-08 22:25] LABS: ACETONE SERUM NEGATIVE (NEGATIVE)
[2018-11-08 22:28] LABS: INR 3.43
[2018-11-08 22:36] LABS: PTT 85.1 Seconds (22.3-41.8)
[2018-11-08 22:38] LABS: ACETAMINOPHEN 1.7 ug/mL (10-30); SALICYLATES < 3.00 mg/dL (3-10)
[2018-11-08 23:11] LABS: ALB/GLOB RATIO 0.8; ALBUMIN 3.1 g/dL (3.5-5.0); CALCIUM 9.8 mg/dL (8.8-10.2); CREATININE 8.1 mg/dL (0.5-0.9); POTASSIUM 8.3 mmol/L (3.5-5.1); TOTAL BILIRUBIN 3.54 mg/dL (0.20-1.00); TOTAL PROTEIN 7.2 g/dL (6.3-8.3)
[2018-11-08] MEDS ORDERED: CALCIUM GLUCONATE 1 GM in NS 50 ML IV ONE (23:12)
[2018-11-08] MEDS ORDERED: HUMULIN R IV ONE (23:13)
[2018-11-08] MEDS ORDERED: D50W SYRINGE IV ONE (23:15)
[2018-11-09] MEDS ORDERED: DUONEB (A & A) INH ONE (00:04)
[2018-11-09] MEDS ORDERED: LOKELMA POWDER PACKET PO ONE (00:15)
[2018-11-09] MEDS ORDERED: LOKELMA POWDER PACKET PO SCH ×2 (00:15→09:00)
[2018-11-09] MEDS ORDERED: NITROGLYCERIN TOP ONE (00:18)
[2018-11-09] MEDS ORDERED: ZOSYN 2.25 GM in NS 50 ML IV ONE (00:51)
[2018-11-09] MEDS ORDERED: LEVOPHED 8 MG in D5 1/2 NS 250 ML IV SCH ×4 (01:00)
--- NOTE | 2018-11-09 04:31 | HISTORY AND PHYSICAL ---
PRIMARY CARE PHYSICIAN: Dr. Bonds. CHIEF COMPLAINT: Altered mental status. HISTORY OF PRESENTING ILLNESS: A 48-year-old female with a history of end-stage renal disease, CVA, hypertension, seizure disorder, antiphospholipid antibody and noncompliance, who had presented to emergency department with complaints of altered mental status. The patient moderately altered and most of the history is obtained from family members. As per family, they found her more confused and disoriented and it seemed to be worsening. She was evaluated in the emergency department. She was moderately altered and due to her presenting symptoms she will require admission for further management. PAST MEDICAL HISTORY: Includes end-stage renal disease, on renal dialysis Friday, Friday, Friday, CVA, hypertension, seizure disorder, antiphospholipid antibody syndrome, hypothyroidism, noncompliance. PAST SURGICAL HISTORY: Brain surgery, mitral valve surgery, hernia repair AV fistula, left upper extremity. ALLERGIES: Codeine, heparin and latex. CURRENT MEDICATIONS: Include Xanax 1 mg p.o. daily, Abilify 5 mg p.o. daily, Lipitor 20 mg p.o. daily, Wellbutrin 100 mg p.o. daily, Depakote 250 mg p.o. b.i.d., gabapentin 400 mg p.o. b.i.d., levothyroxine 100 mcg p.o. q.a.m., losartan 100 mg p.o. daily, Protonix 40 mg p.o. daily, Seroquel 300 mg p.o. daily, Coumadin 4 mg p.o. daily. SOCIAL HISTORY: 20+ pack year history of smoking. Admits social alcohol use. No illicit drug use. FAMILY HISTORY: No history of coronary artery disease. REVIEW OF SYSTEM: Unable to obtain due to patient being altered. PHYSICAL EXAMINATION: GENERAL: The patient is moderately altered but without any respiratory distress now. VITAL SIGNS: Temperature 98.3 degrees, pulse 96 respiration 18, blood pressure 74/51. HEENT: Atraumatic, normocephalic. NECK: No masses. CHEST: Bibasilar rales. CARDIOVASCULAR: Regular rate and rhythm. ABDOMEN: Soft. Positive bowel sounds. EXTREMITIES: Trace edema. NEUROLOGIC: Patient is arousable but really not responsive. GENITOURINARY: No bladder distention. SKIN: Warm. LABORATORIES AND STUDIES: test negative. WBC 12.65, hemoglobin 7.9, hematocrit 24.1, platelets 61,000. INR 3.43. Sodium 130, potassium 8.3, chloride 91, CO2 is 14, BUN is 55, creatinine is 8.1, glucose is 258. Plasma lactate 4.5. ASSESSMENT: A 48-year-old female with a history of end-stage renal disease, cerebrovascular accident, hypertension, seizure disorder, antiphospholipid antibody syndrome and noncompliance, who was brought to the emergency department due to patient being altered. She was evaluated in the ED. She had laboratories done which did show that she was hyperkalemic. This was treated in the ER. The patient is moderately confused and altered and she will require admission to ICU for further management. The patient also meets sepsis criteria due to patient being altered, hypotensive, having a white count and possibility of infiltrate on chest x-ray. 1. Altered mental status. 2. Seizure disorder. 3. Hyperkalemia. 4. Leukocytosis with probable pneumonia and sepsis. 5. End-stage renal disease. 6. Hypertension. 7. Antiphospholipid antibody syndrome on anticoagulation. PLAN: 1. We will admit patient to ICU. 2. Continue with neuro checks. 3. We will put patient on seizure precautions. 4. We will monitor her potassium. 5. We will check blood cultures. Start patient on empiric antibiotics. 6. Consult Nephrology for dialysis. 7. Monitor blood pressure closely. 8. We will monitor ProTime and INR. Continue with anticoagulation. 9. We will continue to follow, and reassess and make further recommendation based on patient's clinical course. cc: Lazarus Giron MD
--- NOTE | 2018-11-09 06:25 | Diag Imaging Result Doc PS360 ---
CHEST-PORTABLE - 11/08/2018 INDICATION: AMS COMPARISON: 11/04/2017 FINDINGS: There is some new infiltrate in the right middle lobe. Stable right-sided dialysis catheter in good position. Stable cardiomegaly. Pulmonary vessels are somewhat distended. IMPRESSION: Right middle lobe infiltrate/pneumonia. Cardiomegaly and pulmonary vascular congestion. Electronically signed by Hermann Sky 11/09/2018 6:22 AM
--- NOTE | 2018-11-09 07:20 | Diag Imaging Result Doc PS360 ---
EXAM: CT HEAD W/O CONTRAST 11/09/2018 HISTORY: AMS TECHNIQUE: This exam was performed using automated exposure control, adjustment of mA or kV according to patient size, and/or use of iterative reconstruction technique. COMMENT: There has been previous left-sided temporal parietal craniotomy. There is encephalomalacia in the adjacent portions of the lateral frontal, anterior temporal and lateral parietal lobe. There is no evidence of bleed mass effect or abnormal extra-axial fluid collection. There is some ex vacuo enlargement of the left lateral ventricle. There are number of lacunae present in the basal ganglia bilaterally particularly near the caudate nucleus on the left. There is hyperostosis of the calvarium particularly in the frontal and right parietal regions. The appearance of the brain has not changed significantly since the previous study of 11/03/2017. There is some increase in soft tissue swelling posterior lateral to the left occipital region compared to the previous study and there is a subcutaneous fluid collection measuring less than 10 Hounsfield units and measuring 2.8 cm in greatest dimension. The possibility of an abscess, seroma, or hematoma is suggested. The visualized paranasal sinuses are clear. IMPRESSION: Superficial soft tissue fluid collection in the left occipital region and soft tissue swelling, otherwise stable CT of the head. Electronically signed by Juan Pablo Hunter 11/09/2018 7:18 AM
--- NOTE | 2018-11-09 07:23 | EKG Report ---
Test Performed on : 11/09/2018 02:21:47 AM Test Reason : hyperkalemia Blood Pressure : / mmHG Vent. Rate : 097 BPM Atrial Rate : 097 BPM P-R Int : 148 ms QRS Dur : 104 ms QT Int : 366 ms P-R-T Axes : 062 -09 028 degrees QTc Int : 464 ms Normal sinus rhythm. Low voltage QRS Borderline ECG When compared with ECG of 08-NOV-2018 22:07, (Unconfirmed) Sinus rhythm. has replaced Junctional rhythm. Incomplete left bundle branch block is no longer present Nonspecific T wave abnormality, improved in Inferior leads Unconfirmed Result
--- NOTE | 2018-11-09 07:24 | EKG Report ---
Test Performed on : 11/08/2018 10:07:43 PM Test Reason : AMS Blood Pressure : / mmHG Vent. Rate : 066 BPM Atrial Rate : 065 BPM P-R Int : 000 ms QRS Dur : 116 ms QT Int : 424 ms P-R-T Axes : 000 -30 -18 degrees QTc Int : 444 ms Accelerated Junctional rhythm. with retrograde conduction. Left axis deviation Pulmonary disease pattern Incomplete left bundle branch block Abnormal ECG When compared with ECG of 28-OCT-2017 23:39, Junctional rhythm. has replaced Sinus rhythm. Incomplete left bundle branch block is now present Unconfirmed Result
--- NOTE | 2018-11-09 07:33 | Diag Imaging Result Doc PS360 ---
EXAM: CT THORAX/ABD/PELVIS W/O CON 11/09/2018 HISTORY: AMS, hypotensive, renal failure TECHNIQUE: This exam was performed using automated exposure control, adjustment of mA or kV according to patient size, and/or use of iterative reconstruction technique. COMMENT: Thorax: The current examination is compared with the previous study of 09/08/2016. There is a right internal jugular catheter with its tip in the right atrium. There is an NG tube which passes below the diaphragm. There is a mitral valve prosthesis. There are some calcified nodes in the right hilum. There is a tiny amount of pleural fluid bilaterally. This is improved since the previous thoracic study. There is minimal patchy opacity present in the left lower lobe. Minimal atelectasis is present in the costophrenic sulci posteriorly. Compared to the previous examination this has improved considerably. None of the alveolar opacity seen previously in the upper lobes are present currently. ABDOMEN/pelvis without contrast: The current examination is compared with the previous study of 05/05/2018. The minimal atelectatic change seen in the lung bases particularly the left lower lobe on the current study was not present at the time the previous examination. The spleen is enlarged measuring over 14.4 cm which has increased since the previous study. The kidneys are slightly atrophic in appearance. There is no evidence of hydronephrosis. There is an 18 mm calcified gallstone in the gallbladder which was present previously. There is no evidence of nephrolithiasis. The stomach is not particularly distended. There is an NG tube in this stomach. There is some gas and stool in the descending colon. There is fluid in some small bowel loops without significant dilatation. The aorta is not distended. There is retroperitoneal adenopathy with nodes measuring up to 17 mm posterior to the inferior vena cava. This was also present at the time the previous study. There is celiac and glendy hepatis adenopathy which were also previously present. Some of these nodes exceeds 2 cm in size. There is no evidence of appendicitis. There is a 3.1 cm left ovarian cyst. There is a Dexter catheter in the bladder. There is gas and stool in the rectum. There is degenerative facet disease at L5-S1. There is no evidence of acute bony abnormality. IMPRESSION: 1. Atelectasis versus mild bronchopneumonia in the lung bases particularly the left lower lobe. 2. Worsened splenomegaly. Retroperitoneal and mesenteric adenopathy as described. 3. Questionable enterocolitis. 4. Left ovarian cyst. 5. Cholelithiasis. Electronically signed by Juan Pablo Hunter 11/09/2018 7:31 AM
[2018-11-09] MEDS ORDERED: NS 2,000 ML MISC PRN (07:41)
[2018-11-09] MEDS ORDERED: VANCOMYCIN IV PER PHARMACY MISC SCH (08:30)
--- NOTE | 2018-11-09 09:56 | EKG Report ---
Test Performed on : 11/09/2018 07:10:07 AM Test Reason : ICU. No order in [place] Blood Pressure : / mmHG Vent. Rate : 088 BPM Atrial Rate : 088 BPM P-R Int : 124 ms QRS Dur : 128 ms QT Int : 390 ms P-R-T Axes : 048 -33 037 degrees QTc Int : 471 ms Normal sinus rhythm. Left axis deviation Nonspecific intraventricular block Abnormal ECG When compared with ECG of 09-NOV-2018 02:21, (Unconfirmed) QRS duration has increased Confirmed by Nuzhat COUCH, Matt Coleman ([id number]) on 11/11/2018 9:40:34 AM
--- NOTE | 2018-11-09 09:59 | NEPHROLOGY CONSULTATION ---
DATE: 11/09/2018 REASON FOR ADMISSION: Altered mental status, hyperkalemia, pneumonia, question sepsis. REASON FOR CONSULTATION: Altered mental status, hyperkalemia, assist with management, end-stage renal disease management. CONSULTING PHYSICIAN: Dr. Giron. HISTORY OF PRESENT ILLNESS: This is a 48-year-old female, well known to our service for end-stage renal disease on hemodialysis at [facility] on Friday, Friday, Friday. The patient came into the emergency room on day of admission secondary to altered mental status. She was found to be hyperkalemic. She continued with confusion. The patient also had imaging that indicated atelectasis versus bronchopneumonia in the lung bases, particularly left lower lobe with worsened splenomegaly, questionable enterocolitis. Head CT with superficial soft tissue collected in the left occipital region but no significant change since the last imaging a year ago. Considered stable head CT. Chest x-ray did show right middle lobe infiltrate pneumonia. Patient admitted to the intensive care unit for further evaluation and treatment. Her potassium is noted to be 6.7 this morning. Today is her routine dialysis day. We have been asked to see her. When I evaluate her this morning, she is nonverbal but opens her eyes and nods her head in recognition of me. She continues with generalize spastic movements to the upper and lower extremities. Patient currently on pressor support. PAST MEDICAL HISTORY: 1. End-stage renal disease on hemodialysis Friday, Friday, Friday. She has some issues with compliance. 2. Seizure disorder. 3. Hypertension. 4. History of CVA. 5. History of antiphospholipid antibody. 6. Hypothyroidism. 7. Neuropathy. 8. GERD. PAST SURGICAL HISTORY: 1. She has had brain surgery. 2. Mitral valve surgery. 3. Hernia repair. 4. She has had an AV fistula to the left upper extremity with failure. She currently dialyzes with a tunneled catheter to the right upper chest wall. ALLERGIES: 1. Latex. 2. Codeine. 3. Heparin. HOME MEDICATIONS: Listed as 1. Abilify. 2. Lipitor. 3. Wellbutrin. 4. Depakote. 5. Xanax. 6. Gabapentin. 7. Levothyroxine. 8. Losartan. 9. Protonix. 10. Seroquel. 11. Coumadin. SOCIAL HISTORY: Social alcohol use. No illicit drug. 20 year pack history of smoking. FAMILY HISTORY: Noncontributory. REVIEW OF SYSTEMS: Unobtainable, the patient continues altered. PHYSICAL EXAMINATION: Vital Signs: Temperature 99.1 degrees, pulse 91, respiratory rate 19, blood pressure 111/49. Intake 1.3 L. Output not measured. General: This is a middle-aged female, currently resting in bed. She will open her eyes to name. She does not verbalize. She has spastic muscle movements generalized. HEENT: Normocephalic, atraumatic. Her pupils are equal and reactive. Oral mucosa appears dry. Neck: Supple, thick, unable to determine JVD. Cardiovascular: She has a tachy cardiac rate. Regular rhythm. Pulmonary: She has rales bilaterally, equal excursion. She is on O2 supplementation via nasal cannula. Abdomen: Obese, soft, positive bowel sounds. : She has a Dexter catheter. Extremities: She has trace edema. Integumentary: Skin is pale, warm and dry. Neurologic: Again altered mental status. Minimal responsiveness. LABORATORY DATA: WBC of 12.6, hemoglobin 7.9. Chemistries have not posted aside from a potassium of 6.7. She did have a plasma lactate of 4.5 and then increased to 6.5 this morning. IMAGING: As noted above in HPI. ASSESSMENT AND PLAN: 1. End-stage renal disease management. Today is her routine dialysis day. The patient also with hyperkalemia. We will dialyze on a 2 K bath/UF to her dry weight for 3.5 hour treatment. We will evaluate her in the morning to determine if she needs additional therapy. She does have Lokelma ordered for her potassium, but it is unclear if she will be able to take that orally in her current state. 2. Altered mental status. The patient is being followed by primary, is already on seizure precautions. 3. Leukocytosis with probable pneumonia and sepsis, is on appropriately dosed antibiotics. No changes are needed at this time. 4. Hypotension. Patient has pressor support ordered. Dictated by JAVIER Thomas for Adam Fritz MD Face to face encounter, data reviewed, discussed with Brisa Jc on 11/09/18. I agree with the above assessment and plan of care. cc: Adam Fritz MD [facility] CENTERAbhilash
[2018-11-09] MEDS ORDERED: ZOSYN 2.25 GM in NS 50 ML IV SCH (11:00)
[2018-11-09] MEDS ORDERED: VANCOMYCIN 1 GM/NS 1 GM/250 ML IVPB IV SCH (12:15)
[2018-11-09] MEDS ORDERED: NS 1,000 ML IV SCH (13:00)
--- NOTE | 2018-11-09 13:47 | PROGRESS NOTE ---
DATE: 11/09/2018 SUBJECTIVE: This morning, Ms. Reyes is seen in the ICU. She is getting dialysis during the time of the encounter and I was able to speak briefly with Dr. Fritz. OBJECTIVE: Vital Signs: Blood pressure 97/47, pulse of 95, respirations 15, temperature is 97.5 degrees. General Examination: Ms. eRyes is a 48-year-old, female. She is in bed. She does not seems to be in distress. HEENT: Mucosa is pink and dry. Anicteric. Acyanotic. Neck: Supple. Chest: Good air entry bilaterally. No crepitations. Cardiovascular: Regular rate and rhythm. There is a metallic S1 click consistent with a mechanical mitral valve. GI: Abdomen is soft. NEW [employer]IV[employer]IVER: The patient is drowsy. She will, however, opens her eyes to painful stimulation but she is nonverbal at this point. Musculoskeletal: There is swelling over the left occipital scalp. There is an old scar over the frontotemporal scalp from previous cranial surgery. Diagnostic Studies: I reviewed the CT scan of the head which shows superficial soft tissue fluid collection in the left occipital region. Otherwise, CT scan is unremarkable. CT scan of the chest, abdomen, and pelvis showed mild bronchopneumonia in the bases but do acute pathology. There is questionable enterocolitis. Blood cultures have been showing gram- positive cocci, two out of two. ASSESSMENT: 1. Septic shock with gram-positive cocci bacteremia. The patient is currently on intravenous antibiotics. She still remains minimally hypotensive. She got a few boluses of normal saline. Her lactate is still high. We are going to put her on gentle 50 mL of normal saline to help with her hemodynamics. She is also on pressors. 2. Status post mitral mechanical valve. The patient is on chronic Coumadin anticoagulation. We will continue that. INR this morning is 3.45. 3. History of seizure disorder. We will continue with home medications. 4. Endstage renal disease. The patient is getting hemodialysis. Nephrology is on board. 5. History of antiphospholipid syndrome. 6. Altered mental status secondary to metabolic and infectious encephalopathy. We will continue the current antimicrobial therapy. PLAN: In general, Ms. Reyes is remarkably sick. She is septic. She is hypotensive. We are going to start her on very gentle hydration of IV fluids because of her end- stage renal disease status. She is currently on both vancomycin and Zosyn. We will get ID. We will also get neurology to see her and make sure we are not missing anything from a neurological standpoint. No family at bedside. cc: Kofi Barillas MD MTDD
--- NOTE | 2018-11-09 15:36 | INFECTIOUS DISEASE CONSULT REP ---
DATE: 11/09/2018 CONCLUSION: The patient has a gram-positive coccal bacteremia. I think this will hospitalist nocturnist physician to be a staphylococcal organism and will have originated from the patient's dialysis catheter. The patient is having diarrhea and on CAT scan there is a question of enterocolitis. I think it is possible that the patient's enterocolitis could be caused by Clostridium difficile. The patient on CT scan may have a bibasilar pneumonia as well. The pneumonia could be due to the patient's gram-positive coccus that may have originated from the dialysis catheter or alternatively the patient may have a pneumonia that was complicated by bacteremia. RECOMMENDATIONS: I agree with treating the patient with vancomycin after dialysis. I discontinued Zosyn and I have ordered stool for Clostridium difficile toxin and antigen. I also ordered an echocardiogram. PRESENT ILLNESS: The patient has an altered mental status. She was unable to provide a history. No family member was present. The information I obtained about the patient was from review of the information in the computer. The patient was admitted to the hospital with an altered mental status. Her laboratory studies show a CBC with a white count of 12,650, hemoglobin 7.9, and platelet count 61,000, creatinine is 8.1. GFR is 5. Alkaline phosphatase is 336. test was negative. Both blood cultures are growing gram-positive cocci. The CT scan of the chest, abdomen and pelvis shows atelectasis versus pneumonia in both bases and possible enterocolitis. PAST MEDICAL HISTORY: Positive for end-stage renal disease for which the patient is on dialysis, stroke, hypertension, seizure disorder, anti phospholipid antibody syndrome, hypothyroidism, gastroesophageal reflux disease, seizure disorder, and hyperlipidemia. PAST SURGICAL HISTORY: Positive for brain surgery, mitral valve surgery, hernia repair, placement of an AV fistula in the patient's left arm. ALLERGIES: The patient has allergies to codeine, heparin and latex. HOME MEDICATIONS: Include Xanax, Abilify, Lipitor, Wellbutrin, Depakote, gabapentin, levothyroxine, losartan, Protonix Seroquel and Coumadin. SOCIAL HISTORY: The patient smokes cigarettes. She drinks alcoholic beverages, but does not use illicit drugs. FAMILY HISTORY: Has no history of coronary artery disease PHYSICAL EXAMINATION: Vital Signs: Temperature is 98, pulse 104, respirations 15, blood pressure is 101/54. Patient weighs 212 pounds. General: This is an obese middle-aged female. She is obtunded. Head, Eyes, Ears, Nose and Throat: No drainage noted through the nose or ears. Neck: No meningismus. Lungs: Clear to auscultation. Cardiovascular: Heart rate is regular. Thorax: The patient has a right-sided tunneled dialysis catheter in place. Abdomen: Soft and nontender. Neurologic: The patient is obtunded. She did not respond to verbal stimuli. There is no tremor. Integument: No rash noted. Thank you for the consult. cc: Rashid Arnold MD [facility]
--- NOTE | 2018-11-09 16:58 | CONSULTATION ---
DATE OF CONSULTATION: 11/09/2018 Ms. Reyes is 48 years old. She was recently admitted with altered mentation. There is past history of question of seizure disorder, possible seizures associated with toxic and metabolic disturbance or limb jerking and altered awareness due to cause other than seizure. This time, there was evidence of septic shock. There is reported to be past history of mitral valve replacement, chronic warfarin therapy, end-stage renal disease. I did not find family present to provide any history of recent behavior, seizure, cognitive status or recent neurologic change, beyond what was recorded on admission. Lab on admission showed potassium 8.2, later 6.7. Sodium 130. BUN 55, which is within the range that has been recorded for her in this computer system. Blood sugar 258. Liver enzymes are mildly elevated. She has been afebrile. WBC count 12,650. Anemia. Home medicine list includes alprazolam possibly 1 mg daily (we did not have urine drug screen this admission), bupropion possibly 100 mg daily, divalproex possibly 250 mg b.i.d., gabapentin possibly 400 mg b.i.d., others. Noncontrast CT shows the old left hemisphere encephalomalacia and post craniotomy findings but nothing definitely acute and no bleeding. On my exam, Ms Reyes seems to be awake and aware and not following commands. She grumbled some words, but would not repeat. She did not follow my requests. There was withdrawal with moderate stimulation over each limb. Limb tone seems symmetric in the legs and a little bit increased on the left compared to the right in the arms. There was some irregular movement very briefly and I could not distinguish asterixis or myoclonus. There was certainly not repetitive movement or clonic activity. She has silent plantar response bilaterally. Head shows the prominent left-sided skull defect, but no evidence of recent injury. Lateral eye movements are full with passive head turning and there was also spontaneous left and right conjugate eye movement. Corneal reflexes are brisk and symmetric. Pupils are large and both react to bright light. Tongue is midline. Facial motility is symmetric. IMPRESSION: 1. Clinical appearance could be explained by obtundation or by her being alert and actively choosing not to participate in communication. I do not think she is having subclinical seizure, but I will order EEG to be certain. 2. There is history of previous behavior and question of seizure. There is 1 prior EEG in this system which showed generalized slowing but no epileptiform discharge. Left hemisphere breach was noted on that EEG, as would be expected with her history. Dr. Alba and I both saw her here in 2017. Final recommendation then was to discontinue seizure medication. 3. I believe she has longstanding psychiatric history but I do not know about recent management or medications. 4. Bupropion on board might not be the best choice in a patient with tendency to seizure, but I am not certain there is a chronic seizure disorder. 5. Reportedly taking alprazolam, but no urine drug screen and not certain benzodiazepine withdrawal has or has not occurred. 6. Divalproex on board in a patient with elevated liver enzymes. Thanks for asking Neurology to see Ms. Reyes. Further plans will depend on the EEG report and on her clinical course. cc: MD NA Elmore III
[2018-11-09] MEDS ORDERED: VANCOMYCIN 1 GM/NS 1 GM/250 ML IVPB IV ONE (17:00)
[2018-11-09] MEDS: COUMADIN GT SCH (20:20)
[2018-11-09] MEDS: NEURONTIN NG SCH (20:20)
[2018-11-09] MEDS: DEPAKOTE SPRINKLE NG SCH (20:20)
--- NOTE | 2018-11-09 20:20 | PROVIDER DOCUMENTATION ---
This chart was entered by Blanca Adkins Scribe, acting as scribe for Mikhail Anaya MD. HPI-General Adult - General Chief Complaint: Altered Mental Status Stated Complaint: ams Time Seen by Provider: 11/08/18 21:25 Source: EMS, old records Allergies/Adverse Reactions: Patient Allergies Allergy/AdvReac Type Severity Reaction Status Date / Time latex Allergy ITCHING Verified 11/09/18 02:29 codeine AdvReac NAUSEA/VOMI Verified 11/09/18 02:29 TING heparin AdvReac "I HAD A Verified 11/09/18 02:29 REACTION" PER PATIENT/UNKNOWN REACTION. Home Medications: Home Medication List Medication Instructions Recorded Confirmed Last Taken Type Pantoprazole [Protonix] 40 mg PO DAILY 09/30/16 09/30/18 09/29/18 History Losartan [Cozaar] 100 mg PO DAILY 10/26/16 09/30/18 09/29/18 History Warfarin [Coumadin] 4 mg PO DAILY 05/14/17 09/30/18 09/29/18 History Umeclidinium/Vilanterol [Anoro 1 puff INH DAILY #1 inhaler 06/10/17 09/30/18 09/29/18 Rx Ellipta 62.5-25 Mcg INH] Aripiprazole [Abilify] 5 mg PO DAILY 02/04/18 09/30/18 09/29/18 History Bupropion [Wellbutrin] 100 mg PO DAILY 03/31/18 09/30/18 09/29/18 History Gabapentin [Neurontin] 400 mg PO BID 03/31/18 09/30/18 09/29/18 History Quetiapine Fumarate [Seroquel] 300 mg PO PRN PRN 03/31/18 09/30/18 09/29/18 History Levothyroxine [Synthroid] 100 microgm PO QAM 04/16/18 09/30/18 09/29/18 History ATORVAstatin [Lipitor] 20 mg PO DAILY 09/30/18 09/30/18 09/29/18 History Alprazolam [Xanax] 1 mg PO DAILY 09/30/18 09/30/18 09/29/18 History Aripiprazole [Abilify] 5 mg PO QAM 0409/30/18 09/29/18 History Divalproex [Depakote] 250 mg PO BID 09/30/18 09/30/18 09/29/18 History Folic Acid/Vit B Complex and C 1 tab PO DAILY 09/30/18 09/30/18 09/29/18 History [Dialyvite Tablet] - History of Present Illness -Gen Adult Nature of Presenting Problems: 48 yof presents to er w/ ems w/ c/o ams, confusion, lethargic, and hypotensive. pt hx limited by pt condition. pt is nonverbal. Reviewing pt records, pt is in end stage renal failure and has dialysis MWF. pt daughter arrived to ems and sts pt began shaking arms and hands w/fists for few minutes yesterday without LOC, became nonverbal today, and had to have help getting pt off floor. Review of Systems - Adult - REVIEW OF SYSTEMS - ADULT ROS:: limited per condition Constitutional: reports: no symptoms reported. denies: chills, fever, fatique Neurological: reports: see HPI Past History - Adult - PAST MEDICAL HISTORY-ADULT Review of Records: reports: Old Records Reviewed, Nursing Assessment Review, Medications Reviewed, Social history reviewed & non-contributory. Major Childhood Illnesses: reports: denies history Cardiovascular: reports: 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) Respiratory: reports: denies history Gastrointestinal: reports: denies history Obstetrical/Gynecological: reports: denies history Genitourinary: reports: kidney disease (Stage IV) Musculoskeletal: reports: chronic pain Neurological: reports: CVA (multiple, some hemorrhagic), Seizures/Epilepsy Endocrine/Immune: reports: denies history Other Conditions: reports: denies history - PRIOR SURGERIES/PROCEDURES Surgical/Procedure History: reports: other (mechanical heart valve replacement, multiple craniotomies, carotid bypass with vein graft) - IMMUNIZATION STATUS Childhood Immunizations: See Nurse Assessment Flu Vaccine: See Nurse Assessment - FAMILY HISTORY Family History: reviewed, not pertinent - SOCIAL HISTORY Smoking: cigarettes, less than 1 pack/day Provider spent 3-5 mins advising pt. on dangers of tobacco.: Discussed manners to quit use, and f/u contacts for add'l counseling. Substance Use: alcohol Alcohol Use Frequency: occasionally Physical Exam-General - PHYSICAL EXAM-ADULT Initial Vital Signs Reviewed: Yes - CONSTITUTIONAL General Appearance: mild distress, lethargic - EYES Eyes: PERRL/EOMI - HEAD, EARS, NOSE, MOUTH & THROAT HENMT: normocephalic/atraumatic, moist mucous membranes - NECK Neck: non-tender, full range of motion, supple - RESPIRATORY Respiratory: lungs clear, normal breath sounds - CARDIOVASCULAR Cardiovascular: normal peripheral pulses, regular rate, rhythm, no edema - GASTROINTESTINAL (ABDOMEN) Abdominal Exam: normal bowel sounds, non tender, soft - SKIN Integumentary: pallor - NEUROLOGIC Neurologic: other (Limted by condition) - PSYCHIATRIC Psych/Mental Status: disoriented x 3 Progress - PLAN OF CARE/RESULTS Progress/Plan/Lab Results: Orders Category Date Time Status cxr [CHEST-PORTABLE] [RAD] Stat Exams 11/08/18 21:40 Ordered AMMONIA [CHEM] Stat Lab 11/08/18 21:42 Ordered BLOOD CULTURE [BLDCUL] Stat Lab 11/08/18 21:42 Ordered BNP [PRO B-NATRIURETIC PEPTIDE] Stat Lab 11/08/18 21:42 Ordered CBC WITH ELECTRONIC DIFF [HEME] Stat Lab 11/08/18 21:42 Ordered COMPREHENSIVE METABOLIC PANEL [CHEM] Stat Lab 11/08/18 21:42 Ordered LACTATE, PLASMA [CHEM] Stat Lab 11/08/18 21:42 Ordered Vancomycin 1 gm/Ns Med 11/08/18 21:39 Active 1 gm in 250 ml IV NOW EKG [EKG] Stat Ther 11/08/18 21:40 Ordered Pt with AMS and hypotension DDX. septic shock, postictal state after possible seizure, Intracranial pathology, cardiogenic shock. pt given 250 cc bolus which improve BP then dropped again. I can't give much fluid due to overload status. I started her on Levophed, vanc and zosyn. CT head didn't show acute pathology. Hospitalist will follow on CT thorax, abd/pelvis. I Monitored pt closely throughout the ER stay Result Diagrams: 11/08/18 21:30 11/09/18 15:28 - REASSESSMENT Reassessment #3 Time Reassessed: 01:05 Status: improving (K down to 6.7) Reassessment #2 Time Reassessed: 02:26 Status: improving (EKG NSR) - EKG 1 Time of EKG reading by physician:: 22:07 EKG Read and Signed by:: Mikhail Anaya EKG Interpretation (*Must complete 3 of following elements*): Abnormal Rate: 66 Rhythm: junctional [place]: left QRS: normal [place] Interval: normal ST Wave: normal Prior EKG Comparison: changes noted 2 Time of EKG reading by physician:: 02:22 EKG Read and Signed by:: Mikhail Anaya EKG Interpretation (*Must complete 3 of following elements*): Normal Rate: 97 Rhythm: NSR [place]: normal QRS: normal MN Interval: normal ST Wave: normal - CT/MRI 1 CT Study: Head ( EXAM: CT HEAD W/O CONTRAST 11/09/2018 HISTORY: AMS TECHNIQUE: This exam was performed using automated exposure control, adjustment of mA or kV according to patient size, and/or use of iterative reconstruction technique. COMMENT: There has been previous left-sided temporal parietal craniotomy. There is encephalomalacia in the adjacent portions of the lateral frontal, anterior temporal and lateral parietal lobe. There is no evidence of bleed mass effect or abnormal extra-axial fluid collection. There is some ex vacuo enla rgement of the left lateral ventricle. There are number of lacunae present in the basal ganglia bilaterally particularly near the caudate nucleus on the left. There is hyperostosis of the calvarium particularly in the frontal and right parietal regions. The appearance of the brain has not changed significantly since the previous study of 11/03/2017. There is some increase in soft tissue swelling posterior lateral to the left occipital region compared to the previous study and there is a subcutaneous fluid collection measuring less than 10 Hounsfield units and measuring 2.8 cm in greatest dimension. The possibility of an abscess, seroma, or hematoma is suggested. The visualized paranasal sinuses are clear. IMPRESSION: Superficial soft tissue fluid collection in the left occipital region and soft tissue swelling, otherwise stable CT of the head. Electronically signed by Juan Pablo Hunter 11/09/2018 7:18 AM) - CONSULTS/PCP/HOSPITALIST Notification #1 *Consult/PCP/Hospitalist*: Dr. Pulliam Time Discussed: 00:00 Consult Disposition: Admit (Dr. Anaya discussed pt w/ Dr. Pulliam. pt K+ is 8.3. recommend Lokelma 10g, insulin 10 units, D50 q4hx3.) #2 Consult: Dr. burnham Time Discussed: 01:20 Consult Disposition: Admit (Dr. burnham will admit pt) Departure - Departure Date of Disposition Decision: 11/09/18 Time of Disposition Decision: :20 DIAGNOSIS: Septic shock, Hyperkalemia, ESRD (end stage renal disease) Altered mental status Qualifiers: Altered mental status type: disorientation Qualified Code(s): R41.0 - Disorientation, unspecified Disposition: ADMITTED INPATIENT 09 Certified Medical Emergency: Emergent Condition: Critical - Critical Care Note This patient required my direct & personal management of CC.: Yes Total Time (mins): 60 Critical Care Statement: This patient required my direct personal management to treat or rule out processes, the absence of which, could potentiallly result in sudden, clinically significant life or limb threatening deterioration. Attestation - Physician/ GERMÁN Attestation Patient care was provided by Advanced Practice Provider:: No The physician spent face to face time with patient:: Yes Advanced Practice Provider documentation review:: Supervising physician onsite and consulted in the evaluation and care of this patient. The physician did have a face to face encounter with the patient. This chart was documented by the indicated scribe, (Blanca Adkins Scribe) and accurately reflects the services I performed and decisions made by me, Mikhail Pritchard MD, as attested by the provider's signature.
[2018-11-10 05:48] LABS: INR 3.95
[2018-11-10 05:54] LABS: BASO# 0.01 X1000 (0.0-0.2); BASO% 0.2 % (0.0-0.8); EOS# 0.13 X1000 (0.0-0.7); HEMATOCRIT 22.3 % (37.0-47.0); IMM GRAN# 0.04 X1000 (0.0-0.04); IMM GRAN% 0.6 % (0.0-0.5); LYMPH% 7.7 % (20.5-51.1); MCH 35.4 PG (27-31); MCHC 31.4 g/dL (33-37); MCV 112.6 FL (81-99); MONO# 0.66 X1000 (0.11-0.59); MONO% 10.2 % (1.7-9.3); MPV 10.8 FL (7.4-10.4); NEUT# 5.16 X1000 (1.4-6.5); NEUT% 79.3 % (42.2-75.2); PLT 53 X1000 (130-400); PROTIME 41.3 Seconds (11.0-16.0); RBC 1.98 XMIL (4.2-5.4); RDW 17.2 % (11.5-14.5)
[2018-11-10] MEDS: SYNTHROID GT SCH (06:04)
[2018-11-10 06:11] LABS: CALCIUM 9.8 mg/dL (8.8-10.2); POTASSIUM 4.8 mmol/L (3.5-5.1)
[2018-11-10 06:27] LABS: EOS 2 % (1-10); LYMPHS 6 % (21-51); MONO 2 % (1-9); SEGS 82 % (42-75)
--- NOTE | 2018-11-10 08:12 | NEPHROLOGY PROGRESS NOTE ---
DATE: 11/10/2018 SUBJECTIVE: She will open her eyes today and look at me but was really nonverbal. OBJECTIVE: Vital Signs: Blood pressure 109/52, heart rate 99, respirations 25, afebrile. General: No acute distress. Skin: Warm and dry. HEENT: Conjunctivae are pink. Neck: Neck veins are not appreciated. Heart: Regular, with metallic heart tones. Lungs: Have equal breath sounds, shallow. No crackles or wheezes. Abdomen: Soft, nontender. Bowel sounds are present. Extremities: Have no edema except the right arm which is diffusely edematous. IMPRESSION: 1. Bacteremia. I will repeat blood cultures this morning. Continue vancomycin. Zosyn has been appropriately discontinued. 2. End-stage renal disease. She underwent her routine dialysis treatment yesterday. She appears euvolemic today. She does have swelling in the right arm but I think this is related to her intravenous line. Intravenous fluids have been discontinued. Electrolytes/acid base in target. 3. Anemia. Hemoglobin 7.0 this morning. May require transfusion with dialysis tomorrow. cc: Adam Fritz MD
[2018-11-10] MEDS: NEURONTIN NG SCH ×2 (09:34→20:21)
[2018-11-10] MEDS ORDERED: RIFAMPIN IV SCH (10:00)
[2018-11-10] MEDS ORDERED: NS IV SCH (10:00)
[2018-11-10] MEDS ORDERED: GENTAMICIN IV PER PHARMACY MISC SCH (10:00)
--- NOTE | 2018-11-10 10:18 | INFECTIOUS DISEASE PROGRESS NO ---
DATE: 11/10/2018 ADDENDUM: The patient does have oral candidiasis and I have ordered to paint the patient's mouth with Mycostatin for that. The patient has a mechanical mitral valve. Therefore, I will be treating her with either with vancomycin or cefazolin depending on the patient's susceptibility to oxacillin, and also she will be getting rifampin 900 mg IV over 24 hours or in divided oral doses when the patient is more alert. Rifampin will be used for at least 6 weeks and vancomycin or Ancef also for at least 6 weeks or more. In addition, gentamicin will be given for the first 2 weeks. cc: Rashid Arnold MD
--- NOTE | 2018-11-10 10:20 | INFECTIOUS DISEASE PROGRESS NO ---
DATE: 11/10/2018 PRESENT ILLNESS: The patient has a Staphylococcus aureus bacteremia. It is uncertain at this time whether it is oxacillin sensitive or if it is methicillin resistant. In any event, I think it originates from her right-sided tunneled dialysis catheter. MEDICATIONS: Currently, the patient is getting vancomycin 1 g IV after each dialysis. PHYSICAL EXAMINATION: Vital Signs: Temperature is 98.8 degrees, pulse 97, respirations 28, blood pressure 121/56. General: This is an ill-appearing middle-aged female. She is in no acute distress. Head, Eyes, Ears, Nose, and Throat: There is no drainage from the nose or ears. I could only get a slight look at her mouth, but it does appear she has got white patches on her tongue suggestive of oral candidiasis. Lungs: Clear to auscultation. Cardiovascular: Heart rate is regular. Abdomen: Soft and nontender. Neurologic: The patient is very lethargic. Occasionally, she would open her eyes, but then she would quickly seem to fall back to sleep. The patient does not have any tremor. Extremities: The patient has failed AV fistulas in her arms. She currently has one in the lower part of the right arm that is functional, but it does not appear to be mature enough to be able to do dialysis through. DIAGNOSTIC STUDIES: The patient's lab for today, her CBC shows a white count of 6500, hemoglobin 7, and platelet count 53,000. Creatinine is 5, GFR is 9. Blood cultures are growing Staphylococcus aureus. Stool for Clostridium difficile toxin and antigen was negative. Blood cultures as mentioned above are growing Staphylococcus aureus. ASSESSMENT AND PLAN: 1. The patient has a Staphylococcus aureus bacteremia. I plan on continuing vancomycin until we know the exact susceptibility of the organism. I discussed the patient with Dr. Fritz, and we both feel the patient's dialysis catheter will need to be removed. Dr. Fritz is going to call Dr. Ferraro for that. 2. The patient does have also on the back of her head on the left side a fluctuant area which to me appears to be an abscess, and we will also ask Dr. Ferraro to look at that to see if it needs to be drained. 3. The patient appears to have oral candidiasis. She is not cooperative enough at this time to be able to do swish and swallow so I am going to ask the patient's nurse to kind of paint her mouth with a sponge with nystatin 4 times a day. cc: Rashid Arnold MD
--- NOTE | 2018-11-10 11:34 | GENERAL SURGERY CONSULTATION ---
DATE: 11/10/2018 REQUESTING PHYSICIAN: Dr. Fritz. REASON FOR CONSULTATION: Removal of tunneled hemodialysis catheter for bacteremia. HISTORY OF PRESENT ILLNESS: A 48-year-old female, well known to me with history of end-stage renal disease, CVA, hypertension, seizure disorder, antiphospholipid antibody and noncompliance, who presented to the emergency department with altered mental status. Most of the history is reviewed from other physician's notes. She came in again with hyperkalemia. It is also noted that she has had gram-positive cocci and she is on antibiotics and she is on Coumadin for mechanical heart valve. I was asked to remove her tunneled hemodialysis catheter and place a temporary Vas-Cath. PAST MEDICAL HISTORY: 1. End-stage renal disease. 2. CVA. 3. Hypertension. 4. Seizure disorder. 5. Antiphospholipid syndrome. 6. Hypothyroidism. 7. Medical noncompliance. PAST SURGICAL: Brain surgery, mitral valve repair, hernia repair, multiple AV repairs, and AV fistula placements, most recent one done in [place], it sounds like 2 months ago. ALLERGIES: Codeine, heparin, and latex. CURRENT MEDICATIONS: Reviewed. Of note, she is on Coumadin. SOCIAL HISTORY: Smoker. FAMILY HISTORY: Reviewed. REVIEW OF SYSTEMS: Difficult to obtain secondary to patient's mental status. PHYSICAL EXAMINATION: Vital Signs: Patient is currently afebrile. Her vital signs are stable. General: Somewhat somnolent female. Looks stated age. HEENT: Normocephalic, atraumatic. Pupils equal, round, reactive to light. Mucous membranes moist. Oropharynx benign. Neck: Supple. Trachea midline. Lungs: Grossly clear. Chest wall: With tunneled hemodialysis catheter noted. Cardiovascular: Regular rate and rhythm. Abdomen: Soft, nontender, nondistended. Extremities: In the right upper extremity, there is a faint thrill in her forearm in the area where she had a previous fistula. Skin: Cutaneous abscess noted without active drainage in the left occipital area. Neurologic: Somewhat somnolent. Vascular: All extremities perfused. LABORATORY DATA: White blood count 6, hematocrit 23, platelet count 53,000. INR is 3.95. Remainder of labs reviewed. ASSESSMENT AND PLAN: A 48-year-old female with bacteremia and current tunneled hemodialysis catheter. 1. Bacteremia. At this time, she is on appropriate antibiotics. Given her dialysis catheter, we will plan on removal if her INR is appropriate in the morning. We will hold her Coumadin. We will plan on placement of a Vas-Cath in her groin for temporary access. 2. End-stage renal disease. At this time, she does have a fistula in her right arm. By report, it has been in for most 2 months. Seems to have flow but unsure if it is maturing appropriately. May need to consider ultrasound down the road.. cc: Will Ferraro MD
--- NOTE | 2018-11-10 11:35 | ECHO REPORT ---
ORDER DATE: 11/09/2018 INDICATION FOR THE STUDY: Evaluate for endocarditis. FINDINGS: 1. The right atrium appears normal in size at 3.2 cm. 2. Trace tricuspid regurgitation. RV systolic pressure of 46. 3. Normal RV size and systolic function. 4. No significant pulmonic insufficiency. 5. Normal left atrial size at 3.2 cm. 6. There is a well-seated mechanical prosthetic in the mitral position. Peak gradient across the valve is 27 with a mean of 11. Previous were 31 and 17, respectively. There is no clear evidence of perivalvular leak. 7. Aortic valve opens well. It is trileaflet. There is some sclerosis, but no clear evidence of significant stenosis, no insufficiency. 8. The aorta appears normal in visualized segments. 9. No pericardial effusion seen. 10. There is no clear evidence of valvular vegetations, but this is an extremely difficult study. 11. There is some evidence for possible gall stones visualized on the subcostal images. I would recommend a targeted imaging modality to evaluate if clinically necessary. cc: MD Rashid Pacheco MD
[2018-11-10] MEDS ORDERED: GENTAMICIN 100 MG/NS 100 MG/100 ML IVPB IV ONE (12:00)
[2018-11-10] MEDS: MYCOSTATIN SUSP PO SCH ×3 (12:38→20:21)
--- NOTE | 2018-11-10 15:04 | PROGRESS NOTE ---
DATE: 11/10/2018 LOCATION: ICU bed 1. SUBJECTIVE: Ms. Reyes is awake, alert, attentive, following commands, answering questions, speaking appropriately. Speech is a little bit feeble and slightly dysarthric, but easily understood. There is not language deficit on brief bedside testing. She moved her limbs symmetrically. I do not believe there has been seizure recognized clinically since admission. Her EEG shows prominent left-sided breach consistent with the craniotomy defect. There is generalized slowing, but no definite epileptiform discharge or other evidence of seizure. I do not have any new thoughts today, nothing to add to impression in initial consult note yesterday. I would be careful with divalproex in a patient with elevated liver enzymes, and be careful with bupropion in a patient with possible tendency to seizure. Thank you for asking Neurology to see Ms. Reyes. cc: Jorge Leong III, MD
--- NOTE | 2018-11-10 16:11 | PROGRESS NOTE ---
DATE: 11/10/2018 SUBJECTIVE: Patient is resting in bed. Not in any obvious distress. OBJECTIVE: Vital signs: Temperature 98.2 degrees, pulse 97, respiratory rate is 18, blood pressure is 118/55, oxygen saturation is 97%. HEENT: Patient is atraumatic, normocephalic. She is anicteric. Pupils are equal and reactive to light. No significant oral lesions noted. Neck: No lymphadenopathy or thyromegaly. Cardiovascular system: S1, S2. Respiratory system: Has evidence of good air entry bilaterally. Abdomen: Soft, nontender. No masses felt. Extremities: No evidence of edema. Central nervous system: No obvious focal deficit noted. LABORATORY DATA: WBC 6.5, hematocrit 22.3. With a platelet count of 53,000. INR is 3.95. Sodium is 137, potassium 4.8, chloride is 98, bicarb 23, BUN is 35, creatinine is 5.0. ASSESSMENT AND PLAN: 1. Septic shock. Blood cultures show Gram positive cocci. Continue antibiotics as recommended by ID. Follow up on culture reports. Continue intravenous fluids. Use pressors if needed. 2. History of mechanical heart valve, on anticoagulation. The patient's INR today is 3.95. We will hold Coumadin dose tonight and recheck INR tomorrow. 3. End-stage renal disease. Nephrology team following. 4. History of antiphospholipid syndrome. Aware. 5. History of seizure disorder. Continue current antiepileptic agent. 6. Anemia. Check iron studies, B12, folate level, and stool for occult blood. Transfuse PRBCs. Keep hematocrit above 25. 7. Thrombocytopenia. Etiology not clear. May be related to medication effect. Avoid any offending drugs that may be causing thrombocytopenia. Check antiplatelet antibody. Follow up on platelet count. 8. Deep vein thrombosis prophylaxis. Patient is an Coumadin. 9. Gastrointestinal prophylaxis. PPI. cc: Juventino Rowley MD
[2018-11-10] MEDS: NS IV SCH (17:18)
[2018-11-10] MEDS: RIFAMPIN IV SCH (17:18)
[2018-11-10] MEDS: DEPAKOTE SPRINKLE NG SCH (20:21)
[2018-11-10] MEDS: COUMADIN GT SCH (20:24)
[2018-11-11] MEDS ORDERED: GENTAMICIN 80 MG/NS 80 MG/50 ML IVPB IV SCH (06:15)
[2018-11-11] MEDS ORDERED: TIGHT: 0.2 ML/HR FOR DIALYSIS MISC PRN (06:22)
[2018-11-11] MEDS ORDERED: NS 2,000 ML MISC PRN (06:22)
[2018-11-11] MEDS ORDERED: HEPARIN IV PRN (06:22)
--- NOTE | 2018-11-11 06:37 | GENERAL SURGERY PROGRESS NOTE ---
DATE: 11/11/2018 SUBJECTIVE: Patient doing about the same. Discussed with the nursing staff, no major events. Discussed the case also with Dr. Fritz. The patient does have mechanical heart valve and has bacteremia that has been somewhat persistent. OBJECTIVE: Vital Signs: Patient is currently afebrile. Her vital signs are stable. General: No acute distress, resting. Chest: Tunneled catheter looks okay. Cardiovascular: Regular rate and rhythm. Lungs: Grossly clear. Abdomen: Soft, nontender, nondistended. ASSESSMENT AND PLAN: A 48-year-old female with end-stage renal disease, bacteremia. Bacteremia. At this time she is on appropriate antibiotics. She does have a dialysis catheter. I think, given her mechanical heart valve and her overall condition, even though she is probably coagulopathic from her Coumadin, we probably still need to proceed with placing a new catheter in and remove her old, is putting her mechanical heart valve at risk. We will plan on doing this, may need to consider giving platelets, but we will follow up with a.m. labs. I discussed this with Dr. Fritz. cc: Will Ferraro MD
[2018-11-11 07:14] LABS: HEMOGLOBIN 6.5 g/dL (12.0-16.0); MCH 34.4 PG (27-31); MCV 111.1 FL (81-99); PROTIME 49.6 Seconds (11.0-16.0); RBC 1.89 XMIL (4.2-5.4); RDW 16.5 % (11.5-14.5); WBC 4.47 X1000 (4.8-10.8)
[2018-11-11 07:15] LABS: INR 4.99
[2018-11-11 07:19] LABS: ALBUMIN 2.5 g/dL (3.5-5.0); CALCIUM 9.6 mg/dL (8.8-10.2); CREATININE 6.9 mg/dL (0.5-0.9); PHOSPHORUS 5.3 mg/dL (2.7-4.5); POTASSIUM 4.7 mmol/L (3.5-5.1)
[2018-11-11] MEDS: SYNTHROID GT SCH (07:24)
--- NOTE | 2018-11-11 08:30 | EEG REPORT ---
DATE: 11/09/2018 COMMENT: This is a digitally recorded EEG done portably in the ICU on a 48-year-old patient with apparent altered awareness, possible previous seizure history. FINDINGS: There is prominent left hemisphere breach rhythm. EEG contains symmetric polymorphic and rhythmic theta across the frontal and central regions bilaterally. There is slowing into the delta range more prominent on the left. Sustained posterior dominant rhythm was not identified bilaterally. No definite epileptiform discharge was identified. Photic stimulation did not significantly alter the record. Drowsing occurred briefly. Stage 2 sleep was not recorded. INTERPRETATION: Abnormal EEG because of generalized slowing. CORRELATION: This is indicative of a diffuse encephalopathy and is nonspecific. There is more prominent slowing over the left hemisphere consistent with the known prior left hemisphere injury. The absence of epileptiform discharges on a single EEG does not exclude the clinical diagnosis of seizures, but there is nothing on this record to suggest seizure as the reason for her poor responsiveness. Breach rhythm is typical following craniotomy. cc: Jorge Leong III, MD MTDD
[2018-11-11] MEDS: NEURONTIN NG SCH ×2 (09:04→22:00)
[2018-11-11] MEDS: MYCOSTATIN SUSP PO SCH ×4 (09:04→22:00)
[2018-11-11] MEDS ORDERED: LABETALOL IV PRN (11:58)
--- NOTE | 2018-11-11 12:21 | INFECTIOUS DISEASE PROGRESS NO ---
DATE: 11/11/2018 PRESENT ILLNESS: The patient has Staph aureus bacteremia. It is oxacillin sensitive. Unfortunately, the patient has a mechanical mitral valve and thus I think it is quite possible that the patient's valve may have become infected and have endocarditis. MEDICATIONS: The patient is getting vancomycin, gentamicin, and rifampin. Day #1 of treatment will be the first day that the patient's blood cultures are negative. PHYSICAL EXAMINATION: Vital Signs: Temperature is 97.8 degrees, pulse is 89, respirations 18, blood pressure is 178/71. General: This is a obese, middle-aged female. She seems to be in a delirium. Head, eyes, ears, nose and throat: There is no drainage from the nose or ears. I did not get a good look at her mouth. The patient does have a fluctuant area in the posterior left side of her skull which I think could be an abscess. Neck: Supple. Lungs: Clear to auscultation. Cardiovascular: Heart rate is regular. I did not hear a murmur. Abdomen: Soft and nontender. Extremities: In the right upper extremity, the patient has an AV fistula which is functional but it is not fully mature yet. Thorax: The patient has tunneled dialysis catheter on the right side and the catheter site is not erythematous or purulent. Neurologic: The patient appears to be delirious. She thrashes around in bed and appears to be able to move her arms and legs. She does not respond to oral stimuli. LAB AND X-RAY: CBC today shows a white count of 4470, hemoglobin 6.5, platelet count 43,000. Creatinine 6.9. GFR is 6. The patient's blood culture is positive for an oxacillin sensitive Staph aureus. The patient had a transthoracic echocardiogram, no valvular vegetation was noted. ASSESSMENT AND PLAN: The patient has a Staphylococcus aureus bacteremia. I think it could have originated from her dialysis catheter. I think there is a strong possibility that the patient may have developed mitral valve endocarditis because the valve is a mechanical valve and the patient became bacteremic. My plan is to treat the patient as if she had prosthetic mitral valve Staph aureus endocarditis. I have discontinued vancomycin and placed the patient on nafcillin. The treatment with nafcillin and rifampin would be for atleast 6 weeks and with gentamicin, the treatment would be for 2 weeks and for all 3 of the agents, day #1 will be the first day that the repeat blood cultures are sterile. The patient also has a possible abscess on the back of her skull. Dr. Ferraro is following this. Patient also has oral candidiasis and I plan on using Mycostatin as best we can. At this time, she will have to have a mouth painted with Mycostatin because she is not alert enough to do swish and swallow. I would like to do a transesophageal echocardiogram when the patient is more alert and cooperative. I am going to go ahead and tomorrow morning repeat the patient's blood cultures. cc: Rashid Arnold MD MTDD
--- NOTE | 2018-11-11 12:26 | PROGRESS NOTE ---
DATE: 11/11/2018 SUBJECTIVE: Patient is resting in bed. OBJECTIVE: Vital Signs: Temperature 97.9 degrees, pulse 95, respiratory rate is 18, blood pressure is 193/84, oxygen saturation is 97%. HEENT: Atraumatic, normocephalic. Cardiovascular System: S1 and S2. Respiratory System: Has evidence of good air entry bilaterally. Abdomen: Soft, nontender. No masses felt. Extremities: No evidence of significant edema. Central Nervous System: No obvious focal deficits noted. Labs: WBC is 4.47, hematocrit 21, with a platelet count of 43,000. INR is 4.99. Sodium is 141, potassium is 3.7, chloride is 100, bicarbonate 25, BUN is 58, creatinine is 6.9. ASSESSMENT AND PLAN: 1. Septic shock. Blood culture is positive for methicillin-sensitive Staphylococcus aureus. Continue antibiotics as recommended by infectious disease. Continue intravenous fluids as well as pressors as needed. 2. History of mechanical heart valve, on anticoagulation. The patient's INR is markedly elevated. We will continue to hold Coumadin and agree with giving the patient 3 units of fresh frozen plasma, and following up on the patient's PT and INR. 3. Thrombocytopenia. Follow up on platelet count. Avoid offending drugs that may cause thrombocytopenia. Follow up on antiplatelet antibody. 4. End-stage renal disease. Nephrology following. 5. History of antiphospholipid syndrome. Aware. 6. History of seizure disorder. Continue antiepileptic agent. 7. Anemia. We will transfuse 1 unit of packed red blood cells. 8. Deep vein thrombosis prophylaxis. Sequential compression devices. 9. Gastrointestinal prophylaxis. Proton pump inhibitor. cc: MD NA Hernandez
[2018-11-11] MEDS: CATAPRES-TTS-3 TD SCH (12:44)
[2018-11-11] MEDS ORDERED: NS 250 ML ONE ×2 (13:22→14:12)
[2018-11-11 13:55] LABS: INR 2.56; PROTIME 29.3 Seconds (11.0-16.0)
[2018-11-11] MEDS ORDERED: MARCAINE 0.25% PF/EPI 1:200,000 ONE (14:12)
[2018-11-11] MEDS ORDERED: DIPRIVAN 1% ONE ×2 (14:13→14:15)
[2018-11-11] MEDS: NAFCIL 2 GM in NS 100 ML IV SCH ×2 (15:56→22:01)
[2018-11-11] MEDS ORDERED: GENTAMICIN 80 MG/NS 80 MG/50 ML IVPB IV ONE (17:00)
--- NOTE | 2018-11-11 17:45 | NEPHROLOGY PROGRESS NOTE ---
DATE: 11/11/2018 SUBJECTIVE: She is more alert but still did not answer my questions. Repeat blood cultures are positive. OBJECTIVE: Vital Signs: Blood pressure 178/78, heart rate 93, respirations 22, afebrile. General: No acute distress. Skin: Warm and dry. Neck: Neck veins are not appreciated. Heart: Regular with metallic heart tones and a soft murmur. Lungs: Have equal breath sounds. No crackles. Abdomen: Soft, nontender. Bowel sounds present. Extremities: There is 2+ edema. No clubbing or cyanosis. IMPRESSION: Chronic kidney disease 5D. Dr. Ferraro will take her to the operating room and remove her tunneled catheter and place a femoral Vas-Cath. He will correct her anticoagulation with FFP and then she will require reinitiation of anticoagulation thereafter. Her electrolytes and acid-base are in target. Antibiotics have been adjusted appropriately by Dr. Arnold. cc: Adam Fritz MD [facility]
[2018-11-11] MEDS ORDERED: VANCOMYCIN 1 GM/NS 1 GM/250 ML IVPB IV ONE (18:00)
--- NOTE | 2018-11-11 19:06 | OPERATIVE NOTE ---
PROCEDURE DATE: 11/11/2018 PREOPERATIVE DIAGNOSES: 1. Bacteremia. 2. Possible infected hemodialysis catheter. POSTOPERATIVE DIAGNOSES: 1. Bacteremia. 2. Infected hemodialysis catheter. PROCEDURE: 1. Ultrasound-guided right common femoral Vas-Cath placement. 2. Removal of infected tunneled hemodialysis catheter in the right internal jugular vein. SURGEON: Will Ferraro MD YOUTH SUPPORT WORKER: None. ANESTHESIA: General endotracheal. INTRAOPERATIVE FINDINGS: Ultrasound showed good caliber of right common femoral vein. Findings were noted to have pus along the tract of the entire tunneled hemodialysis catheter. COMPLICATIONS: None at the time of this dictation. ESTIMATED BLOOD LOSS: 10 mL SPECIMENS: Removed catheter and cultures of the area. BRIEF HISTORY: A 48-year-old female well known to me, with endstage renal disease. She came in with altered mental status and bacteremia. It was felt that she would benefit from catheter removal and placement of a new catheter. The risks, benefits and alternatives were discussed. All questions were answered. Consent was obtained. DESCRIPTION OF PROCEDURE: After informed consent was obtained, the patient was brought to the operating theatre and transferred to the operating table and placed in supine position. General endotracheal anesthesia was then performed without complication. A formal time-out was then performed confirming patient and procedure. All were in agreement. At that time, attention was turned to the right groin. We prepped and draped this area in a sterile fashion. After the formal time-out, we used ultrasound to identify the right common femoral vein. Under local anesthetic, I was able to cannulate the right common femoral vein. I passed a wire going to the common femoral vein. Using the Seldinger technique, I was able to dilate the tract to place a Vas- Cath in the groin. We secured it in place. All ports aspirated and flushed easily. We then turned our attention to the right neck. We prepped and draped in a sterile fashion. We used local anesthetic to anesthetize the perioperative field. Using a slight amount of blunt dissection, we were able to free the cuff. While we were doing this, we held pressure in the neck. We removed it and as we were removing it, purulence along the whole tract came out, too. We expressed as much as we could. We got cultures from both the tract itself and from the tip of the catheter. We then held pressure for 10 minutes. The patient tolerated the procedure well and was transferred back to the ICU. cc: Will Ferraro MD
[2018-11-11] MEDS: COUMADIN GT SCH (21:42)
[2018-11-11] MEDS: MORPHINE IV PRN (21:59)
[2018-11-11] MEDS: DEPAKOTE SPRINKLE NG SCH (22:00)
[2018-11-11] MEDS: RIFAMPIN IV SCH (23:11)
[2018-11-11] MEDS: NS IV SCH (23:11)
[2018-11-12] MEDS: NAFCIL 2 GM in NS 100 ML IV SCH ×6 (01:41→21:25)
[2018-11-12] MEDS: SYNTHROID GT SCH (06:02)
[2018-11-12 06:25] LABS: HEMATOCRIT 20.8 % (37.0-47.0); HEMOGLOBIN 6.5 g/dL (12.0-16.0); MCH 35.1 PG (27-31); MCHC 31.3 g/dL (33-37); MCV 112.4 FL (81-99); MPV 10.6 FL (7.4-10.4); RBC 1.85 XMIL (4.2-5.4); RDW 17.6 % (11.5-14.5); WBC 2.95 X1000 (4.8-10.8)
[2018-11-12 06:59] LABS: ALBUMIN 2.7 g/dL (3.5-5.0); CALCIUM 9.1 mg/dL (8.8-10.2); CREATININE 4.8 mg/dL (0.5-0.9); PHOSPHORUS 3.7 mg/dL (2.7-4.5); POTASSIUM 3.9 mmol/L (3.5-5.1)
[2018-11-12 07:25] LABS: INR 3.86; PROTIME 40.6 Seconds (11.0-16.0); PTT 88.3 Seconds (22.3-41.8)
[2018-11-12] MEDS: MYCOSTATIN SUSP PO SCH ×4 (08:29→20:04)
[2018-11-12] MEDS: NEURONTIN PO SCH ×2 (08:29→20:04)
[2018-11-12] MEDS: TYLENOL PO PRN (08:47)
--- NOTE | 2018-11-12 09:20 | GENERAL SURGERY PROGRESS NOTE ---
DATE: 11/12/2018 Purulence was encountered when we removed her catheter. I discussed the case with Dr. Rashid Arnold with Infectious Disease. There is a concern that her mitral valve may be exposed to this and I think she probably needs a transesophageal echocardiogram to evaluate this further. She may need to be considered for transfer to [facility] where she had her mitral valve placed. At this point she has an IV in her right groin for dialysis temporary access. I would not like to place another tunneled catheter until we have cleared her bacteremia and addressed the potential for her mitral valve. I do not think that her fistula in her upper extremity has fully matured yet, but that may also be a consideration to potentially use. I will follow peripherally. cc: Will Ferraro MD
--- NOTE | 2018-11-12 09:30 | INFECTIOUS DISEASE PROGRESS NO ---
DATE: 11/12/2018 PRESENT ILLNESS: The patient has an oxacillin-sensitive Staphylococcus aureus bacteremia. I am very concerned that the patient's mechanical mitral valve may be involved as well and, thus, she would be having an endocarditis. Yesterday, at surgery, when Dr. Ferraro removed the patient's dialysis catheter, he noted that pus came out of the tract where the dialysis catheter was and on Gram stain, gram-positive cocci are seen. I strongly suspect that the organism will be identified as the oxacillin-sensitive Staphylococcus aureus that is in the blood. The patient also has oral candidiasis. MEDICATIONS: The patient is on a combination of nafcillin, gentamicin, and rifampin. I have ordered Mycostatin swish and swallow for her. PHYSICAL EXAMINATION: Vital Signs: Temperature is 98.2 degrees, pulse 92, respirations 20, blood pressure 140/63. General: This is an obese, middle-aged female. Today, she is wide awake and coherent. Head, Eyes, Ears, Nose, and Throat: She can hear my spoken words and see near objects. She does not have any white coating on her tongue. Neck: She does not have any pain in her neck when she moves her head. Lungs: Clear to auscultation. Cardiovascular: Heart rate is regular. Abdomen: Soft and nontender. Thorax: The patient's tunneled dialysis site has a dressing over it. The chest area did not seem swollen though but it was tender. Neurologic: The patient is alert. She can move her extremities. There is no tremor. Extremities: The patient has a Trialysis catheter in her right groin and a maturing AV fistula in her right arm LAB AND X-RAY: As mentioned above, the Gram stain of the purulent material Dr. Ferraro found yesterday in the patient's dialysis track showed gram-positive cocci. As of yet for today, there is no CBC or BMP. Also, for today, there is no radiographic study that has currently been done. ASSESSMENT AND PLAN: The patient has an oxacillin-sensitive Staphylococcus aureus bacteremia which I think originated from an infected right chest tunneled dialysis catheter. Unfortunately, I think it is very likely that the patient has her mechanical valve infected and, thus, she would be having endocarditis. My plan is to continue treatment with nafcillin and rifampin for 6 weeks and gentamicin for 2 weeks. I have ordered a transesophageal echocardiogram and if the mechanical valve shows a vegetation, then I think we should transfer the patient to [facility] because that is where she had her mechanical valve put in. COMORBIDITIES: She has end-stage renal disease. She also has been noncompliant. ADDENDUM: The patient's platelet count is very low. Hematology has been consulted. cc: Rashid Arnold MD MTDD
[2018-11-12] MEDS ORDERED: NS 250 ML IV SCH (11:30)
--- NOTE | 2018-11-12 13:19 | NEPHROLOGY PROGRESS NOTE ---
DATE: 11/12/2018 SUBJECTIVE: She is much more alert today. Denies pain, shortness of breath, nausea, vomiting, etc. OBJECTIVE: Vital Signs: Blood pressure 167/65, heart rate 88, respirations 19, temperature 100.6 degrees. General: No acute distress. Skin: Warm and dry. Neck: Neck veins are not appreciated. Heart: Regular with metallic heart tones. Lungs: Equal. No crackles. Abdomen: Soft, nontender. Bowel sounds present. Extremities: No edema, clubbing, or cyanosis. IMPRESSION: 1. Staphylococcus aureus bacteremia, oxacillin-sensitive. Appreciate Dr. Arnold and Dr. Ferraro's input. She is dialyzing with a femoral catheter. 2. End-stage renal disease. She had her routine dialysis yesterday. 3. Electrolytes/acid base in target. 4. Hemoglobin 6.5. She will need another transfusion today. cc: Adam Fritz MD
--- NOTE | 2018-11-12 15:02 | PROGRESS NOTE ---
DATE: 11/12/2018 LOCATION: ICU bed 1. SUBJECTIVE: Ms. Reyes is awake, alert, attentive. She is much more spontaneous and appropriate in conversation with me today. She denies headache. She is hungry. OBJECTIVE: On exam, she has equal power distally in the arms and legs. She has some discomfort at the shoulders, maybe a little bit more on the right, but no definite motor deficit there. Extraocular movements are full. Facial motility is symmetric. Tongue is midline. Voice is strong. PLAN: No new thoughts from Neurology. I do not think seizure has been responsible for any of her recent problems. I reviewed her history of left craniotomy. She cannot provide details at this time. She has been seen in our office since 2009, and she was not able to provide a detailed account of craniotomy then. There was reported history of prior stroke event, but not clear whether these were ischemic or hemorrhagic. Thank you for asking Neurology to see Ms. Reyes. cc: Jorge Leong III, MD
--- NOTE | 2018-11-12 15:07 | CARDIOLOGY CONSULTATION ---
DATE: 11/12/2018 REASON FOR CONSULTATION: Cardiology was consulted for performing a transesophageal echocardiogram. Patient has a mechanical mitral valve replacement. HISTORY OF PRESENT ILLNESS: A 48-year-old lady who has renal failure, end-stage on dialysis, seizure disorder, antiphospholipid syndrome, presented to the emergency room with complaints of altered mental status. Patient when she was admitted had altered mental status, and currently she has improved significantly. She has end-stage renal disease on dialysis, has had multiple catheter placements for dialysis. She also has oxacillin-sensitive Staphylococcus aureus bacteremia. Yesterday Dr. Ferraro removed the patient's dialysis catheter. He noted that pus came out of the tract where the dialysis catheter was, and on Gram stain, gram-positive cocci were noted. Patient also has oral candidiasis. She has a shunt in her right forearm. Her left arm shunt is not functioning. She has had multiple catheter placements for hemodialysis. Currently she has a femoral line for her dialysis. She underwent dialysis x2 in that line. She also received a unit of blood transfusion and has had a total of 2 blood transfusions and 1 platelet pheresis and 3 fresh frozen plasma. From a cardiac standpoint, she has had a mechanical mitral valve replaced in the past. She has an extensive other cardiac history as listed below. From a cardiac standpoint, does not complain of any chest pains or palpitations. REVIEW OF SYSTEM: A 14-point review of systems was done. Gastrointestinal System: There is no history of nausea. There is no history of hematemesis or melena. Central Nervous System: She was admitted with altered mental status. No new focal weakness to suggest a CVA or TIA. Genitourinary System: There is no dysuria. There is no history of cough or hemoptysis. PAST MEDICAL HISTORY: 1. Mechanical mitral valve placement, [address] [employer] Donald[employer] device, through minimally invasive right thoracotomy on 03/01/2010 at [facility]. 2. Anticardiolipin antibody syndrome with demise and hypercoagulable state in the past. 3. Cardiac catheterization in 2009. No significant coronary artery disease. Again at [facility]. 4. Hypertension. 5. Chronic renal failure. 6. Has had multiple CVAs, status post a left external to internal carotid grafting and omental graft to the left side via craniotomy. This was in the past when she was in [place]. 7. Seizure disorder. 8. Tobacco abuse. 9. Gaston intolerance. ALLERGIES: Codeine and latex. CURRENT MEDICATIONS: Include: 1. Clonidine TTS patch. 2. Depakote 250 mg. 1. Gabapentin 100 mg p.o. twice a day. 2. Gentamicin. 3. Labetalol p.r.n. 4. Levothyroxine 100 mcg. 5. Morphine sulfate as needed. 6. Nafcillin. 7. Nystatin suspension. 8. Coumadin 4 mg. 9. Rifampin 900 mg. PHYSICAL EXAMINATION: On examination, blood pressure was 123/68. First and second heart sounds and mechanical valve sounds audible. Respiratory System: Distant breath sounds. Normal air entry. Abdomen was soft, nontender. There was no guarding or rigidity. Bowel sounds were heard. Central nervous system: Alert, was moving all 4 extremities. Detailed central nervous system examination not performed. LABORATORY EXAMINATION: Sodium 141, potassium 3.9, BUN 48, creatinine 4.8, glucose 135. TSH 2.92. WBC 2.95, hemoglobin 6.5, hematocrit 20.8, platelet count of 30,000. INR 3.86. ASSESSMENT: Ms Izabela Reyes is a 48-year-old lady who has mechanical mitral valve replacement, anticardiolipin syndrome, multiple cerebrovascular accidents in the past, seizure disorder, hypertension, who is admitted with altered mental status and has end-stage renal disease, has had multiple catheters placed for dialysis. She has a shunt in the right forearm, recently placed. She had a dialysis catheter removed, which had significant past with Staphylococcus aureus, oxacillin sensitive, noted. She has bacteremia. PLAN: 1. We will plan for a transesophageal echocardiogram in the morning to evaluate her valvular function. 2. She has had elevated PT/INR and severe anemia with thrombocytopenia status post fresh frozen plasma, platelet transfusion, and blood transfusion. She is going to have a CBC checked again and will be transfused if required. 3. She has a mechanical valve for which she is on Coumadin. I have not made any changes. 4. Seizure disorder. She is on valproate. I have not made any changes. 5. End-stage renal disease, on dialysis. Continue management as planned. cc: Ruddy Patel MD
[2018-11-12 15:59] LABS: RETIC% 0.98 % (0.8-2.1)
[2018-11-12 16:31] LABS: D-DIMER 6.6 ug/mLFEU (0.0-0.52)
[2018-11-12 17:05] LABS: HEMATOCRIT 27.1 % (37.0-47.0); HEMOGLOBIN 8.6 g/dL (12.0-16.0); MCHC 31.7 g/dL (33-37); MCV 107.1 FL (81-99); MPV 10.3 FL (7.4-10.4); RBC 2.53 XMIL (4.2-5.4); RDW 19.9 % (11.5-14.5); WBC 3.54 X1000 (4.8-10.8)
[2018-11-12] MEDS: RIFAMPIN IV SCH (17:30)
[2018-11-12] MEDS: NS IV SCH (17:30)
--- NOTE | 2018-11-12 17:54 | PROGRESS NOTE ---
DATE: 11/12/2018 SUBJECTIVE: The patient is resting in bed. Sensorium is much improved today. OBJECTIVE: Vital signs: Temperature 99.5 degrees, pulse 84, respiratory rate 19, blood pressure is 115/68, oxygen saturation is 94%. HEENT: Atraumatic, normocephalic. Cardiovascular system: S1, S2. Respiratory system: Has evidence of good air entry bilaterally. Abdomen: Soft, nontender. No masses felt. Extremities: No evidence of edema. Central nervous system: No obvious focal deficits noted. LABORATORY DATA: WBC is 2.95, hematocrit is 20.8, with a platelet count of 30,000. INR is 3.86. Sodium is 141, potassium 3.9, chloride is 100, bicarb 27, BUN is 42, creatinine is 4.8. ASSESSMENT AND PLAN: 1. Methicillin-sensitive Staphylococcus aureus bacteremia. Continue antibiotics per recommendation of ID. Note, plans for transesophageal echo to evaluate for endocarditis. 2. History of mechanical heart valve, on anticoagulation. INR is elevated today. We will hold off on Coumadin. 3. Pancytopenia. May be secondary to sepsis. Transfuse blood products as needed. Hematology consulted. 4. End-stage renal disease. Nephrology following. 5. History of antiphospholipid syndrome. Aware. 6. Seizure disorder. Continue antiepileptic agent. 7. Deep vein thrombosis prophylaxis. SCD. 8. Gastrointestinal prophylaxis. PPI. cc: Juventino Rowley MD
--- NOTE | 2018-11-12 18:16 | HEMO/ONC CONSULTATION ---
DATE: 11/12/2018 REASON FOR CONSULTATION: We have been consulted on patient regarding Pancytopenia. HISTORY OF PRESENT ILLNESS: This is a 48-year-old female who is not known to our office with a history of end-stage renal disease, CVA, hypertension, seizure disorder, antiphospholipid antibody, and history of noncompliance. She presented to the emergency room in a state of altered mental status. Most of her history was obtained from the chart and family members. She was admitted with sepsis and placed in the ICU. PAST MEDICAL HISTORY: End-stage renal disease dialysis on Friday, Friday, Friday, CVA, hypertension, seizure disorder, antiphospholipid antibody syndrome, hypothyroidism, noncompliance. PAST SURGICAL HISTORY: Brain surgery, mitral valve surgery, hernia repair, AV fistula left upper extremity. ALLERGIES: Codeine, heparin, latex. HOME MEDICATIONS: Xanax, Abilify, Lipitor, Wellbutrin, Depakote, gabapentin, levothyroxine, losartan, Protonix, Seroquel, and Coumadin. SOCIAL HISTORY: A [id number] history of smoking. Social alcohol use. No illicit drug use. REVIEW OF SYSTEMS: See HPI. PHYSICAL EXAMINATION: Vital Signs: Temperature 100.6 degrees, pulse rate 89, respiratory rate 24, blood pressure 144/59, O2 saturation 94% on 2 L via nasal cannula. Pain: 0/10. General: Chronically ill-appearing jaundiced female in no acute distress. Moderately altered. Respiratory: Bilateral air entry clear to auscultation. Cardiovascular: S1, S2 noted. Regular rate and rhythm. Abdomen: Protuberant, soft, nondistended. Nontender. Positive bowel sounds. Extremities: Trace edema. Neurologic: The patient is somewhat confused. She does answer simple direct questions. Skin: Warm, dry, jaundiced. DIAGNOSTIC STUDIES: WBC 2.95, RBCs 1.85, hemoglobin 6.5, hematocrit 20.8, platelet count 30,000. PT 40.6, INR 3.86, PTT 88.3. Creatinine 4.8, bilirubin 3.7, albumin 2.7. ASSESSMENT: 1. Septic shock. 2. History of mechanical heart valve. On anticoagulation. 3. Thrombocytopenia. 4. End-stage renal disease. 5. History of antiphospholipid syndrome. 6. Seizure disorder. 7. Anemia. 8. Deep venous thrombosis prophylaxis. PLAN: It is understood that her dialysis catheter was the potential cause of her sepsis. Surgery states that it was purulent and that her mechanical heart valve could be at risk. Continue current antibiotic therapy and sepsis support measures. We will check labs to evaluate her pancytopenia. We recommend supporting her with transfusions as needed with PRBC and platelets. We will continue to monitor. Dictated by JAVIER De La Fuente for Gabriel Sánchez MD Patient seen and examined. As above. She was admitted with sepsis. Blood cultures have grown staph aureus, methicillin sensitive. Reportedly she has a history of antiphospholipid antibody syndrome. We have been consulted for pancytopenia. At admission she had leukocytosis with anemia and thrombocytopenia. During her hospitalization she has developed leukopenia, worsening anemia and thrombocytopenia. We will check labs today to evaluate her pancytopenia, including B12, folate, LDH, reticulocyte count, DIC profile and review her blood smear. Transfuse PRBCs and platelets as needed to support. She has a mechanical valve and continues on Coumadin and further management of this per hospitalist/cardiology. Transfuse platelets if bleeding or keep her platelets closely to 40,000-50,000 in light of her anticoagulation. I will follow with you. Gabriel Sánchez M.D. cc: Gabriel Sánchez MD [facility]il[facility]
[2018-11-12] MEDS ORDERED: CALMOSEPTINE OINTMENT TOP PRN (18:50)
[2018-11-12] MEDS: DEPAKOTE SPRINKLE NG SCH (20:04)
[2018-11-12] MEDS: MORPHINE IV PRN (21:25)
[2018-11-13] MEDS: NAFCIL 2 GM in NS 100 ML IV SCH ×6 (02:44→21:38)
[2018-11-13 05:47] LABS: HEMATOCRIT 22.5 % (37.0-47.0); HEMOGLOBIN 7.3 g/dL (12.0-16.0); MCH 34.3 PG (27-31); MCHC 32.4 g/dL (33-37); MCV 105.6 FL (81-99); RBC 2.13 XMIL (4.2-5.4); WBC 3.78 X1000 (4.8-10.8)
[2018-11-13] MEDS ORDERED: NS 2,000 ML MISC PRN (05:48)
[2018-11-13 05:50] LABS: ALBUMIN 2.4 g/dL (3.5-5.0); CALCIUM 8.5 mg/dL (8.8-10.2); CREATININE 6.3 mg/dL (0.5-0.9); PHOSPHORUS 4.4 mg/dL (2.7-4.5); POTASSIUM 4.4 mmol/L (3.5-5.1)
[2018-11-13] MEDS: SYNTHROID GT SCH (06:02)
[2018-11-13] MEDS: MORPHINE IV PRN ×5 (06:11→21:39)
[2018-11-13] MEDS ORDERED: NS 250 ML ONE (06:35)
[2018-11-13] MEDS: NEURONTIN PO SCH ×2 (08:08→21:38)
[2018-11-13] MEDS: MYCOSTATIN SUSP PO SCH ×4 (08:08→21:38)
--- NOTE | 2018-11-13 12:42 | NEPHROLOGY PROGRESS NOTE ---
DATE: 11/13/2018 SUBJECTIVE: She is awake, alert. No pain, shortness of breath, etc. OBJECTIVE: Vital Signs: Blood pressure 124/63, heart rate 82, respiration 11, afebrile. General: No acute distress. Skin: Warm and dry. Neck: Neck veins are not distended. Heart: Regular with metallic heart tones. Lungs: Equal. No crackles. Abdomen: Soft, nontender. Bowel sounds present. Extremities: No edema, clubbing or cyanosis. IMPRESSION: Chronic kidney disease 5D. Today is her routine dialysis today. Two K bath 2 to 3 L ultrafiltration. Her hemoglobin is 7.3 today. May require another transfusion. Continue antibiotics. cc: Adam Fritz MD
[2018-11-13 13:19] LABS: INR 6.33; PROTIME 59.9 Seconds (11.0-16.0)
--- NOTE | 2018-11-13 14:35 | CARDIOLOGY PROGRESS NOTE ---
DATE: 11/13/2018 SUBJECTIVE: The patient resting in bed. Does not complain of any chest pain. There are no palpitations. PHYSICAL EXAMINATION: Vital Signs: Blood pressure was 118/54. Cardiovascular: Mechanical prosthetic valve sounds were noted. Respiratory: Distant breath sounds. Abdomen: Soft, nontender. There was no guarding or rigidity. Bowel sounds were heard. Central nervous system: Alert, was moving all 4 extremities. The patient was afebrile. MEDICATION LIST: 1. Clonidine TTS patch. 2. Depakote. 3. Gabapentin. 4. Gentamicin IV. 5. Levothyroxine. 6. Morphine sulfate as needed. 7. Nafcillin. 8. Rifampin. 9. Mycostatin suspension. 10. Coumadin as directed. LABORATORY EXAMINATION: Revealed sodium 132, potassium 4.4, BUN 60, creatinine 6.3. Hemoglobin 7.3 hematocrit 22. Platelet count 41,000. INR 6.33. PROBLEM LIST: 1. The patient has mechanical mitral valve. Given her elevated INR to 6.3, she is going to receive fresh frozen plasma. We will plan to do the transesophageal echocardiogram on Friday to evaluate and rule out endocarditis. 2. She has had methicillin sensitive Staph aureus bacteremia and her dialysis catheter had significant pus pouring out from the site. She is on adequate antibiotics. I have not made any changes. 3. Prior to her transesophageal echocardiogram on Friday, we will recheck her PT/INR and blood work. 4. She has had anemia with thrombocytopenia and has been transfused with platelets as well as packed red blood cells. I would recommend continuing all current medications. cc: Ruddy Patel MD
--- NOTE | 2018-11-13 14:37 | PROGRESS NOTE ---
DATE: 11/13/2018 SUBJECTIVE: Patient resting in bed. Not in any obvious distress. OBJECTIVE: Vital signs: Temperature 99 degrees, pulse is 82, respiratory rate is 24, blood pressure is 113/71, oxygen saturation is 95. HEENT: Atraumatic, normocephalic. Cardiovascular System: S1, S2. Respiratory system has evidence of good air entry bilaterally. Abdomen is soft, nontender. No masses felt. Extremities: no evidence of edema. Central Nervous System: No obvious focal deficit noted. LABORATORIES: WBC is 3.78, hematocrit 22.5, with a platelet count of 41,000. INR is 6.33. Sodium 132, potassium 4.4, chloride 93, bicarbonate 24, BUN is 60, creatinine 6.3. ASSESSMENT AND PLAN: 1. Methicillin-sensitive Staphylococcus aureus bacteremia. Continue current antibiotic regimen per ID recommendation. Transesophageal echocardiogram currently pending. 2. History of mechanical heart valve, on anticoagulation. INR is elevated today. We will hold Coumadin and give patient FFPs. 3. Pancytopenia, probably secondary to sepsis. Transfuse blood products as needed. With regards to thrombocytopenia, we will follow up on antiplatelet antibody as well as well as ADAMTS-13 activity. 4. End-stage renal disease. Continue hemodialysis per Nephrology recommendation. 5. History of antiphospholipid syndrome. Aware. 6. History of seizure disorder. Continue antiepileptic agent. 7. Deep vein thrombosis prophylaxis. Sequential compression devices. 8. Gastrointestinal prophylaxis. Proton pump inhibitor. cc: Juventino Rowley MD MTDD
[2018-11-13 15:23] LABS: INR 4.05
[2018-11-13 15:30] LABS: PROTIME 42.1 Seconds (11.0-16.0)
[2018-11-13] MEDS: RIFAMPIN PO SCH (17:03)
--- NOTE | 2018-11-13 17:25 | HEMO/ONC PROGRESS NOTE ---
DATE: 11/13/2018 SUBJECTIVE: Patient was not in her room at the time of my assessment. Staff tells me she has improved somewhat today. OBJECTIVE: Vital Signs: Temperature 98.7 degrees, pulse rate 82, respiratory rate 11, blood pressure 24/63, O2 saturation 96% on nasal cannula at 2 L. Pain: 0/10 pain. No physical exam performed this morning as patient was not available. DIAGNOSTIC STUDIES: WBC 3.78, hemoglobin 7.3, hematocrit 22.5, platelet count 41,000. Sodium 132, potassium 4.4, creatinine 6.3. ASSESSMENT: 1. Methicillin-sensitive Staphylococcus aureus bacteremia. 2. History of mechanical heart valve. On anticoagulation. 3. Pancytopenia. 4. End-stage renal disease. 5. History of antiphospholipid syndrome. 6. Seizure disorder. 7. Deep venous thrombosis prophylaxis. PLAN: Continue to support patient per ID with antibiotics for bacteremia. We were called this morning regarding the patient's hemoglobin and hematocrit levels. We gave order to transfuse 1 unit of packed red blood cells. We will continue to monitor the patient's blood levels. Please call as needed. The goal is to keep her platelets closely to 40,000 to 50,000 in light of her anticoagulation. Dictated by JAVIER De La Fuente for Gabriel Sánchez MD Patient seen and examined. As above. No new recommendations. Transfuse PRBCs as needed and platelets to maintain a platelet count of 1140-50,000 in light of her anticoagulation for mechanical heart valve. Gabriel Sánchez M.D. cc: Gabriel Sánchez MD [facility]
--- NOTE | 2018-11-13 19:49 | INFECTIOUS DISEASE PROGRESS NO ---
DATE: 11/13/2018 PRESENT ILLNESS: The patient has an oxacillin sensitive Staph aureus bacteremia which may very well be involving the mechanical mitral valve to cause endocarditis. The patient has an oxacillin- sensitive Staph aureus infection from where the patient's dialysis catheter was removed also. The patient also has oral candidiasis. MEDICATIONS: The patient is on a combination of nafcillin, gentamicin, and rifampin. Also, the patient is on Mycostatin swish and swallow. PHYSICAL EXAMINATION: Vital Signs: Temperature is 99.2 degrees, pulse 86, respirations 18, blood pressure 123/56. General: This is an obese, middle-aged female. She is very alert today and she talks in a coherent fashion. Head/eyes/ears/nose/throat: She can hear my spoken words and see near objects. She does not have any white patches in her mouth. Neck: No meningismus. Thorax: The patient's right chest where she had the tunneled dialysis catheter which has been removed is not swollen or tender. Lungs: Clear to auscultation. Cardiovascular: Heart rate is regular. Abdomen: Soft and nontender. Extremities: The patient has a Trialysis in the right groin and a maturing AV fistula in her right arm. Both sites are not erythematous or purulent. LAB AND X-RAY: test is negative. Gentamicin level is 3.2. Clostridium difficile toxin and antigen are negative. Repeat blood cultures are pending. The patient's right chest tunneled dialysis catheter site is growing oxacillin-sensitive Staph aureus also. The patient's CBC shows a white count of 3780, hemoglobin 7.3, platelet count 41,000. Creatinine is 6.3. GFR is 7. The patient did not have a radiographic study done today. ASSESSMENT AND PLAN: The patient has an oxacillin-sensitive Staph aureus bacteremia and the patient could also have an oxacillin-sensitive Staph aureus prosthetic mitral valve endocarditis. My plan is to continue the patient's nafcillin for a total of 6 weeks or more, rifampin for a total of 6 weeks or more and gentamicin for 2 weeks after the patient's 1st blood culture turns negative. When the patient's hematologic status has improved, a transesophageal echocardiogram will be done. COMORBIDITIES: The patient has end-stage renal disease and sometimes has been noncompliant. cc: Rashid Arnold MD
[2018-11-13] MEDS: COUMADIN GT SCH (21:37)
[2018-11-13] MEDS: DEPAKOTE SPRINKLE NG SCH (21:37)
[2018-11-14] MEDS: MORPHINE IV PRN ×7 (00:35→23:56)
[2018-11-14] MEDS: NAFCIL 2 GM in NS 100 ML IV SCH ×6 (02:55→21:19)
[2018-11-14] MEDS: SYNTHROID GT SCH ×2 (05:38→06:10)
[2018-11-14] MEDS: RIFAMPIN PO SCH ×2 (05:38→17:02)
[2018-11-14 06:17] LABS: WBC 3.78 X1000 (4.8-10.8)
[2018-11-14 06:18] LABS: HEMATOCRIT 25.8 % (37.0-47.0); HEMOGLOBIN 8.3 g/dL (12.0-16.0); MCH 33.9 PG (27-31); MCHC 32.2 g/dL (33-37); MCV 105.3 FL (81-99); MPV 11.5 FL (7.4-10.4); RBC 2.45 XMIL (4.2-5.4); RDW 20.5 % (11.5-14.5)
[2018-11-14 06:21] LABS: INR 3.66; PROTIME 38.9 Seconds (11.0-16.0)
[2018-11-14 06:37] LABS: ALBUMIN 2.6 g/dL (3.5-5.0); CALCIUM 8.3 mg/dL (8.8-10.2); CREATININE 4.9 mg/dL (0.5-0.9); PHOSPHORUS 5.1 mg/dL (2.7-4.5); POTASSIUM 4.1 mmol/L (3.5-5.1)
[2018-11-14] MEDS ORDERED: VANCOMYCIN 1 GM/NS 1 GM/250 ML IVPB IV SCH (06:45)
[2018-11-14] MEDS ORDERED: VANCOMYCIN 1 GM/NS 1 GM/250 ML IVPB IV ONE ×2 (06:52→18:00)
[2018-11-14] MEDS ORDERED: BENADRYL PO ONE (07:41)
[2018-11-14] MEDS: MYCOSTATIN SUSP PO SCH ×4 (08:36→20:37)
[2018-11-14] MEDS: NEURONTIN PO SCH ×2 (08:36→20:36)
[2018-11-14] MEDS ORDERED: NS 250 ML IV PRN (08:59)
[2018-11-14] MEDS ORDERED: NS 2,000 ML MISC PRN (10:07)
--- NOTE | 2018-11-14 10:11 | HEMO/ONC PROGRESS NOTE ---
DATE: 11/14/2018 SUBJECTIVE: The patient is awake, sitting up in bed watching TV this morning. She is not in any distress. The patient shows me a large lump to the back of her head today. It appears that it might be an abscess. I showed this to the nurse and we agreed to inform Dr. Arnold regarding a possible abscess to the back of her head. The patient states that she does hurt all over due to sitting in the bed. She hopes that she can be placed on a floor bed today where she can get up and get into a chair. The patient's mental status has returned to normal. The patient has informed me that she is a regular patient of Dr. Anguiano. She sees him for anemia of chronic disease and clotting disorders related to her history of strokes. OBJECTIVE: Vital Signs: Temperature 99.6 degrees, pulse rate 86, respiratory rate 21, blood pressure 94/69, O2 saturation 96% on 2 L of nasal O2 via nasal cannula. General: She is in 8/10 pain to her shoulders, hips, bottom and feet. HEENT: Two swollen places to the back of her head. To the left side of her head is significantly large, possible abscess, scab over the top, sore to touch. Respiratory: Lungs are clear to auscultation. Cardiovascular: S1, S2. Regular rate and rhythm. Gastrointestinal: Abdomen is soft, nontender, nondistended. Extremities: No evidence of edema. Skin: Skin is moist and hot to touch. She has multiple tiny wounds up and down both legs. Neurological: No obvious focal motor deficits noted. Mentation is normal. LABORATORY DATA: WBC 3.78, RBCs 2.45, hemoglobin 8.3, hematocrit 25.8, platelet count 34,000. PT 38.9, INR 3.66. Sodium 132, potassium 4.1, albumin 2.6. ASSESSMENT: 1. Methicillin-sensitive Staphylococcus aureus bacteremia. 2. History of mechanical heart valve, on anticoagulation. 3. Pancytopenia. 4. End-stage renal disease. 5. History of antiphospholipid syndrome. 6. Seizure disorder. 7. Deep venous thrombosis prophylaxis. 8. History of strokes. PLAN: The patient informed me today that she is a regular patient of Dr. Anguiano. Therefore, we will be signing off her service today. Please consult Dr. Anguiano to take over. We have ordered 1 unit of PRBCs this morning for her low platelet count. Please repeat a CBC. The goal is to have her platelet count 40,000 to 50,000 in light of her anticoagulation for her mechanical heart valve. Dictated by JAVIER De La Fuente for Gabriel Sánchez MD cc: Gabriel Sánchez MD [facility]
--- NOTE | 2018-11-14 10:35 | CARDIOLOGY PROGRESS NOTE ---
DATE: 11/14/2018 CHIEF COMPLAINT: Generalized somatic pains. REASON FOR CONSULTATION: Question of endocarditis. She has methicillin-sensitive Staphylococcus aureus septicemia. SUBJECTIVE: Ms. Reyes is complaining of somatic pains in the shoulders, backs and legs. Lying in bed is not good for her. She denies having dyspnea. She feels swollen. No chest pain. OBJECTIVE: Blood pressure is 94/69, temperature 99.6, pulse 86, respirations 21. She is awake, appears to be chronically ill. HEENT is unremarkable. Chest: Symmetrical breath sounds. I do not hear any rales. Heart: Sounds are regular and rhythmic with a closing click of mitral valve. Abdomen is obese, nontender. Extremities showed no significant edema. Neurologic: Follows commands, moves all 4 extremities. DIAGNOSTIC DATA: Blood work today shows INR is 3.6. Hemoglobin 8.3, hematocrit 25.8. Sodium 132, potassium 4.1, BUN is 43, creatinine 4.9. IMPRESSION: 1. The patient presented with septicemia of Staphylococcus aureus secondary to infected catheter. 2. History of mitral valve replacement for mitral regurgitation. 3. Episode of obtundation that has improved. Might have been related to sepsis. 4. End stage renal disease on dialysis. 5. Hypertension. RECOMMENDATIONS: At this time, her INR is lower, is more reasonable. We will probably proceed with a SETH on Friday morning, assuming that her INR is no greater than 4. We will follow her along. cc: Fer Lockhart MD
--- NOTE | 2018-11-14 13:50 | PROGRESS NOTE ---
DATE: 11/14/2018 SUBJECTIVE: Today Ms. Reyes refers to be doing okay. Denies any new complaints. She was seen during dialysis sessions. OBJECTIVE: Vital signs: Blood pressure is 120/72, pulse of 83, respiration is 11, temperature 99 degrees, patient was saturating 100% on 2 L. General: Ms. Reyes is a 48-year-old female. She is in bed. Does not seem to be in any cardiopulmonary distress. HEENT: Mucosa is pink and moist. Anicteric. Acyanotic. There is a minimal swelling over the left occipital scalp. Neck: Supple. Chest: Good air entry bilateral. There were no crepitations, no rhonchi. No accessory muscle use. Cardiovascular: Regular rate and rhythm. There is an S1 metallic click. Abdomen: Soft, nontender. Bowel sounds present. Central nervous system: Patient is awake, alert. Follows basic commands. LABORATORY DATA: WBC 3.78, hemoglobin is 8.3, platelet count of 234,000. Chemistry is also reviewed, all consistent with CKD. ASSESSMENT: 1. Septic shock with methicillin-susceptible Staphylococcus aureus bacteremia. This seems to be persistent, but 2 different blood cultures have been done, the latest being November 12 and is still positive. There is the concern that the mechanical maintenance instructor valve could be seeded causing an endocarditis. Infectious Disease is on board. At some point, I think a SETH will be needed and cardiac surgery consult if SETH is abnormal. 2. Mitral mechanical valve. The patient is on chronic Coumadin anticoagulation. 3. History of seizure disorder. 4. Endstage renal disease. Patient is on hemodialysis. The tunneled catheter which was infected has been removed and patient has a right femoral dialysis Vas-Cath. 5. History of antiphospholipid syndrome. 6. Pancytopenia. Infectious Disease is on board. We think this has been because of the ongoing sepsis. 7. Central line-associated bloodstream infection (CLABSI) with blood culture positive for MSSA. Patient is on ideal IV antibiotics and ID is on board. The previous dialysis catheter has been removed. However, the culture afterward was still positive, which is concerning for the mechanical valve being seeded. PLAN: For today, Ms Reyes is fairly stable. We are going to transfer her to the medical floor after dialysis. Continue with the current IV antibiotics and follow up with further recommendations from the other subspecialties. cc: Kofi Barillas MD [facility]
[2018-11-14] MEDS ORDERED: GENTAMICIN 80 MG/NS 80 MG/50 ML IVPB IV ONE (17:00)
--- NOTE | 2018-11-14 17:31 | NEPHROLOGY PROGRESS NOTE ---
DATE: 11/14/2018 SUBJECTIVE: She is awake and alert. No shortness of breath. She denies recent fall. OBJECTIVE: Vital Signs: Blood pressure 129/72, heart rate 83, respiration 11, afebrile. General: No acute distress. Skin is warm and dry. Neck Veins are not visible. Fluctuant mass on the left occiput minimally tender. Heart: Regular with metallic heart tones. Lungs: Equal. No crackles. Abdomen: Soft. Extremities: Have 2+ edema. No clubbing or cyanosis. IMPRESSION: Chronic kidney disease 5D. Appears volume overloaded on exam. Hemofiltration 2-1/2 hours today with a goal of 3 to 4 L ultrafiltration. She will have her next routine dialysis treatment on Friday. Electrolytes/acid base in target. She has plans for blood products today. cc: Adam Fritz MD
[2018-11-14] MEDS: TYLENOL PO PRN (17:56)
[2018-11-14] MEDS: DEPAKOTE SPRINKLE NG SCH (20:24)
[2018-11-14] MEDS: COUMADIN GT SCH (20:25)
[2018-11-15] MEDS: NAFCIL 2 GM in NS 100 ML IV SCH ×6 (01:44→21:01)
[2018-11-15] MEDS: MORPHINE IV PRN ×6 (02:35→23:41)
[2018-11-15] MEDS: RIFAMPIN PO SCH ×2 (05:20→17:26)
[2018-11-15] MEDS: SYNTHROID GT SCH ×2 (05:21→06:05)
[2018-11-15 07:06] LABS: HEMATOCRIT 29.8 % (37.0-47.0); HEMOGLOBIN 9.8 g/dL (12.0-16.0); MCH 32.3 PG (27-31); MCHC 32.9 g/dL (33-37); MCV 98.3 FL (81-99); RBC 3.03 XMIL (4.2-5.4); RDW 22.1 % (11.5-14.5); WBC 5.95 X1000 (4.8-10.8)
[2018-11-15 07:15] LABS: INR 4.18
[2018-11-15 07:17] LABS: PROTIME 43.2 Seconds (11.0-16.0)
[2018-11-15 07:34] LABS: ALBUMIN 2.6 g/dL (3.5-5.0); CALCIUM 8.6 mg/dL (8.8-10.2); PHOSPHORUS 7.1 mg/dL (2.7-4.5); POTASSIUM 4.5 mmol/L (3.5-5.1)
[2018-11-15] MEDS: MYCOSTATIN SUSP PO SCH ×5 (08:37→20:50)
[2018-11-15] MEDS: NEURONTIN PO SCH ×2 (08:37→20:45)
[2018-11-15] MEDS: ATARAX PO PRN ×2 (11:16→23:41)
--- NOTE | 2018-11-15 17:41 | PROGRESS NOTE ---
DATE: 11/15/2018 SUBJECTIVE: Patient resting comfortably in bed. OBJECTIVE: Vital Signs: Temperature 99.1 degrees, pulse 83, respiratory rate 15, blood pressure 116/61, oxygen saturation is 96%. HEENT: Atraumatic, normocephalic. Cardiovascular system: S1, S2. Respiratory system: Has evidence of good air entry bilaterally. Abdomen: Soft, nontender. No masses felt. Extremities: No evidence of significant edema. Central nervous system: No obvious focal deficits noted. LABS: WBC 5.95, hematocrit is 28.8, with a platelet count of 49,000. Sodium is 137, potassium 4.5, chloride is 89, bicarbonate is 20, BUN is 60, creatinine 6.0. ASSESSMENT AND PLAN: 1. Methicillin-sensitive Staph aureus bacteremia. Continue antibiotic regimen per ID recommendation. Transesophageal echo pending. 2. History of mechanical heart, on anticoagulation. Continue to hold off on Coumadin in light of raised INR. Today's INR is 4.18. 3. Pancytopenia, probably secondary to sepsis. Transfuse blood products as needed. Regarding thrombocytopenia, follow up on antiplatelet antibody as well as ADAMTS-13 activity. 4. End-stage renal disease. Continue hemodialysis as recommended by Nephrology. 5. History of antiphospholipid syndrome. Aware. 6. History of seizure disorder. Continue antiepileptic drugs. 7. Deep vein thrombosis prophylaxis. SCD. 8. Gastrointestinal prophylaxis. PPI. cc: Juventino Rowley MD
[2018-11-15] MEDS: DEPAKOTE SPRINKLE NG SCH (20:45)
[2018-11-15] MEDS: COUMADIN GT SCH (20:45)
[2018-11-16] MEDS: MORPHINE IV PRN ×5 (02:37→21:22)
[2018-11-16] MEDS: NAFCIL 2 GM in NS 100 ML IV SCH ×5 (02:37→23:22)
[2018-11-16] MEDS: RIFAMPIN PO SCH ×2 (06:13→18:20)
[2018-11-16] MEDS: SYNTHROID GT SCH (06:14)
[2018-11-16] MEDS ORDERED: NS 2,000 ML MISC PRN (06:22)
[2018-11-16 07:11] LABS: INR 3.38; PROTIME 36.5 Seconds (11.0-16.0)
[2018-11-16 07:17] LABS: BASO# 0.02 X1000 (0.0-0.2); BASO% 0.3 % (0.0-0.8); EOS% 2.9 % (0.0-10.0); HEMATOCRIT 31.4 % (37.0-47.0); HEMOGLOBIN 10.4 g/dL (12.0-16.0); IMM GRAN# 0.04 X1000 (0.0-0.04); IMM GRAN% 0.6 % (0.0-0.5); LYMPH% 10.1 % (20.5-51.1); MCH 31.7 PG (27-31); MCHC 33.1 g/dL (33-37); MCV 95.7 FL (81-99); MONO% 7.2 % (1.7-9.3); MPV 11.1 FL (7.4-10.4); NEUT# 5.44 X1000 (1.4-6.5); NEUT% 78.9 % (42.2-75.2); PLT 77 X1000 (130-400); RBC 3.28 XMIL (4.2-5.4); RDW 21.9 % (11.5-14.5)
[2018-11-16 07:56] LABS: ALB/GLOB RATIO 0.6; ALBUMIN 2.7 g/dL (3.5-5.0); CALCIUM 8.7 mg/dL (8.8-10.2); CREATININE 7.6 mg/dL (0.5-0.9); POTASSIUM 4.8 mmol/L (3.5-5.1); TOTAL BILIRUBIN 9.41 mg/dL (0.20-1.00); TOTAL PROTEIN 7.2 g/dL (6.3-8.3)
[2018-11-16] MEDS ORDERED: SODIUM CHLORIDE 0.9% 10 ML ONE (08:27)
[2018-11-16] MEDS ORDERED: XYLOCAINE 2% VISCOUS ONE (08:27)
[2018-11-16] MEDS: ATARAX PO PRN ×2 (09:13→18:18)
[2018-11-16] MEDS ORDERED: DIPRIVAN 1% ONE (09:47)
[2018-11-16] MEDS ORDERED: QUELICIN (DOSE) ONE (09:59)
[2018-11-16] MEDS ORDERED: ROBINUL ONE (09:59)
--- NOTE | 2018-11-16 13:23 | Transesophageal Echocardiogram ---
DATE: 11/16/2018 PROCEDURE: Transesophageal echocardiogram. INDICATION: Rule out endocarditis. PROCEDURE IN DETAIL: Ms. Reyes was brought to the catheterization laboratory in fasting state. Informed consent was obtained. Prepped in usual fashion. She was anesthetized per Anesthesia with propofol. After adequate sedation, SETH probe was passed without difficulty with images obtained in multiple planes. At the conclusion of the procedure, the SETH probe was removed. No apparent complications. FINDINGS: 1. The right atrium appears normal. There was no evidence of clot. It was somewhat difficult to visualize. There was no evidence of shunting across the interatrial septum with injection of agitated saline contrast or via evaluation with color Doppler. 2. Mild tricuspid regurgitation. No evidence of vegetation. 3. Normal RV size and systolic function. 4. Limited views of the pulmonic valve, but no evidence of vegetation or significant insufficiency. 5. Normal left atrial size. No evidence of clot in the left atrium. 6. There is a well-seated mechanical prosthetic in the mitral position. There is trace regurgitation and no evidence of perivalvular leak. No clear evidence of valvular vegetation. 7. The left ventricle was difficult to visualize in all views with the exception of the transgastric. There appears to be normal LV systolic function. No evidence of segmental wall motion abnormalities. 8. The aortic valve was difficult to visualize, but appears trileaflet. There is no evidence of insufficiency or significant stenosis. No evidence of adherent vegetation. 9. There was minimal atherosclerosis in the descending thoracic aorta. 10. No pericardial effusion seen. cc: MD Zeynep Pacheco PA
--- NOTE | 2018-11-16 15:31 | NEPHROLOGY PROGRESS NOTE ---
DATE: 11/16/2018 DATE AND TIME: Date seen 11/16/2018, time seen 0650. SUBJECTIVE: Ms. Reyes is resting quietly in bed. She is resting quietly in a chair. She is in no acute distress. She is n.p.o. for a SETH procedure this a.m. She denies any chest pain or increased work of breathing. OBJECTIVE: Vital Signs: Her most recent vital signs: Temperature 99.2, blood pressure 142/75, heart rate 78, respirations 14. She is on room air. Last recorded saturation 98%. She has had 600 in. She has had 0 recorded out with need for dialysis. LABS: Sodium is 129, potassium 4.8, chloride is 88, CO2 18, BUN 75, creatinine 7.6, glucose is 102. The patient has an anion gap of 23. Last calcium 8.7, previous albumin 2.7. White count 6.9, hemoglobin 10.4, hematocrit 31.4, with a platelet count of 77,000. Her pro time is 36.5 with an INR of 3.38. PHYSICAL EXAMINATION: General: This is a 48-year-old white female resting quietly in a chair. She is in no acute distress. Skin: Warm and dry. HEENT: Normocephalic, atraumatic. Conjunctiva is pale. She has DIONNE. Mucous membranes are dry. Neck: Supple. Trachea midline. No evidence of JVD. The patient has a dressing to her right IJ. Cardiovascular: She is regular rate and rhythm. She is without murmur or gallop. Lungs: Clear to auscultation bilaterally equal excursion on room air. Abdomen: Large, round, soft, nontender. Positive bowel sounds. Genitourinary: Not inspected. The patient is noted to have drainage of a sanguinous type from her right femoral dialysis tunnel catheter. Extremities: Lower extremities have no edema. No clubbing or cyanosis. Integumentary: The patient does have a palpable hematoma behind her left auricle tender to touch. Neurologic: She is alert and oriented x 3. ASSESSMENT AND PLAN: 1. Chronic kidney disease stage 5D. The patient is due for her routine dialysis treatment today. She is scheduled for a SETH this a.m. We will plan for dialysis when this is complete. 2. Electrolytes and acid-base balance with correction on dialysis plans. 3. Anemia. This is low, but stable. 4. Sepsis. The patient is scheduled for a SETH. She has a mechanical valve that is to be evaluated for possible endocarditis. This is followed by cardiology and Infectious Disease. She remains on renal dosed antibiotics. I would like to thank you for allowing us to follow with this patient. Dictated by JAVIER Guido for Adam Fritz MD Face to face encounter, data reviewed, discussed with Ezio Greenberg on 11/16/18. I agree with the above assessment and plan of care. cc: JAVIER Guido MD [facility]
--- NOTE | 2018-11-16 16:53 | HEMO/ONC CONSULTATION ---
DATE: 11/16/2018 ADMITTING PHYSICIAN: Juventino Rowley MD REQUESTING PHYSICIAN: Juventino Rowley MD CHIEF COMPLAINT: Antiphospholipid syndrome. HISTORY OF PRESENT ILLNESS: Ms. Bridgette Reyes is a 48-year-old, female, well known to Dr. Anguiano, with a history of antiphospholipid syndrome and history of arterial and venous thromboses. She has been maintained on Coumadin. The patient also has a history of mechanical valve for which she is anticoagulated as well. The patient has suffered pancytopenia in the past. She does have a history of end-stage renal disease and is followed closely by Nephrology. The patient was actually admitted on 11/09/2018 secondary to altered mental status. The patient's family presented to [facility] emergency department and states that she had become increasingly more confused and disoriented. She was admitted ultimately secondary to sepsis. We are consulted as the patient is well known to us. PAST MEDICAL HISTORY: 1. Antiphospholipid syndrome. 2. Arterial and venous thromboses. 3. End-stage renal disease, currently on renal dialysis. 4. Stroke. 5. Hypertension. 6. Seizure disorder. 7. Hypothyroidism. 8. Medical noncompliance. PAST SURGICAL HISTORY: 1. Mitral valve replacement. 2. Hernia repair. 3. AV fistula placement. 4. Brain surgery of unknown type. SOCIAL HISTORY: The patient has a 20+ pack-year history of smoking. She drinks alcohol socially. She does not use illicit drugs. FAMILY HISTORY: Negative for hematologic or oncologic disorder. MEDICATIONS ON ADMISSION: 1. Xanax. 2. Abilify. 3. Lipitor. 4. Wellbutrin. 5. Depakote. 6. Gabapentin. 7. Levothyroxine. 8. Losartan. 9. Protonix. 10. Seroquel. 11. Coumadin. ALLERGIES: 1. Codeine. 2. Heparin. 3. Latex. REVIEW OF SYSTEMS: A 14-point review of systems was obtained and is negative except as mentioned in HPI. PHYSICAL EXAMINATION: General: Ms. Reyes is a 48-year-old, female lying supine in bed in no immediate distress. Vital Signs: Temperature 99.2 degrees, blood pressure 142/75, heart rate 78, respirations 20, O2 saturation is 98% on room air. HEENT: Normocephalic, atraumatic. Mucous membranes are slightly pale and moist. Sclerae is icteric. Extraocular movements intact. Neck: Supple. Lungs: Clear to auscultation bilaterally. Chest expansion is equal bilaterally. Cardiovascular: S1, S2 is heard without murmur rub or gallop. Abdomen: Nondistended. Extremities: Without clubbing or cyanosis. She does have trace bilateral upper extremity edema. Dermatologic: No rashes, bruises, or lesions. The patient is significantly jaundiced. Neurologic: The patient is awake, alert, and oriented x3. She has no focal deficits. LABORATORY DATA: Hemoglobin is 10.4, hematocrit 31.4, white blood cell count is 6.90, platelets 77,000. Sodium 129, potassium 4.8, chloride 88, CO2 is 18, BUN 75, creatinine 7.6, and glucose is 102. Calcium is 8.7, bilirubin 9.41, alkaline phosphatase 174, AST 27, ALT is 17. ASSESSMENT AND PLAN: 1. Antiphospholipid syndrome with a history of arterial and venous thromboses. The patient is currently on Coumadin with a supratherapeutic INR at 3.38. Coumadin is being adjusted by the hospitalist at this time. 2. Anemia of chronic kidney disease. Hemoglobin is currently stable. Would monitor. 3. Thrombocytopenia. Platelet count is stable at 77,000. We will continue to monitor closely. 4. Elevated liver function tests per hospitalist. 5. MSSA bacteremia. Infectious Disease is currently following. SETH pending. We will follow along with you and make further recommendations pending outcomes. The above reflects the history, exam, assessment and plan of Dr. Anguiano. Dictated by JAVIER Howard for Boris Anguiano MD cc: JAVIER Howard MD
[2018-11-16] MEDS ORDERED: VANCOMYCIN 1 GM/NS 1 GM/250 ML IVPB IV ONE (17:00)
[2018-11-16] MEDS ORDERED: GENTAMICIN 80 MG/NS 80 MG/50 ML IVPB IV ONE (17:00)
[2018-11-16] MEDS: MYCOSTATIN SUSP PO SCH ×4 (18:18→20:25)
[2018-11-16] MEDS: NEURONTIN PO SCH ×2 (18:18→20:25)
[2018-11-16] MEDS: DEPAKOTE SPRINKLE NG SCH (20:25)
[2018-11-16] MEDS: COUMADIN GT SCH (20:25)
--- NOTE | 2018-11-16 20:27 | INFECTIOUS DISEASE PROGRESS NO ---
DATE: 11/16/2018 PRESENT ILLNESS: The patient has an oxacillin sensitive Staph aureus bacteremia. The bacteremia arose from the patient's dialysis catheter on the right chest, which became infected. The patient also has oral candidiasis. MEDICATIONS: The patient is on a combination of nafcillin, gentamicin, and rifampin. She also has Mycostatin swish and swallow. PHYSICAL EXAMINATION: Vital Signs: Temperature is 98.2 degrees, pulse 78, respirations 20, blood pressure 115/68. General: This is an obese, middle-aged female. She is very alert today. She can move her extremities. She is talking in a coherent fashion. Head/eyes/ears/nose/throat: She can hear my spoken words and see near objects. She does not have any white coating of her tongue. Neck: No pain in her neck when she moves her head. Thorax: The patient's right chest site where she had a tunneled dialysis catheter is not swollen or draining. Lungs: Clear to auscultation. Cardiovascular: Heart rate is regular. Abdomen: Soft and nontender. Extremities: Patient has a Trialysis in the right groin and the site is not erythematous or tender. She also has a maturing AV fistula in her right arm which is functional. LAB, X-RAY AND ECHOCARDIOGRAM: The patient had a transesophageal echocardiogram today. It did not show any vegetations on any of the patient's valves. Repeat blood cultures from yesterday and today are pending. CBC shows a white count of 6900, hemoglobin 10.4 and platelet count 77,000. Creatinine is 7.6. GFR is 6. Alkaline phosphatase is 174. ASSESSMENT AND PLAN: Patient has an oxacillin sensitive Staph aureus bacteremia. She had a negative transesophageal echocardiogram and thus there does not appear to be an infection on the prosthetic mitral valve. I still am going to treat the patient for 6 weeks with the nafcillin and rifampin and 2 weeks with gentamicin because we are dealing with a prosthetic valve and there could be a very minor infection which has not shown up yet. The day 1 of treatment will be the first day that the patient's repeat blood cultures are sterile. COMORBIDITIES: The patient has end-stage renal disease and she also has prosthetic mitral valve in place. The patient is on dialysis also. cc: Rashid Arnold MD
[2018-11-17] MEDS: NAFCIL 2 GM in NS 100 ML IV SCH ×7 (02:50→23:01)
[2018-11-17] MEDS: MORPHINE IV PRN ×5 (03:28→23:10)
[2018-11-17] MEDS: SYNTHROID GT SCH (06:07)
[2018-11-17] MEDS: RIFAMPIN PO SCH ×2 (06:07→18:04)
[2018-11-17] MEDS ORDERED: XYLOCAINE 1%/EPI 1:100,000 INJ ONE (07:45)
[2018-11-17] MEDS: MYCOSTATIN SUSP PO SCH ×4 (10:19→23:00)
[2018-11-17] MEDS: NEURONTIN PO SCH ×2 (10:20→23:00)
--- NOTE | 2018-11-17 13:14 | GENERAL SURGERY PROGRESS NOTE ---
DATE: 11/17/2018 SUBJECTIVE: Patient doing about the same. She is more alert today. OBJECTIVE: Vital Signs: The patient is currently afebrile. Her vital signs are stable. General: No acute distress. HEENT: Area to the posterior part of the left scalp, the occipital region, has some fluctuance and some erythema, somewhat tender to palpation. Cardiovascular: Regular rate and rhythm. Lungs: Grossly clear. Abdomen: Soft, nontender, nondistended. Extremities: Moves all extremities. Neurologic: Grossly intact. Skin: No signs of jaundice, but wound as noted above. Vascular: All extremities perfused. LABORATORY DATA: Yesterday, white blood cell count 6, hematocrit 31, platelet count 77,000. INR is 3.3. Most recent microbiology does not show any growth. ASSESSMENT AND PLAN: A 48-year-old female with bacteremia and scalp abscess. 1. Bacteremia. At this time, being managed by Infectious Disease. 2. Scalp abscess. At this time, will plan on drainage at the bedside. Discussed with her, the risks, benefits, and alternatives. Will try to do this at the bedside under local anesthetic, with a small incision to limit bleeding. cc: Will Ferraro MD
--- NOTE | 2018-11-17 13:51 | PROGRESS NOTE ---
DATE: 11/17/2018 SUBJECTIVE: Today Ms. Reyes refers to be doing a whole lot better. No fever, no chills, and she had her scalp hematoma lanced today. OBJECTIVE: Vital signs: Blood pressure is 118/58, pulse of 83, respiration is 21, temperature 99.7 degrees. General: Ms. Reyes is a 48-year-old female. She is in bed, no distress. HEENT: Mucosa is pink and moist. Anicteric. Acyanotic. There is a minimum swelling over the left occipital the scalp, tender. It has just recently been lysed and is draining some serous fluid. Neck: Supple. Chest: Good air entry bilateral. There was no crepitations, no rhonchi. Cardiovascular: Regular rate and rhythm. There is a positive S1 metallic sound. Abdomen: Soft, nontender. Extremities: No pedal edema. 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 LABORATORY DATA: WBC is up to 6.9, hemoglobin is 10.4, platelet count of 77,000. Chemistry is also reviewed, is all consistent with renal failure. So far blood cultures have shown MSSA bacteremia. A repeat blood culture done yesterday is still pending. ASSESSMENT: 1. Septic shock with MSSA bacteremia. The patient has had a SETH which has ruled out any endocarditis. Subsequent blood culture done yesterday was still pending the culture report. 2. MSSA CLABSI. The tunneled dialysis catheter has been removed. She now has a femoral Vas- Cath for dialysis needs. 3. Status post mechanical mitral valve. The patient is on chronic Coumadin anticoagulation. A SETH was done which does not show any vegetation on the valve. 4. History of seizure disorder. We will continue with medications. 5. Endstage renal disease on hemodialysis. 6. History of antiphospholipid syndrome. 7. Pancytopenia secondary to sepsis is improving. 8. Left occipital hematoma, most likely infected. The patient is status post incision and drainage. The culture has been taken by ID and we will be waiting on the results. cc: MD NA Lorenzo
--- NOTE | 2018-11-17 14:08 | NEPHROLOGY PROGRESS NOTE ---
DATE: 11/17/2018 TIME SEEN: 624 SUBJECTIVE: Ms. Reyes is sitting up in a chair. She denies any chest pain or increased work of breathing. OBJECTIVE: Her most recent vital signs: Temperature 99.1 degrees, blood pressure 126/73, heart rate 86, respirations 16, she is currently on room air, her last recorded saturation was 95% Intake and Output: She has had 0 recorded in. She has had 3.3 L removed off dialysis yesterday. DIAGNOSTIC STUDIES: Her previous potassium is 4.8 with a previous hemoglobin of 10.4. PHYSICAL EXAMINATION: General: This is a 48-year-old white female, resting quietly in a chair. She is in no acute distress. Her skin is warm and dry. HEENT: Normocephalic, atraumatic. Conjunctivae pale. She has DIONNE. Mucous membranes are dry. Neck is supple. Trachea midline. No evidence of JVD. Cardiovascular: She has regular rate and rhythm. She is without a murmur or gallop. Her lungs are clear to auscultation bilateral, equal excursion on room air. Abdomen is soft, nontender, positive bowel sounds. Genitourinary not inspected. Minimal void with dialysis assist. Extremities: Continues with trace edema. No clubbing or cyanosis. Integumentary: Patient has a tunneled dialysis catheter to the right groin. This is dry and intact today. Neurological: She is alert and oriented x3. ASSESSMENT AND PLAN: 1. Chronic kidney disease, stage 5D. The patient is due for her routine dialysis treatment in the a.m. She tolerated this treatment yesterday. 2. Transesophageal echocardiogram. Patient was found to have a negative SETH for endocarditis. Continues with mechanical aortic valve. No clots noted. She continues on anticoagulation therapy. 3. Electrolytes and acid-base balance and anemia. These are all acceptable with plans for repeat labs in the a.m. 4. Sepsis. Patient had a SETH indicating no possible clots for endocarditis. Continues to be followed by Infectious Disease and Cardiology. She is on renal-dosed antibiotics. I would like to thank you for allowing us to follow with this patient. Dictated by JAVIER Guido for Adam Fritz MD Face to face encounter, data reviewed, discussed with Ezio Greenberg on 11/17/18. I agree with the above assessment and plan of care. kahlil Baca#: [id number] cc: JAVIER Guido MD MTDD
--- NOTE | 2018-11-17 14:51 | OPERATIVE NOTE ---
PROCEDURE DATE: 11/17/2018 PREOPERATIVE DIAGNOSIS: Posterior left scalp abscess. POSTOPERATIVE DIAGNOSIS: Posterior left scalp abscess. PROCEDURE: Incision and drainage of left posterior scalp abscess. SURGEON: Will Ferraro MD. BAKERY TEAM MEMBER: None. ANESTHESIA: Local administered by the surgeon. FINDINGS: Purulence sent for culture. BRIEF HISTORY: A 48-year-old female coming in with multiple medical issues that developed in an expanding area on her posterior scalp. Infectious Disease wanted it drained. The risks, benefits, and alternatives were discussed with the patient and all questions answered. DESCRIPTION OF PROCEDURE: After informed consent was obtained, the patient remained in her hospital bed with alcohol prep to prep the area. Under local anesthetic, I made a cruciate incision. We drained purulence. Some of it was sent off for culture. We drained as much of the purulence as we could. We tried to avoid a large incision on her given her coagulopathic state, but we drained a significant amount. The patient tolerated procedure well, had a sterile dressing applied. cc: Will Ferraro MD
[2018-11-17] MEDS: DEPAKOTE SPRINKLE NG SCH (23:00)
[2018-11-17] MEDS: COUMADIN GT SCH (23:01)
[2018-11-18] MEDS: NAFCIL 2 GM in NS 100 ML IV SCH ×6 (02:30→21:33)
[2018-11-18] MEDS: MORPHINE IV PRN ×4 (02:32→21:42)
[2018-11-18] MEDS: TYLENOL PO PRN (04:52)
[2018-11-18] MEDS: ATARAX PO PRN (05:30)
[2018-11-18] MEDS: RIFAMPIN PO SCH ×2 (05:42→17:25)
[2018-11-18] MEDS: SYNTHROID GT SCH (06:01)
[2018-11-18] MEDS ORDERED: NS 2,000 ML MISC PRN (06:56)
[2018-11-18 07:42] LABS: BASO# 0.04 X1000 (0.0-0.2); BASO% 0.7 % (0.0-0.8); EOS# 0.17 X1000 (0.0-0.7); EOS% 2.9 % (0.0-10.0); HEMATOCRIT 27.9 % (37.0-47.0); HEMOGLOBIN 9.2 g/dL (12.0-16.0); IMM GRAN# 0.04 X1000 (0.0-0.04); IMM GRAN% 0.7 % (0.0-0.5); LYMPH# 0.63 X1000 (1.2-3.4); LYMPH% 10.6 % (20.5-51.1); MCH 31.3 PG (27-31); MCV 94.9 FL (81-99); MONO% 10.1 % (1.7-9.3); MPV 11.1 FL (7.4-10.4); NEUT# 4.47 X1000 (1.4-6.5); PLT 103 X1000 (130-400); RBC 2.94 XMIL (4.2-5.4); RDW 22.1 % (11.5-14.5); WBC 5.95 X1000 (4.8-10.8)
[2018-11-18 07:49] LABS: ALBUMIN 2.1 g/dL (3.5-5.0); CALCIUM 8.6 mg/dL (8.8-10.2); CREATININE 7.2 mg/dL (0.5-0.9); PHOSPHORUS 9.4 mg/dL (2.7-4.5); POTASSIUM 4.4 mmol/L (3.5-5.1)
[2018-11-18] MEDS: MYCOSTATIN SUSP PO SCH ×5 (07:52→21:45)
[2018-11-18] MEDS: NEURONTIN PO SCH ×3 (07:52→21:45)
--- NOTE | 2018-11-18 08:10 | NEPHROLOGY PROGRESS NOTE ---
DATE: 11/18/2018 TIME SEEN: 0710. SUBJECTIVE: Ms. Reyes is resting quietly in a chair today. Her feet are elevated. States that she feels that she is able to go home today. She had her wound behind her left auricle lanced yesterday, which continues to drain. We are awaiting blood cultures today. OBJECTIVE: Vital Signs: Temperature 99.9 degrees, blood pressure 121/89, heart rate 114, respirations 16. She is on room air. Last recorded saturation 98%. She has had 1100 in. She has had 0 recorded out. Laboratory Data: Her labs are still pending. Previous potassium of 4.8, with a previous a hemoglobin of 10.4. Physical Examination: General: This is a 48-year-old, white female resting quietly in a chair. She is in no acute distress. Her skin is warm and dry. HEENT: Normocephalic, atraumatic. Conjunctivae pale. She has DIONNE. Mucous membranes are dry. Neck: Supple. Trachea midline. She has no evidence of JVD. Cardiovascular: She is regular rate and rhythm. She is without murmur or gallop. Lungs: Clear to auscultation anteriorly. Equal excursion, on room air. Abdomen: Soft, large, round, nontender. Positive bowel sounds. Genitourinary: Not inspected. Minimal void with dialysis assist. Extremities: Have trace edema. No clubbing or cyanosis. ASSESSMENT AND PLAN: 1. She has a dialysis catheter to her right groin. Vas-Cath, not a tunneled catheter. Awaiting (-) blood cultures until we convert to a tunneled catheter. We will continue to monitor and plan for dialysis today. 2. CKD stage 5D. We will place her on a 2 K bath. She is to dialyze for 3.5 hours. We will attempt 2-3 L of ultrafiltration. 3. Electrolytes and acid-base balance. These are pending. These have been stable in the past. Plan for correction on dialysis. 4. Anemia. This is low but stable. 5. Bacteremia, methicillin-sensitive Staphylococcus aureus. The patient remains on renal dosed antibiotics. Followed by infectious disease. I would to thank you for allowing us to follow with this patient. Dictated by JAVIER Guido for Adam Fritz MD Face to face encounter, data reviewed, discussed with Ezio Greenberg on 11/18/18. I agree with the above assessment and plan of care. cc: JAVIER Guido MD MTD[facility]
[2018-11-18] MEDS: CATAPRES-TTS-3 TD SCH (14:43)
--- NOTE | 2018-11-18 15:29 | INFECTIOUS DISEASE PROGRESS NO ---
DATE: 11/18/2018 PRESENT ILLNESS: The patient has an oxacillin-sensitive Staph aureus bacteremia which originated from her infected right chest dialysis catheter site. The patient also has oral candidiasis and also there is an abscess that has been drained on the left posterior part of the skull. 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 We have done echocardiograms and we do not find endocarditis. However, I think the prosthesis still could have become infected while the patient was bacteremic. MEDICATIONS: The patient is on a combination of nafcillin, gentamicin, and rifampin. The patient also has Mycostatin swish and swallow. PHYSICAL EXAMINATION: Vital Signs: Temperature is 99.1, pulse 82, respirations 18, blood pressure 121/58. General: This is an obese, middle-aged female. She is in no acute distress. HEENT: She can hear my spoken words and see near objects. She does not have any white coating in her mouth. She can hear my spoken words and see near objects. The posterior left side of the skull, there is an abscess which has been drained by Dr. Ferraro. Neck: No meningismus. Thorax: The patient has a site where she had a tunneled dialysis catheter and which I think was the origin of the patient's Staph aureus bacteremia. The abscess is smaller than it was, but there still is some fluctuance left in it. Lungs: Clear to auscultation. Cardiovascular: Heart rate is regular. Abdomen: Soft and nontender. Integument: In the right groin, there is a Trialysis catheter. The groin site is not erythematous or draining. The patient also has in her right arm, a maturing AV fistula. LAB AND X-RAY: There is no new radiographic study for today. CBC shows a white count of 5950, hemoglobin 9.2, platelet count 103,000. Creatinine 7.2. GFR is 6. Repeat blood cultures are sterile 2 days ago. Thus far, the area on the patient's skull where she had an abscess still has negative culture. ASSESSMENT AND PLAN: My plan is to for right now, continue the patient's nafcillin for a total of 6 weeks along with the rifampin. Gentamicin will be finished after she has had 2 weeks of it. I will be planning on treating the patient with nafcillin and rifampin for a total of 6 weeks. Gentamicin will be given the first 2 weeks of treatment of the patient's bacteremia. The patient also is on Mycostatin swish and swallow for her oral candidiasis. COMORBIDITY: End-stage renal disease, hemodialysis, and prosthetic mitral valve which as of yet, does not appear to be infected. cc: Rashid Arnold MD
--- NOTE | 2018-11-18 15:50 | PROGRESS NOTE ---
DATE: 11/18/2018 SUBJECTIVE: This morning, Ms. Reyes refers to be doing okay. Did not have any new complaints. She thought she could be discharged. OBJECTIVE: Vital signs: Blood pressure is 124/74, pulse of 89, respirations 18, temperature is 99.1. General: Ms. Reyes is a 48-year-old, female. She is in bed. No distress. HEENT: Mucosa is pink and moist. Anicteric. Acyanotic. Neck: Supple. Chest: Good air entry bilaterally. No crepitations. No rhonchi. Cardiovascular: Regular rate and rhythm. There is a systolic S1 metallic sound. Abdomen: Soft. Extremities: No pedal edema. CIVIL TECHNICIAN: Patient is awake, alert, and oriented. There is some still minimal drainage from the left occipital swelling that has been drained. LABORATORY DATA: WBC is 5.95, hemoglobin is 9.2, platelet count of 103. Chemistry is also reviewed consistent with renal failure. So far, blood cultures have been 48 hours negative. ASSESSMENT: 1. Septic shock with methicillin sensitive Staph aureus (MSSA) bacteremia. A transesophageal echocardiogram (SETH) has ruled out endocarditis. The patient is currently on triple IV antibiotics. Infectious disease is on board. 2. MSSA central line-associated blood stream infection (CLABSI). The tunnel catheter has been removed. The patient has a femoral Vas-Cath for dialysis. 3. Status post mitral mechanical valve. Patient is on Coumadin anticoagulation. 4. History of seizure disorder. 5. Endstage renal disease, on hemodialysis. Nephrology is on board. 6. History of antiphospholipid syndrome. 7. Pancytopenia secondary to sepsis, improving. 8. Left posterior occipital scalp abscess. Patient is status post incision and drainage. Cultures are pending. So, in general, I think Ms. Reyes is fairly stable. Her blood cultures have come back now negative, so I think she will be safe to get a tunnel catheter now. Nephrology is on board and will be waiting on the evaluation and arrangement with surgery as to when the tunnel can be placed. cc: Kofi Barillas MD
[2018-11-18] MEDS ORDERED: GENTAMICIN 80 MG/NS 80 MG/50 ML IVPB IV ONE (16:00)
[2018-11-18] MEDS: DEPAKOTE SPRINKLE NG SCH (21:45)
[2018-11-18] MEDS: COUMADIN GT SCH (21:45)
[2018-11-19] MEDS: MORPHINE IV PRN ×3 (00:59→09:44)
[2018-11-19] MEDS: NAFCIL 2 GM in NS 100 ML IV SCH ×4 (00:59→14:25)
[2018-11-19] MEDS: RIFAMPIN PO SCH (05:42)
[2018-11-19] MEDS: SYNTHROID GT SCH (05:59)
--- NOTE | 2018-11-19 06:09 | GENERAL SURGERY PROGRESS NOTE ---
DATE: 11/19/2018 Reviewed cultures. So far, blood cultures have been negative. Discussed case with Dr. Fritz. At this point, may want to consider trying to access her fistula created 2 months ago to see if it works. If we can actually get it to be usable, then we can hold off on any kind of tunneled catheter. If it does not seem to work, may want to consider placement of a new hemodialysis catheter. cc: Will Ferraro MD
[2018-11-19 07:20] LABS: INR 5.07; PROTIME 50.3 Seconds (11.0-16.0)
[2018-11-19] MEDS: MYCOSTATIN SUSP PO SCH ×4 (09:43→21:55)
[2018-11-19] MEDS: NEURONTIN PO SCH ×2 (09:43→21:55)
--- NOTE | 2018-11-19 12:11 | PROGRESS NOTE ---
DATE: 11/19/2018 SUBJECTIVE: Today, Ms. Reyes refers to be feeling okay. Did not have any new complaints. She has been evaluated by surgery and nephrology as well. The plan is to try and use her fistula on the right wrist and see if that will work. OBJECTIVE: Vital Signs: Blood pressure is 102/64, pulse of 100, respirations are 18, temperature is 98.3 degrees, the patient is saturating 95% on room air. General Examination: Ms. Reyes is a 48-year-old, female. She was sitting up in a chair. No distress. HEENT: Mucosa is pink and moist. Anicteric. Acyanotic. Neck: Supple. Chest: Good air entry bilaterally. No crepitations. No rhonchi. Cardiovascular: Regular rate and rhythm. There is S1 metallic sound from the mechanical valve. Abdomen: Soft, nontender. Bowel sounds present. Extremities: No pedal edema. Minimal swelling over the left occipital region. Extremities: There is a fistula on the right wrist which has a thrill. Laboratory Data: None for today. ASSESSMENT: 1. Septic shock with methicillin-sensitive Staphylococcus aureus bacteremia. The patient is on adequate antimicrobial coverage. 2. Methicillin-sensitive Staphylococcus aureus central line associated bloodstream infection ( CLABSI) Tunneled catheter has been removed. The patient has a femoral Vas-Cath. However, there is a plan to utilize the arteriovenous fistula on the right wrist. If that is successful, then they will not be any need for another tunnel. 3. Status post mitral mechanical valve. Patient is on Coumadin anticoagulation. INR is slightly supratherapeutic this morning so we will withhold the Coumadin for tonight. 4. History of end-stage renal disease, on hemodialysis. Nephrology is on board. 5. History of antiphospholipid syndrome. 6. Pancytopenia secondary to sepsis, improved. 7. Left posterior occipital scalp abscess, status post incision and drainage. Cultures growing gram positive cocci. cc: Kofi Barillas MD [facility]
[2018-11-19] MEDS ORDERED: KEFZOL 1 GM/D5W 1 GM/50 ML IVPB IV SCH (14:45)
--- NOTE | 2018-11-19 15:27 | NEPHROLOGY PROGRESS NOTE ---
DATE: 11/19/2018 SUBJECTIVE: Ms. Reyes is resting quietly in bed. Head of the bed is slightly elevated. She states that she continues to have bloody drainage out of her right Vas-Cath in the right groin. OBJECTIVE: Most Recent Vital Signs: Her last temperature 99.3 degrees, blood pressure 110/52, heart rate is 84, respirations are 12. She remains on room air. Her last recorded saturation is 99%. She has had 300 mL in. She has had 1100 out, removed on dialysis. LABS: Patient's last hemoglobin is 9.2 on the . Her sodium is 127, potassium is 4.4, CO2 is 89, bicarb is 15, BUN 65, creatinine is 7.2, glucose is 213. She has an anion gap of 23. Her calcium is 8.6, phosphorus 9.4, albumin is 2.1. The patient has cultures indicating blood cultures on the resulted out no growth after 48 hours. Head culture is gram-positive cocci. Neck culture is gram-positive cocci. Sensitivity is still pending. The patient remains on gentamicin with nafcillin and rifampin after dialysis. PHYSICAL EXAMINATION: General: This is a 48-year-old white female resting quietly in bed. Her head of the bed is elevated. She appears chronically ill in no acute distress. Skin: Warm and dry. HEENT: Normocephalic, atraumatic. Conjunctiva is pale pink. She has DIONNE. Mucous membranes are dry. Neck: Supple. Trachea midline. No evidence of JVD with drainage noted from her left stephanie auricle area. Cardiovascular: She is regular rate and rhythm. She is without murmur or gallop. Lungs: Clear to auscultation bilaterally. Equal excursion on room air. Abdomen: Soft, large, round, nontender. Positive bowel sounds. Genitourinary: Not inspected. She has a Vas-Cath to her right groin. This is some dry drainage noted to her groin. Extremities: Have trace edema. No clubbing or cyanosis. Integumentary: She does have drainage continuing which is serosanguineous from her left stephanie auricle area, bacteremia, methicillin sensitive Staphylococcus aureus. PLAN: 1. CKD stage 5D. Plan for dialysis in the am. No need for intervention at this time. 2. Eletrolytes and acidosis. These are acceptable at this time. 3. MSSA. The patient remains on renal dosed antibiotics per Dr. Arnold. 4. The patient has gram-positive cocci from an I D to a posterior left scalp abscess. This is followed by Dr. Ferraro, now showing gram-positive cocci. I would to thank you for allowing us to follow with this patient. Dictated by JAVIER Guido for Adam Fritz MD Face to face encounter, data reviewed, discussed with Ezio Greenberg on 11/19/18. I agree with the above assessment and plan of care. cc: JAVIER Guido MD [facility]
--- NOTE | 2018-11-19 18:36 | INFECTIOUS DISEASE PROGRESS NO ---
DATE: 11/19/2018 PRESENT ILLNESS: Ms. Reyes is being treated for an oxacillin-sensitive Staph aureus bacteremia that originated from her right chest dialysis catheter site. There was also an abscess to her left posterior scalp, and she is status post incision and drainage of that area. So far, it is growing a gram-positive coccus, which we expect will be the same oxacillin sensitive Staph aureus. She is also being treated for an oral candidiasis, which she states is improving. MEDICATIONS: She has been receiving IV nafcillin, gentamicin and oral rifampin, which we will change today. She is also receiving nystatin swish and swallow for the oral candidiasis. PHYSICAL EXAMINATION: Vital Signs: Temperature is 98.4 degrees, pulse rate 114, respiratory rate 18, blood pressure 102/64, O2 saturation is 96% on room air. General: This is a chronically ill- appearing, obese, middle-aged female. She is sitting up in a chair currently in no acute distress. HEENT: There is a fluctuant area to her left posterior scalp with a small amount of pus, which is draining to the wound bed. Oral mucous membranes are pink and moist. Conjunctivae are pale. Sclerae are icteric. Neck: Supple. Trachea is midline. Cardiovascular: Heart rate and rhythm are regular and fast; sinus tachycardia on the monitor. Respiratory: Lung sounds are clear to auscultation bilaterally, diminished in the bases. Abdomen Soft, obese and nontender. Bowel sounds are active. Neurologic: She is awake, alert, and oriented. Able to move all extremities independently. Integumentary: There is a dialysis catheter in place to the right groin. The site is without edema, erythema, or drainage. She also has a maturing AV fistula to the right forearm. LABORATORY AND X-RAY: None available today. ASSESSMENT AND PLAN: Ms. Reyes has been receiving nafcillin, rifampin and gentamicin for her oxacillin sensitive Staphylococcus aureus bacteremia. She does have a prosthetic mitral valve, which on SETH does not have any evidence of vegetation. She is wanting to go home tomorrow; however, I have talked to her about the need for IV antibiotic treatment particularly in light of her bacteremia with the presence of a prosthetic heart valve. For now, we will discontinue her nafcillin, rifampin and gentamicin and give her Ancef 1 g IV after each dialysis treatment. Based on her sterile blood cultures, today is day 3 of treatment for her bacteremia, which will require 6 total weeks of treatment. The area to her left posterior scalp is fluctuant today so we have spoken with Dr. Ferraro who will take a look at that again. These plans have been discussed with and recommended by Dr. Arnold. COMORBIDITIES: For Ms. Reyes include end-stage renal disease with hemodialysis, prosthetic mitral valve, obesity, seizure disorder, and antiphospholipid antibody syndrome. Dictated by JAVIER Perez for Rashid Arnold MD cc: Rashid Arnold MD [facility]
[2018-11-19] MEDS: NORCO-5 PO PRN (21:56)
[2018-11-19] MEDS: DEPAKOTE SPRINKLE NG SCH (22:06)
[2018-11-20] MEDS: NORCO-5 PO PRN ×2 (07:04→20:47)
[2018-11-20] MEDS: SYNTHROID GT SCH (07:05)
[2018-11-20 07:17] LABS: BASO# 0.06 X1000 (0.0-0.2); BASO% 1.3 % (0.0-0.8); EOS% 4.2 % (0.0-10.0); HEMATOCRIT 21.3 % (37.0-47.0); HEMOGLOBIN 7.1 g/dL (12.0-16.0); IMM GRAN# 0.08 X1000 (0.0-0.04); IMM GRAN% 1.7 % (0.0-0.5); LYMPH# 0.86 X1000 (1.2-3.4); LYMPH% 18.2 % (20.5-51.1); MCH 31.7 PG (27-31); MCHC 33.3 g/dL (33-37); MCV 95.1 FL (81-99); MONO# 0.64 X1000 (0.11-0.59); MONO% 13.6 % (1.7-9.3); MPV 10.6 FL (7.4-10.4); NEUT# 2.88 X1000 (1.4-6.5); PLT 127 X1000 (130-400); RBC 2.24 XMIL (4.2-5.4); RDW 22.6 % (11.5-14.5); WBC 4.72 X1000 (4.8-10.8)
[2018-11-20 07:31] LABS: BANDS 6 % (0-1); EOS 2 % (1-10); LYMPHS 12 % (21-51); MONO 2 % (1-9); SEGS 76 % (42-75)
[2018-11-20 07:39] LABS: INR 4.99; PROTIME 49.6 Seconds (11.0-16.0)
[2018-11-20 07:49] LABS: ALBUMIN 2.2 g/dL (3.5-5.0); CALCIUM 8.1 mg/dL (8.8-10.2); CREATININE 6.6 mg/dL (0.5-0.9); PHOSPHORUS 9.3 mg/dL (2.7-4.5); POTASSIUM 4.6 mmol/L (3.5-5.1)
[2018-11-20] MEDS ORDERED: NS 2,000 ML MISC PRN (07:51)
--- NOTE | 2018-11-20 10:13 | GENERAL SURGERY PROGRESS NOTE ---
DATE: 11/20/2018 SUBJECTIVE: Asked to re-evaluate the patient for her left posterior scalp area of fluctuance. The patient is without complaints, which she says she is feeling better. Reviewed notes from other physicians. OBJECTIVE: Vital Signs: Patient is currently afebrile. Her vital signs are stable. General: No acute distress. HEENT: Normocephalic. In the left post occipital area, there is an area of fluctuance less tense than it was prior to the incision and drainage, it seems like more kind of redundant skin. No active drainage. The erythema is overall better. Pupils equal, round, reactive to light. Mucous membranes moist. Oropharynx benign. Neck: Supple. Trachea midline. Cardiovascular: Regular rate and rhythm. Lungs: Grossly clear. Abdomen: Soft, nontender, nondistended. Extremities: Moves all extremities. Neurologic: Grossly intact. Skin: Wound as noted above. Vascular: All extremities perfused. LABORATORY DATA: Most recent INR is 5. Microbiology shows gram-positive cocci from the wound in the head. ASSESSMENT AND PLAN: A 48-year-old female with multiple medical comorbidities. 1. Scalp abscess. At this time, I think it is less fluctuant than it was. Her INR is somewhat prohibitive in trying to drain it at the bedside. I do not think we are going to get much out, but we will continue to monitor. I will ask the nurse to put a warm compress on it. If it seems to get any larger, may need to consider repeat incision and drainage. 2. Multiple medical comorbidities currently being managed by the subspecialties. cc: Will Ferraro MD
--- NOTE | 2018-11-20 12:53 | PROGRESS NOTE ---
DATE: 11/20/2018 SUBJECTIVE: Today, Ms. Reyes referred to be doing okay. I actually saw her during dialysis session. I was able also to talk with Dr. Fritz, the bilingual administrative assistant on board. I understand Ms. Reyes's right wrist fistula was attempted to be accessed. However, they were unsuccessful so the plan will be to get her a tunnel catheter until the fistula is fully matured. OBJECTIVE: Her current vitals, blood pressure is 106/70, pulse of 82, respirations 14, and temperature 98.4 degrees. In general, Ms. Reyes is a 48-year-old female. She is in bed in no distress. Mucosa is pink and moist. Anicteric. Acyanotic. She was currently undergoing dialysis. Chest was clear. No crepitations. No rhonchi. Cardiovascular regular rate and rhythm. There is a metallic S1 sound from the mitral mechanical valve. Abdomen is soft. Extremities with no pedal edema. There is a right femoral Vas-Cath in place. MORTGAGE ANALYST: Patient is awake, alert, and oriented. The left occipital scalp abscess is significantly reduced, and is not draining that much. LABORATORY DATA: 1. WBC is 4.71, hemoglobin is 7.1, and platelet count of 127,000. Chemistry is also reviewed consistent with renal failure. 2. The head cultures are growing MSSA. ASSESSMENT: 1. Septic shock with MSSA bacteremia. Subsequent blood cultures have been negative. Patient is now transitioned to Ancef. 2. MSSA. Central line associated bloodstream infection. The dialysis tunneled catheter has been removed. The patient is currently using the femoral Vas-Cath for dialysis. 3. Status post mitral mechanical valve replacement. The patient is on Coumadin. INR is still supratherapeutic. We have withheld that today. 4. Endstage renal disease. Patient is on hemodialysis. Nephrology is on board. 5. History of antiphospholipid syndrome. 6. Left post posterior occipital scalp abscess. Patient is status post I and D. Cultures also have grown MSSA. Patient is on right antimicrobial coverage. In general, Ms. Lawrences fistula does not seem to be working great so she is going to continue with the Vas-Cath. This will be removed today after dialysis, and hopefully Friday surgery will be able to get her a tunnel catheter and get discharged. cc: Kofi Barillas MD [facility]
[2018-11-20] MEDS ORDERED: KEFZOL IV ONE (13:00)
[2018-11-20] MEDS ORDERED: D5W IV ONE (13:00)
--- NOTE | 2018-11-20 15:32 | NEPHROLOGY PROGRESS NOTE ---
DATE: 11/20/2018 SUBJECTIVE: We attempted to use her fistula today without success; so, we are using her femoral Vas-Cath. OBJECTIVE: Vital Signs: Blood pressure 106/70, heart rate 82, respirations 14, afebrile. Generally: No acute distress. Skin: Warm and dry. Neck: Neck veins are not distended. Heart: Regular. Lungs: Equal. Abdomen: Benign. Extremities: No edema, clubbing or cyanosis. Remains jaundiced. IMPRESSION: 1. Chronic kidney disease 5 D. Dialysis today using her femoral vein Vas-Cath and we will then remove it. We will plan for another tunneled catheter the first of the week by Dr. Ferraro. We will give a large dose of cefazolin today to carry her through the weekend. 2. Electrolytes, acid-base, volume status. All in target. cc: Adam Fritz MD
[2018-11-20] MEDS: MYCOSTATIN SUSP PO SCH ×4 (16:54→20:48)
[2018-11-20] MEDS: NEURONTIN PO SCH ×2 (17:16→20:45)
--- NOTE | 2018-11-20 17:18 | INFECTIOUS DISEASE PROGRESS NO ---
DATE: 11/20/2018 PRESENT ILLNESS: The patient has an oxacillin-sensitive Staph aureus bacteremia that originated from her right chest dialysis catheter site. The patient also has a Staph aureus abscess involving the left posterior scalp which has been drained. The patient has oral candidiasis for which she takes nystatin swish and swallow. MEDICATIONS: The patient started nafcillin 1 g IV after each dialysis. This is day #4 of treatment with IV antibiotics for the patient's Staph infections. Day #1 was the first day that the patient's repeat blood cultures were sterile. PHYSICAL EXAMINATION: Vital Signs: Temperature is 97.4 degrees, pulse 75, respirations 18, blood pressure 108/63. General: This is an obese ill-appearing middle-aged female. She is in no acute distress. Head, Eyes, Ears, Nose and Throat: She can hear my spoken words and see near objects. She does not have any white coating to her tongue. In the left posterior area of the skull the patient has a Staph aureus abscess which has been drained by Dr. Ferraro. Lungs: Clear to auscultation. Cardiovascular: Heart rate is regular. Abdomen: Soft and nontender. Thorax: The patient on the right side of the chest has the wound from the placement of the tunneled dialysis catheter. The wound is healed. It is not fluctuant or air edematous. Extremities: In the right groin the patient has a dialysis catheter. The site there is not erythematous or purulent, and finally in on the patient's right arm she has a functional AV fistula; however, it is not yet ready to be used for dialysis. LABORATORY AND RADIOLOGY: There is no new radiographic study. The patient's CBC shows a white count of 4720, hemoglobin 7.1 and platelet count 127,000. Creatinine is 6.6. GFR is 7. On November 16 was the first day that the patient's repeat blood cultures were sterile. ASSESSMENT AND PLAN: The patient has an oxacillin-sensitive Staph aureus bacteremia. I am going to treat her for a total of 6 weeks because her prosthetic mitral valve may have become hematogenously infected while the patient was bacteremic. The transesophageal echocardiogram does not show any evidence of a definite vegetation involving the valve. COMORBIDITIES: The patient has end-stage renal disease. She is on hemodialysis. She has a prosthetic mitral valve in place. She is obese. She has a seizure disorder. cc: Rashid Arnold MD [facility]
[2018-11-20] MEDS: DEPAKOTE SPRINKLE NG SCH (20:45)
[2018-11-21] MEDS: SYNTHROID GT SCH (06:21)
[2018-11-21] MEDS: NORCO-5 PO PRN ×3 (06:24→21:03)
[2018-11-21 07:45] LABS: INR 2.07; PROTIME 24.8 Seconds (11.0-16.0)
--- NOTE | 2018-11-21 07:52 | GENERAL SURGERY PROGRESS NOTE ---
DATE: 11/21/2018 SUBJECTIVE: Discussed with Dr. Fritz. Apparently, they were unsuccessful using her forearm fistula. At this point, we will plan on placing a tunneled hemodialysis catheter early next week. She has had negative blood cultures at this point. We will try to arrange on Friday. cc: Will Ferraro MD
[2018-11-21 07:56] LABS: ALB/GLOB RATIO 0.5; ALBUMIN 2.4 g/dL (3.5-5.0); DIRECT BILIRUBIN 2.4 mg/dL (0.00-0.20); TOTAL BILIRUBIN 3.5 mg/dL (0.20-1.00); TOTAL PROTEIN 7.1 g/dL (6.3-8.3)
[2018-11-21] MEDS: NEURONTIN PO SCH ×2 (08:58→21:03)
[2018-11-21] MEDS: MYCOSTATIN SUSP PO SCH ×4 (08:59→21:09)
--- NOTE | 2018-11-21 15:34 | PROGRESS NOTE ---
DATE: 11/21/2018 SUBJECTIVE: This morning, Ms. Reyes refers to be doing a lot better. Denies any complaints. She was sitting up eating. OBJECTIVE: Vital signs: Blood pressure is 121/84, pulse of 71, respiration is 18, temperature 97.9 degrees. General exam: Ms. Reyes is a 48-year-old female. She was in bed, no distress. HEENT: Mucosa is pink and moist. Anicteric. Acyanotic. Neck: Supple. Chest: Clear to auscultation. Cardiovascular: Regular rate and rhythm. Positive S1 metallic sound. Abdomen: Soft. Extremities: No pedal edema. JANITOR AND CLEANER: Patient is awake, alert, oriented. Scalp: The left occipital scalp abscess significantly reduced. LAB WORK: No lab work for this morning, except INR is 2.07. Coumadin has been started today. ASSESSMENT: 1. Septic shock on presentation with methicillin-sensitive Staphylococcus aureus bacteremia. Subsequent blood cultures have been negative. The patient is now on Ancef. 2. Methicillin-sensitive Staphylococcus aureus central line-associated bloodstream infection. The dialysis tunneled catheter has been removed. 3. Status post mechanical mitral valve replacement. INR is therapeutic. Coumadin will be with held today as well. 4. Endstage renal disease on hemodialysis. 5. History of antiphospholipid syndrome. 6. Left posterior occipital scalp abscess with culture positive for methicillin- sensitive Staphylococcus aureus. Patient is on Ancef. 7. Disposition: We are still pending a more secure access for dialysis before Ms. Reyes will be discharged. I understand hopefully Friday we will get a tunnel catheter. cc: MD NA Lorenzo
[2018-11-21] MEDS ORDERED: COUMADIN PO SCH (21:00)
[2018-11-21] MEDS: DEPAKOTE SPRINKLE NG SCH (21:03)
[2018-11-22] MEDS: NORCO-5 PO PRN ×4 (03:30→22:20)
[2018-11-22] MEDS: SYNTHROID GT SCH (06:35)
[2018-11-22 07:17] LABS: INR 1.43; PROTIME 18.5 Seconds (11.0-16.0)
[2018-11-22] MEDS ORDERED: ARIXTRA SUBQ ONE (08:33)
[2018-11-22] MEDS: NEURONTIN PO SCH ×2 (08:55→20:12)
[2018-11-22] MEDS: MYCOSTATIN SUSP PO SCH ×4 (08:56→20:12)
--- NOTE | 2018-11-22 10:05 | PROGRESS NOTE ---
DATE: 11/22/2018 SUBJECTIVE: This morning, Ms. eRyes refers to be feeling okay. No new complaints. She is pending a tunneled catheter for dialysis. OBJECTIVE: Vital signs: Blood pressure is 120/79, pulse of 81, respiration is 18, temperature 98.6 degrees, patient is saturating 100% on room air. General: Ms. Reyes is a 48-year-old female. She is sitting up in a chair, no distress. HEENT: Mucosa is pink and moist. Anicteric. Acyanotic. Neck: Supple. Chest: Clear to auscultation. No crepitations. No rhonchi. Cardiovascular: Regular rate and rhythm. There is positive S2 metallic sound. Abdomen: Soft. Extremities: No pedal edema. Neurologic: The patient is awake, alert, oriented. LABORATORY DATA: None for today. CURRENT MEDICATIONS: Have all been reviewed. ASSESSMENT: 1. Septic shock on presentation with MSSA bacteremia. Subsequent blood cultures have been negative. Patient is on Ancef. 2. MSSA and central line associated bloodstream infection. The previous tunneled catheter was removed. 3. Status post mechanical valve replacement. The patient is on Coumadin for anticoagulation. This has been withheld. INR is currently 1.4 which is ideal for surgery. 4. End-stage renal disease on hemodialysis. 5. History of antiphospholipid syndrome. 6. Left posterior scalp MSSA abscess, status post incision and drainage. The patient is on Ancef. 7. Perioperative anticoagulation. Ms. Reyes has a mechanical mitral valve and she is on Coumadin. Coumadin has been withheld. INR today is 1.43, which will be ideal for the surgery. 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 We are going to give her a renal dose of fondaparinux as a bridging agent today, 24 hours before the surgery. Twelve hours after surgery, we will start her back on her Coumadin once homeostasis achieved bleeding risk is deem minimal.. cc: Kofi Barillas MD [facility]
[2018-11-22] MEDS: DEPAKOTE SPRINKLE NG SCH (20:12)
[2018-11-22] MEDS: TYLENOL PO PRN (20:13)
[2018-11-23] MEDS: SYNTHROID GT SCH (06:10)
--- NOTE | 2018-11-23 07:04 | GENERAL SURGERY PROGRESS NOTE ---
DATE: 11/22/2018 SUBJECTIVE: The patient's hemodialysis access did not work. We will plan on placement of a tunneled hemodialysis catheter tomorrow. Her INR is trending down, which is good. Discussed with patient placement of catheter. She is aware of the procedure. She has had it done several times. We will make her NPO after midnight. -1 cc: Will Ferraro MD
[2018-11-23] MEDS ORDERED: NS 2,000 ML MISC PRN (07:18)
[2018-11-23] MEDS ORDERED: MAXIPIME 1 GM in NS 50 ML IV ONE ×3 (07:30→17:00)
--- NOTE | 2018-11-23 07:31 | GENERAL SURGERY PROGRESS NOTE ---
DATE: 11/23/2018 SUBJECTIVE: Patient doing okay. OBJECTIVE: Vital Signs: The patient's current temperature is 100.3 degrees. Remainder of vital signs have been stable. General: No acute distress. HEENT: Normocephalic, atraumatic. Pupils equal, round, reactive to light. Mucous membranes moist. Oropharynx benign. Neck: No obvious purulence or erythema noted on the right side. The left side still has a stable area in her posterior occipital area. Cardiovascular: Regular rate and rhythm. Lungs: Grossly clear. Abdomen: Soft, nontender, nondistended. Extremities: Moves all extremities. Neurologic: Grossly intact. Skin: As noted above. Vascular: All extremities perfused. LABORATORY DATA: Pending this morning. Her INR yesterday was 1.43. ASSESSMENT AND PLAN: A 48-year-old female with end-stage renal disease, needing tunneled dialysis catheter. Need for tunneled dialysis catheter. At this time, will have to figure out where we can place it as far as anatomical location. We may try to the right neck again, if the area does not seem to have any signs of infection. The left side is somewhat prohibitive given her subcutaneous abscess. If her neck does not look good, will probably go into her groin, but will make that decision at the time of surgery. She has been through this before. She is aware of the risks, benefits, and alternatives. Will proceed. cc: Will Ferraro MD
[2018-11-23] MEDS ORDERED: MAXIPIME 1 GM in NS 50 ML IV SCH (07:45)
[2018-11-23] MEDS: TYLENOL PO PRN (07:49)
[2018-11-23] MEDS ORDERED: VANCOMYCIN 1 GM/NS 1 GM/250 ML IVPB IV ONE ×2 (07:56→18:00)
[2018-11-23] MEDS ORDERED: VANCOMYCIN 1 GM/NS 1 GM/250 ML IVPB IV SCH (08:00)
[2018-11-23 08:04] LABS: INR 1.62; PROTIME 20.5 Seconds (11.0-16.0)
[2018-11-23 08:17] LABS: ALBUMIN 2.6 g/dL (3.5-5.0); CALCIUM 8.8 mg/dL (8.8-10.2); CREATININE 7.3 mg/dL (0.5-0.9); PHOSPHORUS 10.3 mg/dL (2.7-4.5); POTASSIUM 4.4 mmol/L (3.5-5.1)
[2018-11-23 09:07] LABS: HEMATOCRIT 23.9 % (37.0-47.0); HEMOGLOBIN 7.9 g/dL (12.0-16.0); MCH 30.9 PG (27-31); MCHC 33.1 g/dL (33-37); MCV 93.4 FL (81-99); MPV 10.6 FL (7.4-10.4); RBC 2.56 XMIL (4.2-5.4); RDW 20.5 % (11.5-14.5); WBC 6.65 X1000 (4.8-10.8)
--- NOTE | 2018-11-23 09:30 | Diag Imaging Result Doc PS360 ---
EXAM: CHEST-1 VIEW HISTORY: pneumonia TECHNIQUE: Chest single view COMPARISON: 11/08/2018 FINDINGS: Interval removal of the right-sided catheter. No pneumothorax. The lungs are well expanded. The heart is not enlarged. The vessels are not distended. There are no infiltrates. No effusion identified. IMPRESSION: No pneumonia. Electronically signed by Aba Saez 11/23/2018 9:28 AM
--- NOTE | 2018-11-23 09:48 | NEPHROLOGY PROGRESS NOTE ---
DATE: 11/23/2018 SUBJECTIVE: Patient is sitting up in a chair. She is waiting to go to surgery for dialysis access. OBJECTIVE: Vital Signs: Temperature 102 degrees, pulse 95, respiratory rate 22, blood pressure 156/74. Intake 450 mL. Output not measured. General: Middle-aged female, sitting up in a chair. She is awake and alert. She is in no acute distress. HEENT: Normocephalic, atraumatic. DIONNE. Oral mucosa dry. Neck: Supple without JVD. Cardiovascular: Regular rate and rhythm. Pulmonary: She is clear bilaterally. She is on room air. Abdomen: Obese, soft, with positive bowel sounds. : Not inspected. Extremities: No clubbing, cyanosis, edema. Integumentary: Skin is warm and dry. She does have some ecchymosis and bruising to the right chest area. Neurologic: Grossly nonfocal. Lab Data: Sodium 129, potassium 4.4, CO2 18, creatinine 7.3. ASSESSMENT AND PLAN: 1. Chronic kidney disease 5D. We will hold dialysis today because of her fever. Reevaluate in AM. 2. Methicillin-sensitive Staphylococcus aureus bacteremia, on Ancef. She has had her access out over the weekend. 3. Disposition. From a renal standpoint, when she is discharged from the hospital, we will continue her dialysis on a routine schedule. Dictated by JAVIER Thomas for Adam Fritz MD Face to face encounter, data reviewed, discussed with Brisa Jc on 11/23/18. I agree with the above assessment and plan of care. cc: Adam Fritz MD [facility]
[2018-11-23] MEDS: MYCOSTATIN SUSP PO SCH ×6 (09:56→21:43)
[2018-11-23] MEDS: NEURONTIN PO SCH ×2 (09:56→21:43)
[2018-11-23] MEDS: NORCO-5 PO PRN ×2 (12:54→21:25)
[2018-11-23] MEDS ORDERED: NS 500 ML IV SCH (16:00)
[2018-11-23] MEDS: ARIXTRA SUBQ SCH (20:10)
[2018-11-23] MEDS: DEPAKOTE SPRINKLE NG SCH (21:43)
[2018-11-24] MEDS ORDERED: NS 2,000 ML MISC PRN (06:15)
[2018-11-24] MEDS: SYNTHROID GT SCH (06:43)
[2018-11-24 07:04] LABS: BASO# 0.05 X1000 (0.0-0.2); BASO% 0.7 % (0.0-0.8); EOS# 0.11 X1000 (0.0-0.7); EOS% 1.6 % (0.0-10.0); HEMATOCRIT 26.2 % (37.0-47.0); HEMOGLOBIN 8.5 g/dL (12.0-16.0); IMM GRAN# 0.06 X1000 (0.0-0.04); IMM GRAN% 0.9 % (0.0-0.5); LYMPH# 0.68 X1000 (1.2-3.4); LYMPH% 9.7 % (20.5-51.1); MCH 29.6 PG (27-31); MCHC 32.4 g/dL (33-37); MCV 91.3 FL (81-99); MONO# 0.76 X1000 (0.11-0.59); MONO% 10.8 % (1.7-9.3); MPV 9.6 FL (7.4-10.4); NEUT# 5.35 X1000 (1.4-6.5); NEUT% 76.3 % (42.2-75.2); PLT 139 X1000 (130-400); RBC 2.87 XMIL (4.2-5.4); WBC 7.01 X1000 (4.8-10.8)
[2018-11-24 07:08] LABS: INR 1.93; PROTIME 23.5 Seconds (11.0-16.0)
[2018-11-24 09:12] LABS: AGAP 21; ALBUMIN 2.6 g/dL (3.5-5.0); BUN 80 mg/dL (8-22); CALCIUM 8.9 mg/dL (8.8-10.2); CHLORIDE 89 mmol/L (98-107); COSMO 279; CREATININE 8.6 mg/dL (0.5-0.9); GLUCOSE 96 mg/dL (70-104); PHOSPHORUS 12.2 mg/dL (2.7-4.5); POTASSIUM 5.4 mmol/L (3.5-5.1); SODIUM 127 mmol/L (136-145); TCO2 17 mmol/L (25-35)
[2018-11-24] MEDS: ARIXTRA SUBQ SCH (10:11)
[2018-11-24] MEDS: NEURONTIN PO SCH ×2 (10:11→22:30)
[2018-11-24] MEDS: MYCOSTATIN SUSP PO SCH ×4 (10:12→22:30)
[2018-11-24] MEDS: LOKELMA POWDER PACKET PO SCH ×2 (18:26→19:54)
[2018-11-24] MEDS ORDERED: LOKELMA POWDER PACKET PO ONE (22:00)
[2018-11-24] MEDS: DEPAKOTE SPRINKLE NG SCH (22:29)
[2018-11-25] MEDS: SYNTHROID GT SCH (06:04)
[2018-11-25] MEDS ORDERED: NS 2,000 ML MISC PRN (06:11)
[2018-11-25 07:06] LABS: INR 2.01; PROTIME 24.2 Seconds (11.0-16.0)
[2018-11-25] MEDS ORDERED: XYLOCAINE-MPF 2% ONE (07:53)
[2018-11-25] MEDS ORDERED: DIPRIVAN 1% ONE (07:54)
[2018-11-25] MEDS: MYCOSTATIN SUSP PO SCH ×3 (08:30→18:47)
[2018-11-25] MEDS ORDERED: NEO-SYNEPHRINE ONE (08:31)
--- NOTE | 2018-11-25 11:19 | PROGRESS NOTE ---
DATE: 11/23/2018 SUBJECTIVE: Today Ms. Reyes refers to be doing well. She does not really have any new complaints. However, overnight and early this morning, she has been running a temperature with a T-max of 102.1 degrees at 0721 hours today. OBJECTIVE: Vitals: Objectively, her blood pressure is 141/72, pulse of 85, respirations 20, temperature 99.5 degrees. General exam: Ms. Reyes is a 48-year-old female. She was in the chair; was not in any distress. HEENT: Mucosa is pink and moist. Anicteric. Acyanotic. Neck: Supple. Chest: Good air entry bilateral. There were no crepitations, no rhonchi. Cardiovascular: Regular rate and rhythm. There is a positive S1 metallic sound from the mitral valve. Abdomen: Soft, nontender. Extremities: No pedal edema. PODIATRIC AIDE: Patient is awake, alert and oriented. There are no focal neurological deficits. LABORATORY DATA: WBC is 6.65, hemoglobin is 7.9, platelet count of 135. Chemistry is also reviewed, consistent with renal failure. INR is 1.62. ASSESSMENT: 1. Septic shock on presentation with methicillin-sensitive Staphylococcus aureus bacteremia. Subsequent blood cultures have been negative. The patient was on Ancef. However, early this morning the patient has been spiking temperature. Antibiotics have been changed by ID. She has been started today on cefepime with vancomycin. So far, WBC seems to be fine and other lab works are within normal parameters for her pathologies. 2. Methicillin-sensitive Staphylococcus aureus central line-associated bloodstream infection. The patient had a previous tunneled catheter, which was removed. There is a plan to get a new catheter. 3. Status post mitral mechanical valve replacement. Patient was on Coumadin anticoagulation A transesophageal echocardiogram was done to rule out endocarditis. INR this morning is 1.6. 4. Endstage renal disease on hemodialysis. 5. Antiphospholipid syndrome. 6. Left posterior scalp methicillin-sensitive Staphylococcus aureus abscess. The patient is status post incision and drainage. The swelling looks remarkably reduced. However, there is still some fluctuation, which we are pending surgery to re-evaluate. 7. Perioperative anticoagulation. Ms. Reyes has mechanical mitral valve and on Coumadin. 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 She was given fondaparinux yesterday. We will restart her Coumadin tomorrow if she gets her catheter today. If not, then we will just continue with fondaparinux at renal dose. We will hold this 24 hours before the vascular surgery. PLAN: So, in general, Ms. Reyes has been in the hospital 14 days. She initially got admitted because of altered mental status, was found to be septic, was admitted initially to ICU. She has progressively gotten better during the hospital course. Her initial dialysis catheter was removed. The tip was sent for culture, which also grew MSSA. There was concern for endocarditis, so a SETH was done by Cardiology, which was negative. Ms. Reyes has been progressively getting better. She is getting physical therapy and seems to be improving. There was a plan for a dialysis tunnel cath to be placing today. However, since early this morning, she has been spiking a temperature. I will not sure if she has developed any infection anywhere. A chest x-ray this morning is negative. Blood cultures have been done. I told her we are going to be waiting on the result before any catheter will be placed. cc: Kofi Barillas MD
[2018-11-25] MEDS ORDERED: XYLOCAINE 1% ONE (14:14)
[2018-11-25] MEDS ORDERED: MARCAINE 0.25% PF/EPI 1:200,000 ONE (14:14)
[2018-11-25] MEDS ORDERED: NS 250 ML ONE (14:14)
[2018-11-25] MEDS: NEURONTIN PO SCH (14:34)
[2018-11-25] MEDS: CATAPRES-TTS-3 TD SCH (14:34)
[2018-11-25] MEDS ORDERED: MAXIPIME 1 GM in NS 50 ML IV ONE (17:00)
[2018-11-25] MEDS ORDERED: VANCOMYCIN 1 GM/NS 1 GM/250 ML IVPB IV ONE (17:00)
--- NOTE | 2018-11-25 17:28 | INFECTIOUS DISEASE PROGRESS NO ---
DATE: 11/23/2018 PRESENT ILLNESS: Ms. Reyes is being treated for an oxacillin-sensitive Staph aureus bacteremia originating from her right chest dialysis catheter site, which has been removed. She also had a right groin dialysis catheter that has been removed. The left posterior scalp has also grown an oxacillin sensitive Staph aureus and has been drained once by Dr. Ferraro. She is also being treated for oral candidiasis which has improved. This morning she spiked a fever of 102.1. MEDICATIONS: Today she has been changed from Ancef 1 g IV after dialysis to vancomycin 1 g IV and cefepime 1 g IV after dialysis. PHYSICAL EXAMINATION: Vital Signs: Temperature 99.5, pulse rate 85, respiratory rate 20, blood pressure 141/72, O2 saturation 100% on room air. General: This is a chronically ill-appearing, middle-aged female. She is sitting up in a chair currently in no acute distress. HEENT: There is a left posterior scalp abscess which has gotten slightly larger since my last visualization. Oral mucous membranes are pink and moist. Conjunctivae are pale, and sclerae are icteric. Neck: Has a slight decrease in suppleness. Trachea is midline. Respiratory: Lung sounds are clear to auscultation bilaterally. Diminished in the bases. Cardiovascular: Heart rate and rhythm are regular. Normal sinus rhythm on the monitor. Neurologic: She is awake, alert, oriented, and able to move all extremities in the chair independently. Extremities: Have trace to 1+ edema with scattered dry abrasions noted. There is a dressing which is dry and intact to the right groin. She has a right forearm AV fistula. The site has a good thrill and bruit. LABORATORY AND X-RAY: Today, her white count is 6.65, hemoglobin 7.9, platelet count 135,000. Creatinine is 7.3. GFR 6. No hepatic enzymes have been done today, but Friday she had a total bilirubin of 3.5, direct bilirubin 2.4, AST 22, ALT 8, alkaline phosphatase 223. Blood and posterior neck cultures have grown an oxacillin-sensitive Staph aureus. Blood cultures were redrawn this morning and are pending. Chest x-ray done today shows no pneumonia. ASSESSMENT AND PLAN: Ms. Reyes is being treated for an oxacillin- sensitive Staph aureus bacteremia. She was receiving IV Ancef after dialysis and then spiked a temperature of 102 this morning, so she has been changed to IV vancomycin 1 g and cefepime 1 g after each dialysis for more broad-spectrum coverage. She is not able to have dialysis at this time due to the fever and absence of a dialysis catheter. Hopefully, her fever will go down and her catheter can be put in tomorrow. Today, she has had a dose of cefepime and vancomycin and will continue to get these after dialysis. The patient will need 6 total weeks of treatment for her prosthetic mitral valve. These plans have been discussed with and recommended by Dr. Arnold. COMORBIDITIES: For Ms. Reyes include end-stage renal disease with hemodialysis, obesity, prosthetic mitral valve, and seizure disorder. Dictated by JAVIER Perez for Rashid Arnold MD cc: Rashid Arnold MD MTD
[2018-11-25 19:50] VITALS: BP 129/53
--- NOTE | 2018-11-25 21:22 | INFECTIOUS DISEASE PROGRESS NO ---
DATE: 11/25/2018 PRESENT ILLNESS: The patient had an oxacillin-sensitive Staph aureus bacteremia which originated from her right chest dialysis catheter site. The patient also has a Staph aureus scalp abscess. The patient also was found to have oral candidiasis. While the patient was receiving Ancef for her bacteremia and abscess, she spiked a fever, the exact etiology of which was uncertain to me. MEDICATIONS: The patient was initially getting nafcillin after each dialysis and it was going to be treatment for 6 weeks because the patient has prosthetic mitral valve in place. The patient did spike a fever while she was getting treated for her Staph aureus infection. The exact cause of that fever is uncertain to me. At that time we switched then to a combination of vancomycin and cefepime. Since we have switched to that she has not had any further fevers. Also repeat blood cultures have been sterile. PHYSICAL EXAMINATION: Vital Signs: Temperature is 98.6, pulse 98, respirations 18, blood pressure 107/62. General: This is a chronically ill-appearing, middle-aged female. She is in no acute distress. HEENT: She can hear my spoken words and see near objects. She does have some white coating on her tongue. In the left posterior part of her scalp, she does have an abscess which has been drained. It still is swollen, but not as much and is not fluctuant like it had been, but there is swelling at the site. Lungs: Clear to auscultation. Cardiovascular: Heart rate is regular. Abdomen: Soft and nontender. Today, the patient had a dialysis catheter put in the right groin area. This was done by Dr. Ferraro at surgery. Neurologic: The patient is alert. She can move her extremities. She can ambulate. There is no tremor. LAB AND X-RAY: Repeat blood cultures drawn on the 23 of November are negative. The patient's CBC shows a white count of 7010, hemoglobin 8.5, and platelet count 139,000. Creatinine is 8.6. Repeat blood cultures drawn on November 23 are sterile. There is no new radiographic study today. ASSESSMENT AND PLAN: The patient has bacteremia and also she had a fever while she was having the bacteremia. She also has an abscess on the left skull area. She had Staph aureus infection of her right chest tunneled dialysis site also which has cleared. My plan is to continue vancomycin and cefepime after each dialysis for a total of 6 weeks. The reason for the 6 weeks is that the patient has prosthetic mitral valve, which may have become infected hematogenously, even though it did not show on the transesophageal echocardiogram. I am going to request that the patient come to my office in 3 weeks and then again at 6 weeks which hopefully then we can stop the patient's antibiotics. COMORBIDITIES: The patient has end-stage renal disease and she is on hemodialysis. She also has prosthetic mitral valve in place. She has a seizure disorder and she is obese. cc: Rashid Arnold MD
--- NOTE | 2018-11-26 16:00 | GENERAL SURGERY PROGRESS NOTE ---
DATE: 11/24/2018 SUBJECTIVE: The patient had a fever yesterday so we held off on placing her tunneled catheter. She seems to be doing a little bit better, although, she has a lot of low-grade fever in the 99s and they resent off blood cultures. I discussed with Dr. Arnold and Dr. Fritz, and I think we can potentially put a temporary catheter in today and then see the results show. I discussed this with the patient and we will try to do that this morning if we need to depending on labs. cc: Will Ferraro MD
--- NOTE | 2018-11-26 18:25 | NEPHROLOGY PROGRESS NOTE ---
DATE: 11/24/2018 SUBJECTIVE: She is sitting up in a chair. Denies shortness of breath, nausea or vomiting. OBJECTIVE: Vital signs: Blood pressure 137/73, heart rate 91, respirations 22, temperature 99.0 degrees. T-max 99.9 degrees. General: In no acute distress. Skin: Warm and dry. Neck: Veins are not distended. Heart: Regular with metallic heart tones. Lungs: Equal. Abdomen: Benign. Extremities: No edema, clubbing or cyanosis. IMPRESSION: Chronic kidney disease stage 5D. BUN is 80 today, potassium 5.4. Appears euvolemic overall. We will hold dialysis today and she will have a tunneled dialysis catheter placed tomorrow by Dr. Ferraro. We will treat her potassium with Lokelma. cc: Adam Fritz MD
--- NOTE | 2018-11-27 06:38 | PROGRESS NOTE ---
DATE: 11/24/2018 SUBJECTIVE: The patient reports feeling fine. She is sitting in the recliner, no complaints at this time. OBJECTIVE: Vital Signs: Temperature 98.6, heart rate 98, respiratory rate 21, blood pressure 117/89, 02 saturation 100% on room air. General: This is a 48-year-old female lying in bed in no acute distress. HEENT: Head is normocephalic and atraumatic. Cardiovascular: S1 and S2 heard. No murmurs, gallops or rubs. Regular rate and rhythm. Respiratory: Clear bilaterally to auscultation. No work of breathing, not using accessory muscles. Abdomen: Soft, nontender to palpation. Bowel sounds present. No organomegaly. Neurological: The patient is alert and oriented x3. Moves four extremities. LABORATORY DATA: None. ASSESSMENT/PLAN: 1. Septic shock on presentation with methicillin-sensitive Staphylococcus aureus bacteremia. The patient is on Ancef. We have checked some blood cultures after starting antibiotics and those are negative. This infection has been deemed to be secondary to central line associated blood infection, so previous tunneled catheter was removed. At this point, we are planning to place a new tunneled catheter and then we are going to start dialysis from there. 2. Status post mechanical valve replacement. The patient is on Coumadin. We have held that medication and will replace it with Arixtra. We will place back to warfarin whenever this patient is ready with the surgery. 3. End-stage renal disease, on dialysis. Dr. Lam giles. 4. History of antiphospholipid syndrome. Aware. 5. Disposition: The patient is scheduled for tunneled catheter placement tomorrow, from there will be discharged if okay with Nephrology. cc: Emilio Heller MD
--- NOTE | 2018-11-27 07:30 | DISCHARGE SUMMARY ---
ADMISSION DATE: 11/09/2018 DISCHARGE DATE: 11/25/2018 PRIMARY CARE PHYSICIAN: Dr. Bonds. CONSULTATIONS: Nephrology, Infectious Disease, Neurology, General Surgery, and Cardiology. ADMISSION DIAGNOSES: 1. Altered mental status. 2. Seizure disorder. 3. Hyperkalemia. 4. Leukocytosis with probable pneumonia and sepsis. 5. End-stage renal disease with dialysis. 6. Hypertension. 7. Antiphospholipid antibody syndrome, on anticoagulation. DISCHARGE DIAGNOSES: 1. Septic shock on presentation with a methicillin-sensitive Staphylococcus aureus bacteremia. 2. Methicillin-sensitive Staphylococcus aureus, central line-associated bloodstream infection. 3. Status post mitral mechanical valve replacement. 4. End-stage renal disease, on hemodialysis. 5. Antiphospholipid syndrome. 6. Left posterior scalp methicillin-sensitive Staphylococcus aureus abscess. 7. Perioperative anticoagulation. SUMMARY OF FINDINGS: This is a 48-year-old female who presented to the emergency room with family, stating that she was found to be more confused and disoriented and seemed to be worsening, was moderately alert, and due to her presenting symptoms, we admitted her to the intensive care unit, placed on seizure precautions. We monitored her potassium. We consulted Nephrology for dialysis. On admission, we did a head CT that showed a superficial soft tissue fluid collection in the left occipital region, and soft tissue swelling, otherwise stable CT of the head. We did a CT of the abdomen and pelvis that showed atelectasis versus a mild bronchopneumonia, particularly in the left lower lobe, worsened splenomegaly, questionable enterocolitis, cholelithiasis, and a left ovarian cyst. Infectious Disease was consulted due to having a gram-positive coccal bacteremia that grew out methicillin-resistant Staphylococcus aureus. The initiation of the infection was felt to be from her dialysis tunnel catheter. We did consult Nephrology also and General Surgery, who removed the infected tunneled hemodialysis catheter in the right internal jugular vein, and placed a femoral Vas-Cath. Hematology was also consulted and followed. We did a SETH to rule out any vegetation and endocarditis on 11/16/2018, and that was found to show no evidence of vegetation or significant insufficiency, with normal LV systolic function. Per Infectious Disease, she will need 6 weeks of vancomycin and cefepime at the end of each dialysis due to having a prosthetic mitral valve which may have become infected hematogenously, even though it did not show on the transesophageal echocardiogram. Infectious Disease wants the patient to follow up in his office in 3 weeks, and then again at the end of the 6-week period, so that hopefully at that time, the antibiotics can be stopped. Her white blood cell count is 7.0. She was also found on 11/17/2018 to have a posterior left scalp abscess, and was taken to surgery by General Surgery to have an I and D of the left posterior scalp abscess and tolerated well, and it is now felt that she can safely be discharged home. DISCHARGE MEDICATIONS: Xanax 1 mg p.o. daily, aripiprazole 5 mg p.o. daily, atorvastatin 20 mg p.o. daily, bupropion 100 mg p.o. daily, divalproex 250 mg p.o. b.i.d., multivitamin 1 p.o. daily, Arixtra 2.5 mg subcutaneously daily, gabapentin 400 mg p.o. b.i.d., levothyroxine 100 mcg p.o. every a.m., losartan 100 mg p.o. daily, pantoprazole 40 mg p.o. daily, Seroquel 300 mg p.o. p.r.n., Anoro Ellipta 62.5/25 mcg inhaler daily, Coumadin 4 mg p.o. daily. FOLLOWUP: She will need to follow up with her primary care physician, Infectious Disease, Hematology, Nephrology after she is discharged and received her 6 weeks of antibiotic therapy. TIME SPENT: A 35-minute discharge. Dictated by JAVIER Delgado for Emilio Heller MD Addendum: Patient seen and examined by myself. Agree with JAVIER note. It reflects my assessment and plan. Patient is being discharged in stable condition. She will be seen by Dr. Arnold in the office in 6 weeks. cc: JAVIER Delgado MD Nidhi Jindal, MD MTDD
--- NOTE | 2018-11-27 11:50 | INFECTIOUS DISEASE PROGRESS NO ---
DATE: 11/24/2018 HISTORY OF PRESENT ILLNESS: Ms. Reyes is being treated for an oxacillin- sensitive Staph aureus bacteremia, the origin of which was her right chest dialysis catheter, which has been removed. She also has a left posterior scalp wound which has been drained by Dr. Ferraro, and has grown the same oxacillin-sensitive Staph aureus. She has also been treated for an oral candidiasis which has improved. She did spike a fever yesterday morning, but since then it has been low grade. MEDICATIONS: She is receiving IV vancomycin 1 g and cefepime 1 g IV after dialysis. She got a dose of each of these yesterday although dialysis is on hold at this time. PHYSICAL EXAMINATION: Vital signs: Temperature 98.6, pulse rate 98, respiratory rate 21, blood pressure 117/89, O2 saturation 100% on room air. General: This is a chronically ill appearing middle-age obese female. She is sitting up in the chair currently in no acute distress. HEENT: There is a left posterior scalp subcutaneous infection. Oral mucous membranes are pink and moist. Conjunctivae are pale. Neck is supple. Trachea is midline. Cardiovascular: Heart rate and rhythm are regular. Normal sinus rhythm on the monitor. Respiratory: Lung sounds are clear to auscultation bilaterally. No work of breathing is noted. Abdomen is soft, obese, and nontender. Bowel sounds are active. Neurologic: She is awake, alert, and oriented. Able to move all extremities independently in the chair. Extremities: There is an AV fistula to the right forearm with a good thrill and bruit. LABORATORY AND X-RAY: Today her white count is 7.01, hemoglobin 8.5, platelet count 139,000. Creatinine is 8.6. Her left posterior scalp wound and blood cultures have both grown an oxacillin- sensitive Staph aureus. Repeat blood cultures done yesterday are preliminary. No imaging reports today. ASSESSMENT AND PLAN: Ms. Reyes is being treated for an oxacillin- sensitive Staph aureus bacteremia and subcutaneous scalp infection. She has been changed from Ancef to vancomycin and cefepime due to fever spike that was noted yesterday. At this point she continues with a low-grade temperature. The plan is for her to have insertion of a dialysis catheter tomorrow, after which she will have her dialysis. We are awaiting her most recent blood culture results. She also has an oral candidiasis, which is improving, so we will continue the nystatin. These plans have been discussed with and recommended by Dr. Arnold. COMORBIDITIES: for Ms. Reyes include end-stage renal disease with hemodialysis, a prosthetic mitral valve, obesity, and seizure disorder. Dictated by JAVIER Perez for Rashid Arnold MD cc: Rashid Arnold MD MTDD
--- NOTE | 2018-11-27 14:39 | VASCULAR LAB ---
DATE: 11/19/2018 STUDY AND INDICATION: Ultrasound of a right radiocephalic fistula to evaluate for readiness for dialysis. REFERRING PROVIDER: JAVIER Mejia [employer] FOREMAN/SUPERINTENDANT: Leti Rojas RVT. FINDINGS: The right radiocephalic fistula measures 31 mm in diameter. It is patent, has flow through it. There are multiple branches seen coming off this AV fistula involving the right forearm. The anastomosis at the wrist appears to be stenotic with velocities of greater than 500 cm/sec. cc: MD Lamar Macisa CRNP
--- NOTE | 2018-11-27 14:45 | GENERAL SURGERY PROGRESS NOTE ---
DATE: 11/25/2018 SUBJECTIVE: The patient seems to be doing about the same. Her microbiology has not shown any growth as of yet for the most recent cultures. She has not had a fever. OBJECTIVE: Vital signs: The patient is currently afebrile . Her vital signs are stable. General exam: No acute distress. Cardiovascular: Regular rate and rhythm. Lungs grossly clear. Abdomen soft, nontender, nondistended. ASSESSMENT AND PLAN: A 48-year-old female with end-stage renal disease, bacteremia. 1. End-stage renal disease. At this time we will plan placement of a tunnel hemodialysis catheter. I think her bacteremia is improved. I think it is reasonable to proceed with it today. The risks, benefits, alternatives were discussed. She is aware. She has been through this before. cc: Will Ferraro MD
--- NOTE | 2018-11-27 18:14 | OPERATIVE NOTE ---
PROCEDURE DATE: 11/25/2018 PREOPERATIVE DIAGNOSIS: End-stage renal disease. POSTOPERATIVE DIAGNOSES: 1. End-stage renal disease. 2. 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 PROCEDURE: Ultrasound and fluoro-guided placement of a tunneled hemodialysis catheter. SURGEON: Will Ferraro MD. DIRECTOR OF ANALYTICS: None. ANESTHESIA: General endotracheal. INTRAOPERATIVE FINDINGS: Ultrasound initially of the right internal jugular vein showed thrombus. She did have what looked like a cord where there was thrombus extending from her previous catheter placement, so we elected to not go in her neck. Ultrasound in the groin showed a good caliber right common femoral vein. BRIEF HISTORY: A 48-year-old female, well known to me with end-stage renal disease. She needed a new catheter placed. The risks, benefits, and alternatives were discussed, all questions answered. DESCRIPTION OF PROCEDURE: After informed consent was obtained, patient brought to the operative theatre, transferred to the operating table and placed in supine position. General endotracheal anesthesia was then performed without complication. A formal time-out was then performed confirming patient, date and procedure. All in agreement. At that time, attention was given to the neck. We did the ultrasound with the details described above. We elected to not place it in the neck. We then went to her groin, placement in the groin with an ultrasound and looked like it was amenable. We prepped and draped the right groin in sterile fashion. After the formal time- out, we used the ultrasound and local anesthetic to cannulize the right common femoral vein, passed a wire, seen under fluoro going into the inferior vena cava. Fluoro showed it going to the inferior vena cava. We then created a tunnel in the right leg, tunneled the catheter to the insertion site, exchanged the wire in typical Seldinger technique to place the tip of the catheter in the inferior vena cava, seen under fluoro. We were able to aspirate and flush easily. We secured it in place in a standard fashion. The patient tolerated the procedure well. cc: Will Ferraro MD
== END 2018-11-25 19:46 | disposition home or self-care (01) | DRG 314 ==
LOC: ED 21:22 → SUATTDRO 11-09 03:26 → ICU 11-09 03:26 → 3N 11-14 17:45
PROVIDERS: ATTEND Internal Medicine
CPT/HCPCS: 36430; 70450; 71010; 71045; 71250; 74176; 76000; 80048; 80053; 80069; 80076; 80170; 80196; 80307; 80324; 80329; 81025; 82003; 82009; 82140; 82272; 82607; 82746; 82948; 83010; 83605; 83615; 83880; 84132; 84443; 84484; 85025; 85027; 85045; 85379; 85384; 85610; 85730; 86850; 86870; 86900; 86901; 86905; 86920; 86922; 87040; 87070; 87075; 87077; 87186; 87205; 87324; 87449; 88300; 93005; 93010; 93306; 93312; 93990; 94640; 94761; 94762; 95816; 96365; 96366; 96367; 96368; 96375; 97110; 97162; 97530; 99285; 99291; A9270; C1725; C1750; G0480; G6038; G6039; J0330; J0610; J0690; J0692; J1580; J1652; J2270; J2370; J2543; J3370; J7030; J7040; J7050; J7060; P9016; P9017; P9035; S0020; S0032; XXXXX

== ENCOUNTER 2018-11-29 21:16 | Inpatient (IN) ==
--- NOTE | 2018-11-29 23:04 | PROVIDER DOCUMENTATION ---
HPI-Musculoskeletal Pain/Inj - GENERAL Chief Complaint: General Adult Stated Complaint: JERKING, UNABLE TO STAND Time Seen by Provider: 11/29/18 21:35 Source: patient, family - HX OF PRESENT ILLNESS-MUSKULOSKELTAL Nature of Presenting Problem: reports that while standing up she feels her body jerking then she went down on the floor more frequent the last 2 days. no generalized weakness, sob, cp, abd pain, diarrhea, headache, or blurred vision. Review of Systems - Adult - REVIEW OF SYSTEMS - ADULT Constitutional: reports: no symptoms reported Eyes: reports: no symptoms reported Ears, Nose, Mouth & Throat: reports: no symptoms reported Cardiovascular: reports: no symptoms reported Respiratory: reports: no symptoms reported Gastrointestinal: reports: no symptoms reported Genitourinary: reports: no symptoms reported Musculoskeletal: reports: no symptoms reported Integumentary: reports: no symptoms reported Neurological: reports: no symptoms reported Psychiatric: reports: no symptoms reported Endocrine: reports: no symptoms reported Hematologic/Lymphatic: reports: no symptoms reported Allergic/Immunologic: reports: no symptoms reported All Other Systems: Reviewed and Negative Past History - Adult - PAST MEDICAL HISTORY-ADULT Review of Records: reports: Old Records Reviewed, Nursing Assessment Review, Medications Reviewed, Social history reviewed & non-contributory. Major Childhood Illnesses: reports: denies history Cardiovascular: reports: 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) Respiratory: reports: denies history Gastrointestinal: reports: denies history Obstetrical/Gynecological: reports: denies history Genitourinary: reports: kidney disease (Stage IV) Musculoskeletal: reports: chronic pain Neurological: reports: CVA (multiple, some hemorrhagic), Seizures/Epilepsy Endocrine/Immune: reports: denies history Other Conditions: reports: denies history - PRIOR SURGERIES/PROCEDURES Surgical/Procedure History: reports: other (mechanical heart valve replacement, multiple craniotomies, carotid bypass with vein graft) - IMMUNIZATION STATUS Childhood Immunizations: See Nurse Assessment Flu Vaccine: See Nurse Assessment - FAMILY HISTORY Family History: reviewed, not pertinent - SOCIAL HISTORY Smoking: less than 1 pack/day Provider spent 3-5 mins advising pt. on dangers of tobacco.: Discussed manners to quit use, and f/u contacts for add'l counseling. Physical Exam-Injury Related - Physical Exam-Injury Related Initial Vital Signs Reviewed: Yes General Appearance: alert, no apparent distress Eyes: PERRL/EOMI, pink conjunctivae Head, Ears, Nose, Mouth & Throat: normocephalic/atraumatic, moist mucous membranes, normal ENT inspection, TMs normal Neck: non-tender, full range of motion, supple Respiratory: chest non-tender, lungs clear, normal breath sounds Cardiovascular: normal peripheral pulses, regular rate, rhythm, no edema Abdominal Exam: normal bowel sounds, non tender, soft Back Exam: normal inspection, no CVA tenderness, no vertebral tenderness Extremity: normal range of motion, non-tender, normal gait DTR: bicep (R): 2+, bicep (L): 2+, knee (R): 2+, knee (L): 2+, ankle (R): 2+, ankle (L): 2+ Integumentary: normal color, warm/dry Neurologic: grossly normal, no motor/sensory deficits Psych/Mental Status: normal mood/affect, normal thought content, normal thought process, oriented x 3 - Glascow Coma Score Best Eye Response (Griffin): (4) open spontaneously Best Verbal Response (Griffin): (5) oriented Best Motor Response (Dilip): (6) obeys commands Progress - PLAN OF CARE/RESULTS Progress/Plan/Lab Results: Vital Signs - 8 hr 11/29/18 21:23 11/29/18 23:58 Pulse Rate 76 Pulse Rate [Sitting] 82 Pulse Rate [Supine] 74 Respiratory Rate 20 Blood Pressure 145/68 Blood Pressure [Sitting] 96/58 Blood Pressure [Supine] 133/72 O2 Sat by Pulse Oximetry 97 Laboratory Results - last 24 hr 11/29/18 11/29/18 23:07 23:07 WBC 6.22 RBC 2.10 L Hgb 6.3 L Hct 20.1 L MCV 95.7 MCH 30.0 MCHC 31.3 L RDW Std Deviation 18.9 H Plt Count 135 MPV 9.6 Immature Gran % (Auto) 0.6 H Neut % (Auto) 71.0 Lymph % (Auto) 15.9 L [place] % (Auto) 9.8 H Eos % (Auto) 1.9 Baso % (Auto) 0.8 Immature Gran # (Auto) 0.04 Neut # (Auto) 4.41 Lymph # (Auto) 0.99 L [place] # (Auto) 0.61 H Eos # (Auto) 0.12 Baso # (Auto) 0.05 Sodium 134 L Potassium 4.6 Chloride 96 L Carbon Dioxide 19 L Anion Gap 19 BUN 50 H Creatinine 8.0 H Estimated GFR/1.73 m2 5 BUN/Creatinine Ratio 6 Glucose 107 H Calculated Osmolality 282 Calcium 8.7 L Phosphorus 7.0 H Magnesium 1.8 Total Bilirubin 1.50 H AST 53 H ALT 16 Alkaline Phosphatase 487 H Total Protein 7.6 Albumin 3.1 L Globulin 4.5 Albumin/Globulin Ratio 0.7 Orders Category Date Time Status CBC WITH ELECTRONIC DIFF [HEME] Stat Lab 11/29/18 23:07 Completed COMPREHENSIVE METABOLIC PANEL [CHEM] Stat Lab 11/29/18 23:07 Completed MAGNESIUM [CHEM] Stat Lab 11/29/18 23:07 Completed OCCULT BLOOD SCREENING [STOOL] Stat Lab 11/29/18 23:56 Uncollected PHOSPHORUS [CHEM] Stat Lab 11/29/18 23:07 Completed EKG [EKG] Stat Ther 11/29/18 22:35 Ordered Result Diagrams: 11/29/18 23:07 11/29/18 23:07 - REASSESSMENT Reassessment #1 Status: other (blood coutn is dropping from 11/24. vss, but orthostatic hypotention+++. pt is not able to stand on her own. will admit for observation for HD and blood transfusion and reassessment) - CONSULTS/PCP/HOSPITALIST Notification #1 *Consult/PCP/Hospitalist*: Dr. Giron Time Discussed: 00:07 (observation) Departure - Departure Date of Disposition Decision: 11/30/18 Time of Disposition Decision: 00:08 DIAGNOSIS: Tobacco use disorder, ESRD (end stage renal disease) on dialysis, Anemia Disposition: ADMITTED INPATIENT 09 Certified Medical Emergency: Emergent Condition: Stable Referrals and Follow-Ups: Kelley Bonds MD [Primary Care Provider] - - Critical Care Note This patient required my direct & personal management of CC.: No Attestation - Physician/ GERMÁN Attestation The physician spent face to face time with patient:: Yes Advanced Practice Provider documentation review:: Supervising physician onsite and consulted in the evaluation and care of this patient. The physician did have a face to face encounter with the patient.
[2018-11-29 23:44] LABS: ALBUMIN 3.1 g/dL (3.5-5.0); CALCIUM 8.7 mg/dL (8.8-10.2); POTASSIUM 4.6 mmol/L (3.5-5.1); TOTAL BILIRUBIN 1.5 mg/dL (0.20-1.00); TOTAL PROTEIN 7.6 g/dL (6.3-8.3)
[2018-11-29 23:45] LABS: ALB/GLOB RATIO 0.7; MAGNESIUM 1.8 mg/dL (1.5-2.7)
--- NOTE | 2018-11-29 23:45 | ED EKG INTERP ---
This chart was entered by Migdalia King Scribe, acting as scribe for Viridiana Rose MD. EKG Interpretation - EKG Time of EKG reading by physician:: 22:57 EKG Read and Signed by:: Viridiana Rose EKG Interpretation (*Must complete 3 of following elements*): Abnormal (Sinus rhythm with premature atrial complexes, Cannot rule out Anterior infarct, age undetermined, Abnormal ECG) Rate: 77 Rhythm: Sinus [place]: normal QRS: normal [place] Interval: normal Attestation - Physician/ GERMÁN Attestation Patient care was provided by Advanced Practice Provider:: No The physician spent face to face time with patient:: Yes Advanced Practice Provider documentation review:: Supervising physician onsite and consulted in the evaluation and care of this patient. The physician did have a face to face encounter with the patient. This chart was documented by the indicated scribe, (Migdalia King Scribe) and accurately reflects the services I performed and decisions made by me, Viridiana Rose MD, as attested by the provider's signature.
[2018-11-29 23:47] LABS: BASO# 0.05 X1000 (0.0-0.2); BASO% 0.8 % (0.0-0.8); EOS# 0.12 X1000 (0.0-0.7); EOS% 1.9 % (0.0-10.0); HEMATOCRIT 20.1 % (37.0-47.0); HEMOGLOBIN 6.3 g/dL (12.0-16.0); IMM GRAN# 0.04 X1000 (0.0-0.04); IMM GRAN% 0.6 % (0.0-0.5); LYMPH# 0.99 X1000 (1.2-3.4); LYMPH% 15.9 % (20.5-51.1); MCHC 31.3 g/dL (33-37); MCV 95.7 FL (81-99); MONO# 0.61 X1000 (0.11-0.59); MONO% 9.8 % (1.7-9.3); MPV 9.6 FL (7.4-10.4); NEUT# 4.41 X1000 (1.4-6.5); PLT 135 X1000 (130-400); RDW 18.9 % (11.5-14.5); WBC 6.22 X1000 (4.8-10.8)
[2018-11-30] MEDS ORDERED: ZOFRAN IV PRN (00:16)
[2018-11-30] MEDS ORDERED: TYLENOL PO PRN (00:37)
[2018-11-30 00:59] LABS: INR 2.07; PROTIME 24.8 Seconds (11.0-16.0)
[2018-11-30] MEDS ORDERED: SEROQUEL PO PRN (03:55)
--- NOTE | 2018-11-30 05:13 | HISTORY AND PHYSICAL ---
CHIEF COMPLAINT: Frequent falls, felt as if her body was jerking. HISTORY OF PRESENT ILLNESS: This is a 48-year-old female with end-stage renal disease, previous CVA, hypertension, seizure disorder, antiphospholipid antibody and noncompliance, who presented to the emergency room with complaints of feeling as if her body was jerking and frequent falls. Although she stated that she really did not fall as much as just kind of put herself on the ground. In her own words, she went down to the floor more frequent the last 2 days. She denied any kind of weakness, shortness of breath, chest pain, abdominal pain, diarrhea, headache or blurred vision. The patient has anemia of chronic disease and was found to be slightly more anemic in the emergency room. She will be admitted for 1 unit of packed red blood cells and then her regular scheduled dialysis on Friday. PAST MEDICAL HISTORY: End-stage renal disease, Friday, Friday, Friday dialysis, CVA, hypertension, seizure disorder, hypothyroidism, medical noncompliance, antiphospholipid antibody syndrome. PREVIOUS SURGICAL HISTORY: Brain surgery, mitral valve replacement, hernia repair, AV fistula of the left upper extremity. SOCIAL HISTORY: Twenty-plus pack-year history of smoking. Uses alcohol socially. No illicit drugs. FAMILY HISTORY: Coronary artery disease and diabetes, breast cancer in the family, colon cancer in first-degree relatives as well. ALLERGIES: Codeine, heparin, latex. HOME MEDICATIONS: Protonix 40 mg p.o. daily, losartan 100 mg p.o. daily, warfarin 4 mg p.o. daily, Anoro Ellipta 62.5/12.5 mcg daily, Wellbutrin 100 mg p.o. daily, Seroquel 150 mg p.o. p.r.n., Neurontin 400 mg p.o. b.i.d., levothyroxine 100 mcg p.o., Abilify 5 mg p.o. q.a.m., atorvastatin 20 mg p.o. daily, Depakote 250 mg p.o. b.i.d., alprazolam 1 mg p.o. daily, multivitamin 1 p.o. daily. REVIEW OF SYSTEMS: Fourteen-point review of systems conducted with the patient. Pertinent positives listed above in the HPI. All other systems reviewed and found to be negative. PHYSICAL EXAMINATION: VITAL SIGNS: Temperature 98, pulse 72, respirations 20, blood pressure 143/69, oxygen saturation 98% on room air. GENERAL: A 48-year-old female alert and oriented times 3, no acute distress. HEENT: Head is atraumatic, normocephalic. Pupils equal, round, reactive to light. Extraocular eye movement is intact. Sclerae are anicteric. Conjunctiva is pale. Oral mucosa is moist. NECK: Supple. No JVD. No thyromegaly. Trachea is midline. No cervical lymphadenopathy. CARDIAC: S1, S2 appreciated. No murmurs, gallops, rubs. LUNGS: Clear to auscultation bilaterally. No rhonchi, wheeze or rales. Symmetric rise and fall with respirations. ABDOMEN: Soft, nondistended, nontender. Bowel sounds normoactive all 4 quadrants. EXTREMITIES: Trace edema of bilateral lower extremities. One-plus pedal pulses. NEUROLOGICAL: Alert and oriented times 3. No focal motor deficits. Otherwise nonfocal examination. GENITOURINARY: No bladder distention. DIAGNOSTIC DATA: WBC 6.22. Hemoglobin 6.3. Hematocrit 20.1. Platelet count 135. INR 2.07. Sodium 134. Potassium 4.6. Chloride 96. Carbon dioxide 19. BUN 50. Creatinine 8. Glucose 107. ASSESSMENT AND PLAN: 1. Anemia of chronic disease that is slightly lower than usual. We will transfuse 1 unit of packed red blood cells. Her occult stool was negative. 2. End-stage renal disease with Friday, Friday, Friday dialysis. Consult Dr. Fritz. Patient can keep her regular dialysis day tomorrow. 3. Seizure disorder. Continue home medications. 4. Hypertension. Continue home medication. 5. Hyperlipidemia. Continue statin. Further recommendations per patient clinical course. Dictated by JAVIER Umana for Lazarus Giron MD I have performed a face to face to diagnostic evaluation. Labs/ Xrays.. Exam- Chest- clear, CV- regular. A/P- Anemia secondary to CKD; ESRD - Admit, Transfuse during dialysis. Dr. Giron cc: JAVIER Umana MD [facility]
[2018-11-30] MEDS ORDERED: NS 2,000 ML MISC PRN (06:06)
[2018-11-30] MEDS: SYNTHROID PO SCH (06:41)
--- NOTE | 2018-11-30 06:58 | EKG Report ---
Test Performed on : 11/29/2018 10:57:06 PM Test Reason : UNABLE TOSTAND Blood Pressure : / mmHG Vent. Rate : 077 BPM Atrial Rate : 077 BPM P-R Int : 156 ms QRS Dur : 090 ms QT Int : 420 ms P-R-T Axes : 034 011 005 degrees QTc Int : 475 ms Sinus rhythm. with premature atrial complexes. Cannot rule out Anterior infarct , age undetermined Abnormal ECG When compared with ECG of 09-NOV-2018 07:10, premature atrial complexes. are now present QRS duration has decreased T wave inversion now evident in Inferior leads T wave amplitude has decreased in Anterolateral leads Unconfirmed Result
[2018-11-30] MEDS ORDERED: ANORO ELLIPTA 62.5-25 MCG INH INH SCH (07:30)
[2018-11-30] MEDS ORDERED: FOLIC ACID PO SCH (09:00)
[2018-11-30] MEDS ORDERED: VIT B COMPLEX AND C PO SCH (09:00)
[2018-11-30] MEDS ORDERED: MAXIPIME 1 GM in NS 50 ML IV SCH (10:30)
[2018-11-30] MEDS ORDERED: VANCOMYCIN 1 GM/NS 1 GM/250 ML IVPB IV SCH (10:30)
--- NOTE | 2018-11-30 11:20 | NEPHROLOGY CONSULTATION ---
DATE: 11/30/2018 REASON FOR ADMISSION: Frequent falls with her body jerking. REASON FOR CONSULT: ESRD with anemia and treatment. HISTORY OF PRESENT ILLNESS: Ms. Reyes is a 48-year-old, white female who is known to our outpatient services for hemodialysis on Friday, Friday, Friday at the [facility]. The patient was discharged last Friday from the hospital secondary to sepsis with MSSA. She has been receiving IV antibiotics at her dialysis treatments. States that she did not go on Friday. She has a previous CVA with seizure disorder. Patient states that she had fallen at home. She was symptomatic. Her hemoglobin was found to be 6.3 in the emergency room. The patient denied any chest pain. No increased work of breathing. No increased lower extremity swelling. She has a tunneled dialysis catheter to her right groin that remains dry and intact. She denies any fever or chills. She denies any nausea or vomiting. No diarrhea. No recent headaches or blurred vision. She has fallen multiple times since her discharge home. The patient was admitted for further monitoring and observation. She was to receive packed red blood cells on dialysis today during her scheduled treatment. PAST MEDICAL HISTORY: End-stage renal disease with hemodialysis on Friday, Friday, Friday at the [facility], CVA, hypertension, seizure disorder, hypothyroidism, antiphospholipid antibody syndrome. She had leukocytosis with pneumonia and sepsis, hyperkalemia, seizure disorder, altered mental status. She was also septic shock with presentation of methicillin- sensitive Staphylococcus aureus bacteremia, on outpatient IV antibiotics. She also had a left posterior scalp methicillin-sensitive Staphylococcus aureus abscess on her left periauricular area, perioperative anticoagulation. Hypothyroidism and GERD and anemia of chronic disease. PREVIOUS SURGICAL HISTORY: She has had multiple dialysis tunneled catheters, the last one pulled on her last admission with the placement of a Vas-Cath temporarily to her right groin with replacement of a tunneled dialysis catheter prior to discharge last Friday. She has had brain surgery, again, I and D of left scalp left postauricular, mitral valve replacement, hernia repair, AV fistula to the left upper extremity. SOCIAL HISTORY: She has a 20+ pack per year history of smoking. Uses alcohol socially. Denies any illicit drug use. FAMILY HISTORY: No history of coronary artery disease or of end-stage renal disease. ALLERGIES: Listed as latex, codeine, and heparin. HOME MEDICATIONS: Have yet to be reconciled. Previously listed as Abilify, Lipitor, Wellbutrin, Depakote, Xanax, gabapentin, levothyroxine, losartan, Protonix, Seroquel, Coumadin, as well as IV antibiotics for [address] Arnold on discharge last week. She is to receive vancomycin and cefepime at each dialysis treatment. REVIEW OF SYSTEMS: Times 10 with pertinent positives listed above in the HPI. VITAL SIGNS: The patient's most recent vital signs, last temperature 98 degrees, blood pressure 124/68, heart rate is 72, respirations are 21. She is on room air. Last recorded saturation is 97%. She has had 0 recorded in or out. LABS: Her admission labs showed a sodium of 134, potassium 4.6, chloride is 96, CO2 19, BUN 50, creatinine 8, glucose 107, she has an anion gap of 19, calcium 8.7, phosphorus 7, magnesium 1.8, with an albumin of 3.1. White count 6.22, hemoglobin 6.3, hematocrit 20.1, with a platelet count of 135,000. Her prothrombin time was 24.8 with an INR of 2.07. The patient has a stool for occult blood completed on admission which was negative. PHYSICAL EXAMINATION: General: This is a 48-year-old, white female resting quietly in bed. She appears chronically ill, in no acute distress. Skin is warm and dry. HEENT: Normocephalic and atraumatic. Mucous membranes are dry. Neck: Supple. Trachea midline. No evidence of JVD. Cardiovascular: She appears regular rate and rhythm with a metallic heart sound. No murmur or gallop appreciated. Lungs: Clear to auscultation bilaterally. Equal excursion, on room air. Abdomen: Soft, nontender. Positive bowel sounds. Genitourinary: Not inspected. Patient has minimal void with dialysis assist. Extremities: Have no edema. No clubbing or cyanosis. Neurological: She is alert and oriented x3. Integumentary: healing wound to left auricular area status post I&D on her last hospitalization. ASSESSMENT AND PLAN: 1. Chronic kidney disease stage 5D. The patient is due for her routine dialysis treatment today. We will place her on a 2 K bath. She is to dialyze for 3.5 hours. We will attempt to pull patient to her outpatient dry weight or 2 to 3 L of ultrafiltration. 2. Electrolytes and acid-base balance. These are acceptable. 3. Anemia. This is low, with plans to transfuse 2 units of packed red blood cells while on dialysis. 4. History of methicillin-sensitive Staphylococcus aureus. We will plan to give patient her vancomycin and her cefepime after her routine dialysis treatments while she is hospitalized, to continue for the next 5 weeks per protocol per Dr. Rashid Arnold from her discharge a week ago. I would like to thank you for allowing us to follow with this patient. Dictated by JAVIER Guido for Adam Fritz MD Face to face encounter, data reviewed, discussed with zEio Greenberg on 11/30/18. I agree with the above assessment and plan of care. cc: JAVIER Guido MD [facility]
[2018-11-30] MEDS: LIPITOR PO SCH (13:29)
[2018-11-30] MEDS: COUMADIN PO SCH (13:29)
[2018-11-30] MEDS: ABILIFY PO SCH (13:29)
[2018-11-30] MEDS: XANAX PO SCH (13:29)
[2018-11-30] MEDS: NEURONTIN PO SCH ×2 (13:29→21:12)
[2018-11-30] MEDS: NEPHRO-VITE PO SCH (13:29)
[2018-11-30] MEDS: WELLBUTRIN PO SCH (13:29)
[2018-11-30] MEDS: COZAAR PO SCH (13:30)
[2018-11-30] MEDS: DEPAKOTE PO SCH ×2 (13:30→21:12)
[2018-11-30] MEDS: PROTONIX PO SCH (13:30)
--- NOTE | 2018-11-30 14:08 | PROGRESS NOTE ---
DATE: 11/30/2018 SUBJECTIVE: The patient has no complaints. OBJECTIVE: Vital Signs: Blood pressure is 169/78, heart rate 71, respiratory 16, temperature 99 degrees. Cardiovascular: Regular rate and rhythm. Pulmonary: Bilateral breath sounds clear to auscultation. Abdomen: Soft, nontender, nondistended. Bowel sounds are positive. LABORATORY DATA: White count 6, hemoglobin and hematocrit 6 and 20. ASSESSMENT: Symptomatic anemia. Will transfuse 2 units and follow. Anticipate discharge tomorrow if stabilized. We will continue antibiotics for her current infection which I think is related to methicillin resistant Staphylococcus aureus bacteremia. She does have a mechanical valve, can clearly hear the click. cc: Eleazar Castro MD
[2018-11-30] MEDS ORDERED: MAXIPIME 1 GM in NS 50 ML IV ONE (15:00)
[2018-11-30] MEDS ORDERED: VANCOMYCIN 1 GM/NS 1 GM/250 ML IVPB IV ONE (17:00)
[2018-12-01] MEDS: SYNTHROID PO SCH (06:32)
[2018-12-01 07:37] LABS: INR 2.33; PROTIME 27.3 Seconds (11.0-16.0)
[2018-12-01 07:48] LABS: BASO# 0.05 X1000 (0.0-0.2); BASO% 1.2 % (0.0-0.8); EOS# 0.17 X1000 (0.0-0.7); HEMATOCRIT 25.4 % (37.0-47.0); HEMOGLOBIN 8.1 g/dL (12.0-16.0); IMM GRAN# 0.02 X1000 (0.0-0.04); IMM GRAN% 0.5 % (0.0-0.5); LYMPH# 0.81 X1000 (1.2-3.4); LYMPH% 19.1 % (20.5-51.1); MCH 29.8 PG (27-31); MCHC 31.9 g/dL (33-37); MCV 93.4 FL (81-99); MONO# 0.34 X1000 (0.11-0.59); MPV 9.9 FL (7.4-10.4); NEUT# 2.85 X1000 (1.4-6.5); NEUT% 67.2 % (42.2-75.2); PLT 105 X1000 (130-400); RBC 2.72 XMIL (4.2-5.4); RDW 18.1 % (11.5-14.5); WBC 4.24 X1000 (4.8-10.8)
[2018-12-01 08:02] LABS: CALCIUM 8.6 mg/dL (8.8-10.2); CREATININE 5.9 mg/dL (0.5-0.9); POTASSIUM 3.9 mmol/L (3.5-5.1)
--- NOTE | 2018-12-01 09:04 | NEPHROLOGY PROGRESS NOTE ---
DATE: 12/01/2018 TIME SEEN: 0630 hours. SUBJECTIVE: Ms. Reyes is sitting up in a chair. She denies any chest pain. No increased work of breathing. States that she still has drainage from the back of her right and left neck, right having drained spontaneously postauricular. OBJECTIVE: Vital Signs: Temperature is 100 degrees, blood pressure 140/99, heart rate 74, respirations 20. She is on room air. Last recorded saturation 92%. She has had 1 L in; she has had 1600 out to void and on dialysis. General: On physical examination, this is a 48-year-old white female sitting up in bed. She appears chronically ill, no acute distress. Skin: Warm and dry. HEENT: Normocephalic, atraumatic. Conjunctiva is pale pink. She has DIONNE. Mucous membranes are dry. Neck: Supple. Trachea midline. No evidence of JVD. Cardiovascular: She is regular rate and rhythm. Lungs: Clear to auscultation bilaterally. Equal excursion on room air. Abdomen: Large, round, soft, nontender. Positive bowel sounds. Genitourinary: Not inspected. Minimal void with dialysis assist. Extremities: Have no edema. No clubbing or cyanosis. Integumentary: Patient has a tunnel catheter to the right groin, fistula to the left upper arm not able to stick, though good thrill. Neurological: Alert and oriented x3. LABORATORY DATA: Sodium is 136, potassium is 3.9, chloride 97, CO2 is 24. Her BUN is 34, her creatinine is 5.9, her glucose is 127. The patient's anion gap is 15. Her calcium is 8.6. Her TSH is 2.99. Her white count 4.24, hemoglobin is 8.1 after transfusion, hematocrit 25.4 with a platelet count of 105. Her pro time is 27.3, INR of 2.33. ASSESSMENT AND PLAN: 1. Chronic kidney disease stage 5 D. The patient is due for her routine dialysis treatment in the morning. No indications for intervention. If she is discharged home today, she is to go to her outpatient treatment. 2. Electrolytes and acid-base balance. These are acceptable. 3. Anemia. This is low, but improved after receiving 2 units of packed red blood cells. 4. History of methicillin-sensitive Staphylococcus aureus. The patient had been restarted on her vancomycin and cefepime per her routine prescriptions to continue for 5 more weeks. I would like to thank you for allowing us to follow with this patient. Dictated by JAVIER Guido for Adam Fritz MD Face to face encounter, data reviewed, discussed with Ezio Greenberg on 12/01/18. I agree with the above assessment and plan of care. cc: JAVIER Guido MD [facility]
[2018-12-01] MEDS: COZAAR PO SCH (09:15)
[2018-12-01] MEDS: NEPHRO-VITE PO SCH (09:15)
[2018-12-01] MEDS: DEPAKOTE PO SCH (09:15)
[2018-12-01] MEDS: ABILIFY PO SCH (09:15)
[2018-12-01] MEDS: COUMADIN PO SCH (09:16)
[2018-12-01] MEDS: PROTONIX PO SCH (09:16)
[2018-12-01] MEDS: XANAX PO SCH (09:16)
[2018-12-01] MEDS: WELLBUTRIN PO SCH (09:16)
[2018-12-01] MEDS: NEURONTIN PO SCH (09:16)
[2018-12-01] MEDS: LIPITOR PO SCH (09:16)
[2018-12-01 11:28] VITALS: BP 138/61
--- NOTE | 2018-12-01 14:19 | DISCHARGE SUMMARY ---
ADMISSION DATE: 11/30/2018 DISCHARGE DATE: 12/01/2018 SUBJECTIVE: Patient is doing okay the day of discharge. DISCHARGE DIAGNOSES: 1. Symptomatic anemia related to chronic renal failure, chronic and recent bleeding. 2. End-stage renal. 3. Status post mechanical valve. 4. MRSA bacteremia. CONSULTATIONS: Dr. Fritz, Nephrology. HOSPITAL COURSE: Briefly, this is a 48-year-old female presenting with falls and weakness. She does have chronic anemia, but she came in with a very low blood count of 6 and 23. When she was discharged on the , she was 8 and 26. She has been low like that before in the beginning of November and this had required blood transfusions intermittently. She got 2 units of blood with dialysis and she clinically improved and Nephrology evaluated her and adjusted her. We did give her antibiotics which had been ongoing for an MRSA bacteremia. I believe she was taking vancomycin and cefepime. In any case, after transfusion, her post hemoglobin and hematocrit is up to 8 and 26. She feels comfortable. Anticipate discharge today. Her discharge medications: Abilify 5, warfarin 4, Cozaar 100 daily, Depakote 250 b.i.d., folic acid tablet 1 daily, Lipitor 20, Neurontin 400 b.i.d., Protonix 40 daily, Seroquel as needed, Synthroid 100 daily, Wellbutrin 100 daily, Xanax 1 daily, and Anoro inhaler daily. Her iron stores, I cannot tell that we have analyzed that recently. Her iron stores are pretty normal, but I am not entirely sure it was not done after transfusion, but her ferritin was 1753, so she will just need to be periodically monitored and transfused. I would recommend follow up CBC in a week or so. She gets dialysis Friday, Friday, Friday, so she will be due for dialysis tomorrow. Perhaps I can check her INR on Friday. She is getting cefepime and vancomycin and those will need to be continued per outside records. TIME SPENT: This is a 32 minute discharge. cc: MD Adam Brandt MD Dr. Jindal
== END 2018-12-01 14:03 | disposition home health service (06) | DRG 682 ==
LOC: ED 21:16 → 3N 21:16 → SUATTDRO 11-30 01:35
PROVIDERS: ATTEND Internal Medicine
CPT/HCPCS: 36430; 80048; 80053; 82270; 83735; 84100; 84443; 85025; 85610; 86850; 86870; 86900; 86901; 86920; 86922; 93005; A9270; J0692; J3370; J7030; P9016

== ENCOUNTER 2019-02-02 09:05 | Inpatient (IN) ==
[2019-02-02] MEDS ORDERED: ATIVAN IV ONE ×2 (09:31→09:53)
[2019-02-02] MEDS ORDERED: ATIVAN ONE (09:34)
--- NOTE | 2019-02-02 09:46 | EKG Report ---
Test Performed on : 02/02/2019 09:12:23 AM Test Reason : seizure, syncope Blood Pressure : / mmHG Vent. Rate : 094 BPM Atrial Rate : 094 BPM P-R Int : 126 ms QRS Dur : 094 ms QT Int : 398 ms P-R-T Axes : 042 -35 041 degrees QTc Int : 497 ms Sinus rhythm. with premature atrial complexes. Left axis deviation Prolonged QT Abnormal ECG When compared with ECG of 29-NOV-2018 22:57, (Unconfirmed) T wave inversion no longer evident in Inferior leads Unconfirmed Result
[2019-02-02 09:55] LABS: URINE SOURCE CATH
[2019-02-02 10:02] LABS: BILIRUBIN URINE NEGATIVE (NEGATIVE); BLOOD URINE MODERATE (NEGATIVE); COLOR YELLOW; GLUCOSE URINE NEGATIVE (NEGATIVE); KETONE URINE NEGATIVE (NEGATIVE); LEUKOCYTES URINE MODERATE (NEGATIVE); NITRITE URINE NEGATIVE (NEGATIVE); PH URINE 6.5; PROTEIN URINE 100 mg/dL (NEGATIVE); SP GRAVITY URINE 1.012; TURBIDITY URINE CLEAR (CLEAR); UR EPITHELIAL CELLS >10 /HPF (<10); URINE BACTERIA NEGATIVE /HPF; URINE RBC <10 /HPF (<10); URINE WBC TNTC /HPF (<10); UROBILINOGEN URINE NORMAL (NORMAL)
[2019-02-02 10:06] LABS: BASO# 0.03 X1000 (0.0-0.2); BASO% 0.5 % (0.0-0.8); EOS# 0.31 X1000 (0.0-0.7); EOS% 5.2 % (0.0-10.0); HEMATOCRIT 25.2 % (37.0-47.0); HEMOGLOBIN 8.1 g/dL (12.0-16.0); IMM GRAN# 0.03 X1000 (0.0-0.04); IMM GRAN% 0.5 % (0.0-0.5); LYMPH# 1.59 X1000 (1.2-3.4); LYMPH% 26.6 % (20.5-51.1); MCH 34.2 PG (27-31); MCHC 32.1 g/dL (33-37); MCV 106.3 FL (81-99); MONO# 0.42 X1000 (0.11-0.59); MPV 10.5 FL (7.4-10.4); NEUT# 3.59 X1000 (1.4-6.5); NEUT% 60.2 % (42.2-75.2); PLT 67 X1000 (130-400); RBC 2.37 XMIL (4.2-5.4); RDW 15.8 % (11.5-14.5); WBC 5.97 X1000 (4.8-10.8)
--- NOTE | 2019-02-02 10:40 | Diag Imaging Result Doc PS360 ---
CT HEAD W/O CONTRAST - 02/02/2019 INDICATION: syncope, seizures COMPARISON: 11/09/2018 FINDINGS: Stable changes of old left craniectomy with placement of a plate. Stable atrophy. Stable encephalomalacia at the frontal left cerebral hemisphere. No intracranial mass or hemorrhage. Stable periventricular white matter chronic microvascular disease. No skull fracture. There is some fluid in the left maxillary sinus which may reflect sinusitis. IMPRESSION: No acute intracranial abnormality. Left maxillary sinus fluid which may reflect sinusitis. This exam was performed using automated exposure control, adjustment of mA or kV according to patient size, and/or use of iterative reconstruction technique Electronically signed by Hermann Sky 02/02/2019 10:37 AM
--- NOTE | 2019-02-02 10:43 | Diag Imaging Result Doc PS360 ---
CT PELVIS W/O CONTRAST - 02/02/2019 INDICATION: syncope, seizures COMPARISON: 11/09/2018 FINDINGS: Bones are intact and normally aligned. There is a right femoral central venous line with the catheter tip at the right common femoral vein. There is moderate degeneration of the facet joints in the lower lumbar spine. There is mild degeneration of the hip joints bilaterally. Soft tissues are clear. IMPRESSION: No acute injury. This exam was performed using automated exposure control, adjustment of mA or kV according to patient size, and/or use of iterative reconstruction technique Electronically signed by Hermann Sky 02/02/2019 10:40 AM
[2019-02-02 10:46] LABS: ALB/GLOB RATIO 0.9; ALBUMIN 3.5 g/dL (3.5-5.0); CALCIUM 8.8 mg/dL (8.8-10.2); CREATININE 9.6 mg/dL (0.5-0.9); POTASSIUM 5.3 mmol/L (3.5-5.1); TOTAL BILIRUBIN 2.19 mg/dL (0.20-1.00); TOTAL PROTEIN 7.5 g/dL (6.3-8.3)
--- NOTE | 2019-02-02 11:48 | PROVIDER DOCUMENTATION ---
This chart was entered by Meg Liao Scribe, acting as scribe for Abilio Crocker MD. HPI-General Adult - General Chief Complaint: Syncope Stated Complaint: SYNCOPE Time Seen by Provider: 02/02/19 09:26 Source: patient Allergies/Adverse Reactions: Patient Allergies Allergy/AdvReac Type Severity Reaction Status Date / Time latex Allergy ITCHING Verified 02/02/19 09:21 codeine AdvReac NAUSEA/VOMI Verified 02/02/19 09:21 TING heparin AdvReac "I HAD A Verified 02/02/19 09:21 REACTION" PER PATIENT/UNKNOWN REACTION. Home Medications: Home Medication List Medication Instructions Recorded Confirmed Last Taken Type Pantoprazole [Protonix] 40 mg PO DAILY 09/30/16 02/02/19 02/01/19 History Losartan [Cozaar] 100 mg PO DAILY 10/26/16 02/02/19 02/01/19 History Warfarin [Coumadin] 4 mg PO DAILY 05/14/17 02/02/19 02/01/19 History Umeclidinium/Vilanterol [Anoro 1 puff INH DAILY #1 inhaler 06/10/17 02/02/19 02/01/19 Rx Ellipta 62.5-25 Mcg INH] Bupropion [Wellbutrin] 100 mg PO DAILY 03/31/18 02/02/19 02/01/19 History Gabapentin [Neurontin] 400 mg PO BID 03/31/18 02/02/19 02/01/19 History Quetiapine Fumarate [Seroquel] 150 mg PO PRN PRN 03/31/18 02/02/19 09/29/18 History Levothyroxine [Synthroid] 100 microgm PO QAM 04/16/18 02/02/19 02/01/19 History ATORVAstatin [Lipitor] 20 mg PO DAILY 09/30/18 02/02/19 02/01/19 History Alprazolam [Xanax] 1 mg PO DAILY 09/30/18 02/02/19 02/01/19 History Aripiprazole [Abilify] 5 mg PO QAM 09/30/18 02/02/19 02/01/19 History Folic Acid/Vit B Complex and C 1 tab PO DAILY 09/30/18 02/02/19 02/01/19 History [Dialyvite Tablet] Bisoprolol Fumarate 1 tab PO DAILY 02/02/19 02/02/19 02/01/19 History Clonazepam [Klonopin] 1 tab PO DAILY 02/02/19 02/02/19 02/01/19 History - History of Present Illness -Gen Adult Nature of Presenting Problems: 48 yof presents to the ed with c/o missed dialysis yesterday and came to ed today for syncopal episode and has pain on left buttock. dr crocker wa at bedside when pt had noted tremor and sts that happens when she misses dialysis. while dr crocker was speaking with the pt she had a seizure and was given medication to stop and control seizure activity. dr crocker spoke with dr shelley and was told pt has hx of seizures and once pt is admitted pt will have dialysis in hospital Location of Pain/Injury: reports: other (left buttock) Pain Radiation: reports: no radiation Quality of Pain: reports: aching Severity: reports: mild Onset/Duration: reports: this morning Timing: reports: still present Context/Activities at Onset: reports: other (syncopal episode) Modifying Factors: worse with: movement Associated Symptoms: reports: genitourinary problems, seizure, syncope. denies: back/neck pain, chest pain, cough, fever/chills, nausea, shortness of breath Similar Symptoms Previously?: Yes (pt sts this happens when she misses dialysis) Recently seen or treated by another doctor?: No Review of Systems - Adult - REVIEW OF SYSTEMS - ADULT Constitutional: denies: chills, fever Eyes: reports: no symptoms reported Ears, Nose, Mouth & Throat: reports: no symptoms reported Cardiovascular: denies: chest pain, palpitations Respiratory: denies: cough, shortness of breath, wheezing Gastrointestinal: denies: abdominal pain, diarrhea, nausea Genitourinary: reports: see HPI, frequent UTI's Musculoskeletal: reports: no symptoms reported Integumentary: reports: no symptoms reported Neurological: reports: see HPI, seizure, syncope, tremors. denies: dizziness/vertigo, headache/migraines, slurred speech Psychiatric: reports: no symptoms reported Endocrine: reports: no symptoms reported Hematologic/Lymphatic: reports: no symptoms reported Allergic/Immunologic: reports: no symptoms reported All Other Systems: Reviewed and Negative Past History - Adult - PAST MEDICAL HISTORY-ADULT Review of Records: reports: Old Records Reviewed, Nursing Assessment Review, Medications Reviewed, Social history reviewed & non-contributory. Major Childhood Illnesses: reports: denies history Cardiovascular: reports: 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) Respiratory: reports: denies history Gastrointestinal: reports: denies history Obstetrical/Gynecological: reports: denies history Genitourinary: reports: dialysis, ESRD, kidney disease (Stage IV), chronic UTI's Musculoskeletal: reports: chronic pain Hand Dominance: Right Handed Neurological: reports: CVA (multiple, some hemorrhagic), Seizures/Epilepsy Psychiatric: reports: denies history Endocrine/Immune: reports: denies history Other Conditions: reports: denies history - PRIOR SURGERIES/PROCEDURES Surgical/Procedure History: reports: other (mechanical heart valve replacement, multiple craniotomies, carotid bypass with vein graft) - IMMUNIZATION STATUS Childhood Immunizations: See Nurse Assessment Flu Vaccine: See Nurse Assessment - FAMILY HISTORY Family History: reviewed, not pertinent Physical Exam-General - PHYSICAL EXAM-ADULT Initial Vital Signs Reviewed: Yes - CONSTITUTIONAL General Appearance: alert, no apparent distress, other (pt has calmes and on exam post seizure is back to baseline) - EYES Eyes: PERRL/EOMI, pink conjunctivae - HEAD, EARS, NOSE, MOUTH & THROAT HENMT: moist mucous membranes, normal ENT inspection - NECK Neck: full range of motion, supple, normal inspection - RESPIRATORY Respiratory: lungs clear, normal breath sounds - CARDIOVASCULAR Cardiovascular: normal peripheral pulses, regular rate, rhythm - CHEST (BREASTS) Chest/Breast: deferred - GASTROINTESTINAL (ABDOMEN) Abdominal Exam: normal bowel sounds, non tender, soft - LYMPHATIC Lymphatic: no adenopathy - MUSCULOSKELETAL Back Exam: normal inspection Extremity: normal range of motion, normal capillary refill, pelvis stable, other (left arm dialysis fistula) - SKIN Integumentary: normal color, normal turgor, warm/dry - NEUROLOGIC Neurologic: grossly normal - PSYCHIATRIC Psych/Mental Status: normal mood/affect, normal thought content, normal thought process, oriented x 3 Progress - PLAN OF CARE/RESULTS Progress/Plan/Lab Results: Vital Signs - 8 hr 02/02/19 09:07 02/02/19 09:14 Temperature 97.6 F Pulse Rate 94 H 93 H Respiratory Rate 16 18 Blood Pressure 115/101 104/75 O2 Sat by Pulse Oximetry 100 100 Laboratory Results - last 24 hr 02/02/19 02/02/19 02/02/19 09:09 09:33 09:40 WBC 5.97 RBC 2.37 L Hgb 8.1 L Hct 25.2 L MCV 106.3 H MCH 34.2 H MCHC 32.1 L RDW Std Deviation 15.8 H Plt Count 67 L MPV 10.5 H Immature Gran % (Auto) 0.5 Neut % (Auto) 60.2 Lymph % (Auto) 26.6 [place] % (Auto) 7.0 Eos % (Auto) 5.2 Baso % (Auto) 0.5 Immature Gran # (Auto) 0.03 Neut # (Auto) 3.59 Lymph # (Auto) 1.59 Norman # (Auto) 0.42 Eos # (Auto) 0.31 Baso # (Auto) 0.03 POC Glucose 116 H Urine Source CATH Urine Color YELLOW Urine Turbidity CLEAR Urine pH 6.5 Ur Specific [place] 1.012 Urine Protein 100 A Ur Glucose (Stick) NEGATIVE Ur Ketones (Stick) NEGATIVE Urine Blood MODERATE A Urine Nitrite NEGATIVE Urine Bilirubin NEGATIVE Urobilinogen Dipstick NORMAL Urine Leukocytes MODERATE A Urine WBC (Auto) TNTC A Urine RBC (Auto) <10 U Epithel Cells (Auto) >10 A Urine Bacteria (Auto) NEGATIVE Orders Category Date Time Status CT HEAD W/O CONTRAST [CT] Stat Exams 02/02/19 09:[address] PELVIS W/O CONTRAST [CT] Stat Exams 02/02/19 09:33 Taken CBC WITH ELECTRONIC DIFF [HEME] Stat Lab 02/02/19 09:33 Completed COMPREHENSIVE METABOLIC PANEL [CHEM] Stat Lab 02/02/19 09:33 Received URINALYSIS W/POSS RFLX CULT [URINALYSIS] Stat Lab 02/02/19 09:40 Completed Lorazepam [Ativan] Med 02/02/19 09:31 Discontinued 1 mg IV NOW ONE Lorazepam [Ativan] Med 02/02/19 09:53 Discontinued 1 mg IV NOW ONE Lorazepam [Ativan] Med 02/02/19 09:34 Discontinued 2 mg .ROUTE .STK-MED ONE EKG [EKG] Stat Ther 02/02/19 09:33 Draft Result Diagrams: 02/02/19 09:33 02/02/19 09:33 - REASSESSMENT Reassessment #1 Time Reassessed: 10:34 (since ativan given pt has improved and has had no more siezures) Status: improving Reassessment Comment: dr at bedside Reassessment #2 Time Reassessed: 11:40 (dr crocker at bedside speaking with pt about POC) Status: unchanged Reassessment Comment: pt is going to dialysis - EKG 1 Time of EKG reading by physician:: 09:12 EKG Read and Signed by:: Abilio Crocker EKG Interpretation (*Must complete 3 of following elements*): Abnormal Rate: 94 Rhythm: sinus rhythm with pac [place]: left (deviation) QRS: normal CA Interval: normal ST Wave: normal Comments: prolonged QT - CT/MRI 1 CT Study: Pelvis Impression: See EMR Report (CT PELVIS W/O CONTRAST - 02/02/2019 INDICATION: syncope, seizures COMPARISON: 11/09/2018 FINDINGS: Bones are intact and normally aligned. There is a right femoral central venous line with the catheter tip at the right common femoral vein. There is moderate degeneration of the facet joints in the lower lumbar spine. There is mild degeneration of the hip joints bilaterally. Soft tissues are clear. IMPRESSION: No acute injury. This exam was performed using automated exposure control, adjustment of mA or kV according to patient size, and/or use of iterative reconstruction technique Electronically signed by Hermann Sky 02/02/2019 10:40 AM 02/02/19 1040 Interpreting Physician: Hermann Sky MD Dictated Date/Time: 02/02/19 1038 cc: Abilio Crocker MD; Jung Huitron) 2 CT Study: Head Impression: See EMR Report (CT HEAD W/O CONTRAST - 02/02/2019 INDICATION: syncope, seizures COMPARISON: 11/09/2018 FINDINGS: Stable changes of old left craniectomy with placement of a plate. Stable atrophy. Stable encephalom alacia at the frontal left cerebral hemisphere. No intracranial mass or hemorrhage. Stable periventricular white matter chronic microvascular disease. No skull fracture. There is some fluid in the left maxillary sinus which may reflect sinusitis. IMPRESSION: No acute intracranial abnormality. Left maxillary sinus fluid which may reflect sinusitis. This exam was performed using automated exposure control, adjustment of mA or kV according to patient size, and/or use of iterative reconstruction technique Electronically signed by Hermann Sky 02/02/2019 10:37 AM 02/02/19 1037 Interpreting Physician: Hermann Sky MD Dictated Date/Time: 02/02/19 1035 cc: Abilio Crocker MD; Jung Huitron) - CONSULTS/PCP/HOSPITALIST Notification #1 *Consult/PCP/Hospitalist*: dr shelley Time Discussed: 10:25 Reason/Comments: phone consult #2 Consult: hospitalist Time Discussed: 11:43 Consult Disposition: Will see in ED (and excepted to hospitalist), Admit Departure - Departure Date of Disposition Decision: 02/02/19 Time of Disposition Decision: 11:48 DIAGNOSIS: Seizure, Tobacco use disorder, Hyperkalemia UTI (urinary tract infection) Qualifiers: Urinary tract infection type: site unspecified Hematuria presence: without hematuria Qualified Code(s): N39.0 - Urinary tract infection, site not specified Syncope Qualifiers: Syncope type: unspecified Qualified Code(s): R55 - Syncope and collapse Disposition: ADMITTED INPATIENT 09 Certified Medical Emergency: Emergent Condition: Stable Referrals and Follow-Ups: Jung Huitron CRNP [Primary Care Provider] - - Critical Care Note This patient required my direct & personal management of CC.: Yes Total Time (mins): 37 Critical Care Statement: This patient required my direct personal management to treat or rule out processes, the absence of which, could potentiallly result in sudden, clinically significant life or limb threatening deterioration. Attestation - Physician/ GERMÁN Attestation Patient care was provided by Advanced Practice Provider:: No The physician spent face to face time with patient:: Yes Advanced Practice Provider documentation review:: Supervising physician onsite and consulted in the evaluation and care of this patient. The physician did have a face to face encounter with the patient. This chart was documented by the indicated scribe, (Meg Liao Scribe) and accurately reflects the services I performed and decisions made by me, Abilio Crocker MD, as attested by the provider's signature.
[2019-02-02] MEDS ORDERED: SEROQUEL PO PRN (11:49)
[2019-02-02] MEDS ORDERED: CEREBYX 1,000 MG in NS 50 ML IV ONE (11:49)
--- NOTE | 2019-02-02 12:37 | HISTORY AND PHYSICAL ---
PRIMARY CARE PHYSICIAN: JAVIER Vergara. MECHANICAL LEAD: Dr. Fritz. CHIEF COMPLAINT: Syncopal episode at home. HISTORY OF PRESENTING ILLNESS: This is a 48-year-old female who presents to [facility] stating that she missed her dialysis yesterday because she did not have a ride, and comes into the emergency room today stating that she had a syncopal episode. While she was in the emergency room, she had a witnessed seizure by the ER physician and nurse, was given Ativan 1 mg IV x2 different doses. Seizure activity stopped. Her laboratory data showed a BUN of 55 and a creatinine of 9.6. Urinalysis with negative nitrites, moderate leukocytes, but negative bacteria. Head CT showed no acute intracranial abnormality. Her left maxillary sinus fluid may reflect a sinusitis. A pelvic CT showed no acute injury, and so she is being admitted and is going to dialysis at this time for further evaluation and treatment. PAST MEDICAL HISTORY: End-stage renal disease with dialysis on Friday, Friday, Friday, CVA, hypertension, seizures, anemia of chronic disease, hypothyroidism, antiphospholipid antibody syndrome, medical noncompliance. PAST SURGICAL HISTORY: Brain surgery, mitral valve replacement, hernia, and an AV fistula placed to the left upper extremity. FAMILY HISTORY: Coronary artery disease, diabetes, breast cancer, and colon cancer, all in first- degree relatives. SOCIAL HISTORY: She currently lives with her fiance. She is a 20+ pack a year smoker. No alcohol or illicit drug use. ALLERGIES: Latex, codeine, and heparin. HOME MEDICATIONS: We will hold the following: Wellbutrin 100 mg p.o. daily and Klonopin 1 mg p.o. daily. We will continue her Xanax 1 mg p.o. daily, Abilify 5 mg p.o. q.a.m., Lipitor 20 mg p.o. daily, bisoprolol fumarate 10 mg p.o. daily, Dialyvite 1 p.o. daily, Neurontin 400 mg p.o. b.i.d., Synthroid 100 mcg p.o. q.a.m., Cozaar 100 mg p.o. daily, Protonix 40 mg p.o. daily, Seroquel 150 mg p.o. p.r.n., Anoro Ellipta 62.5/25 mcg inhaler daily, and Coumadin 4 mg p.o. daily. IMAGING AND LABORATORY DATA: Laboratory data showed a white blood cell count of 5.97, hemoglobin 8.1, hematocrit 25.2, platelets 67,000. Sodium 141, potassium 5.3, chloride 101, CO2 of 15, BUN of 55, creatinine 9.6, glucose 107. Total bilirubin of 2.19, AST of 58, ALT of 53, alkaline phosphatase 410. Urinalysis showed negative nitrites, moderate leukocytes, negative bacteria. EKG showed sinus rhythm with PACs at 94. Head CT showed no acute intracranial abnormality, left maxillary sinus fluid which may reflect a sinusitis. Pelvis CT showed no acute injury. REVIEW OF SYSTEMS: She denied any fever, chills, blurred vision, dizziness, chest pain, coughing, shortness of breath. She denied any abdominal pain, constipation, diarrhea, burning or hurting with urination. PHYSICAL EXAMINATION: VITAL SIGNS: On arrival, she had a temperature of 97.6 degrees, pulse 94, respirations 16, blood pressure 115/101, saturating 100% on room air. GENERAL: This is a 48-year-old female, lying in the bed, answers questions appropriately at this time. HEENT: Normocephalic, atraumatic. Normal ENT inspection. Oropharynx and nares are clear. Eyes: Pupils are equal, round, reactive to light and accommodation. Extraocular movements are intact. NECK: Normal inspection. Normal range of motion. LUNGS: Clear to auscultation bilaterally with equal lung expansion and chest wall movement. HEART: Regular rate and rhythm. No murmurs, rubs, or gallops. ABDOMEN: Soft, nontender, nondistended. Bowel sounds are present x4 quadrants. MUSCULOSKELETAL: She had 5/5 strength x4 extremities. NEUROLOGICAL: The cranial nerves II through XII appear grossly intact. ASSESSMENT: 1. Syncope. 2. Seizure, witnessed. 3. End-stage renal disease with dialysis on Friday, Friday, and Friday. 4. Anemia of chronic disease. 5. Tobacco abuse. PLAN: She will be admitted to the medical unit. She is currently going to dialysis today. Will consult Nephrology. Continue her home medications as previously identified. She will be placed on fosphenytoin 1000 mg IV x1. Recheck CBC and BMP in the a.m. Further orders after seen by attending and by pharmacy consultant. Dictated by JAVIER Delgado for Eleazar Castro MD cc: JAVIER Delgado MD Eric Crampsey, CRNP
[2019-02-02 12:40] LABS: INR 1.85; PROTIME 21.8 Seconds (11.0-16.0)
[2019-02-02 12:41] LABS: PTT 79.6 Seconds (22.3-41.8)
[2019-02-02] MEDS ORDERED: NS 2,000 ML MISC PRN (12:44)
--- NOTE | 2019-02-02 16:14 | Diag Imaging Result Doc PS360 ---
CHEST-PORTABLE - 02/02/2019 INDICATION: volume overload COMPARISON: 12/30/2018 FINDINGS: Stable valve replacement. The lungs are clear. Heart size is normal. No pneumothorax or pleural effusion. IMPRESSION: Negative exam. Electronically signed by Hermann Sky 02/02/2019 4:12 PM
[2019-02-02] MEDS ORDERED: ATIVAN IV PRN (16:58)
--- NOTE | 2019-02-02 17:34 | HISTORY AND PHYSICAL ---
ADDENDUM REPORT Chief complaint was shortness of breath, but then she had syncope with possible seizure. Per the nursing staff, she had a seizure witnessed in the ER. She says she just went crazy, or she had an episode. It is unclear if she is awake during these episodes. She is on Wellbutrin so she is at risk. She does seem a little bit tired, more tired today. She missed dialysis yesterday for unclear really, I guess she could make the appointment. Her neurological exam is nonfocal but in any case she was admitted for volume overload urgent dialysis and seizure. We will consult Dr. Fritz for management of her renal issues and consult Dr. Alba of neurology to evaluate for long-term treatment of seizures. I have initiated therapy as such for that until we know if things have stabilized a bit better. This is a [id number] encounter note with Lori Ríos. cc: Eleazar Castro MD
[2019-02-02] MEDS: NEURONTIN PO SCH (20:59)
[2019-02-02] MEDS ORDERED: COUMADIN PO SCH (21:00)
[2019-02-03] MEDS ORDERED: HEPARIN IV PRN (06:39)
[2019-02-03] MEDS ORDERED: NS 2,000 ML MISC PRN (06:39)
[2019-02-03] MEDS ORDERED: TIGHT: 0.2 ML/HR FOR DIALYSIS MISC PRN (06:39)
[2019-02-03] MEDS ORDERED: SYNTHROID PO SCH (07:00)
[2019-02-03] MEDS ORDERED: PROTONIX PO SCH (07:00)
--- NOTE | 2019-02-03 07:00 | NEPHROLOGY CONSULTATION ---
DATE: 02/02/2019 REASON FOR CONSULTATION: Evaluate and treat. ATTENDING PHYSICIAN: Dr. Castro. HISTORY OF PRESENT ILLNESS: Ms. Reyes is a 48-year-old white female who is on chronic hemodialysis. She has a history of heparin allergy, lupus, DVT/PTE, end-stage kidney disease, hypertension, hypothyroidism, etc. She is interested in kidney transplantation, and was at the hospital yesterday to undergo mammography for routine screening in anticipation of transplant evaluation. While walking down the hallway, she had an episode of loss of consciousness that was attended by seizure activity. This was witnessed by staff. She had another episode in the emergency room. I saw her in the hallway, where she was confused, but recovering. She had no focal neurologic deficits at that time. She was taken to the emergency room for evaluation. This included a CT brain as well as CT pelvis because she fell on her hip. No injury noted on either study, and she was admitted to the hospital because of her recurrent seizures. She missed dialysis today prior to this event. She states that her fiance had come to the ER with cellulitis, and she was unable to attend dialysis because she was engaged with coordination of care with regard to his illness. PAST MEDICAL HISTORY: As above. HOME MEDICATIONS: Include pantoprazole, losartan, warfarin, Anoro Ellipta, bupropion, quetiapine, gabapentin, levothyroxine, Abilify, atorvastatin, alprazolam, multivitamin, bisoprolol, clonazepam. ALLERGIES: Latex, codeine, heparin. SOCIAL HISTORY: As above, otherwise noncontributory. REVIEW OF SYSTEMS: Otherwise negative. PHYSICAL EXAMINATION: Vital Signs: Blood pressure 131/78, heart rate 98, respirations 19, afebrile. General: Middle-aged, chronically-ill woman in no acute distress. Skin: Warm and dry. Her sacrum and buttocks were not examined. HEENT: Conjunctivae are pink. Oropharynx is clear. Neck: Supple. Neck veins are not distended. Heart: Regular. No gallops. Lungs: Equal breath sounds. No crackles. Abdomen: Soft, nontender. Bowel sounds present. Extremities: No edema, clubbing, or cyanosis. IMPRESSION: 1. Chronic kidney disease 5D. She is receiving hemodialysis on 02/02/2019. She was seen during his treatment. We will dialyze again on 02/03/2019 to get her back on her routine schedule. 2. Electrolytes/acid base. Moderate metabolic acidosis with anion gap of 25. Presumably related to her renal failure, though she certainly could have moderate lactic acidosis following her seizure. No other specific intervention. 3. Anemia. Hemoglobin 8.1. This is a chronic problem, and she has required transfusions in the past. She does not meet criteria today. cc: Adam Fritz MD
[2019-02-03] MEDS ORDERED: ANORO ELLIPTA 62.5-25 MCG INH INH SCH (07:30)
[2019-02-03 08:04] LABS: BASO# 0.02 X1000 (0.0-0.2); BASO% 0.4 % (0.0-0.8); EOS# 0.23 X1000 (0.0-0.7); EOS% 4.6 % (0.0-10.0); HEMATOCRIT 27.8 % (37.0-47.0); HEMOGLOBIN 8.6 g/dL (12.0-16.0); LYMPH# 1.02 X1000 (1.2-3.4); LYMPH% 20.4 % (20.5-51.1); MCH 33.2 PG (27-31); MCHC 30.9 g/dL (33-37); MCV 107.3 FL (81-99); MONO# 0.36 X1000 (0.11-0.59); MONO% 7.2 % (1.7-9.3); MPV 10.8 FL (7.4-10.4); NEUT# 3.36 X1000 (1.4-6.5); NEUT% 67.4 % (42.2-75.2); PLT 78 X1000 (130-400); RBC 2.59 XMIL (4.2-5.4); RDW 15.7 % (11.5-14.5); WBC 4.99 X1000 (4.8-10.8)
[2019-02-03 08:11] LABS: INR 1.96; PROTIME 22.7 Seconds (11.0-16.0)
[2019-02-03 08:12] LABS: CALCIUM 8.9 mg/dL (8.8-10.2); POTASSIUM 5.2 mmol/L (3.5-5.1)
[2019-02-03 08:31] LABS: EOS 3 % (1-10); LYMPHS 12 % (21-51); MONO 7 % (1-9); SEGS 78 % (42-75)
[2019-02-03] MEDS: NEURONTIN PO SCH (08:38)
[2019-02-03] MEDS ORDERED: COZAAR PO SCH (09:00)
[2019-02-03] MEDS ORDERED: LIPITOR PO SCH (09:00)
[2019-02-03] MEDS ORDERED: ZEBETA PO SCH (09:00)
[2019-02-03] MEDS ORDERED: XANAX PO SCH (09:00)
[2019-02-03] MEDS ORDERED: NEPHRO-VITE PO SCH (09:00)
[2019-02-03] MEDS ORDERED: ABILIFY PO SCH (09:00)
[2019-02-03] MEDS ORDERED: LOKELMA POWDER PACKET PO SCH (11:00)
[2019-02-03 14:13] VITALS: BP 144/86
--- NOTE | 2019-02-03 14:29 | EEG REPORT ---
DATE: 02/03/2019 REFERRING PHYSICIAN: Dr. Castro. CALENDER RUNNER: Dallas Jaime. BACKGROUND INFORMATION/TECHNIQUE: This is a digitally recorded routine EEG with video. HISTORY: A 48-year-old female with multiple medical problems including a questionable history of seizure. EEG is ordered to detect evidence of seizures. Medications include Xanax, Abilify, Neurontin, lorazepam, Seroquel. EEG FINDINGS: At times, brief periods of 9 hertz posterior dominant alpha rhythm is seen in the occipital regions bilaterally. The background at maximal alertness consists of mixed alpha and beta range frequencies. Left hemisphere breach rhythm is seen during the study. At times, there is slowing within this region. No epileptiform discharges. No seizures. Hyperventilation is not performed. Photic stimulation does not alter the record. The patient becomes drowsy but stage II sleep is not seen. EKG demonstrates regular intervals. IMPRESSION AND CLINICAL CORRELATION: Abnormal routine EEG due to focal slowing within the region of the left hemispheric breach rhythm. This is suggestive of cortical and subcortical abnormality in this region and most likely correlates with known prior surgery in this area. A breach effect generally indicates an area of skull defect often associated with previous surgery. No epileptiform discharges or seizures seen on the current study. This does not rule out an underlying seizure disorder. cc: MD Eleazar Robles MD
--- NOTE | 2019-02-03 20:19 | CONSULTATION ---
DATE OF CONSULTATION: 02/03/2019 REASON FOR CONSULT: Question of seizure. HISTORY OF PRESENT ILLNESS: This is a 48-year-old, right-handed female with multiple medical issues who came to the emergency room and had missed her dialysis appointment on Friday. While walking in the hospital, she had a presyncopal episode. She felt jittery before the event. She denies loss of consciousness. She states preserved awareness, but recalls that she had some shaking of her extremities. She recalls the nurse attending to her while she was having bilateral extremity shaking. She adamantly denies loss of consciousness. In the emergency department, there is a report that she may have had a seizure. The patient reports that she recalls the event and does not believe she lost consciousness. She felt she was making an unusual noise or vocalization and felt her extremities again were shaking to some extent. I do not have further details of this. She was given lorazepam. She was also given lorazepam later when she reported feeling jittery or twitchy. There have been no further events since that time. Head CT did not show acute findings. I believe she was given a dose of fosphenytoin. There has been a question of past seizure with what I believe has been variable amounts of a regular jerking movements or twitchiness of her extremities possibly associated with missed dialysis sessions. She reports that she has never had anything like what she experienced on admission this time. She has a history of stroke and craniotomy in the s. She has had 2 prior EEGs without epileptiform findings or seizures. She has a prescription for Xanax 1 mg daily, but reports to me today that she uses this sparingly. It looks as though her last refill of this medication was December 17. She reports to me today that she has 1 tablet left. That was 30 tablets that were dispensed at that time. She takes gabapentin for pain, Seroquel primarily for sleep, Wellbutrin and Abilify for depression and bipolar per her account. PAST MEDICAL HISTORY: Remote stroke, left craniotomy, left carotid artery surgery, mechanical mitral valve on anticoagulation, end-stage renal disease on hemodialysis, depression, bipolar disorder, hypothyroidism, hyperlipidemia, hypertension, neuropathy, COPD with continued smoking, GERD. FAMILY HISTORY: Diabetes, hypertension, coronary artery disease. SOCIAL HISTORY: She continues to smoke. No alcohol or illicits. ALLERGIES: Listed to latex, codeine and heparin. MEDICATIONS: Reviewed in the chart and as per above. Also takes warfarin. REVIEW OF SYSTEMS: Balance of 12 was conducted and is otherwise negative except that detailed in the HPI. PHYSICAL EXAMINATION: Vital Signs: Afebrile, blood pressure 146/85, pulse 92, respirations 15, 100% on room air. General: Ms. Reyes is sitting on the side of the bed eating lunch. She is awake alert fully oriented. Attentive. Speech is fluent. No language disturbance. Follows simple and complex commands. HEENT: Pupils are equal, round, reactive to bright light. Gaze is conjugate. Extraocular movements full. Visual alfredo intact to direct confrontational testing. Face symmetric with equal activation. Facial sensation reported intact. Tongue is midline. Palate elevates symmetrically. Musculoskeletal: Shoulder shrug is full. No drift. Tone equal in the limbs. Strength is preserved in the arms and legs as tested. Neurologic: [id number] and rapid alternating movements intact. Reflexes 1 to 2+ at the knees and wrists bilaterally. I did not see adventitious movements during my time at the bedside. She reports symmetric sensation to light touch in the arms and legs. DIAGNOSTICS: Head CT noncontrast. Personally reviewed. There is encephalomalacia in the left frontal lobe and old left craniotomy. No acute findings. Routine EEG performed this morning was personally reviewed. There is a left hemispheric breach rhythm with focal slowing within the area. No epileptiform discharges or seizures. LABS: Reviewed in the chart. Normal white count. Hemoglobin 8.6, hematocrit 27.8, platelets 78,000. Normal sodium. BUN 36, creatinine 6.0 down from yesterday. AST 58, ALT 53. There is no UDS. IMPRESSION AND PLAN: Question of seizure event this admission. Her description, if accurate, would not be consistent with seizure activity. I can not be certain her description is accurate however. In any event, it does not appear that she has had events like this in the past. While she does have remote brain injury, she has had 3 EEGs without any epileptiform findings or seizures. The events in question this hospitalization occurred close together. At this time, I do not believe we have enough evidence that would warrant initiation of potentially lifelong antiepileptic medication at this time. If this happens again, we will need to revisit that. If it happens again, I would also repeat an EEG as soon as possible. I wonder if wellbutrin is the best medication for this patient given this questionable seizure event. We discussed precautions as well as the driving laws of [place]. Thank you for the consultation. cc: Aneta Alba MD MTDD
--- NOTE | 2019-02-04 06:09 | DISCHARGE SUMMARY ---
ADMISSION DATE: 02/02/2019 DISCHARGE DATE: 02/03/2019 DISCHARGE DIAGNOSES: 1. Volume overload. 2. End-stage renal. 3. Anti phospholipid syndrome. 4. Rule out seizure disorder. HISTORY: The patient came in. She had missed her dialysis because her fiancee was late getting home after medical evaluation appointment, I am not sure. In any case, she came in with what was felt to be a seizure witnessed in the ER. Reportedly, she has had something similar in the past. The patient was evaluated. She was dialyzed on the , and then dialyzed again on the . She did not have clear epileptiform discharges. Dr. Alba evaluated the patient, and did not feel that these were clearly seizures and required long-term treatment. On the , she was felt stable for discharge. That being said, I did not discharge her. I encouraged her to stop her Wellbutrin. DISCHARGE MEDICATIONS: 1. Xanax 1 daily. 2. Abilify 5 daily. 3. Atorvastatin 20 daily. 4. Bisoprolol 10 daily. 5. Folic Acid daily. 6. Gabapentin 400 b.i.d. 7. Synthroid 100 daily. 8. Losartan 50 daily. 9. Pantoprazole 40 daily. 10. Seroquel 150 p.r.n. and 300 at night. 11. Anoro Ellipta 62.5/25 daily. 12. Warfarin 4 daily. DISCHARGE FOLLOW UP: She will need to go with her PCP to evaluate for change of her medication versus Wellbutrin, but I think with the questionable seizure disorder we would be remiss to continue that currently. The patient will follow up with JAVIER Vergara. I encouraged her to follow up with Dr. Alba because she may need long-term seizure medications if indicated if she has any more events. DISCHARGE CONDITION: Stable. She will resume dialysis Friday, Friday, Friday. TIME SPENT: 32 minute discharge. cc: Eleazar Castro MD
== END 2019-02-03 19:27 | disposition home or self-care (01) | DRG 640 ==
LOC: ED 09:05 → 1N 14:02
PROVIDERS: ATTEND Internal Medicine

== ENCOUNTER 2019-03-19 19:34 | Observation (INO) ==
--- NOTE | 2019-03-19 20:31 | PROVIDER DOCUMENTATION ---
HPI-General Adult - General Chief Complaint: For Procedure Stated Complaint: CATH PROBLEMS IN LEG Time Seen by Provider: 03/19/19 20:17 Source: patient Allergies/Adverse Reactions: Patient Allergies Allergy/AdvReac Type Severity Reaction Status Date / Time latex Allergy RASH Verified 02/19/19 11:26 codeine AdvReac NAUSEA/VOMI Verified 02/19/19 11:26 TING heparin AdvReac PER Verified 02/19/19 11:26 PATIENT/UNKNOWN REACTION Home Medications: Home Medication List Medication Instructions Recorded Confirmed Last Taken Type Losartan [Cozaar] 100 mg PO DAILY 10/26/16 03/19/19 03/15/19 21:00 History 100 Warfarin [Coumadin] 4 mg PO DAILY 05/14/17 03/19/19 03/12/19 History 4 Umeclidinium/Vilanterol [Anoro 1 puff INH DAILY #1 inhaler 06/10/17 03/19/19 03/15/19 09:00 Rx Ellipta 62.5-25 Mcg INH] 1 Gabapentin [Neurontin] 300 mg PO BID 03/31/18 03/19/19 03/15/19 21:00 History 300 Quetiapine Fumarate [Seroquel] 300 mg PO DAILY 03/31/18 03/19/19 03/15/19 21:00 History 150 Levothyroxine [Synthroid] 100 microgm PO QAM 04/16/18 03/19/19 03/15/19 09:00 History 100 Aripiprazole [Abilify] 5 mg PO DAILY 09/30/18 03/19/19 03/15/19 09:00 History 20 Bisoprolol Fumarate 1 tab PO DAILY 02/02/19 03/19/19 02/22/19 21:00 History Atorvastatin Calcium 20 mg PO DAILY 03/19/19 03/19/19 Unknown History Bupropion HCl 100 mg PO DAILY 03/19/19 03/19/19 Unknown History Clonazepam [Klonopin] 1 mg PO DAILY 03/19/19 03/19/19 Unknown History Folic Acid/Vit B Complex and C 1 ea PO DAILY 03/19/19 03/19/19 Unknown History [Dialyvite Tablet] Pantoprazole Sodium 40 mg PO DAILY 03/19/19 03/19/19 Unknown History - History of Present Illness -Gen Adult Nature of Presenting Problems: 48 YO F pmh for ESRD and mitral valve replacement on coumadin comes in due to failed access of dialysis port this morning. Catheter was placed in left groin 3 days ago and it was accessed on Friday's dialysis, when it was attempted for access on today it failed. Dialysis clinic called Dr. Pulliam who told pt to come to [facility] to be admitted for catheter replacement. Pt currently NAD. Location of Pain/Injury: reports: none Pain Radiation: reports: no radiation Onset/Duration: reports: this morning Timing: reports: still present Modifying Factors: improves with: nothing Associated Symptoms: reports: denies symptoms Similar Symptoms Previously?: Yes Review of Systems - Adult - REVIEW OF SYSTEMS - ADULT Constitutional: denies: chills, fever Eyes: reports: no symptoms reported Ears, Nose, Mouth & Throat: reports: no symptoms reported Cardiovascular: reports: no symptoms reported Respiratory: denies: shortness of breath, wheezing Gastrointestinal: reports: no symptoms reported Genitourinary: reports: no symptoms reported Musculoskeletal: reports: no symptoms reported Integumentary: reports: no symptoms reported Neurological: reports: no symptoms reported Psychiatric: reports: no symptoms reported Past History - Adult - PAST MEDICAL HISTORY-ADULT Review of Records: reports: Old Records Reviewed, Social history reviewed & non- contributory. Major Childhood Illnesses: reports: denies history Cardiovascular: reports: 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) Respiratory: reports: denies history Gastrointestinal: reports: denies history Obstetrical/Gynecological: reports: denies history Genitourinary: reports: kidney disease (Stage IV) Musculoskeletal: reports: chronic pain Neurological: reports: CVA (multiple, some hemorrhagic), Seizures/Epilepsy Endocrine/Immune: reports: denies history Other Conditions: reports: denies history - PRIOR SURGERIES/PROCEDURES Surgical/Procedure History: reports: recent surgery, other (mechanical heart valve replacement, multiple craniotomies, carotid bypass with vein graft) - IMMUNIZATION STATUS Childhood Immunizations: See Nurse Assessment Flu Vaccine: See Nurse Assessment - FAMILY HISTORY Family History: reviewed, not pertinent Physical Exam-General - PHYSICAL EXAM-ADULT Initial Vital Signs Reviewed: Yes - CONSTITUTIONAL General Appearance: appears well, alert, no apparent distress - EYES Eyes: PERRL/EOMI, pink conjunctivae - HEAD, EARS, NOSE, MOUTH & THROAT HENMT: normocephalic/atraumatic, moist mucous membranes - NECK Neck: full range of motion, supple - RESPIRATORY Respiratory: lungs clear, normal breath sounds - CARDIOVASCULAR Cardiovascular: regular rate, rhythm, other (clicking of valve) - GASTROINTESTINAL (ABDOMEN) Abdominal Exam: non tender, soft - MUSCULOSKELETAL Extremity: non-tender, normal gait, normal inspection - SKIN Integumentary: other (multiple exo) - NEUROLOGIC Neurologic: grossly normal, no motor/sensory deficits - PSYCHIATRIC Psych/Mental Status: normal mood/affect, oriented x 3 Progress - PLAN OF CARE/RESULTS Progress/Plan/Lab Results: Vital Signs - 8 hr 03/19/19 19:41 Temperature 98.9 F Pulse Rate 95 H Respiratory Rate 18 Blood Pressure 166/100 O2 Sat by Pulse Oximetry 98 Orders Category Date Time Status CHEST-2 VIEWS [RAD] Stat Exams 03/19/19 20:17 Ordered CBC WITH ELECTRONIC DIFF [HEME] Stat Lab 03/19/19 20:17 Uncollected COMPREHENSIVE METABOLIC PANEL [CHEM] Stat Lab 03/19/19 20:17 Uncollected Tunneled cath performed by Dr. Ferraro. Pt currently stable. labs showing anemia and expected elevated creat. normal electrolytes. Result Diagrams: 03/19/19 21:02 03/19/19 21:02 - EKG 1 Time of EKG reading by physician:: 21:54 EKG Read and Signed by:: No Chapman EKG Interpretation (*Must complete 3 of following elements*): Normal Rate: 89 Rhythm: NSR [place]: normal HI Interval: normal ST Wave: normal Prior EKG Comparison: changes noted (improved from Jan 2019) - XRAY 1 XRAY Study: Chest Impression: See EMR Report (INDICATION: missed dialysis TECHNIQUE: 2 views COMPARISON: 02/02/2019 FINDINGS: The lungs are grossly clear. There is no discrete pleural fluid collection or pneumothorax. The cardiomediastinal silhouette and central vasculature are grossly unremarkable. There is a stable prosthetic heart valve. IMPRESSION: No evidence of acute pathology by plain radiograph. Electronically signed by Wang Adkins 03/19/2019 8:42 PM) - CONSULTS/PCP/HOSPITALIST Notification #1 *Consult/PCP/Hospitalist*: Dr. Mack Perez Discussed: 21:17 Consult Disposition: Will see in ED, Admit #2 Consult: Dr. Liao Time Discussed: 21:23 Reason/Comments: will see in the morning Consult Disposition: Admit Departure - Departure Date of Disposition Decision: 03/19/19 Time of Disposition Decision: 21:24 DIAGNOSIS: End stage renal disease, ESRD (end stage renal disease) on dialysis, Complication, dialysis catheter clot or failure, Anemia Disposition: ADMITTED INPATIENT 09 Certified Medical Emergency: Emergent Condition: Stable - Critical Care Note This patient required my direct & personal management of CC.: No Attestation - Physician/ GERMÁN Attestation The physician spent face to face time with patient:: Yes Advanced Practice Provider documentation review:: Supervising physician onsite a nd consulted in the evaluation and care of this patient. The physician did have a face to face encounter with the patient.
--- NOTE | 2019-03-19 20:44 | Diag Imaging Result Doc PS360 ---
EXAM: CHEST-2 VIEWS INDICATION: missed dialysis TECHNIQUE: 2 views COMPARISON: 02/02/2019 FINDINGS: The lungs are grossly clear. There is no discrete pleural fluid collection or pneumothorax. The cardiomediastinal silhouette and central vasculature are grossly unremarkable. There is a stable prosthetic heart valve. IMPRESSION: No evidence of acute pathology by plain radiograph. Electronically signed by Wang Adkins 03/19/2019 8:42 PM
[2019-03-19 21:42] LABS: BASO# 0.02 X1000 (0.0-0.2); BASO% 0.2 % (0.0-0.8); EOS# 0.48 X1000 (0.0-0.7); EOS% 5.6 % (0.0-10.0); HEMATOCRIT 22.6 % (37.0-47.0); HEMOGLOBIN 7.1 g/dL (12.0-16.0); IMM GRAN# 0.06 X1000 (0.0-0.04); IMM GRAN% 0.7 % (0.0-0.5); LYMPH# 1.12 X1000 (1.2-3.4); LYMPH% 13.1 % (20.5-51.1); MCHC 31.4 g/dL (33-37); MCV 101.8 FL (81-99); MONO# 0.56 X1000 (0.11-0.59); MONO% 6.5 % (1.7-9.3); MPV 9.9 FL (7.4-10.4); NEUT# 6.31 X1000 (1.4-6.5); NEUT% 73.9 % (42.2-75.2); PLT 94 X1000 (130-400); RBC 2.22 XMIL (4.2-5.4); RDW 18.7 % (11.5-14.5); WBC 8.55 X1000 (4.8-10.8)
[2019-03-19 21:44] LABS: INR 1.36
[2019-03-19 21:45] LABS: PTT 74.3 Seconds (22.3-41.8)
[2019-03-19 21:54] LABS: ALB/GLOB RATIO 0.9; ALBUMIN 3.5 g/dL (3.5-5.0); CALCIUM 8.6 mg/dL (8.8-10.2); CREATININE 7.1 mg/dL (0.5-0.9); POTASSIUM 4.3 mmol/L (3.5-5.1); TOTAL BILIRUBIN 0.96 mg/dL (0.20-1.00); TOTAL PROTEIN 7.3 g/dL (6.3-8.3)
--- NOTE | 2019-03-19 21:56 | EKG Report ---
Test Performed on : 03/19/2019 9:49:21 PM Test Reason : CP Blood Pressure : / mmHG Vent. Rate : 089 BPM Atrial Rate : 089 BPM P-R Int : 136 ms QRS Dur : 094 ms QT Int : 394 ms P-R-T Axes : 034 008 034 degrees QTc Int : 479 ms Normal sinus rhythm. Normal ECG Confirmed by Eric COUCH, David Weathers ([id number]) on 03/23/2019 11:04:59 PM
[2019-03-19] MEDS ORDERED: ZOFRAN IV PRN (22:28)
[2019-03-20] MEDS ORDERED: SYNTHROID PO SCH (07:00)
[2019-03-20] MEDS ORDERED: ANORO ELLIPTA 62.5-25 MCG INH INH SCH (07:30)
--- NOTE | 2019-03-20 07:46 | HISTORY AND PHYSICAL ---
CHIEF COMPLAINT: Here for dialysis. HISTORY OF PRESENT ILLNESS: This is a 48-year-old female well known to our service, who has end stage renal disease with hemodialysis. She has had failure of her dialysis port. Catheter was placed in her left groin 3 days ago. It was accessed Friday for dialysis. When it was attempted for access today, on Friday, it was not working. The dialysis clinic called Dr. Fritz who told her to come in to have the catheter changed. She will be admitted in observation status. PAST MEDICAL HISTORY: End stage renal disease with Friday, Friday and Friday hemodialysis, CVA, hypertension, seizure, anemia of chronic disease, hypothyroidism, antiphospholipid antibody syndrome, medical noncompliance. PAST SURGICAL HISTORY: Brain surgery, mitral valve replacement, hernia repair, AV fistula placed in the left upper extremity, left groin tunneled catheter placement. FAMILY HISTORY: Coronary artery disease, diabetes, breast cancer, colon cancer. SOCIAL HISTORY: Lives with her fiance. Twenty plus pack year smoker. No alcohol. No illicit drugs. ALLERGIES: Latex, codeine and heparin. HOME MEDICATIONS: Abilify 5 mg p.o. daily, atorvastatin 20 mg p.o. daily, bisoprolol 10 mg p.o. daily, bupropion 100 mg p.o. daily, clonazepam 1 mg p.o. daily, multivitamin daily, Neurontin 300 mg p.o. b.i.d., levothyroxine 100 mcg p.o. daily, losartan 100 mg p.o. daily, pantoprazole 40 mg p.o. daily, Seroquel 300 mg p.o. daily, Anoro Ellipta 62.5/25 mcg 1 puff daily, Coumadin 4 mg p.o. daily. REVIEW OF SYSTEMS: A 14-point review of systems was conducted with the patient, and pertinent positives are listed in the above HPI. All other systems reviewed and found to be negative. PHYSICAL EXAMINATION: VITAL SIGNS: Temperature 98.7, pulse 88, respirations 17, blood pressure 167/89, oxygen saturation 98% on room air. GENERAL: A 48-year-old female lying on the ER stretcher, answers all questions appropriately. Alert and oriented x3. HEENT: Head i s atraumatic and normocephalic. Pupils are equal, round and reactive to light. Extraocular eye movements intact. Sclerae nonicteric. Conjunctivae is pale. Oral mucosa is moist. NECK: Supple. No JVD. No thyromegaly. Trachea midline. No cervical lymphadenopathy. CARDIAC: S1 and S2 appreciated. No murmurs, gallops or rubs. LUNGS: Clear to auscultation. No rhonchi, wheezes or rales. Symmetric rise and fall with respirations. ABDOMEN: Soft, nontender and nondistended. Bowel sounds present in all 4 quadrants, normoactive. No pulsatile mass or organomegaly. EXTREMITIES: No clubbing or cyanosis, 1+ edema. There are 2+ pedal pulses bilaterally. NEUROLOGICAL: Alert and oriented x3. Cranial nerves II through XII grossly intact. DIAGNOSTIC DATA: WBC is 8.55, hemoglobin 7.1, hematocrit 22.6, platelet count 94. INR is 1.36. Sodium is 136, potassium 4.3, chloride 96, carbon dioxide 17, BUN is 70, creatinine 7.1, glucose 161. ASSESSMENT AND PLAN: 1. Dialysis catheter failure. We will consult Dr. Liao. 2. End stage renal disease with hemodialysis. The patient was not able to receive her Friday hemodialysis. We will consult Dr. Fritz. 3. Anemia of chronic disease, aware. 4. Continued tobacco abuse. Further recommendations based on clinical course. Dictated by JAVIER Umana for Lazarus Giron MD I have performed a face to face diagnostic evaluation. Labs/ xrays- reviewed. Exam- chest- bibasilar rales, CV- regular. A/P- Dialysis catheter malfunction, ESRD- Admit, consult surgery for dialiysis catheter malfunction. Dr. Giron cc: JAVIER Umana MD [facility]
--- NOTE | 2019-03-20 08:29 | CONSULTATION ---
DATE OF CONSULTATION: 03/20/2019 Ms. Bridgette Reyes is a 48-year-old white female, has end-stage renal disease and requires chronic hemodialysis. She has had multiple catheters placed both upper and lower extremities. Latest one placed by Dr. Ferraro, left groin. She is admitted through our emergency department after going to dialysis yesterday because she had a nonfunctional left groin PermCath. Cath flow was placed in the PermCath. Evidently, she has some allergy to heparin. PAST MEDICAL HISTORY: End-stage renal disease with dialysis on Friday, Friday and Friday. She has had history of stroke, high blood pressure, seizure, anemia, hypothyroidism. PAST SURGICAL HISTORY: Mitral valve replacement, hernia repair, multiple AV fistula attempts and catheter placements. FAMILY HISTORY: Is coronary artery disease, diabetes, breast cancer, colon cancer. SOCIAL HISTORY: She lives with her fiance. She is a smoker. ALLERGIES: Heparin, codeine and latex. MEDICATIONS: 1. Abilify. 2. Statin drug. 3. Beta-amalia. 4. Clonazepam. 5. Multivitamin. 6. Thyroid medication. 7. Losartan. 8. Protonix. 9. Seroquel. 10. Coumadin. REVIEW OF SYSTEMS: A 14-point review of systems was performed and except for the history of present illness was essentially negative. PHYSICAL EXAMINATION: Ms. Reyes is awake, cooperative, no acute distress. She is overweight. She has no evidence jaundice no oral lesions. No cervical or supraclavicular lymphadenopathy. She has multiple well-healed scars up base of neck and chest. She has a dilated right external jugular vein. She has a mitral valve but regular heart rate. Lungs: Were clear. Abdomen: Was soft, nontender, without palpable mass or tenderness. She has a left groin PermCath. She had minimal peripheral edema. Her feet are warm. No ischemic ulcers. Neurological: She had no focal deficit. I worked with her left groin catheter. I felt that it vicki nicely from the red port but not the blue port. I think we should try to use it for dialysis and not keep changing her catheters. cc: Tamara Liao MD
[2019-03-20] MEDS ORDERED: CATHFLO IV ONE (08:56)
[2019-03-20] MEDS ORDERED: STERILE WATER INJ. INJ ONE (08:56)
[2019-03-20] MEDS ORDERED: KLONOPIN PO SCH (09:00)
[2019-03-20] MEDS ORDERED: NEPHRO-VITE PO SCH (09:00)
[2019-03-20] MEDS ORDERED: SEROQUEL PO SCH (09:00)
[2019-03-20] MEDS ORDERED: ABILIFY PO SCH (09:00)
[2019-03-20] MEDS ORDERED: WELLBUTRIN PO SCH (09:00)
[2019-03-20] MEDS ORDERED: ZEBETA PO SCH (09:00)
[2019-03-20] MEDS ORDERED: LIPITOR PO SCH (09:00)
[2019-03-20] MEDS ORDERED: PROTONIX PO SCH (09:00)
[2019-03-20] MEDS ORDERED: NEURONTIN PO SCH (09:00)
[2019-03-20] MEDS ORDERED: COUMADIN PO SCH (09:00)
[2019-03-20] MEDS ORDERED: COZAAR PO SCH (09:00)
[2019-03-20] MEDS ORDERED: NS 2,000 ML MISC PRN (10:04)
[2019-03-20] MEDS ORDERED: TIGHT: 0.2 ML/HR FOR DIALYSIS MISC PRN (10:04)
[2019-03-20] MEDS ORDERED: AMIDATE ONE (11:52)
[2019-03-20] MEDS ORDERED: KEFZOL 1 GM/D5W 1 GM/50 ML IVPB ONE (11:52)
[2019-03-20] MEDS ORDERED: XYLOCAINE-MPF 2% ONE (11:54)
[2019-03-20] MEDS ORDERED: NS 250 ML ONE (12:01)
[2019-03-20] MEDS ORDERED: XYLOCAINE 1%/EPI 1:100,000 ONE (12:01)
[2019-03-20] MEDS ORDERED: HEPARIN ONE (12:15)
[2019-03-20] MEDS ORDERED: FENTANYL ONE (12:51)
--- NOTE | 2019-03-20 13:35 | OPERATIVE NOTE ---
PROCEDURE DATE: 03/20/2019 PREOPERATIVE DIAGNOSES: 1. End-stage renal disease requiring chronic hemodialysis. 2. Nonfunctional left common femoral PermCath. POSTOPERATIVE DIAGNOSES: 1. End-stage renal disease requiring chronic hemodialysis. 2. Nonfunctional left common femoral PermCath. PRINCIPAL PROCEDURE: Left common femoral PermCath using fluoroscopy. SURGEON: Tamara Liao MD. ANESTHESIA: General. ESTIMATED BLOOD LOSS: 50 mL. DRAINS: None. INDICATIONS: Ms Bridgette Reyes is a 48-year-old white female who requires chronic hemodialysis. Several days ago, she underwent placement of a left groin catheter per Dr. Ferraro that was just long enough to stay in the iliac vein and not into the inferior vena cava. It was poorly functional and could not be used for hemodialysis and we were asked to redo this catheter. DESCRIPTION OF PROCEDURE: The patient was brought to the operating room, placed supine, received general anesthesia and was ventilated. Her left groin was prepped and draped within the sterile field including the left groin catheter. I placed a guidewire in the previous PermCath into the inferior vena cava with the help of fluoroscopy. I removed this 19 cm in length PermCath and replaced it with a 31 cm in length PermCath over the Glidewire. I secured it to its exit site with two 2-0 nylon stitches. Dressings were applied. It was functioning well. I flushed it with saline and then I put just enough heparin to fill the catheter and not get into the blood stream because she is allergic to heparin. cc: Tamara Liao MD
--- NOTE | 2019-03-20 13:55 | PROGRESS NOTE ---
DATE: 03/20/2019 The patient approximately stable. Largely asymptomatic at this point. Dialysis access adjusted by surgery. Dialysis was attempted but unsuccessful. Awaiting further discussions between Nephrology and Surgery about what to do for her dialysis access. Blood counts appear to be on the lower end of where she has hung out historically. Patient asymptomatic, so likely no need to transfuse at this time unless so desired by Nephrology.
[2019-03-20 18:44] VITALS: BP 100/58
--- NOTE | 2019-03-21 16:43 | DISCHARGE SUMMARY ---
ADMISSION DATE: 03/19/2019 DISCHARGE DATE: 03/20/2019 CONSULTS: Nephrology, Dr. Fritz; surgery, Dr. Liao. PROCEDURES: Dialysis catheter change. DISCHARGE DIAGNOSES: 1. End-stage renal disease with need for dialysis access. 2. Anemia of chronic disease. 3. Tobacco abuse. 4. Possible seizure disorder. 5. Possible antiphospholipid syndrome. HOSPITAL COURSE: Patient was sent to the hospital for admission because her dialysis access had stopped working. Her access was initially assessed by Dr. Liao, who worked with it and thought he had it to a point where it would give function. Dialysis was attempted and was unsuccessful. Dr. Liao then took the patient to the OR and changed out her dialysis access. Afterwards, it was functioning acceptably. Once the patient had adequate dialysis access, she was discharged home to follow up with Nephrology and PCP. DISCHARGE VITAL SIGNS: Temperature 98.9 degrees, pulse 80, respirations 16, blood pressure 100/58. O2 saturation 99 on room air. DISCHARGE DIET: Renal. DISCHARGE MEDICATIONS: No changes from previous aside from again recommending the patient discontinue Wellbutrin because of her history of possible seizures. FOLLOWUP AND PLAN: Patient discharged home to follow up with Nephrology and PCP. Greater than 30 minutes spent arranging discharge and counseling patient.
== END 2019-03-20 18:55 | disposition home or self-care (01) ==
LOC: 1N 19:34 → ED 19:34 → SUATTDRO 21:43
PROVIDERS: ATTEND Internal Medicine

== ENCOUNTER 2019-08-05 15:58 | Inpatient (IN) ==
[2019-08-05] MEDS ORDERED: NS 500 ML IV ONE (16:39)
[2019-08-05] MEDS ORDERED: NS 1,000 ML IV ONE (16:39)
[2019-08-05 17:50] LABS: INR 3.09; PROTIME 32.8 Seconds (11.0-16.0)
[2019-08-05 17:51] LABS: PTT 54.8 Seconds (22.3-41.8)
[2019-08-05 17:59] LABS: BASO# 0.03 X1000 (0.0-0.2); BASO% 0.3 % (0.0-0.8); EOS# 0.23 X1000 (0.0-0.7); EOS% 2.4 % (0.0-10.0); HEMATOCRIT 29.1 % (37.0-47.0); HEMOGLOBIN 8.7 g/dL (12.0-16.0); IMM GRAN# 0.07 X1000 (0.0-0.04); IMM GRAN% 0.7 % (0.0-0.5); LYMPH# 1.26 X1000 (1.2-3.4); LYMPH% 13.1 % (20.5-51.1); MCH 30.2 PG (27-31); MCHC 29.9 g/dL (33-37); MONO# 0.71 X1000 (0.11-0.59); MONO% 7.4 % (1.7-9.3); MPV 10.9 FL (7.4-10.4); NEUT% 76.1 % (42.2-75.2); PLT 61 X1000 (130-400); RBC 2.88 XMIL (4.2-5.4); RDW 15.9 % (11.5-14.5)
--- NOTE | 2019-08-05 18:10 | Diag Imaging Result Doc PS360 ---
EXAM: CT HEAD/C-SPINE W/O CONTRAST INDICATION: head injury/pain TECHNIQUE: This exam was performed using automated exposure control, adjustment of mA or kV according to patient size, and/or use of iterative reconstruction technique. COMPARISON: CT head dated 02/02/2019 FINDINGS: Head: There is a stable large craniectomy defect on the left with underlying encephalomalacia involving the left frontal lobe. There are a few stable chronic lacunar infarcts involving the deep norman matter bilaterally. There is no definite acute infarct given the limited sensitivity of CT versus MRI. There is no discrete intracranial mass, mass effect, or intracranial hemorrhage. The surrounding soft tissues are essentially unremarkable. The calvaria is intact aside from the craniectomy defect. C-spine: There is multilevel mild to moderate degenerative disc disease and facet arthropathy. The central canal appears to be largely patent. Otherwise, there is no discrete fracture, subluxation, or intrinsic osseous lesion. The surrounding soft tissues are essentially unremarkable. IMPRESSION: 1.Stable chronic changes as described. No evidence of acute intracranial pathology. 2.Multilevel mild to moderate degenerative changes but no evidence of fracture or other definite acute C-spine injury. Electronically signed by Wang Adkins 08/05/2019 6:08 PM
--- NOTE | 2019-08-05 18:15 | Diag Imaging Result Doc PS360 ---
EXAM: CT MAXILLOFACIAL(SINUS) W/O CO INDICATION: fall, facial injury TECHNIQUE: COMPARISON: None. FINDINGS: There is no evidence of facial bone fracture. Specifically, the mandible, maxilla, zygomatic arches, pterygoid plates, and orbits are intact. There is right sphenoid sinus mucosal thickening. The paranasal sinuses are clear, otherwise. The mastoid air cells are clear. The globes are intact. There is no retrobulbar hematoma. Surrounding soft tissues are essentially unremarkable. IMPRESSION: No evidence of facial bone fracture. Electronically signed by Wang Adkins 08/05/2019 6:12 PM
--- NOTE | 2019-08-05 18:16 | PROVIDER DOCUMENTATION ---
This chart was entered by Kate Ramirez Scribe, acting as scribe for Jaguar Julian MD. HPI-Neurological Disorder - General Chief Complaint: Altered Mental Status Stated Complaint: SENT OVER BY 'S OFFICE Time Seen by Provider: 08/05/19 16:24 Source: patient, family (mom and dad) Allergies/Adverse Reactions: Patient Allergies Allergy/AdvReac Type Severity Reaction Status Date / Time latex Allergy RASH Verified 06/30/19 13:06 codeine AdvReac NAUSEA/VOMI Verified 06/30/19 13:06 TING heparin AdvReac PER Verified 06/30/19 13:06 PATIENT/UNKNOWN REACTION Home Medications: Home Medication List Medication Instructions Recorded Confirmed Last Taken Type Losartan [Cozaar] 100 mg PO DAILY 10/26/16 07/01/19 06/30/19 22:00 History Warfarin [Coumadin] 4 mg PO DAILY 05/14/17 07/01/19 06/27/19 22:00 History Gabapentin [Neurontin] 300 mg PO TID 03/31/18 07/01/19 06/30/19 22:00 History Quetiapine Fumarate [Seroquel] 300 mg PO DAILY 03/31/18 07/01/19 06/30/19 22:00 History Levothyroxine [Synthroid] 100 microgm PO QAM 04/16/18 07/01/19 06/24/19 09:00 History Bisoprolol Fumarate 1 tab PO DAILY 02/02/19 07/01/19 06/30/19 22:00 History Atorvastatin Calcium 20 mg PO DAILY 03/19/19 07/01/19 06/30/19 22:00 History Clonazepam [Klonopin] 1 mg PO DAILY 03/19/19 07/01/19 06/02/19 21:00 History Folic Acid/Vit B Complex and C 1 ea PO DAILY 03/19/19 07/01/19 06/02/19 21:00 History [Dialyvite Tablet] Pantoprazole Sodium 40 mg PO DAILY 03/19/19 07/01/19 06/30/19 22:00 History Tramadol [Ultram] 50 mg PO Q6H PRN PRN #20 tab 07/01/19 Unknown Rx Umeclidinium/Vilanterol [Anoro 1 puff INH DAILY PRN 07/01/19 07/01/19 06/29/19 09:00 History Ellipta 62.5-25 Mcg INH] - History of Present Illness-Neuro Nature of Presenting Problem: 48yof presents to ED cc AMS, swelling to entire body, chest pain, bilateral knee pain, abdominal pain and needs dialysis. 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 Mom reprots pt is suppose to dialysis at home 4x a day but doesn't. Pt has perineal catheter in LLQ with no exudate or erythema. Pt has mechanical mitral valve and is on coumadin. Pt is A&Ox3 but has mild confusion and slurred speech upon exam. Timing: reports: still present Context: reports: impaired speech Character of Altered Mental Status: reports: confused (mild) Any recent trauma/injury?: reports: minor, to head, to neck, other (face, chin) Character of Deficits: reports: impaired speech Cognitive Baseline: alert but confused Associated Symptoms: reports: confusion, slurred speech Similar Symptoms Previously?: Yes Recently seen or treated by another doctor?: Yes (seen at Dr. Heraclio vaughn oil tanker captain) Review of Systems - Adult - REVIEW OF SYSTEMS - ADULT Constitutional: reports: see HPI Eyes: reports: no symptoms reported Ears, Nose, Mouth & Throat: reports: no symptoms reported Cardiovascular: reports: see HPI, chest pain, edema Respiratory: reports: no symptoms reported Gastrointestinal: reports: see HPI, abdominal pain Genitourinary: reports: no symptoms reported Musculoskeletal: reports: see HPI, joint pain (both knees) Integumentary: reports: see HPI, other (swelling to entire body) Neurological: reports: see HPI, slurred speech, other (AMS) Psychiatric: reports: no symptoms reported Endocrine: reports: no symptoms reported Hematologic/Lymphatic: reports: no symptoms reported Allergic/Immunologic: reports: no symptoms reported All Other Systems: Reviewed and Negative Past History - Adult - PAST MEDICAL HISTORY-ADULT Review of Records: reports: Old Records Reviewed, Nursing Assessment Review, Medications Reviewed, Social history reviewed & non-contributory. Major Childhood Illnesses: reports: denies history Cardiovascular: reports: 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) Respiratory: reports: denies history Gastrointestinal: reports: denies history Obstetrical/Gynecological: reports: denies history Genitourinary: reports: kidney disease (Stage IV) Musculoskeletal: reports: chronic pain Neurological: reports: CVA (multiple, some hemorrhagic), Seizures/Epilepsy Endocrine/Immune: reports: denies history Other Conditions: reports: denies history - PRIOR SURGERIES/PROCEDURES Surgical/Procedure History: reports: recent surgery, other (mechanical heart valve replacement, multiple craniotomies, carotid bypass with vein graft) - IMMUNIZATION STATUS Childhood Immunizations: See Nurse Assessment Flu Vaccine: See Nurse Assessment - FAMILY HISTORY Family History: reviewed, not pertinent Physical Exam- Neurological - Physical Exam-Neuro Initial Vital Signs Reviewed: Yes General Appearance: alert, obese. negative: anxious, combative Eye Exam: left eye: other (ecchymosis to periorbital cavity), bilateral eye: PERRL HENMT: normocephalic/atraumatic. negative: moist mucous membranes (dry) Head Injury: contusions (to left forehead, left side neck and under chin). negative: active bleeding Respiratory: chest non-tender, lungs clear. negative: rhonchi, wheezing Cardiovascular: normal peripheral pulses, regular rate, rhythm (mechanical click due to mechanical mitral valve), systolic murmur (1/6). 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 negative: diaphoresis, jaundice Psych/Mental Status: normal mood/affect, oriented x 3. negative: anxious, disheveled - Glascow Coma Scale Best Eye Response: (4) open spontaneously Best Verbal Response: (4) confused conversation Best Motor Response: (6) obeys commands Total Glascow Score: 14 Progress - PLAN OF CARE/RESULTS Progress/Plan/Lab Results: Vital Signs - 8 hr 08/05/19 16:04 08/05/19 18:04 Temperature 98.3 F Pulse Rate 88 86 Respiratory Rate 20 14 Blood Pressure 128/83 144/112 O2 Sat by Pulse Oximetry 94 L Laboratory Results - last 24 hr 08/05/19 08/05/19 17:19 17:19 WBC 9.60 RBC 2.88 L Hgb 8.7 L Hct 29.1 L MCV 101.0 H MCH 30.2 MCHC 29.9 L RDW Std Deviation 15.9 H Plt Count 61 L MPV 10.9 H Immature Gran % (Auto) 0.7 H Neut % (Auto) 76.1 H Lymph % (Auto) 13.1 L Webb % (Auto) 7.4 Eos % (Auto) 2.4 Baso % (Auto) 0.3 Immature Gran # (Auto) 0.07 H Neut # (Auto) 7.30 H Lymph # (Auto) 1.26 Webb # (Auto) 0.71 H Eos # (Auto) 0.23 Baso # (Auto) 0.03 PT 32.8 H INR 3.09 PTT (Actin FS) 54.8 H Orders Category Date Time Status Finger Stick Blood Sugar (ED) DIRECTED Care 08/05/19 16:31 Active Nursing- Obtain EKG once Care 08/05/19 16:31 Active Saline Loc NOW Care 08/05/19 16:31 Active CHEST-PORTABLE [RAD] Stat Exams 08/05/19 16:[address] ABDOMEN/PELVIS W/O CONTRAST [CT] Stat Exams 08/05/19 16:[address] HEAD/C-SPINE W/O CONTRAST [CT] Stat Exams 08/05/19 16:[address] MAXILLOFACIAL(SINUS) W/O CO [CT] Stat Exams 08/05/19 16:36 Taken ABG [RESP] Routine Lab 08/05/19 16:33 Ordered ACETONE SERUM [CHEM] Stat Lab 08/05/19 17:10 Ordered ALCOHOL BLOOD Stat Lab 08/05/19 17:10 Ordered BLOOD CULTURE [BLDCUL] Stat Lab 08/05/19 16:33 Ordered BODY FLUID ANALYSIS [CELL CNT] Stat Lab 08/05/19 16:50 Received CBC WITH ELECTRONIC DIFF [HEME] Stat Lab 08/05/19 17:19 Completed CK PROFILE [SP CHEM] Stat Lab 08/05/19 17:10 Ordered COMPREHENSIVE METABOLIC PANEL [CHEM] Stat Lab 08/05/19 17:10 Ordered LACTATE, PLASMA [CHEM] Stat Lab 08/05/19 17:10 Ordered LIPASE [CHEM] Stat Lab 08/05/19 17:10 Ordered MAGNESIUM [CHEM] Stat Lab 08/05/19 17:10 Ordered OCCULT BLOOD SCREENING [STOOL] Stat Lab 08/05/19 16:40 Uncollected PRO B-NATRIURETIC PEPTIDE Stat Lab 08/05/19 17:10 Ordered PROTIME WITH INR [COAG] Stat Lab 08/05/19 17:19 Completed PTT [COAG] Stat Lab 08/05/19 17:19 Completed ROUTINE CULTURE [RM] Routine Lab 08/05/19 16:50 Received TROPONIN T HIGH SENSITIVITY Stat Lab 08/05/19 17:10 Ordered TYPE & SCREEN [BBK] Stat Lab 08/05/19 17:10 Ordered phos [PHOSPHORUS] [CHEM] Stat Lab 08/05/19 17:10 Ordered 0.9% Sodium Chloride Inj [Ns] 1,000 ml Med 08/05/19 16:39 Active IV 75 mls/hr 0.9% Sodium Chloride Inj [Ns] 500 ml Med 08/05/19 16:39 Discontinued IV 999 mls/hr EKG [EKG] Stat Ther 08/05/19 16:31 Ordered Result Diagrams: 08/05/19 17:19 - REASSESSMENT Reassessment #1 Time Reassessed: 18:09 Status: unchanged (IVF bolus 500ml ordered. Patient needs IV access. Some blood work is back. Dr. Fritz is ordering the PD. RNs still trying to get IV access, will call Dr. Mckeon back if unable.) - EKG 1 Time of EKG reading by physician:: 16:47 EKG Read and Signed by:: Jaguar Julian EKG Interpretation (*Must complete 3 of following elements*): Abnormal (Prolonged QT; artifact present; NO STEMI) Rate: 86 Rhythm: NSR [place]: normal QRS: poor R wave progression, other (low voltage) - XRAY 1 XRAY Study: Chest Impression: Abnormal (read by me at 1812, CM, increased vascular markins, no rib fractures, no PTX, no infiltrates or pleural effusion) Comparison with other Films: no changes - CT/MRI 1 CT Study: Head (and C-SPine) Impression: Abnormal, See EMR Report ( EXAM: CT HEAD/C-SPINE W/O CONTRAST INDICATION: head injury/pain TECHNIQUE: This exam was performed using automated exposure control, adjustment of mA or kV according to patient size, and/or use of iterative reconstruction technique. COMPARISON: CT head dated 02/02/2019 FINDINGS: Head: There is a stable large craniectomy defect on the left with underlying encephalomalacia involving the left frontal lobe. There are a few stable chronic lacunar infarcts involving the deep norman matter bilaterally. There is no definite acute infarct given the limited sensitivity of CT versus MRI. There is no discrete intracranial mass, mass effect, or intracranial hemorrhage. The surrounding soft tissues are essentially unremarkable. The calvaria is intact aside from the craniectomy defect. C- spine: There is multilevel mild to moderate degenerative disc disease and facet arthropathy. The central canal appears to be largely patent. Otherwise, there is no discrete fracture, subluxation, or intrinsic osseous lesion. The surrounding soft tissues are essentially unremarkable. IMPRESSION: 1.Stable chronic changes as described. No evidence of acute intracranial pathology. 2.Multilevel mild to moderate degenerative changes but no evidence of fracture or other definite acute C-spine injury. Electronically signed by Wang Adkins 08/05/2019 6:08 PM 08/05/191807 Interpreting Physician: Wang Adkins MD Dictated Date/Time: 08/05/191802 cc: Jaguar Julian MD; Adam Fritz MD) Comparison with other Films: no changes - CONSULTS/PCP/HOSPITALIST Notification #1 *Consult/PCP/Hospitalist*: Lam Time Discussed: 16:31 Consult Disposition: other (Admit to hospitals[facility], they will dialyze in house with PD, if vasc access is needed, left femoral is ONLY venous access, consider requesting surgical evalution for Trialysis Cath.) #2 Consult: Mike Time Discussed: 16:45 Consult Disposition: Will see in ED (try obtaining peripheral venous access left wrist, call him back if unable, and they can consider left femoral line. If we can get peripheral IV access, they can get midline or PICC line tomorrow and FEMORAL DIALYSIS ACCESS if absolutely necessary later.) #3 Consult: tabitha Time Discussed: 18:10 Consult Disposition: Will see in ED, Admit Departure - Departure Date of Disposition Decision: 08/05/19 Time of Disposition Decision: 18:13 DIAGNOSIS: Uremia, Non-compliance with renal dialysis, Falls frequently, Anticoagulated on Coumadin, Thrombocytopenia, Exhausted vascular access Altered mental status Qualifiers: Altered mental status type: somnolence Qualified Code(s): R40.0 - Somnolence Contusion of face, scalp and neck Qualifiers: Encounter type: initial encounter Qualified Code(s): S00.83XA - Contusion of other part of head, initial encounter; S00.03XA - Contusion of scalp, initial encounter; S10.93XA - Contusion of unspecified part of neck, initial encounter Disposition: ADMITTED INPATIENT 09 Certified Medical Emergency: Emergent Condition: Serious Referrals and Follow-Ups: Adam Fritz MD [Primary Care Provider] - - Critical Care Note This patient required my direct & personal management of CC.: Yes Total Time (mins): 45 Critical Care Statement: This patient required my direct personal management to treat or rule out processes, the absence of which, could potentiallly result in sudden, clinically significant life or limb threatening deterioration. Attestation - Physician/ GERMÁN Attestation Patient care was provided by Advanced Practice Provider:: No The physician spent face to face time with patient:: Yes Advanced Practice Provider documentation review:: Supervising physician onsite and consulted in the evaluation and care of this patient. The physician did have a face to face encounter with the patient. This chart was documented by the indicated scribe, (Kate Ramirez Scribe) and accurately reflects the services I performed and decisions made by me, Jaguar Julian MD, as attested by the provider's signature.
--- NOTE | 2019-08-05 18:24 | Diag Imaging Result Doc PS360 ---
EXAM: CT ABDOMEN/PELVIS W/O CONTRAST INDICATION: abd pain, acute kidney injury TECHNIQUE: This exam was performed using automated exposure control, adjustment of mA or kV according to patient size, and/or use of iterative reconstruction technique. COMPARISON: 11/09/2018 FINDINGS: There is a small right pleural effusion and a trace effusion on the left. The gallbladder is contracted and there is a stable large calcified stone in the gallbladder lumen. There is moderate to large ascites seen throughout the abdomen and there is a coiled peritoneal dialysis catheter in the pelvis. There are a few small droplets of extraluminal peritoneal gas that are assumed to be from peritoneal dialysis. The liver, spleen, pancreas, and adrenal glands are unremarkable. The kidneys are atrophic but stable. There is a stable small cystic appearing lesion associated with the left kidney. The urinary bladder is partially distended and is unremarkable, otherwise. The reproductive tract is grossly unremarkable as imaged. No focal bowel wall thickening or bowel obstruction is identified. The remainder of the GI tract is essentially unremarkable. There is a small superior ventral abdominal wall hernia at the midline containing only mesenteric fat and fluid. There is body wall anasarca. There is a degenerative subcortical cyst associated with the left femoral head that is larger than the previous study. Otherwise, there is no evidence of acute osseous abnormality. IMPRESSION: 1.Stable cholelithiasis. 2.Peritoneal fluid and a few tiny droplets of extraluminal gas that is assumed to be related to peritoneal dialysis. 3.Small right pleural effusion and trace left effusion. 4.Body wall anasarca. Electronically signed by Wang Adkins 08/05/2019 6:22 PM
[2019-08-05 18:25] LABS: ALLEN TEST YES; BLOOD TYPE ARTERIAL; HCO3-(ACT) 12.5 mmoll (20.0-26.0); O2(CT) 12.2 mL/dL (15.0-23.0); O2HB 97.4 % (95.0-99.0); PCO2(98.6) 25 mmHg (35-45); PO2(98.6) 141 mmHg (60-100); SAMPLE BLOOD; SAO2 99.8 % (95.0-100.0); THB 8.7 g/dL (11.5-17.4); pH(98.6) 7.22 (7.35-7.45)
[2019-08-05 18:26] LABS: MODALITY ROOM AIR
[2019-08-05] MEDS ORDERED: HUMULIN R SUBQ ONE (18:30)
--- NOTE | 2019-08-05 18:30 | Diag Imaging Result Doc PS360 ---
EXAM: CHEST-PORTABLE INDICATION: fall, ams TECHNIQUE: One view COMPARISON: 07/29/2019 FINDINGS: The lungs are grossly clear. There is no discrete pleural fluid collection or pneumothorax. There is a stable prosthetic heart valve. The cardiac silhouette is mildly prominent but stable. Central vasculature is unremarkable. IMPRESSION: Stable mild cardiomegaly. No evidence of acute chest pathology by plain radiograph. Electronically signed by Wang Adkins 08/05/2019 6:28 PM
[2019-08-05] MEDS ORDERED: HUMULIN R IV ONE (18:35)
[2019-08-05 19:18] LABS: BODY FLUID SOURCE PERI DIAL FLUID; MONOS 80 %; POLYS 20 %; WBC BF 23 /cumm
--- NOTE | 2019-08-05 19:39 | HISTORY AND PHYSICAL ---
PRIMARY CARE PHYSICIANS: Dr. Girish Fritz and followed by JAVIER Vergara. HISTORY OF PRESENT ILLNESS: This is a 48-year-old, white female, well known to our service for end-stage renal disease, chronic kidney disease stage 5D. They had difficulty with access and she currently was supposed to be on peritoneal dialysis, getting it 4 times a day. Catheter was placed in the left groin and that apparently clotted off, and so she has not been able to get her peritoneal dialysis going and she is uremic, and Dr. Fritz sent her over here to see if we can get her catheter changed, actually see if we can do peritoneal dialysis. PAST MEDICAL HISTORY: 1. Chronic kidney disease stage 5D, was getting hemodialysis Mondays, Wednesdays, and Fridays, now trying to get peritoneal dialysis. 2. History of CVA. 3. History of hypertension. 4. History of seizures. 5. History of anemia from chronic disease. 6. History of hypothyroidism. 7. She is positive for antiphospholipid antibody syndrome and history of noncompliance. PAST SURGICAL HISTORY: 1. Brain surgery. 2. Mitral valve replacement. 3. Hernia repair. 4. AV fistula placed in the left extremity. 5. Left groin tunneled catheter placed in the past. FAMILY HISTORY: Coronary artery disease, diabetes mellitus type 2, breast cancer, and colon cancer. SOCIAL HISTORY: She lives with her fiance. A [id number] history of smoking. No history of alcohol or illicit drugs. ALLERGIES: Latex, codeine, heparin. MEDICATIONS: I think she is on Abilify 5 mg a day, atorvastatin 20 mg a day, bisoprolol 10 mg p.o. daily, bupropion 100 mg daily, clonazepam 1 mg daily, multivitamin daily, Neurontin 300 mg b.i.d., levothyroxine 100 mcg daily, losartan 100 mg daily, pantoprazole 40 mg a day, Seroquel 300 mg a day, Anoro Ellipta 62.5/25 mcg 1 puff daily, Coumadin 4 mg daily. Her past history list. REVIEW OF SYSTEMS: General: No weight gain or loss. No fever or chills, just general weakness. Balance is poor in the last several days. Apparently, states she has kind of felt bad for a couple of weeks. HEENT: No change in visual or hearing acuity. No headaches. No throat or ear pain. Respiratory: No increased work of breathing or dyspnea. Cardiovascular: No chest pain or tachy palpitation. Gastrointestinal/genitourinary: No gross hematuria or dysuria. She has had some nausea. Appetite has been poor, not eating or drinking much. She is hungry now though. Musculoskeletal/Neurologic: Just general weakness. Muscle cramping. Endocrinologic/hematologic: No significant history. PHYSICAL EXAMINATION: GENERAL: Well-developed, well-nourished, white female. VITAL SIGNS: Temperature 98.3 degrees, pulse 86, respirations 14, blood pressure 144/112. EYES: Pupils are equal and round. LUNGS: Clear in all lung alfredo. CARDIOVASCULAR: Regular rhythm and rate without murmur or S3. ABDOMEN: Soft. SKIN: Warm and dry. Weight is 220 pounds. Height 5 feet 5 inches. I do not appreciate any skin rash. NECK: Supple. No thyromegaly or adenopathy. LABORATORY DATA: White count 9600, hematocrit is 29, hemoglobin 8.7, MCV is 101. ProTime is 32, PTT is 54. Her INR was 3.0. Blood gas, pH 7.22, pCO2 is 25, PO2 is 141, O2 saturation is 97% and that is on room air. Waiting on her electrolytes and bicarbonate. IMAGIN. Abdominal and pelvic CT performed: A.) Stable cholelithiasis. B.) Peritoneal fluid and a few tiny droplets of intraluminal gas that seem to be related to peritoneal dialysis. C.) Small right pleural effusion, trace left pleural effusion. D.) Body wall anasarca appreciated. 2. Chest x-ray: Stable, mild cardiomegaly. No evidence of acute chest pathology on plain film. 3. Head and cervical CT: A.) Stable chronic changes as described. No evidence of acute intracranial pathology. B.) Multilevel exlp-[id number]-[id number] degenerative changes. No evidence of fracture or definite acute C-spine injury. She had fallen and had a contusion around her left eye, I believe. 4. Maxillofacial CT: No evidence of facial bone fractures. ASSESSMENT AND PLAN: 1. Azotemia, chronic kidney disease stage 5D. She has general anasarca, but she is not in any respiratory distress, but have had trouble with getting IV access for her hemodialysis, so we are going to attempt peritoneal dialysis. I think she is supposed to get it 4 times a day. 2. History of cerebrovascular accident. 3. History of hypertension. 4. History of seizures. 5. History of anemia of chronic disease. 6. Hypothyroidism. 7. History of positive antiphospholipid antibody hypercoagulable syndrome, I believe. Surgical history significant for brain surgery, mitral valve replacement. She is on heparin. Hernia repair, AV fistula placement in the left arm, left groin tunneled catheter in the past. We are waiting on her electrolytes. I do not see any sign of active infection. We will try and put her on the 1st floor and begin peritoneal dialysis tonight. cc: Matt Noland MD
[2019-08-05 19:55] LABS: AGAP 28; ALB/GLOB RATIO 0.8; ALBUMIN 2.8 g/dL (3.5-5.0); ALKALINE PHOSPHATASE 121 U/L (32-104); BUN 114 mg/dL (8-22); CALCIUM 6.7 mg/dL (8.8-10.2); CHLORIDE 102 mmol/L (98-107); CK PROFILE 485 U/L (24-173); COSMO 312; CREATININE 19.4 mg/dL (0.5-0.9); ESTIMATED GFR 2; GLUCOSE 95 mg/dL (70-104); GOT 11 U/L (10-30); GPT 5 U/L (10-36); LIPASE 11 U/L (13-60); MAGNESIUM 1.1 mg/dL (1.5-2.7); PHOSPHORUS 10.1 mg/dL (2.7-4.5); POTASSIUM 6.5 mmol/L (3.5-5.1); SODIUM 138 mmol/L (136-145); TCO2 8 mmol/L (25-35); TOTAL BILIRUBIN 0.51 mg/dL (0.20-1.00); TOTAL PROTEIN 6.4 g/dL (6.3-8.3)
[2019-08-05 20:07] LABS: ACETONE SERUM NEGATIVE (NEGATIVE)
[2019-08-05] MEDS ORDERED: LOKELMA POWDER PACKET PO ONE (20:15)
[2019-08-05 20:23] LABS: CK INDEX 1.8 (0.0-2.5); CK-MB 8.61 ng/mL (0.0-5.0)
[2019-08-05] MEDS ORDERED: ANORO ELLIPTA 62.5-25 MCG INH INH PRN (20:27)
[2019-08-05] MEDS ORDERED: TYLENOL PO PRN (20:27)
[2019-08-05] MEDS ORDERED: ZOFRAN IV PRN (20:27)
[2019-08-06] MEDS: NEURONTIN PO SCH ×3 (05:39→13:45)
[2019-08-06] MEDS: SYNTHROID PO SCH (06:39)
--- NOTE | 2019-08-06 07:14 | EKG Report ---
Test Performed on : 08/05/2019 4:28:24 PM Test Reason : AMS Blood Pressure : / mmHG Vent. Rate : 086 BPM Atrial Rate : 086 BPM P-R Int : 132 ms QRS Dur : 086 ms QT Int : 408 ms P-R-T Axes : 000 011 013 degrees QTc Int : 488 ms Normal sinus rhythm. Low voltage QRS Prolonged QT Abnormal ECG When compared with ECG of 19-MAR-2019 21:49, No significant change was found Unconfirmed Result
[2019-08-06] MEDS: COUMADIN PO SCH (08:31)
[2019-08-06] MEDS: PRILOSEC PO SCH (08:32)
[2019-08-06] MEDS: SEROQUEL PO SCH (08:32)
[2019-08-06] MEDS: KLONOPIN PO SCH (08:32)
[2019-08-06] MEDS: COZAAR PO SCH (08:32)
[2019-08-06] MEDS: ZEBETA PO SCH (08:33)
[2019-08-06] MEDS: LIPITOR PO SCH (08:33)
[2019-08-06] MEDS ORDERED: PROTONIX PO SCH (09:00)
--- NOTE | 2019-08-06 12:56 | PROGRESS NOTE ---
DATE: 08/06/2019 SUBJECTIVE: Ms. Reyes was resting comfortably, easy to arouse. She had a pretty good night. She slept well by report. OBJECTIVE: Vital signs: Temperature 97.6 degrees, pulse 79, respirations 12, blood pressure 128/63. HEENT: Pupils are equal and round. Lungs: Clear in all lung alfredo. Cardiovascular: Regular rhythm and rate without murmur or S3. Abdomen: Soft. Skin: Warm and dry. URINE OUTPUT: 3200 mL. ASSESSMENT AND PLAN: 1. Azotemia, chronic kidney disease, not been able to get dialysis. She is stage 5D, using peritoneal dialysis, having difficulty with IV access for hemodialysis. Electrolytes and acid base status improving. 2. History of cerebrovascular accident. 3. History of hypertension. 4. History of seizures. 5. History of anemia of chronic disease. 6. Hypothyroidism. 7. History of positive antiphospholipid antibody. REVIEW OF HER ORDERS: I do not see any change at this point. LABORATORY DATA: From today, aware. Yesterday of potassium 6.5 and acid-base status looked pretty good. She was acidotic with a bicarb of 8. Her creatinine was high at 19.4, calcium 6.7, phosphorus 10. She did have elevated troponin, I do not see evidence of cardiac ischemia. cc: Matt Noland MD
[2019-08-06] MEDS: ULTRAM PO PRN (15:21)
[2019-08-06] MEDS ORDERED: RETACRIT (ESRD PATIENTS) SUBQ ONE (16:06)
--- NOTE | 2019-08-06 20:02 | NEPHROLOGY CONSULTATION ---
DATE: 08/06/2019 REASON FOR CONSULTATION: Uremia. HISTORY OF PRESENT ILLNESS: Ms. Reyes is a 48-year-old white female who has stage 5D chronic kidney disease. Also seizure disorder, hypertension, history of CVA, history of KENDRA, history of antiphospholipid syndrome. She has a history of valve replacement. She recently started CAPD because she has been reduced to only a left femoral vein catheter for hemodialysis and this was infected. So she has been doing peritoneal dialysis for perhaps 4 weeks. In that context she does not call the office with any problems or with any complications such as peritonitis or exit site infection etc. She was in the office yesterday to begin training using the automated peritoneal dialysis cycler. She was unfit for training. She was stumbling and confused and tremulous. She was unable to stay awake for extended period of time. She admitted that the most dialysis she had performed was 1 exchange per day. She also was having problems with diarrhea and actually had diarrhea in the office. We treated her in the office using a cycler but she was not improving and so she was directed to the hospital for admission. PAST MEDICAL HISTORY: As above. HOME MEDICATIONS: Include losartan, warfarin, quetiapine, gabapentin, levothyroxine, bisoprolol, atorvastatin, pantoprazole, clonazepam, tramadol, Anoro. ALLERGIES: Latex, codeine and heparin. SOCIAL HISTORY: She is but estranged, I think her daughter lives in the house. Ongoing smoking. No alcohol. FAMILY HISTORY: Not positive for kidney disease. REVIEW OF SYSTEMS: Otherwise difficult to obtain but negative. PHYSICAL EXAM: Vital Signs: Blood pressure 105/61, heart rate 81, respirations 14, afebrile. General: Chronically ill-appearing middle-aged woman in no acute distress. Skin: Warm and dry. There is bruising around the left eye. HEENT: Nonfocal. Chronic cranial deformity. Pupils are equal. Conjunctivae are pink. Oropharynx is dry. Neck: Neck veins are not appreciated. Trachea is midline. Heart: Regular with metallic heart tones. No rubs. Lungs: Have equal breath sounds. No crackles or wheezes. Abdomen: Soft, nontender. Bowel sounds are present. Exit site was not examined. It was examined by the staff in the office and no evidence of infection. Extremities: 1+ edema. No clubbing or cyanosis. Neurologic: Noteworthy for altered sensorium and tremor. IMPRESSION: 1. Altered mental state. She has polypharmacy at baseline with high doses of gabapentin as well as clonazepam and quetiapine, tramadol. At this time I will discontinue her gabapentin. I expect that the most significant changes related to her mental status have to do with under dialysis. 2. Uremia. Complicated by metabolic acidosis and hyperkalemia. These are moderate in degree and her respiratory compensation is appropriate for her degree of acidosis. Anion gap is 28 which is commensurate with her kidney disease. She is on the cycler currently. We will continue 24 hour cycler therapy over the next 72 hours and reevaluate her symptoms. Monitor her potassium and acid-base status closely. Obviously she is a poor candidate for peritoneal dialysis but her hemodialysis access options are exceedingly limited. 3. Hyperkalemia as above. 4. Anemia. Stool is heme-negative. I gave a single dose of Lokelma last evening. Will monitor her hemoglobin and potassium. We will give 1 dose of erythropoietin. Check iron stores. cc: Adam Fritz MD
[2019-08-07] MEDS: SYNTHROID PO SCH (06:07)
[2019-08-07 06:29] LABS: FERRITIN 1676 ng/mL (13-150)
[2019-08-07 06:34] LABS: ALBUMIN 2.5 g/dL (3.5-5.0); CREATININE 15.4 mg/dL (0.5-0.9); HEMATOCRIT 25.6 % (37.0-47.0); HEMOGLOBIN 7.8 g/dL (12.0-16.0); MCHC 30.5 g/dL (33-37); MCV 101.6 FL (81-99); MPV 12.3 FL (7.4-10.4); PHOSPHORUS 8.4 mg/dL (2.7-4.5); POTASSIUM 4.6 mmol/L (3.5-5.1); RBC 2.52 XMIL (4.2-5.4); RDW 15.7 % (11.5-14.5); WBC 7.88 X1000 (4.8-10.8)
[2019-08-07] MEDS: LIPITOR PO SCH (09:20)
[2019-08-07] MEDS: SEROQUEL PO SCH (09:20)
[2019-08-07] MEDS: ZEBETA PO SCH (09:20)
[2019-08-07] MEDS: KLONOPIN PO SCH (09:20)
[2019-08-07] MEDS: PRILOSEC PO SCH (09:21)
[2019-08-07] MEDS: COZAAR PO SCH (09:21)
[2019-08-07] MEDS: COUMADIN PO SCH (09:21)
--- NOTE | 2019-08-07 12:41 | NEPHROLOGY PROGRESS NOTE ---
DATE: 08/07/2019 SUBJECTIVE: She is definitely more alert today. She has been out of bed. Denies instability, falls or weakness. Eating. Shortness of breath improving. OBJECTIVE: Vital Signs: Blood pressure 116/65, heart rate 91, respiration 18, afebrile. General: In no acute distress. Skin: Warm and dry. Conjunctivae are pink. Neck: Neck veins are not visible. Heart: Regular with metallic heart tones. Lungs: Equal. No crackles. Abdomen: Benign. Extremities: Trace edema. No clubbing or cyanosis. IMPRESSION: 1. Chronic kidney disease 5D/uremia. Improving progressively. BUN is down to 84 today. Symptoms are improved. Continue 24-hour cycler therapy. 2. Hypocalcemia/hyperphosphatemia. We will add calcium-based phosphate binder. 3. Anemia. Hemoglobin is 7.8. I gave a single dose of erythropoietin yesterday. Iron studies are acceptable. Folate is low. We will replace. cc: Adam Fritz MD
[2019-08-07] MEDS: NEPHRO-VITE PO SCH (14:34)
[2019-08-07] MEDS: PHOSLO PO SCH ×2 (14:35→16:33)
[2019-08-07] MEDS: ULTRAM PO PRN (21:07)
[2019-08-07] MEDS ORDERED: VANCOMYCIN IV PER PHARMACY MISC SCH (22:00)
[2019-08-08] MEDS ORDERED: VANCOMYCIN 1 GM/NS 1 GM/250 ML IVPB IV SCH (02:00)
[2019-08-08 05:41] LABS: HEMOGLOBIN 8.1 g/dL (12.0-16.0); MCH 30.3 PG (27-31); MCV 101.1 FL (81-99); MPV 12.5 FL (7.4-10.4); RBC 2.67 XMIL (4.2-5.4); RDW 15.6 % (11.5-14.5); WBC 7.18 X1000 (4.8-10.8)
[2019-08-08 05:57] LABS: ALBUMIN 2.4 g/dL (3.5-5.0); CALCIUM 5.6 mg/dL (8.8-10.2); CREATININE 13.4 mg/dL (0.5-0.9); PHOSPHORUS 6.9 mg/dL (2.7-4.5)
[2019-08-08] MEDS: SYNTHROID PO SCH (06:25)
[2019-08-08] MEDS: PHOSLO PO SCH ×3 (08:46→16:56)
[2019-08-08] MEDS: COUMADIN PO SCH (08:46)
[2019-08-08] MEDS: SEROQUEL PO SCH (08:46)
[2019-08-08] MEDS: KLONOPIN PO SCH (08:46)
[2019-08-08] MEDS: NEPHRO-VITE PO SCH (08:47)
[2019-08-08] MEDS: COZAAR PO SCH (08:47)
[2019-08-08] MEDS: ZEBETA PO SCH (08:47)
[2019-08-08] MEDS: LIPITOR PO SCH (08:47)
[2019-08-08] MEDS: PRILOSEC PO SCH (08:48)
--- NOTE | 2019-08-08 13:14 | PROGRESS NOTE ---
DATE: 08/08/2019 SUBJECTIVE: Ms. Reyes is pretty sleepy still. Otherwise, no complaints of pain. No nausea. OBJECTIVE: Vital Signs: Temp 98.4 degrees, pulse 87, respirations 16, blood pressure 87/54. Last several blood pressures are 92/42, 97/52, 98/51, and 87/54. HEENT: Pupils are equal and round. Lungs: Clear in all lung alfredo. Cardiovascular: Regular rhythm and rate without murmur or S3. Abdomen: Soft. Skin: Warm and dry. Urine output with dialysis looks like it was 5600 mL. ASSESSMENT AND PLAN: 1. Chronic kidney disease stage 5D. Uremia improving progressively. BUN is down to 84. Symptoms improved. She feels better. Continue 24-hour cycler therapy. 2. Hypocalcemia and hyperphosphatemia. Dr. Fritz added a calcium-based phosphate binder. 3. Anemia, which appears stable. She got a dose of erythropoietin yesterday. 4. History of seizures. 5. History of hypothyroidism. 6. She has a history of positive antiphospholipid antibody. 7. History of cerebrovascular accident. REVIEW OF ORDERS: Looking over her orders, I do not see any change. Continue current medications. She had 1 of 2 cultures grow out coagulase-negative Staphylococcus, which is likely contaminant. She is on vancomycin. LABORATORY DATA: Today, white count 7180, hematocrit is 27, hemoglobin 8.1, platelet count is 27,000. Sodium 140, potassium 4.0, chloride 102, creatinine 13.4, which is down from 15.4, BUN is down to 71 from 84 yesterday. Note, her albumin is 2.4. Folate is 5. I will give her some folic acid. cc: Matt Noland MD
[2019-08-08] MEDS ORDERED: TUMS PO PRN (16:45)
[2019-08-09 06:13] LABS: HEMATOCRIT 27.4 % (37.0-47.0); HEMOGLOBIN 8.1 g/dL (12.0-16.0); MCH 30.3 PG (27-31); MCHC 29.6 g/dL (33-37); MCV 102.6 FL (81-99); MPV 12.5 FL (7.4-10.4); RBC 2.67 XMIL (4.2-5.4); RDW 15.4 % (11.5-14.5); WBC 8.53 X1000 (4.8-10.8)
[2019-08-09] MEDS: SYNTHROID PO SCH (06:14)
[2019-08-09 06:25] LABS: ALBUMIN 2.4 g/dL (3.5-5.0); CALCIUM 6.6 mg/dL (8.8-10.2); CREATININE 12.1 mg/dL (0.5-0.9); PHOSPHORUS 6.8 mg/dL (2.7-4.5); POTASSIUM 3.6 mmol/L (3.5-5.1)
[2019-08-09] MEDS: PRILOSEC PO SCH (09:14)
[2019-08-09] MEDS: PHOSLO PO SCH ×3 (09:14→17:47)
[2019-08-09] MEDS: COZAAR PO SCH (09:15)
[2019-08-09] MEDS: COUMADIN PO SCH (09:15)
[2019-08-09] MEDS: KLONOPIN PO SCH (09:15)
[2019-08-09] MEDS: LIPITOR PO SCH (09:15)
[2019-08-09] MEDS: SEROQUEL PO SCH (09:15)
[2019-08-09] MEDS: NEPHRO-VITE PO SCH (09:15)
[2019-08-09] MEDS: ZEBETA PO SCH (09:19)
--- NOTE | 2019-08-09 15:39 | PROVIDER PROGRESS NOTE ---
Progress Note Subjective: She voices feeling better. She does not use home oxygen. Her asterixis is better. Objective: temperature 97.8, pulse 89, respirations 20, blood pressure 108/55, O2 sat 100% on 2 L nasal cannula. General: Obese, chronically ill White female lying in bed in no acute distress. HEENT: normocephalic, atraumatic, pupils equal and reactive, mucous membranes moist. Skin: warm and dry. Bruising noted around her left eye. Neck: supple, no JVD Cardiovascular: S1S2, mechanical heart tones noted. regular rate and rhythm. No murmur or gallop. Respiratory: lungs clear with equal air entry anteriorly Abdomen: soft, nontender, nondistended. Bowel sounds present. Colostomy noted. : not inspected Extremities: Trace pretibial edema. Neurological: alert and oriented to person place and time. Labs: WBC 8.53, hemoglobin 8.1, hematocrit 27.4, platelet count 33, sodium 142, potassium 3.6, carbon dioxide 23, chloride 101, BUN 61, creatinine 12.1, Carina of 6.6, albumin 2.4. Intake 720, output 3365. Impression: Chronic kidney disease stage 5D/uremia. Her BUN and creatinine are improving. MS, asterixis improved. We will continue 24-hour cycler therapy. Hypocalcemia. Hyperphosphatemia. Improving. Remains on calcium acetate and calcium carbonate. Blood pressure. Stable. Fluid volume. Euvolemic. Anemia. Stable. Chronic thrombocytopenia. Noted. Acid base balance. Improving. Deconditioning. Begin PT. rg Medication review. No changes.
--- NOTE | 2019-08-09 18:24 | PROGRESS NOTE ---
DATE: 08/09/2019 SUBJECTIVE: Ms. Reyes was sleeping. She was easy to arouse. Her mother had called and was concerned that she was depression and wanted to know if we would address that. OBJECTIVE: Vital signs: Temperature 99.6 degrees, pulse 86, respirations 19, blood pressure 83/65. HEENT: Pupils are equal and round. Lungs: Clear in all lung alfredo. Cardiovascular Exam: Regular rhythm and rate without murmur or S3. Abdomen: Soft. Skin: Warm and dry. ASSESSMENT AND PLAN: 1. Chronic kidney disease stage 5D, uremia. BUN and creatinine are improving. He is on 24-hour cycler therapy peritoneal dialysis. 2. Hypocalcemia, hyperphosphatemia, improving. Remains on calcium acetate and calcium carbonate. 3. Blood pressure is stable. 4. He appears to be euvolemic. 5. Anemia, stable. 6. Chronic thrombocytopenia noted. 7. Deconditioning. Continue physical therapy. 8. History of cerebrovascular accident. 9. History of positive antiphospholipid antibody. 10. Depression. REVIEW OF MEDICATIONS: She is on Lipitor 20 mg a day, Zebeta 10 mg daily, calcium acetate 1334 mg p.o. t.i.d., calcium carbonate 500 mg p.o. q.6 hours p.r.n., Klonopin 1 mg daily, folic acid, vitamin B and C one a day, Synthroid 100 mcg daily, Cozaar 100 mg daily, Prilosec 40 mg a day, Seroquel 300 mg a day, Ultram 50 mg q.6 hours p.r.n., Umeclidinium and Vilanterol inhaler 1 puff daily p.r.n., vancomycin 1.5 grams IV q.48 hours and Coumadin 4 mg daily. Her ProTime was 32 on the . Probably ought to recheck it again. Note that her lactate levels are a little high. I do not think she is septic, and I do not want to give her the fluid for septic protocol. I will continue her vancomycin, but document that I do not feel she is in sepsis. cc: Matt Noland MD [facility]
[2019-08-09] MEDS: FOLIC ACID PO SCH (20:15)
[2019-08-10] MEDS ORDERED: VANCOMYCIN 1.5 GM in NS 250 ML IV SCH (02:00)
[2019-08-10] MEDS: SYNTHROID PO SCH (06:23)
[2019-08-10] MEDS: LIPITOR PO SCH (09:22)
[2019-08-10] MEDS: KLONOPIN PO SCH (09:22)
[2019-08-10] MEDS: ZEBETA PO SCH (09:23)
[2019-08-10] MEDS: SEROQUEL PO SCH (09:23)
[2019-08-10] MEDS: COZAAR PO SCH (09:23)
[2019-08-10] MEDS: PRILOSEC PO SCH (09:23)
[2019-08-10] MEDS: PHOSLO PO SCH ×3 (09:23→16:48)
[2019-08-10] MEDS: COUMADIN PO SCH (09:23)
[2019-08-10] MEDS: NEPHRO-VITE PO SCH (09:23)
[2019-08-10] MEDS: FOLIC ACID PO SCH ×2 (09:23→20:14)
[2019-08-10 10:23] LABS: BASO# 0.02 X1000 (0.0-0.2); BASO% 0.2 % (0.0-0.8); EOS# 0.28 X1000 (0.0-0.7); HEMATOCRIT 29.8 % (37.0-47.0); HEMOGLOBIN 8.7 g/dL (12.0-16.0); IMM GRAN# 0.02 X1000 (0.0-0.04); IMM GRAN% 0.2 % (0.0-0.5); LYMPH# 1.53 X1000 (1.2-3.4); LYMPH% 16.2 % (20.5-51.1); MCH 29.3 PG (27-31); MCHC 29.2 g/dL (33-37); MCV 100.3 FL (81-99); MONO# 0.91 X1000 (0.11-0.59); MONO% 9.6 % (1.7-9.3); NEUT# 6.69 X1000 (1.4-6.5); NEUT% 70.8 % (42.2-75.2); PLT 54 X1000 (130-400); RBC 2.97 XMIL (4.2-5.4); RDW 15.5 % (11.5-14.5); WBC 9.45 X1000 (4.8-10.8)
[2019-08-10 11:12] LABS: ALBUMIN 2.6 g/dL (3.5-5.0); PHOSPHORUS 5.9 mg/dL (2.7-4.5); POTASSIUM 3.4 mmol/L (3.5-5.1)
[2019-08-10] MEDS ORDERED: NS 1,000 ML IV ONE (11:57)
[2019-08-10 12:20] LABS: CALCIUM 6.8 mg/dL (8.8-10.2); CREATININE 10.8 mg/dL (0.5-0.9)
--- NOTE | 2019-08-10 12:31 | PROGRESS NOTE ---
DATE: 08/10/2019 INTERVAL HISTORY: The patient is approximately stable. Denying dyspnea, chest pain. Did have troponin which remains only mildly elevated but more than previous. Still suspect elevated creatinine and possibly a little bit of demand ischemia as the cause but since it is trending up, we will get cardiology to see her. No other acute events. REVIEW OF SYSTEMS: Twelve point review of systems negative except as per interval history. LABS: WBC 9.4, hemoglobin 8.7, hematocrit 29.8, platelets 54,000. Sodium 142, potassium 3.4, BUN 56, creatinine pending, calcium pending, phosphorus 5.9. Troponin 159 up from 120. VITAL SIGNS: T-max 99.6 degrees, pulse 81, respirations 20, blood pressure 84/53, O2 saturation 97% on room air. PHYSICAL EXAMINATION: General: No acute distress. Vitals: As above. HEENT: Normocephalic, atraumatic. Moist mucous membranes. No cervical adenopathy. Cardiovascular: Regular rate and rhythm. Mitral click noted on left lower sternal border. Abdomen: Soft, nontender, nondistended. Dialysis catheter in place without any sign of infection. Extremities: Peripheral pulses intact. Trace edema, stable. No clubbing or cyanosis. Neurologic: Cranial nerves grossly intact. No focal deficits identified. Psychiatric: Normal mood and affect. Awake, alert, oriented x3. ASSESSMENT AND PLAN: 1. End-stage renal disease, hyperphosphatemia. The patient remains on 24 hour peritoneal dialysis. Phosphorus is coming down. Anticipate discharge once nephrology is satisfied with her labs and her plan for outpatient dialysis. Continue treatment and monitor. 2. Hypocalcemia. Repeat check pending. We will plan on continuing calcium carbonate and calcium acetate. 3. Anemia of chronic disease, roughly stable. 4. Chronic thrombocytopenia, slightly improved today. No signs or symptoms of bleeding. Monitor. 5. Hypothyroidism. Continue home Synthroid. 6. History of hypertension. Blood pressure is extremely well-controlled. Blood pressure is actually a little on the low side. We will come down some on her losartan. 7. Tobacco abuse. Patient has been counseled on smoking cessation. 8. Mechanical mitral valve. The patient is on Coumadin. Last INR 3.0. Repeat INR pending. 9. Possible antiphospholipid syndrome, on Coumadin as above.
[2019-08-10 13:43] LABS: INR 5.42; PROTIME 51.4 Seconds (11.0-16.0)
[2019-08-10] MEDS: MAG-OX PO SCH ×2 (14:10→20:14)
[2019-08-10] MEDS: NS 1,000 ML IV SCH (19:05)
--- NOTE | 2019-08-10 19:27 | PROVIDER PROGRESS NOTE ---
Progress Note Subjective: She is sitting up eating breakfast at bedside. She denies any complaints. Objective: temperature 98.3, pulse 81, respirations 20, blood pressure 84/53, 02 sat 97% on room air. General: Obese, chronically ill White female sitting up in no acute distress. HEENT: normocephalic, atraumatic, pupils equal and reactive, mucous membranes moist. Skin: warm and dry. Bruising noted around her left eye. Neck: supple, no JVD Cardiovascular: S1S2, mechanical heart tones noted. regular rate and rhythm. No murmur or gallop. Respiratory: lungs clear with equal air entry anteriorly Abdomen: soft, nontender, nondistended. Bowel sounds present. : not inspected Extremities: Trace pretibial edema. Neurological: alert and oriented to person place and time. Labs: intake 730, output 3080. Impression: Chronic kidney disease stage 5D/uremia. She has no uremic complaints. We will continue nightly-hour cycler therapy but adjust ultrafiltration and recheck labs in the AM. Hypocalcemia. Hyperphosphatemia. Improving. Remains on calcium acetate and calcium carbonate. Blood pressure. Low. We will pull less fluid and give 1 L NS. BP remained low so repeated NS 1 L. Fluid volume. Euvolemic. 3080ml ultrafiltration noted with PD yesterday. Anemia. Folic acid started. Chronic thrombocytopenia. Noted. Acid base balance. Improving Physical deconditioning. PT in place. Medication review. Folic acid.
[2019-08-11 05:58] LABS: BASO# 0.01 X1000 (0.0-0.2); BASO% 0.2 % (0.0-0.8); EOS# 0.27 X1000 (0.0-0.7); EOS% 4.3 % (0.0-10.0); HEMATOCRIT 26.4 % (37.0-47.0); HEMOGLOBIN 7.8 g/dL (12.0-16.0); IMM GRAN# 0.03 X1000 (0.0-0.04); IMM GRAN% 0.5 % (0.0-0.5); LYMPH# 1.23 X1000 (1.2-3.4); LYMPH% 19.6 % (20.5-51.1); MCH 29.8 PG (27-31); MCHC 29.5 g/dL (33-37); MCV 100.8 FL (81-99); MONO# 0.52 X1000 (0.11-0.59); MONO% 8.3 % (1.7-9.3); MPV 11.4 FL (7.4-10.4); NEUT# 4.22 X1000 (1.4-6.5); NEUT% 67.1 % (42.2-75.2); PLT 47 X1000 (130-400); RBC 2.62 XMIL (4.2-5.4); RDW 15.1 % (11.5-14.5); WBC 6.28 X1000 (4.8-10.8)
[2019-08-11] MEDS: SYNTHROID PO SCH (06:22)
[2019-08-11 06:44] LABS: POTASSIUM 3.5 mmol/L (3.5-5.1)
[2019-08-11] MEDS: NS 1,000 ML IV SCH (07:33)
[2019-08-11 08:48] LABS: CALCIUM 6.6 mg/dL (8.8-10.2); CREATININE 10.4 mg/dL (0.5-0.9)
[2019-08-11] MEDS: PHOSLO PO SCH ×3 (09:15→17:28)
[2019-08-11] MEDS: MAG-OX PO SCH ×2 (09:16→21:56)
[2019-08-11] MEDS: COUMADIN PO SCH (09:16)
[2019-08-11] MEDS: LIPITOR PO SCH (09:16)
[2019-08-11] MEDS: FOLIC ACID PO SCH ×2 (09:16→21:56)
[2019-08-11] MEDS: PRILOSEC PO SCH (09:16)
[2019-08-11] MEDS: NEPHRO-VITE PO SCH (09:16)
[2019-08-11] MEDS: SEROQUEL PO SCH (09:16)
[2019-08-11] MEDS: KLONOPIN PO SCH (09:17)
--- NOTE | 2019-08-11 12:32 | EKG Report ---
Test Performed on : 08/11/2019 12:17:26 PM Test Reason : dyspnea Blood Pressure : / mmHG Vent. Rate : 085 BPM Atrial Rate : 085 BPM P-R Int : 126 ms QRS Dur : 090 ms QT Int : 418 ms P-R-T Axes : 048 012 043 degrees QTc Int : 497 ms Sinus rhythm. with premature atrial complexes. with aberrant conduction. Possible Anterior infarct , age undetermined Abnormal ECG When compared with ECG of August 05, 2019- Nonspecific ST and T wave abnormalities are no longer present. Confirmed by Aldo Fierro MD ([id number]) on 08/11/2019 7:48:06 PM
[2019-08-11] MEDS ORDERED: RETACRIT (ESRD PATIENTS) SUBQ ONE (12:43)
--- NOTE | 2019-08-11 12:59 | Diag Imaging Result Doc PS360 ---
EXAM: CHEST-2 VIEWS 08/11/2019 HISTORY: dyspnea, ESRD TECHNIQUE: Two views the chest COMMENT: The inspiration is suboptimal. There is mild cardiomegaly. There is a mitral valve prosthesis. Compared to 08/05/2019 there has been no significant change. IMPRESSION: Stable chest. Electronically signed by Juan Pablo Hunter 08/11/2019 12:57 PM
[2019-08-11 13:00] LABS: INR 5.33; PROTIME 50.7 Seconds (11.0-16.0)
--- NOTE | 2019-08-11 13:42 | PROGRESS NOTE ---
DATE: 08/11/2019 INTERVAL HISTORY: The patient is doing better from a renal standpoint. Her phosphorus has trended down. Overall, it remains a little high. She had some hypotension yesterday that did improve with a couple L of fluid. Blood pressure is actually pretty good this morning, and initially following might be able to discharge her home, but blood pressure has sort of trickled down over the course of the day. She is not frankly hypotensive currently, but will have to continue watching the trend. The patient is pretty asymptomatic. She continues to have some very mild confusion, but most responses are appropriate. She is quite cooperative. She remains afebrile. No new complaints. REVIEW OF SYSTEMS: Twelve point review of systems negative except as per interval history. LABORATORY: WBC 6.2, hemoglobin 7.8, hematocrit 26.4, and platelets 47,000. Sodium 142, potassium 3.5, creatinine 10.4, calcium 6.6, phosphorus 6.0, and magnesium 1.1. Troponin 164, essentially no change from previous at 159. OBJECTIVE: Vital Signs: T-max 98.7 degrees, pulse 80, respirations 18, blood pressure 87/61, and O2 saturation 97% on room air. General: No acute distress. HEENT: Normocephalic, atraumatic. Moist mucous membranes. No cervical adenopathy. Cardiovascular: Regular rate and rhythm. Mitral click noted on left lower sternal border and stable. Abdomen: Soft, nontender, and nondistended. Peritoneal dialysis catheter in place. Extremities: Peripheral pulses intact. Trace edema unchanged. No clubbing or cyanosis. Neurologic: Cranial nerves grossly intact. No focal deficits. Psychiatric: Normal mood and affect. Awake, alert, and oriented to person, place and the year but not month. ASSESSMENT AND PLAN: 1. End-stage renal disease, hyperphosphatemia. The patient no longer on 24 hour peritoneal dialysis, now on just nightly. Phosphorus still high, but improved from previous. Current level acceptable per Nephrology. If other issues remain stable, then may be able to be discharged either this afternoon or in the morning. 2. Hypotension. The patient appears to always have a low normal blood pressure. She had further lows yesterday prompting her to get a couple L of fluid which did appear to improve her blood pressure. Actually, it looked quite good this morning with a blood pressure of 128/58 and consider discharge, the patient's blood pressure has sort of trickled down since then. It is not significantly worse than what it has been over the last few days, but it has gone from there to 94/53 to 87/61. I would like to see it at least remain stable on a couple of consecutive checks before we discharge her. Nephrology has adjusted her dialysis. Continue to monitor blood pressure, and will consider additional fluid boluses if necessary. 3. Hypocalcemia, improved from admission roughly stable over the last couple days. Continue calcium carbonate, and calcium acetate. 4. Anemia of chronic disease. Blood counts essentially stable. 5. Chronic thrombocytopenia. Also roughly stable. Monitor labs. 6. Elevated troponin, likely related to end-stage renal disease, possibly some demand hypertension from her hypotension yesterday, but since troponin did trend up slightly getting cardiology to evaluate her. Suspect that there will be nothing that needs to be done acutely, but we will see what they say. 7. Hypothyroidism. Continue on Synthroid. 8. History of hypertension off of her losartan because of hypotension yesterday as noted above. Also, holding home bisoprolol. 9. Tobacco abuse. Patient has been counseled on smoking cessation. 10. Mechanical mitral valve. Patient on Coumadin. INR slightly supratherapeutic. Will decrease warfarin dose to 3 and we will monitor.
--- NOTE | 2019-08-11 14:36 | CARDIOLOGY CONSULTATION ---
DATE: 08/11/2019 CONSULTATION REQUESTED BY: Hospitalist. REASON FOR CONSULTATION: Abnormal troponins. CHIEF COMPLAINT: Swelling. HISTORY: Ms. Reyes is a 48-year-old female who has advanced renal failure on dialysis. The patient was admitted to the hospital on August 05 because the patient had developed progressive swelling due to inadequate home dialysis program. Once admitted, they identified some issues like body wall anasarca, cardiomegaly and she had suffered a fall with evidence of an ecchymosis on the left side of the face and orbit. She has periorbital ecchymosis. The patient is on long-term warfarin therapy. Upon presentation, she had clear evidence of poorly managed dialysis with initial BUN of 114 on August 05 and a creatinine level of 19.4 on August 05, so basically she was in full blown uremia. With the dialysis program, her BUN has been brought down to 54 mg/dL and the creatinine has been brought down to 10.4 mg/dL. During the days in the hospital, they have checked a troponin on August 05 and then again on August 09 and then last one on August 10. The numbers are 128 mg/L, 159 mg/L and 164 mg/L. EKG was done on August 05 and shows sinus rhythm with a prolonged QT, nonspecific T. It has been repeated today, August 10 at 12:17 p.m. and shows sinus rhythm with a PAC. No clear indication of ischemic ST changes. The patient denies having chest pain. She felt swollen and short of breath at the time of initial admission. There is no nausea, vomiting and there has been improvement of the swelling of the lower extremities that she complained of at the time of admission. A chest x-ray has been repeated today and shows no evidence of infiltrates. There is mild cardiomegaly. There is evidence of a prosthetic mitral valve. PAST HISTORY: Positive for previous mitral valve disease. She has had also progressive kidney disease and has been initiated on dialysis. There is a remote history of hypertension, stroke, antiphospholipid syndrome, anemia, and hypothyroidism. PAST SURGICAL HISTORY: She had mitral valve replacement with a mechanical prosthetic valve. She has had hernia repair, AV fistula and at some point she had a diagnosis of bacteremia and they did a transesophageal echocardiogram last year to rule out endocarditis. SOCIAL HISTORY: She is a . Disabled. Lives at home. Smoker in the past. FAMILY HISTORY: Noncontributory. ALLERGIES TO: Latex, codeine and heparin. REVIEW OF SYSTEMS: Other than what I have reported, nothing significant. She has no prior history of coronary heart disease. She had a heart catheterization about 10 years ago that showed no evidence of any obstructive coronary disease. A CT of the chest shows only a limited amount of plaque. PHYSICAL EXAMINATION: Vital signs: Blood pressure is 94/53, pulse is 80, temperature 91 degrees, respirations 20. General/HEENT: The patient is awake, looks chronically ill with evidence of ecchymosis around the left orbit and forehead. Neck: No jugular venous distention. Chest: Shows diminished breath sounds at bases. Heart: Sounds are regular, rhythmic with normal closing click of prosthetic mechanical valve. The sounds are very crisp indicating that the valve is fully functional. Abdomen: Nontender. Extremities: Show trace edema. Neurologic: Nonfocal, moves 4 extremities. LABORATORY: Today, white cell count 6280, hemoglobin 7.8, hematocrit 26.4, sodium 142, potassium 3.5, chloride 101. Magnesium was 1.1. The primary service is replacing magnesium. IMPRESSION: 1. Patient who presented to the hospital basically in uremia due to inadequate hemodialysis. She has end-stage renal disease. CHF diastolic / anasarca edema is the consequence of that. 2. Chronic anemia. 3. History of mitral valve replacement on long-term warfarin therapy. 4. Elevation in troponin level. Concern for non ST NV. The troponin level elevation of this time is really spurious. I would not pursue ischemic workup at this time. There is really no good justification to do that. That may be entertained down the road once the patient is really optimized from the renal and metabolic viewpoint. At this time, I do not believe that any further testing is necessary. Just call me if you have any questions or concerns and I would be glad to discuss any future interventions over the phone. cc: MD NA Luna
--- NOTE | 2019-08-11 16:15 | PROVIDER PROGRESS NOTE ---
Progress Note Subjective: shes lying flat in bed with no shortness of breath or supplemental oxygen. She appears more drowsy than she has been. She denies any complaints. Objective: temperature 98.1, pulse 80, respirations 18, blood pressure 94/53, 02 sat 98% on room air. General: Obese, chronically ill White female sitting up in no acute distress. HEENT: normocephalic, atraumatic, pupils equal and reactive, mucous membranes moist. Skin: warm and dry. Neck: supple, no JVD Cardiovascular: S1S2, mechanical heart tones noted. regular rate and rhythm. No murmur or gallop. Respiratory: lungs clear with equal air entry anteriorly Abdomen: soft, nontender, nondistended. Bowel sounds present. : not inspected Extremities: Trace pretibial edema. Neurological: Drowsy, oriented to person place and time. Labs: WBC 6.28, hemoglobin 7.8, hematocrit 26.4, platelet count 47, sodium 142, potassium 3.5, chloride 101, carbon dioxide 22, BUN 54, creatinine 10.4. Intake 3330, output 1404. Impression: Chronic kidney disease stage 5D/uremia. Her creatinine is stable. She has no uremic complaints. We will continue nightly-cycler therapy and have her come to our office for further education and plan of peritoneal dialysis. Hypocalcemia. Hyperphosphatemia. Aware. Remains on calcium acetate and calcium carbonate. Hypotension. Varies, we will order an echocardiogram. Cardiology consulted. Fluid volume. Euvolemic. 1401ml ultrafiltration noted with PD yesterday. Anemia. Low, stable. Does not meet transfusion criteria. Chronic thrombocytopenia. Noted. Acid base balance. Stable. Physical deconditioning. PT in place. Medication review. We will order magnesium oxide 400mg daily at discharge.
[2019-08-11] MEDS ORDERED: COUMADIN PO SCH (21:00)
[2019-08-12 05:32] LABS: BASO# 0.02 X1000 (0.0-0.2); BASO% 0.4 % (0.0-0.8); EOS# 0.22 X1000 (0.0-0.7); HEMATOCRIT 28.2 % (37.0-47.0); HEMOGLOBIN 8.3 g/dL (12.0-16.0); IMM GRAN# 0.02 X1000 (0.0-0.04); IMM GRAN% 0.4 % (0.0-0.5); LYMPH% 18.3 % (20.5-51.1); MCH 29.4 PG (27-31); MCHC 29.4 g/dL (33-37); MONO# 0.63 X1000 (0.11-0.59); MONO% 11.5 % (1.7-9.3); MPV 10.3 FL (7.4-10.4); NEUT# 3.57 X1000 (1.4-6.5); NEUT% 65.4 % (42.2-75.2); PLT 49 X1000 (130-400); RBC 2.82 XMIL (4.2-5.4); RDW 15.2 % (11.5-14.5); WBC 5.46 X1000 (4.8-10.8)
[2019-08-12 05:49] LABS: ALBUMIN 2.2 g/dL (3.5-5.0); CALCIUM 7.2 mg/dL (8.8-10.2); CREATININE 9.4 mg/dL (0.5-0.9); PHOSPHORUS 5.9 mg/dL (2.7-4.5); POTASSIUM 3.3 mmol/L (3.5-5.1)
[2019-08-12 06:07] LABS: INR 5.72; PROTIME 53.7 Seconds (11.0-16.0)
[2019-08-12] MEDS: SYNTHROID PO SCH (06:19)
[2019-08-12] MEDS: PHOSLO PO SCH ×2 (09:13→11:46)
[2019-08-12] MEDS: FOLIC ACID PO SCH (09:14)
[2019-08-12] MEDS: NEPHRO-VITE PO SCH (09:14)
[2019-08-12] MEDS: PRILOSEC PO SCH (09:14)
[2019-08-12] MEDS: KLONOPIN PO SCH (09:14)
[2019-08-12] MEDS: LIPITOR PO SCH (09:15)
[2019-08-12] MEDS: SEROQUEL PO SCH (09:15)
[2019-08-12 12:13] VITALS: BP 99/73
--- NOTE | 2019-08-12 13:52 | PROVIDER PROGRESS NOTE ---
Progress Note Subjective: She is having an echocardiogram done at bedside. She denies any complaints. She voices being encouraged to contact Shelia upon anticipated discharge today for further education on peritoneal dialysis. Objective: temperature 98.6, pulse 84, respirations 18, blood-pressure 98/63, 02 sat 98% on room air. General: Obese, chronically ill White female lying in bed in no acute distress. HEENT: normocephalic, atraumatic, pupils equal and reactive, mucous membranes moist. Skin: warm and dry. Neck: supple, no JVD Cardiovascular: S1S2, mechanical heart tones noted. regular rate and rhythm. No murmur or gallop. Respiratory: lungs clear with equal air entry anteriorly Abdomen: soft, nontender, nondistended. Bowel sounds present. : not inspected Extremities: Trace pretibial edema. Neurological: Drowsy, oriented to person place and time. Labs: WBC 5.46, hemoglobin 8.3, hematocrit 28.2, platelet count 49, sodium 141, potassium 3.3, chloride 99, carbon dioxide 24, BUN 57, creatinine 9.4, calcium 7.2, phosphorus 5.9. intake 240, output 2080. Impression: Chronic kidney disease stage 5D/uremia. Her creatinine is improved. We will continue the current PD plan and have her come to the office for further education. She had 2080ml ultrafiltration yesterday. Hypocalcemia. Hyperphosphatemia. Improved. Remains on calcium acetate and calcium carbonate. Hypotension. Stable. Echocardiogram being done at bedside now, no new input from cardiology. Fluid volume. Euvolemic. Anemia. Low, stable. Does not meet transfusion criteria. Chronic thrombocytopenia. Noted. Acid base balance. Stable. Physical deconditioning. PT in place. Medication review. We will order magnesium oxide 400mg daily at discharge. Upper abdominal hernia. Reducible. No changes.
--- NOTE | 2019-08-12 18:00 | ECHO REPORT ---
ORDER DATE: 08/11/2019 INDICATION: Anasarca/edema, CHF, diastolic, end-stage renal disease, status post mitral valve replacement. M-MODE MEASUREMENTS: Left ventricle end diastole: 5.3. Left ventricle end systole: 3.3. Posterior wall: 1.0. Interventricular septum: 1.0. Left atrium: 4.0. Aortic diameter: 3.4. SUMMARY OF 2-DIMENSIONAL IMAGIN. Left ventricular function is normal. Ejection fraction is 60% to 65%. 2. The aortic valve is unremarkable. Color flow mapping unremarkable. Cardiac output is probably normal. 3. The right-sided chambers are not dilated. 4. The mitral valve is a mechanical valve. Maximum gradient is about 12 mm. Mean gradient is 7 mmHg. That is probably normal for this type of valve. 5. Tissue Doppler of septal and lateral mitral annulus averages 8 cm. There is no diastolic dysfunction. 6. The left atrium is mildly enlarged. 7. The pulmonic valve is unremarkable. 8. The tricuspid valve shows a mild degree of regurgitation. Pulmonary pressure is estimated at 22 to 27 mmHg. 9. There is no pericardial effusion, no mass, and no thrombus. Clinical correlation recommended. cc: MD Adam Luna MD
[2019-08-13] MEDS ORDERED: MAG-OX PO SCH (09:00)
--- NOTE | 2019-08-13 14:25 | DISCHARGE SUMMARY ---
ADMISSION DATE: 08/05/2019 DISCHARGE DATE: 08/12/2019 CONSULTATIONS: 1. Dr. Fritz with Nephrology. 2. Dr. Lockhart with Cardiology. PERTINENT PROCEDURES: 1. Abdomen and pelvis CT. Stable cholelithiasis. Peritoneal fluid and a few tiny droplets of extraluminal gas that is assumed to be related to peritoneal dialysis. Small right pleural effusion and trace left effusion. Body wall anasarca. 2. Head and cervical spine. Stable chronic changes. No evidence of acute intracranial pathology. Multilevel [id number] degenerative changes but no evidence of fracture or acute C-spine injury. 3. Maxillofacial CT. No evidence of facial bone fracture. DISCHARGE DIAGNOSES: 1. Chronic kidney disease stage V, uremia. Creatinine has now improved. She is continuing on her peritoneal dialysis and will follow up with Dr. Fritz as an outpatient. 2. Hypocalcemia, hyperphosphatemia, improved. Will continue on calcium acetate and calcium carbonate. 3. Hypotension, now stable. 4. Elevation in troponin level. Concern for [id number] myocardial infarction. They would not like to pursue any ischemic workup at this time and recommend optimize renal and metabolic issues, and down the road they may pursue an ischemic workup. 5. Mitral valve replacement on long-term Coumadin therapy. 6. Anemia, low but stable. She has not required any transfusions. 7. Chronic thrombocytopenia, stable. 8. Hypothyroidism. Continue Synthroid. 9. History of hypertension, off her losartan because of hypotension as well as bisoprolol. 10. Tobacco use and abuse. Patient was counseled daily on smoking cessation as well as means to quit. 11. Physical deconditioning. Patient has been working with Physical Therapy and will be discharged back home today to follow up with her primary care provider, Jung Huitron, on 08/18/2019, as well as continue follow up with Dr. Fritz. VITAL SIGNS AT DISCHARGE: Temperature is 97.4 degrees, heart rate 86, respirations 18, blood pressure 99/73, O2 is 100% on room air. DISCHARGE DIET: Renal. DISCHARGE MEDICATIONS: 1. Anoro 1 puff inhaled daily p.r.n. 2. Atorvastatin 20 mg p.o. daily. 3. Coumadin 4 mg p.o. daily. 4. Tramadol 50 mg p.o. q.6 hours p.r.n. pain. 5. Seroquel 300 mg p.o. daily. 6. Protonix 40 mg p.o. daily. 7. Synthroid 100 mcg p.o. q.a.m. 8. Neurontin 300 mg p.o. t.i.d. 9. Folic acid, vitamin B complex and C 1 each p.o. daily. 10. Folic acid 1 mg p.o. b.i.d. 11. Klonopin 1 mg p.o. daily. 12. PhosLo 1334 mg p.o. t.i.d. HOSPITAL COURSE: Briefly, Ms. Reyes is a 48-year-old female with stage V chronic kidney disease who was started on peritoneal dialysis because she had been reduced only left femoral vein catheter for hemodialysis and that was infected. She had been doing peritoneal dialysis at home for about 4 weeks and she came to the ED because of swelling. She went to Dr. Fritz's office for follow-up to begin training using an automated peritoneal dialysis cycler. However, she was unfit for training with stumbling and confused and tremulous. Initially tried to treat her in the office with a cycler, but she was not improving and was directed to the Hospitalist Service for admission for uremia complicated by her metabolic acidosis, hyperkalemia and other electrolyte imbalances. She continued to have her dialysis under the direction of Dr. Fritz. Unfortunately, shortly after being admitted, she was found to have some body wall anasarca, cardiomegaly. She also suffered a fall with evidence of ecchymosis on the left side of her face and orbit with some periorbital ecchymosis. Head imaging did not show anything acute. Her BUN and creatinine continued to improved with her dialysis. However, her troponins continued to rise. She was evaluated by Cardiology. They did not wish to pursue any ischemic workup at this time. There was really no good justification to do so. Once her renal and metabolic issues were optimized, they may entertain doing an ischemic workup down the road. However, she has no previous history of coronary disease. She has some generalized physical deconditioning. She was working with physical therapy. Her electrolytes, acid-base and anemia were all within acceptable ranges. She was no longer requiring 24 hour peritoneal dialysis, just now nightly. They are going to continue with her current PD plan and have her come back to the office for further education. FOLLOWUP: Ms. Reyes is being discharged back home to continue with her peritoneal dialysis as planned. She is to follow up with Jung Huitron on 08/18/2019, as well as Dr. Fritz. She will call the office to schedule a follow-up visit in a week. She can return to the ED or call 911 for any worsening of symptoms. She is take all medications as prescribed. Dictated by JAVIER Romero for Emilio Heller MD Addendum: Patient seen and examined by myself. Agree with JAVIER note. It reflects my assessment and plan. Patient is being discharged in stable condition and will be seen by PCP in a week and with Dr. Fritz as well. cc: Emilio Heller MD MTDD
== END 2019-08-12 16:35 | disposition home health service (06) | DRG 682 ==
LOC: ED 15:58 → SUATTDRO 19:42 → 1N 19:42
PROVIDERS: ATTEND Internal Medicine